=== PATIENT | male | born 1940 | race Caucasian/White ===

== ENCOUNTER 2017-09-08 05:52 | Day surgery (SDC) | payer MEDICARE, OTHER ==
[2017-09-08] MEDS ORDERED: DIPRIVAN 200 MG/20 ML IV ONE (05:53)
[2017-09-08] MEDS ORDERED: Ketamine HCl 50 MG/ML IJ ONE (05:53)
[2017-09-08] MEDS ORDERED: Lactated Ringers 1,000 ML IV SCH (06:00)
[2017-09-08] MEDS ORDERED: Lactated Ringers 1,000 ML IV ONE (07:09)
[2017-09-08 08:56] VITALS: O2SAT 97
[2017-09-08 09:06] VITALS: BP 115/75; PULSE 77
--- NOTE | 2017-09-08 11:51 | OP ---
SURGERY DATE/TIME: 09/08/2017 0726 PREOPERATIVE DIAGNOSIS: Screening exam. POSTOPERATIVE DIAGNOSIS: Moderate sigmoid diverticulosis otherwise normal colon. PROCEDURE: Colonoscopy. SURGEON: Dr. Brownlee. ANESTHESIA: MAC. Medications given by anesthesia department. HISTORY: The patient is a 76 year-old white male patient presenting now for his first colonoscopy. The patient was described the risks of the procedure including the risk of perforation, phlebitis, untoward reaction to medication, bleeding and missed lesions. The patient verbalized his understanding and desired to have the procedure performed. DESCRIPTION OF PROCEDURE: The patient was given the medications by the anesthesia department. He had continuous pulse oximetry, ECG monitoring, intermittent blood pressure monitoring, and tidal CO2 monitoring during the examination. He was placed in the left lateral decubitus position. A digital rectal examination was performed and revealed normal anal sphincter tone and no masses and normal prostate. The flexible Olympus pediatric colonoscope was used to intubate the rectum. A view of the colon was developed sequentially to the cecum. Upon insertion and withdrawal, including a retroflex view in the rectum, there was noted moderate to severe sigmoid diverticulosis otherwise no mucosal lesions were encountered. The scope was removed from the patient who tolerated the procedure well and was sent back to OP recovery in good condition. The prep was noted to be fair.
== END 2017-09-08 09:10 | disposition home or self-care (01) ==
LOC: SDC 05:52
PROVIDERS: ATTEND Family Medicine
PROC: 0DJD8ZZ Inspection of Lower Intestinal Tract, Via Natural or Artificial Opening Endoscopic (ICD-10-PCS; principal; 2017-09-08)
DX: Z12.11 Encounter for screening for malignant neoplasm of colon (principal); E11.9 Type 2 diabetes mellitus without complications; E03.9 Hypothyroidism, unspecified; I25.10 Atherosclerotic heart disease of native coronary artery without angina pectoris; Z95.0 Presence of cardiac pacemaker; K57.30 Diverticulosis of large intestine without perforation or abscess without bleeding
CPT/HCPCS: 82962; G0121; 00740; 99100; J2704

== ENCOUNTER 2017-10-24 17:58 | Observation (INO) | payer MEDICARE, OTHER ==
[2017-10-24] MEDS ORDERED: Zithromax 500 MG/ 250 ML NaCl Premix 500 MG/250 ML IVPB IV STA (18:17)
[2017-10-24] MEDS ORDERED: ROCEPHIN 1 Gm-D5w 50 ml Bag** 1 G/50 ML IVPB IV STA (18:17)
[2017-10-24] MEDS ORDERED: FEVERALL 650 MG PR ONE (18:17)
[2017-10-24] MEDS ORDERED: Zithromax 500 MG/ 250 ML NaCl Premix 500 MG/250 ML IVPB IV ONE (18:23)
[2017-10-24] MEDS ORDERED: Sodium Chloride 0.9% 1000 ML 1,000 ML ONE (18:23)
[2017-10-24] MEDS ORDERED: FEVERALL 650 MG ONE (18:23)
[2017-10-24] MEDS ORDERED: ROCEPHIN 1 Gm-D5w 50 ml Bag** 1 G/50 ML IVPB IV ONE (18:23)
--- NOTE | 2017-10-24 18:25 | ERPHSYRPT ---
- History of Present Illness Time Seen by Provider: 10/24/17 18:07 Source: patient, EMS Patient Subjective Stated Complaint: here for weakness for 2 days . He states he cant get up on knees. he thinks its from hes kness. cough for tow days Triage Nursing Assessment: pt alert, resp easy, has nonproductive cough, right leg and foot with swelling,bruising to right foot, he states he dropped wood on it . Physician History: CC: weakness Hx: 77 y/o patient from home with generalized weakness since yesterday. Some cough. No known fever or chills. Dropped wood on his right foot and has swelling and bruising. Was too weak to stand so came to ER in an EMS unit. He has hx of renal failure not on dialysis. Hx of DM. No V/D. No headache. He has severe myalgias. Dr Torrie Asif Timing/Duration: yesterday Severity: moderate, severe Allergies/Adverse Reactions: glimepiride [From Amaryl] Adverse Reaction (Severe, Verified 10/24/17 18:05) Home Medications: Aspirin 81 gm Chew [Baby Aspirin 81 mg Chew] 81 mg PO DAILY 03/27/14 [ History] Levothyroxine Sodium 50 Mcg [Synthroid 50 Mcg] 25 mcg PO DAILY 03/27/14 [ History] Clopidogrel Bisulfate [Plavix] 75 mg PO 3XW 06/16/14 [History] Donepezil HCl [Aricept] 10 mg PO BID 06/16/14 [History] Tamsulosin HCl 0.4 mg [Flomax 0.4 MG] 0.4 mg PO HS 06/16/14 [History] Alprazolam 1 mg [Xanax 1 mg] 2 mg PO DAILY PRN 10/20/14 [History] Fluoxetine HCl [Prozac] 1 tablet PO DAILY 04/15/15 [History] Hydrocodone Bit/Acetaminophen [Hydrocodon-Acetaminoph 7.5-325] 1 each PO Q4H PRN PRN 04/15/15 [History] Memantine HCl [Namenda] 28 mg PO DAILY 04/15/15 [History] Atorvastatin Calcium 20 mg PO DAILY 08/17/17 [History] Cholecalciferol (Vitamin D3) [Vitamin D] 1,000 unit PO WEEKLY 08/17/17 [ History] Cinacalcet HCl [Sensipar] 30 mg PO DAILY 08/17/17 [History] Ferrous Sulfate [Iron] 325 mg PO DAILY 08/17/17 [History] Gabapentin [Neurontin] 300 mg PO DAILY 08/17/17 [History] Glipizide 7.25 mg PO BID 08/17/17 [History] Metoprolol Succinate 50 mg [Toprol Xl 50 MG] 50 mg PO DAILY 08/17/17 [ History] Omeprazole 40 mg PO DAILY 08/17/17 [History] Ranolazine [Ranexa] 1,000 mg PO DAILY 08/17/17 [History] Sodium Bicarbonate 650 mg PO BID 08/17/17 [History] Vitamin B Complex 1 each PO DAILY 08/17/17 [History] Hx Tetanus, Diphtheria Vaccination/Date Given: Yes (UP TO DATE) Hx Influenza Vaccination/Date Given: Yes Hx Pneumococcal Vaccination/Date Given: Yes Immunizations Up to Date: Yes - Review of Systems Constitutional: Malaise, Weakness, No Fever, No Chills Eyes: No Symptoms Ears, Nose, & Throat: No Symptoms Respiratory: Cough, No Dyspnea Cardiac: No Chest Pain Abdominal/Gastrointestinal: No Abdominal Pain, No Nausea, No Vomiting, No Diarrhea Genitourinary Symptoms: No Dysuria Musculoskeletal: Joint Pain (right foot), No Back Pain Skin: No Rash Neurological: No Focal Weakness, No Headache, No Paralysis, No Parasthesia All Other Systems: Reviewed and Negative - Past Medical History Pertinent Past Medical History: Yes Neurological History: No Pertinent History ENT History: No Pertinent History Cardiac History: High Cholesterol, Hypertension, Myocardial Infarction (DC), Other Respiratory History: Pneumonia Endocrine Medical History: Diabetes Type II, Hypothyroidism Musculoskeletal History: No Pertinent History GI Medical History: Diverticulitis, GERD, Other History: Renal Disease, Other Psycho-Social History: No Pertinent History Male Reproductive Disorders: No Pertinent History Other Medical History: Melanoma Left arm; Stage 4 renal disease - Past Surgical History Past Surgical History: Yes Neuro Surgical History: No Pertinent History Cardiac: Cardiac Catheterization, Cardiac Stent, Pacemaker Respiratory: No Pertinent History Gastrointestinal: No Pertinent History Genitourinary: No Pertinent History Musculoskeletal: Orthopedic Surgery Male Surgical History: No Pertinent History Other Surgical History: rt knee, and revision to rt knee,skin lesions removed lt arm - Social History Smoking Status: Never smoker Exposure to second hand smoke: Yes Drug Use: none Patient Lives Alone: Yes - Nursing Vital Signs Nursing Vital Signs: Initial Vital Signs Temperature 99.6 F 10/24/17 17:59 Pulse Rate 77 10/24/17 17:59 Respiratory Rate 18 10/24/17 17:59 Blood Pressure 137/67 10/24/17 17:59 O2 Sat by Pulse Oximetry 92 L 10/24/17 17:59 Pain Scale Pain Intensity 0 - Physical Exam General Appearance: alert Eye Exam: PERRL/EOMI Ears, Nose, Throat Exam: normal ENT inspection, dry mucous membranes Neck Exam: normal inspection, non-tender, supple, No meningismus Respiratory Exam: crackles/rales (right lung base greater than left) Cardiovascular Exam: regular rate/rhythm Gastrointestinal/Abdomen Exam: soft, No tenderness, No distention, No mass, No guarding Male Genitalia Exam: normal genitalia Back Exam: normal inspection, normal range of motion Extremity Exam: normal range of motion, tenderness (with bruising right foot) Neurologic Exam: alert, oriented x 3, cooperative, communication analyst II-XII nml as tested, sensation nml, No motor deficits Skin Exam: warm, dry, pale, No rash SpO2 Interpretation: hypoxic, O2 applied SpO2: 89 Oxygen Delivery: Room Air - Course Nursing assessment & vital signs reviewed: Yes EKG Interpreted by Me: RATE (75), Sinus Rhythm, LAFB, Right Bundle Branch Block , Non-specific ST Changes - Radiology Exams cxr X-ray Interpretation: Interpreted by me (RUL infiltrate, bibasilar A/I. CM, pacemaker.) Ordered Tests: Active Orders 24 hr Category Date Time Status Herman Bandage Application -[facility] STAT Care 10/24/17 19:41 Active Spar Cap Beveler STAT Care 10/24/17 18:17 Active EKG-ER Only STAT Care 10/24/17 18:08 Active IV Insertion STAT Care 10/24/17 18:07 Active Oxygen-ED Only NASAL CANNULA 2 lpm Care 10/24/17 18:17 Active Pulse Oximetry (ED) STAT Care 10/24/17 18:17 Active Splint STAT Care 10/24/17 19:41 Active CHEST 1 VIEW (PORTABLE) Stat Exams 10/24/17 18:11 Taken FOOT (MINIMUM 3 VIEWS) Stat Exams 10/24/17 19:41 Ordered BLOOD CULTURE Stat Lab 10/24/17 18:51 Received CBC W DIFF Stat Lab 10/24/17 18:40 Completed CMP Stat Lab 10/24/17 18:40 Completed CULTURE,URINE Stat Lab 10/24/17 18:17 Ordered Lactic Acid Stat Lab 10/24/17 18:17 Results Manual Differential NC Stat Lab 10/24/17 18:40 Completed PROTIME WITH INR Stat Lab 10/24/17 18:40 Completed PTT Stat Lab 10/24/17 18:40 Completed TROPONIN Q3H Lab 10/24/17 18:40 Completed TROPONIN Q3H Lab 10/24/17 21:30 Ordered UA Stat Lab 10/24/17 18:17 Ordered VENOUS BLOOD GAS Stat Lab 10/24/17 18:17 Completed Medication Summary Generic Name Dose Route Start Last Admin Trade Name Freq PRN Reason Stop Dose Admin Sodium Chloride 1,000 mls @ 100 mls/hr 10/24/17 18:30 10/24/17 18:30 Sodium Chloride 0.9% 1000 Ml IV 11/23/17 18:29 100 mls/hr .Q10H CYN Administration Oseltamivir Phosphate 75 mg 10/24/17 22:00 Tamiflu 75mg Capsule PO 10/29/17 21:59 BID CYN Discontinued Medications Generic Name Dose Route Start Last Admin Trade Name Freq PRN Reason Stop Dose Admin Acetaminophen 975 mg 10/24/17 18:17 10/24/17 18:30 Feverall 650 Mg IL 10/24/17 18:18 975 mg STAT ONE Administration Acetaminophen Confirm 10/24/17 18:23 Feverall 650 Mg Administered 10/24/17 18:24 Dose 1,300 mg .ROUTE .STK-MED ONE Ceftriaxone Sodium/Dextrose 1 g in 50 mls @ 100 mls/hr 10/24/17 18:17 18:30 Rocephin 1 Gm-D5w 50 Ml Bag IV 10/24/17 18:46 100 mls/hr STAT STA Administration Azithromycin 500 mg in 250 mls @ 250 mls/hr 10/24/17 18:17 10/24/17 18:30 Zithromax 500 Mg/ 250 Ml Nacl Premix IV 10/24/17 19:16 250 mls/hr STAT STA Administration Azithromycin Confirm 10/24/17 18:23 Zithromax 500 Mg/ 250 Ml Nacl Premix Administered 10/24/17 18:24 Dose 500 mg in 250 mls @ ud IV .STK-MED ONE Ceftriaxone Sodium/Dextrose Confirm 10/24/17 18:23 Rocephin 1 Gm-D5w 50 Ml Bag Administered 10/24/17 18:24 Dose 1 g in 50 mls @ ud IV .STK-MED ONE Lab/Rad Data: Laboratory Result Diagrams 10/24/17 18:40 10/24/17 18:40 Laboratory Results 10/24/17 10/24/17 10/24/17 Range/Units 18:40 18:40 18:40 WBC (4.0-10.5) K/mm3 RBC (4.1-5.6) M/mm3 Hgb (12.5-18.0) gm/dl Hct (42-50) % MCV (78-100) fl MCH (26-32) pg MCHC (32-36) g/dl RDW (11.5-14.0) % Plt Count (150-450) K/mm3 MPV (6-9.5) fl Segmented Neutrophils (36.-66.) % Band Neutrophils (0.0-2.0) % Lymphocytes (Manual) (24-44) % Monocytes (Manual) (0.0-12.0) % Differential Comment Platelet Estimate (NORMAL) INR 1.09 (0.8-3.0) APTT 31.3 (24.1-36.1) SECONDS VBG pH (7.32-7.42) VBG pCO2 at Pat Temp (42-55) mm/Hg VBG pO2 at Pat Temp (25-40) mm/Hg VBG HCO3 (22-28) meq/L VBG O2 Sat (Owen) (95-100) VBG Base Excess (-2.0-2.0) VBG Hemoglobin VBG Carboxyhemoglobin (0.0-6.9) % T HGB POC Potassium (3.5-5.1) Sodium 138 (136-145) mEq/L Potassium 4.4 (3.5-5.1) mEq/L Chloride 103 (98-107) mEq/L Carbon Dioxide 27.4 (21-32) mEq/L Anion Gap 11.8 (5-15) MEQ/L BUN 32 H (9-20) mg/dL Creatinine 4.21 H (0.55-1.30) mg/dl Estimated GFR 15 ML/MIN Glucose 138 H (70-110) MG/DL Lactic Acid (0.4-2.0) Calcium 10.4 H (8.5-10.1) mg/dL Total Bilirubin 0.40 (0.2-1.0) mg/dL AST 19 (15-37) U/L ALT 24 (12-78) U/L Alkaline Phosphatase 89 (46-116) U/L Troponin I 0.030 (0.000-0.056) ng/ml Serum Total Protein 6.4 (6.4-8.2) gm/dL Albumin 3.4 (3.4-5.0) g/dL Influenza Type A Ag (NEGATIVE) Influenza Type B Ag (NEGATIVE) RSV (PCR) (Negative) 10/24/17 10/24/17 10/24/17 Range/Units 18:40 18:17 18:17 WBC 6.7 (4.0-10.5) K/mm3 RBC 3.66 L (4.1-5.6) M/mm3 Hgb 12.4 L (12.5-18.0) gm/dl Hct 37.3 L (42-50) % MCV 101.9 H (78-100) fl MCH 33.8 H (26-32) pg MCHC 33.2 (32-36) g/dl RDW 13.0 (11.5-14.0) % Plt Count 129 L (150-450) K/mm3 MPV 9.3 (6-9.5) fl Segmented Neutrophils 89 H (36.-66.) % Band Neutrophils 4 H (0.0-2.0) % Lymphocytes (Manual) 3 L (24-44) % Monocytes (Manual) 4 (0.0-12.0) % Differential Comment NORMAL Platelet Estimate NORMAL (NORMAL) INR (0.8-3.0) APTT (24.1-36.1) SECONDS VBG pH 7.39 (7.32-7.42) VBG pCO2 at Pat Temp 52 (42-55) mm/Hg VBG pO2 at Pat Temp 16 L (25-40) mm/Hg VBG HCO3 31.5 H* (22-28) meq/L VBG O2 Sat (Owen) 48.1 L (95-100) VBG Base Excess 5.2 H (-2.0-2.0) VBG Hemoglobin 13.6 VBG Carboxyhemoglobin 1.7 (0.0-6.9) % T HGB POC Potassium 4.5 (3.5-5.1) Sodium (136-145) mEq/L Potassium (3.5-5.1) mEq/L Chloride (98-107) mEq/L Carbon Dioxide (21-32) mEq/L Anion Gap (5-15) MEQ/L BUN (9-20) mg/dL Creatinine (0.55-1.30) mg/dl Estimated GFR ML/MIN Glucose (70-110) MG/DL Lactic Acid 1.9 (0.4-2.0) Calcium (8.5-10.1) mg/dL Total Bilirubin (0.2-1.0) mg/dL AST (15-37) U/L ALT (12-78) U/L Alkaline Phosphatase (46-116) U/L Troponin I (0.000-0.056) ng/ml Serum Total Protein (6.4-8.2) gm/dL Albumin (3.4-5.0) g/dL Influenza Type A Ag (NEGATIVE) Influenza Type B Ag (NEGATIVE) RSV (PCR) (Negative) 10/24/17 Range/Units 18:15 WBC (4.0-10.5) K/mm3 RBC (4.1-5.6) M/mm3 Hgb (12.5-18.0) gm/dl Hct (42-50) % MCV (78-100) fl MCH (26-32) pg MCHC (32-36) g/dl RDW (11.5-14.0) % Plt Count (150-450) K/mm3 MPV (6-9.5) fl Segmented Neutrophils (36.-66.) % Band Neutrophils (0.0-2.0) % Lymphocytes (Manual) (24-44) % Monocytes (Manual) (0.0-12.0) % Differential Comment Platelet Estimate (NORMAL) INR (0.8-3.0) APTT (24.1-36.1) SECONDS VBG pH (7.32-7.42) VBG pCO2 at Pat Temp (42-55) mm/Hg VBG pO2 at Pat Temp (25-40) mm/Hg VBG HCO3 (22-28) meq/L VBG O2 Sat (Owen) (95-100) VBG Base Excess (-2.0-2.0) VBG Hemoglobin VBG Carboxyhemoglobin (0.0-6.9) % T HGB POC Potassium (3.5-5.1) Sodium (136-145) mEq/L Potassium (3.5-5.1) mEq/L Chloride (98-107) mEq/L Carbon Dioxide (21-32) mEq/L Anion Gap (5-15) MEQ/L BUN (9-20) mg/dL Creatinine (0.55-1.30) mg/dl Estimated GFR ML/MIN Glucose (70-110) MG/DL Lactic Acid (0.4-2.0) Calcium (8.5-10.1) mg/dL Total Bilirubin (0.2-1.0) mg/dL AST (15-37) U/L ALT (12-78) U/L Alkaline Phosphatase (46-116) U/L Troponin I (0.000-0.056) ng/ml Serum Total Protein (6.4-8.2) gm/dL Albumin (3.4-5.0) g/dL Influenza Type A Ag POSITIVE (NEGATIVE) Influenza Type B Ag NEGATIVE (NEGATIVE) RSV (PCR) NEGATIVE (Negative) - Progress Progress Note: 17 19:42 Flu positive. Await foot xray but will splint as fracture possible. Called Dr Brownlee and will place in observation. He advised tamiflu. Daughter at bedside and aware of plan. Discussed with : Torrie Will see patient in: hospital (observation) Counseled pt/family regarding: lab results, diagnosis, need for follow-up, rad results - Departure Time of Disposition: 19:43 Departure Disposition: Observation Clinical Impression: Influenza A, Right foot injury, Pneumonia, Diabetes mellitus, Chronic renal impairment Condition: Fair Critical Care Time: No Referrals: ELADIO BROWNLEE [Primary Care Provider] -
[2017-10-24] MEDS ORDERED: Sodium Chloride 0.9% 1000 ML 1,000 ML IV SCH (18:30)
[2017-10-24 18:55] LABS: Mean Cell Volume 101.9 fl (78-100); Mean Platelet Volume 9.3 fl (6-9.5); Platelet Count 129 K/mm3 (150-450); Red Blood Count 3.66 M/mm3 (4.1-5.6); White Blood Count 6.7 K/mm3 (4.0-10.5)
[2017-10-24 18:57] LABS: Mean Corpuscular Hemoglobin 33.8 pg (26-32)
[2017-10-24 19:15] LABS: INR 1.09 (0.8-3.0); PROTIME 12.1 SECONDS (8.83-12.87)
[2017-10-24 19:17] LABS: PTT 31.3 SECONDS (24.1-36.1)
[2017-10-24 19:24] LABS: ALBUMIN 3.4 g/dL (3.4-5.0); ANION GAP 11.8 MEQ/L (5-15); BILIRUBIN,TOTAL 0.4 mg/dL (0.2-1.0); Carbon Dioxide 27.4 mEq/L (21-32); Potassium 4.4 mEq/L (3.5-5.1); Total Protein 6.4 gm/dL (6.4-8.2)
[2017-10-24 19:33] LABS: BAND 4 % (0.0-2.0); Total Cells Counted 100
[2017-10-24 19:34] LABS: Platelet Estimate NORMAL (NORMAL)
[2017-10-24 19:35] LABS: Lactic Acid 1.9 (0.4-2.0)
[2017-10-24 19:39] LABS: VBG BASE EXCESS 5.2 (-2.0-2.0); VBG CARBOXYHEMOGLOBIN 1.7 % T HGB (0.0-6.9); VBG HCO3- 31.5 meq/L (22-28); VBG HEMOGLOBIN 13.6; VBG O2 SATURATION 48.1 (95-100); VBG POTASSIUM 4.5 (3.5-5.1); VBG pH 7.39 (7.32-7.42)
[2017-10-24] MEDS ORDERED: Tamiflu 75MG Capsule PO SCH (22:00)
[2017-10-24] MEDS ORDERED: PROVENTIL 2.5 MG/3 ML NEB IH PRN (22:04)
[2017-10-24] MEDS ORDERED: NovoLOG Insulin SQ PRN (22:04)
[2017-10-24] MEDS ORDERED: TYLENOL 325 MG PO PRN (22:04)
[2017-10-24] MEDS: Sodium Chloride 0.9% 1000 ML 1,000 ML IV SCH (23:23)
[2017-10-25 01:36] LABS: Bilirubin NEGATIVE (NEGATIVE); Blood 250 Ery/ul (0-5); COMPLETE URINE MICROSCOPIC? YES; Collection Type VOID; Glucose 50 mg/dL (NEGATIVE); Leukocyte Esterase NEGATIVE (NEGATIVE); Mucus MODERATE /HPF (NEGATIVE)
[2017-10-25 01:37] LABS: Bacteria MODERATE /HPF (NEGATIVE); Epithelial Cells MODERATE /HPF (FEW); GRANULAR CASTS 0-2 /LPF (NEGATIVE)
[2017-10-25 05:44] LABS: BASOPHIL % 0.4 % (0.0-0.4); Eosinophil % 0.2 % (0.00-5.0); Granulocytes % 74.2 % (36.0-66.0); Lymphocytes % 11.4 % (24.0-44.0); Mean Corpuscular Hemoglobin 33.6 pg (26-32); Mean Platelet Volume 9.3 fl (6-9.5); Monocytes % 13.8 % (0.0-12.0); Platelet Count 114 K/mm3 (150-450); Red Blood Count 3.42 M/mm3 (4.1-5.6); Red Cell Distribution Width 12.9 % (11.5-14.0); White Blood Count 5.4 K/mm3 (4.0-10.5)
[2017-10-25 06:00] LABS: ANION GAP 10.1 MEQ/L (5-15); Carbon Dioxide 26.9 mEq/L (21-32); Potassium 4.4 mEq/L (3.5-5.1)
--- NOTE | 2017-10-25 09:01 | XRAY ---
Indication: Generalized weakness. Comparison: October 20, 2014. Portable apical lordotic chest remains clear. Heart is not enlarged again with left-sided dual-lead pacemaker. Bony thorax intact again with mild degenerative changes and left axillary vincenzo dissection. Impression: Stable nonacute chest with chronic features.
--- NOTE | 2017-10-25 09:05 | XRAY ---
Indication: Pain, swelling, and bruising following injury. Comparison: None 3 nonweightbearing views of the right foot demonstrates tiny curvilinear calcifications medial to the first MTP either degenerative versus fracture of uncertain chronicity. Elsewhere small heel spurs, extensive vascular calcifications, and medial malleolar heterotopic ossifications either degenerative versus old injury.
[2017-10-25] MEDS: OSELTAMIVIR PHOSPHATE 30 MG CAP PO SCH (09:31)
[2017-10-25] MEDS ORDERED: Zithromax 500 MG/ 250 ML NaCl Premix 500 MG/250 ML IVPB IV SCH (10:00)
[2017-10-25] MEDS ORDERED: ROCEPHIN 1 Gm-D5w 50 ml Bag** 1 G/50 ML IVPB IV SCH (10:00)
[2017-10-25] MEDS ORDERED: NORCO 7.5/325 MG TAB PO PRN (11:47)
[2017-10-25] MEDS ORDERED: Flomax 0.4 MG PO SCH ×2 (12:00→22:00)
[2017-10-25] MEDS ORDERED: XANAX 1 MG PO PRN (12:00)
[2017-10-25] MEDS ORDERED: MEDICATION INTERVENTION MC PRN (12:02)
[2017-10-25] MEDS: Protonix 40MG Tablet PO SCH (12:29)
[2017-10-25] MEDS: Namenda 5 MG PO SCH ×2 (12:29→21:32)
[2017-10-25] MEDS: NEURONTIN 300 MG PO SCH (12:30)
[2017-10-25] MEDS: VITAMIN D PO SCH (12:30)
[2017-10-25] MEDS: Aricept 10 MG PO SCH ×2 (12:30→21:31)
[2017-10-25] MEDS: Prozac 20 MG PO SCH (12:30)
[2017-10-25] MEDS: Ranexa 500 MG PO SCH (12:30)
[2017-10-25] MEDS: FEOSOL 325 MG PO SCH (12:30)
[2017-10-25] MEDS: PLAVIX 75 MG Tablet PO SCH (12:31)
[2017-10-25] MEDS: Toprol Xl 50 MG PO SCH (12:31)
[2017-10-25] MEDS: VITA-BEE WITH C PO SCH (12:52)
[2017-10-25] MEDS: NON-FORMULARY ITEM (Sodium Bicarbonate [Sodium Bicarbonate] 0 MG) PO SCH ×2 (12:52→21:32)
[2017-10-25] MEDS: Sodium Chloride 0.9% 1000 ML 1,000 ML IV SCH ×2 (13:21→15:30)
[2017-10-25] MEDS ORDERED: Glucotrol 5 MG PO SCH (16:30)
[2017-10-25] MEDS ORDERED: ZOCOR 20MG PO SCH (22:00)
[2017-10-25] MEDS ORDERED: NON-FORMULARY ITEM (Memantine Hcl [Namenda] 10 MG) PO SCH (22:00)
[2017-10-25] MEDS ORDERED: Dextrose 5% -0.45 NaCl 1000 ML 1,000 ML IV SCH (23:00)
[2017-10-26 01:04] VITALS: O2SAT 95
[2017-10-26 05:56] LABS: BASOPHIL % 0.2 % (0.0-0.4); Eosinophil % 0.4 % (0.00-5.0); Granulocytes % 70.2 % (36.0-66.0); Lymphocytes % 15.9 % (24.0-44.0); Mean Cell Volume 100.8 fl (78-100); Mean Platelet Volume 9.6 fl (6-9.5); Monocytes % 13.3 % (0.0-12.0); Platelet Count 110 K/mm3 (150-450); Red Blood Count 3.56 M/mm3 (4.1-5.6); Red Cell Distribution Width 12.7 % (11.5-14.0); White Blood Count 5.3 K/mm3 (4.0-10.5)
[2017-10-26 06:29] LABS: ALBUMIN 2.7 g/dL (3.4-5.0); ANION GAP 9.2 MEQ/L (5-15); BILIRUBIN,TOTAL 0.2 mg/dL (0.2-1.0); Potassium 4.1 mEq/L (3.5-5.1); Total Protein 5.5 gm/dL (6.4-8.2)
[2017-10-26 06:37] LABS: Mean Corpuscular Hemoglobin 33.9 pg (26-32)
[2017-10-26 07:52] VITALS: BP 152/72; PULSE 70
[2017-10-26] MEDS: Protonix 40MG Tablet PO SCH (08:14)
[2017-10-26] MEDS: Namenda 5 MG PO SCH (08:14)
[2017-10-26] MEDS: Ranexa 500 MG PO SCH (08:14)
[2017-10-26] MEDS: Toprol Xl 50 MG PO SCH (08:14)
[2017-10-26] MEDS: Aricept 10 MG PO SCH (08:14)
[2017-10-26] MEDS: PLAVIX 75 MG Tablet PO SCH (08:14)
[2017-10-26] MEDS: NEURONTIN 300 MG PO SCH (08:14)
[2017-10-26] MEDS: VITAMIN D PO SCH (08:15)
[2017-10-26] MEDS: FEOSOL 325 MG PO SCH (08:15)
[2017-10-26] MEDS: Prozac 20 MG PO SCH (08:15)
[2017-10-26] MEDS: NON-FORMULARY ITEM (Sodium Bicarbonate [Sodium Bicarbonate] 0 MG) PO SCH (08:15)
[2017-10-26] MEDS: VITA-BEE WITH C PO SCH (08:16)
[2017-10-26] MEDS: OSELTAMIVIR PHOSPHATE 30 MG CAP PO SCH (08:16)
[2017-10-26] MEDS ORDERED: CINACALCET HCL 30 MG PO SCH (10:00)
[2017-10-26] MEDS ORDERED: NON-FORMULARY ITEM (Omeprazole [Omeprazole] 40 MG) PO SCH (10:00)
[2017-10-26] MEDS ORDERED: SYNTHROID 50 MCG PO SCH (10:00)
[2017-10-26] MEDS ORDERED: NON-FORMULARY ITEM (Vitamin B Complex [Vitamin B Complex] 1 EACH) PO SCH (10:00)
[2017-10-26] MEDS ORDERED: ECOTRIN 81 MG PO SCH (10:00)
[2017-10-26] MEDS ORDERED: SYNTHROID 25 MCG PO SCH (10:00)
[2017-10-26] MEDS ORDERED: RANOLAZINE 500 MG PO SCH (10:00)
[2017-10-26] MEDS ORDERED: NON-FORMULARY ITEM (Atorvastatin Calcium [Atorvastatin Calcium] 20 MG) PO SCH (10:00)
[2017-10-26] MEDS ORDERED: BABY ASPIRIN 81 MG CHEW PO SCH (10:00)
--- NOTE | 2017-10-26 11:10 | SSS ---
DISCHARGE DIAGNOSES: 1) INFLUENZA A. 2) RENAL FAILURE. 3) WEAKNESS. 4) DIABETES MELLITUS TYPE 2. 5) CORONARY ARTERY DISEASE. HISTORY OF PRESENT ILLNESS: The patient is a 77 year-old white male patient who has been sick over the past roughly 24 to 48 hours. He had been running a fever, chills and sweats. He reports that his legs would no longer support him and he was getting quite weak. He actually dropped a piece of wood on his foot causing some bruising and swelling. He presented to the emergency room and was subsequently admitted to the hospital for further evaluation and management. PAST MEDICAL HISTORY: Again significant for the renal failure, coronary artery disease, gastroesophageal reflux disease. He also apparently has some mild dementia. HOME MEDICATIONS: Currently are aspirin 81 mg a day, levothyroxine 50 mcg a day, Plavix 75 mg daily, Aricept 10 mg b.i.d., Flomax 0.4 mg at night, Alprazolam 1 mg tablet he takes two tablets PRN. Fluoxetine 20 mg daily, hydrocodone 7.5 mg every four to six hours PRN pain, Namenda 28 mg daily, Atorvastatin 20 mg a day. He takes 1,000 units of vitamin D weekly, Sensipar 30 mg a day, iron 325 mg a day, Neurontin 300 mg a day, Glipizide 7.25 mg b.i.d., metoprolol 50 mg daily, omeprazole 40 mg a day, Ranexa 1,000 mg a day, sodium bicarbonate 650 mg b.i.d. and vitamin B complex vitamins. ALLERGIES: AMARYL. PHYSICAL EXAMINATION: Showed initially temperature 99.6F, pulse 77, respiratory rate 18, blood pressure 137/67. O2 saturation 92% on room air. HEENT: Normocephalic, atraumatic. Pupils equal round reactive to light. Extraocular movements intact. Oropharynx is somewhat dry. NECK: Supple without lymphadenopathy, thyromegaly or JVD. CHEST: Clear to auscultation with good air movement bilaterally. HEART: Regular rate and rhythm without significant murmurs, rubs or gallops. ABDOMEN: Soft, nontender, nondistended without palpable masses. EXTREMITIES: Without clubbing, cyanosis or edema. NEUROLOGIC: The patient appeared to be alert and oriented x3 with no focal deficits. LAB DATA AND TESTS: Revealed some mild elevation of his troponins but not above what was considered to be abnormal for our lab. He had initial sugar 138 nonfasting, BUN 32, creatinine 4.21. Electrolytes were normal. Liver enzymes normal. Venous blood gas 7.39 with pCO2 of 62. Again influenza A was positive. Respiratory syncytial virus and influenza B were negative. His white blood cell count was 6,700 but he did have 4 bands and 89 polys. He had hemoglobin 12.4 and PLT count 129,000. His international normalized ratio was 1.09. Lactic acid 1.9. He had x-rays showing chest stable with nonacute features. Foot x-ray was negative for fracture. HOSPITAL COURSE: The patient was admitted to the medicine [facility] and given IV fluids, began on Tamiflu. He was also empirically began on Rocephin and Zithromax due to the left shift in his white blood cell count with the concern of bacterial infection. The patient did well with the above treatment. By the next morning he was looking really back to his normal state of health. He had PT evaluation which he did ambulate without much difficulty. By 10/26/2017, he was taking a normal breakfast. He was mildly hypoglycemic overnight prompting us to change his IV fluids to D5 half normal saline. He was felt to be ready for discharge home and was anxious to leave the hospital by the morning of 10/26/2017. We discharged him home on Tamiflu 30 mg daily for three days due to the renal adjustment in his dosage and Augmentin 875 mg twice a day for a week in addition to his usual home medications. He will have a follow up appointment in my office in one week. He is to call the hospital if he has any further problems in the interim. The patient is living at home presently by himself but we did speak with the family and they understand the severity of the illness and will be checking on him on a more frequent basis due to his recent illness.
== END 2017-10-26 09:10 | disposition home or self-care (01) ==
LOC: ED 17:58 → MED SURG 21:16
PROVIDERS: ADMIT Family Medicine; ATTEND Family Medicine
DX: J10.1 Influenza due to other identified influenza virus with other respiratory manifestations (principal); N19 Unspecified kidney failure; R53.1 Weakness; E11.9 Type 2 diabetes mellitus without complications; I25.10 Atherosclerotic heart disease of native coronary artery without angina pectoris; K21.9 Gastro-esophageal reflux disease without esophagitis; F03.90 Unspecified dementia, unspecified severity, without behavioral disturbance, psychotic disturbance, mood disturbance, and anxiety; Z79.899 Other long term (current) drug therapy
CPT/HCPCS: 36000; 36415; 71010; 73630; 80048; 80053; 81000; 82805; 82947; 82962; 83605; 84484; 85025; 85610; 85730; 87040; 87086; 87631; 93005; 93041; 94760; 96360; 96361; 96365; 96366; 99285; G0378; J0456; J0696; A9270-GY

== ENCOUNTER 2020-06-23 19:07 | Inpatient (IN) | payer MEDICARE, OTHER ==
[2020-06-23 21:25] LABS: Absolute Neutrophil Ct (ANC) 3.47 (1.4-6.9); BASOPHIL % 0.2 % (0.0-0.4); Basophil (Absolute #) 0.01 (0-0.4); Eosinophil % 0.2 % (0.00-5.0); Eosinophil (Absolute #) 0.01 (0-0.5); Hematocrit 34.1 % (42-50); Hemoglobin 11.3 gm/dl (12.5-18.0); Lymphocyte (Absolute #) 0.69 (1.0-4.6); Mean Cell Volume 98.6 fl (78-100); Mean Corpuscular Hemoglobin 32.7 pg (26-32); Mean Corpuscular Hgb Concent. 33.1 g/dl (32-36); Mean Platelet Volume 9.7 fl (7.5-11.0); Monocyte (Absolute #) 0.43 (0.0-1.3); Monocytes % 9.3 % (0.0-12.0); Neutrophil % 75.3 % (36.0-66.0); Platelet Count 123 K/mm3 (150-450); Red Blood Count 3.46 M/mm3 (4.1-5.6); Red Cell Distribution Width 13.1 % (11.5-14.0); White Blood Count 4.6 K/mm3 (4.0-10.5)
[2020-06-23 21:30] LABS: ALBUMIN 3.9 g/dL (3.5-5.0); ANION GAP 12.3 MEQ/L (5-15); BILIRUBIN,TOTAL 0.5 mg/dL (0.2-1.3); Calcium 9.1 mg/dL (8.4-10.2); Creatinine 1 3.35 mg/dL (0.66-1.25); EST GLOMERULAR FILTRATION RATE 19.1 ML/MIN; Potassium 4.6 mmol/L (3.5-5.1); Total Protein 6.6 g/dL (6.3-8.2)
[2020-06-23 21:53] LABS: Appearance CLEAR (CLEAR); Bilirubin NEGATIVE (NEGATIVE); Blood MODERATE Ery/ul (0-5); Glucose 150 mg/dL (NEGATIVE); Ketones NEGATIVE (NEGATIVE); Leukocyte Esterase NEGATIVE (NEGATIVE); Nitrite NEGATIVE (NEGATIVE); Protein,Urine Dip 100 (Negative); Specific Gravity 1.015 (1.005-1.025); Urobilinogen 2 mg/dL (0-1)
[2020-06-23 22:09] LABS: Group A Strep NOT DETECTED (NEGATIVE)
[2020-06-23 22:14] LABS: INFLUENZA A NEGATIVE (NEGATIVE); INFLUENZA B NEGATIVE (NEGATIVE); RESPIRATORY SYNCTIAL VIRUS NEGATIVE (Negative)
--- NOTE | 2020-06-23 22:44 | ERPHSYRPT ---
- History of Present Illness Time Seen by Provider: 06/23/20 19:35 Source: patient Exam Limitations: no limitations Patient Subjective Stated Complaint: pt states that he woke up yesterday stating "can't breath through my mouth", pt states that he has nasal drainage, pt states that he has wet cough Triage Nursing Assessment: pt came into the er via wheelchair, pt is axo x3, c/o SOB, O2 96 % on room air, clear lung sounds in all lobes, moist cough present, denies pain, nasal drainage, RR 22 and normal depth, hypertensive, denies respiratory hx Physician History: Patient is a 79-year-old male presents to our ED with complaints of shortness of breath. Patient states he awoke yesterday with difficulty breathing through his mouth. Patient admits to feeling congested. Patient has been experiencing nasal drainage as well. He has had a cough which she describes as wet. No associated chest pain. No nausea or vomiting. No diaphoresis. No sick contacts. Symptoms are constant. Symptoms are mild to moderate in intensity. No specific worsening or improving factors. Patient voices no other complaints at this time. Timing/Duration: yesterday Severity: moderate Modifying Factors: Improves With: nothing Associated Symptoms: cough, No nausea, No vomiting, No abdominal pain, No heartburn, No chills, No chest pain, No fever, No headaches, No seizure, No weakness Allergies/Adverse Reactions: No Known Allergies Allergy (Verified 06/23/20 19:25) Home Medications: Aspirin 81 gm Chew [Baby Aspirin 81 mg Chew] 81 mg PO DAILY 03/27/14 [History] Levothyroxine Sodium 50 Mcg [Synthroid 50 Mcg] 25 mcg PO DAILY 03/27/14 [History] Clopidogrel Bisulfate [Plavix] 75 mg PO 3XW 06/16/14 [History] Donepezil HCl [Aricept] 10 mg PO BID 06/16/14 [History] Tamsulosin HCl 0.4 mg [Flomax 0.4 MG] 0.4 mg PO HS 06/16/14 [History] Fluoxetine HCl [Prozac] 40 mg PO DAILY 04/15/15 [History] Memantine HCl [Namenda] 10 mg PO BID 04/15/15 [History] Atorvastatin Calcium 40 mg PO HS 08/17/17 [History] Ferrous Sulfate [Iron] 325 mg PO DAILY 08/17/17 [History] Gabapentin [Neurontin] 300 mg PO HS 08/17/17 [History] Omeprazole 40 mg PO DAILY 08/17/17 [History] Sodium Bicarbonate 650 mg PO HS 08/17/17 [History] Carvedilol 12.5 mg [Coreg 12.5 mg] 12.5 mg PO BID 11/04/19 [History] Evolocumab [Repatha Sureclick] 140 mg SQ UD 11/04/19 [History] Insulin Detemir [Levemir] 50 unit SQ HS 11/04/19 [History] Insulin Detemir [Levemir] 45 unit SQ DAILY 06/23/20 [History] Hx Tetanus, Diphtheria Vaccination/Date Given: No Hx Influenza Vaccination/Date Given: Yes Hx Pneumococcal Vaccination/Date Given: Yes Travel Risk - International Travel Have you traveled outside of the country in past 3 weeks: No (N) If Yes, where;: N - Coronavirus Screening Are you exhibiting any of the following symptoms?: Yes Close contact with a COVID-19 positive Pt in past 14-21 Days: No - Review of Systems Constitutional: No Symptoms, No Fever, No Chills Eyes: No Symptoms Ears, Nose, & Throat: No Symptoms Respiratory: No Symptoms, No Cough, No Dyspnea Cardiac: No Symptoms, No Chest Pain, No Edema, No Syncope Abdominal/Gastrointestinal: No Symptoms, No Abdominal Pain, No Nausea, No Vomiting, No Diarrhea Genitourinary Symptoms: No Symptoms, No Dysuria Musculoskeletal: No Symptoms, No Back Pain, No Neck Pain Skin: No Symptoms, No Rash Neurological: No Symptoms, No Dizziness, No Focal Weakness, No Sensory Changes Psychological: No Symptoms Endocrine: No Symptoms Hematologic/Lymphatic: No Symptoms Immunological/Allergic: No Symptoms All Other Systems: Reviewed and Negative - Past Medical History Pertinent Past Medical History: Yes Neurological History: TIA ENT History: No Pertinent History Cardiac History: Coronary Artery Disease, Myocardial Infarction (RI) Respiratory History: No Pertinent History Endocrine Medical History: Adrenal Insufficiency, Diabetes Type II Musculoskeletal History: Osteoarthritis GI Medical History: Diverticulitis, GERD, Other History: Renal Disease, Other Psycho-Social History: Anxiety, Depression Male Reproductive Disorders: Prostate Problems Other Medical History: Pacemaker, stents - Past Surgical History Past Surgical History: Yes Neuro Surgical History: No Pertinent History Cardiac: Cardiac Catheterization, Cardiac Stent, Pacemaker Respiratory: No Pertinent History Gastrointestinal: No Pertinent History Genitourinary: No Pertinent History Musculoskeletal: Orthopedic Surgery Male Surgical History: No Pertinent History Other Surgical History: rt knee replacement and revision to rt knee, skin lesions removed left arm, parathyroid gland removed - Social History Smoking Status: Never smoker Exposure to second hand smoke: No Drug Use: none Patient Lives Alone: Yes - Nursing Vital Signs Nursing Vital Signs: Initial Vital Signs Temperature 100.7 F 06/23/20 19:25 Pulse Rate 64 06/23/20 19:25 Respiratory Rate 22 06/23/20 19:25 Blood Pressure 166/75 06/23/20 19:25 O2 Sat by Pulse Oximetry 95 06/23/20 19:25 Pain Scale Pain Intensity 0 - Physical Exam General Appearance: no apparent distress, alert Eye Exam: PERRL/EOMI, eyes nml inspection Ears, Nose, Throat Exam: normal ENT inspection, TMs normal, pharynx normal, moist mucous membranes Neck Exam: normal inspection, non-tender, supple, full range of motion Respiratory Exam: normal breath sounds, lungs clear, No respiratory distress Cardiovascular Exam: regular rate/rhythm, normal heart sounds, normal peripheral pulses Gastrointestinal/Abdomen Exam: soft, normal bowel sounds, No tenderness, No mass Back Exam: normal inspection, normal range of motion, No CVA tenderness, No vertebral tenderness Extremity Exam: normal inspection, normal range of motion, pelvis stable Neurologic Exam: alert, oriented x 3, cooperative, normal mood/affect, nml cerebellar function, nml station & gait, sensation nml, No motor deficits Skin Exam: normal color, warm, dry, No rash Lymphatic Exam: No adenopathy SpO2 Interpretation: normal SpO2: 95 O2 Delivery: Room Air - Course Nursing assessment & vital signs reviewed: Yes EKG Interpreted by Me: RATE (65), Left [place] Deviation, prolonged QT interval, Left Bundle Branch Block, Other (atrial paced) - Radiology Exams Chest X-ray Interpretation: Teleradiologist Report (Other limited as it appears patient's hand overlies the left lung base limiting evaluation otherwise the lung olivier appear clear.) Ordered Tests: Active Orders 24 hr Category Date Time Status Hand Rug Cleaner STAT Care 06/23/20 21:17 Active EKG-ER Only STAT Care 06/23/20 21:16 Active IV Insertion STAT Care 06/23/20 21:16 Active Pulse Oximetry (ED) STAT Care 06/23/20 21:16 Active CHEST 1 VIEW (PORTABLE) Stat Exams 06/23/20 21:17 Completed BLOOD CULTURE Stat Lab 06/23/20 21:30 Received CBC W DIFF Stat Lab 06/23/20 21:00 Completed CMP Stat Lab 06/23/20 21:00 Completed CULTURE,URINE Stat Lab 06/23/20 21:46 Received Lactic Acid Stat Lab 06/23/20 22:00 Completed TROPONIN Q3H Lab 06/23/20 21:30 Completed TROPONIN Q3H Lab 06/24/20 00:30 Ordered TROPONIN Q3H Lab 06/24/20 03:30 Ordered TROPONIN Q3H Lab 06/24/20 06:30 Ordered TROPONIN Q3H Lab 06/24/20 09:30 Ordered UA W/RFX UR CULTURE Stat Lab 06/23/20 21:46 Completed Transfer Order Routine Transfer 06/24/20 Ordered Medication Summary Discontinued Medications Generic Name Dose Route Start Last Admin Trade Name Fani PRN Reason Stop Dose Admin Acetaminophen 975 mg 06/24/20 00:22 Tylenol 325 Mg PO 06/24/20 00:23 STAT ONE Acetaminophen Confirm 06/24/20 00:25 Tylenol Extra Strength 500 Mg Administered 06/24/20 00:26 Dose 1,000 mg .ROUTE .ST-MED ONE Lab/Rad Data: Laboratory Result Diagrams 06/23/20 21:00 06/23/20 21:00 Laboratory Results 06/23/20 06/23/20 06/23/20 Range/Units 22:00 21:46 21:45 WBC (4.0-10.5) K/mm3 RBC (4.1-5.6) M/mm3 Hgb (12.5-18.0) gm/dl Hct (42-50) % MCV (78-100) fl MCH (26-32) pg MCHC (32-36) g/dl RDW (11.5-14.0) % Plt Count (150-450) K/mm3 MPV (7.5-11.0) fl Gran % (36.0-66.0) % Eos # (Auto) (0-0.5) Absolute Lymphs (auto) (1.0-4.6) Absolute Monos (auto) (0.0-1.3) Lymphocytes % (24.0-44.0) % Monocytes % (0.0-12.0) % Eosinophils % (0.00-5.0) % Basophils % (0.0-0.4) % Absolute Granulocytes (1.4-6.9) Basophils # (0-0.4) Sodium (137-145) mmol/L Potassium (3.5-5.1) mmol/L Chloride (98-107) mmol/L Carbon Dioxide (22-30) mmol/L Anion Gap (5-15) MEQ/L BUN (9-20) mg/dL Creatinine (0.66-1.25) mg/dL Estimated GFR ML/MIN Glucose (74-106) mg/dL Lactic Acid 1.2 (0.4-2.0) Calcium (8.4-10.2) mg/dL Total Bilirubin (0.2-1.3) mg/dL AST (17-59) U/L ALT (0-50) U/L Alkaline Phosphatase (38-126) U/L Troponin I (0.000-0.034) ng/mL Serum Total Protein (6.3-8.2) g/dL Albumin (3.5-5.0) g/dL Urine Color YELLOW (YELLOW) Urine Appearance CLEAR (CLEAR) Urine pH 6.0 (5-6) Ur Specific [place] 1.015 (1.005-1.025) Urine Protein 100 (Negative) Urine Ketones NEGATIVE (NEGATIVE) Urine Blood MODERATE (0-5) Donn/ul Urine Nitrite NEGATIVE (NEGATIVE) Urine Bilirubin NEGATIVE (NEGATIVE) Urine Urobilinogen 2 (0-1) mg/dL Ur Leukocyte Esterase NEGATIVE (NEGATIVE) Urine WBC (Auto) 3-5 (0-5) /HPF Urine RBC (Auto) 11-15 (0-2) /HPF U Epithel Cells (Auto) NONE (FEW) /HPF Urine Bacteria (Auto) NONE (NEGATIVE) /HPF Urine Culture Reflexed YES (NO) Urine Glucose 150 (NEGATIVE) mg/dL Influenza Type A Ag (NEGATIVE) Influenza Type B Ag (NEGATIVE) RSV (PCR) (Negative) SARS-CoV-2 (PCR) POSITIVE A (NEGATIVE) Group A Strep Antibody (NEGATIVE) 06/23/20 06/23/20 06/23/20 Range/Units 21:39 21:30 21:00 WBC (4.0-10.5) K/mm3 RBC (4.1-5.6) M/mm3 Hgb (12.5-18.0) gm/dl Hct (42-50) % MCV (78-100) fl MCH (26-32) pg MCHC (32-36) g/dl RDW (11.5-14.0) % Plt Count (150-450) K/mm3 MPV (7.5-11.0) fl Gran % (36.0-66.0) % Eos # (Auto) (0-0.5) Absolute Lymphs (auto) (1.0-4.6) Absolute Monos (auto) (0.0-1.3) Lymphocytes % (24.0-44.0) % Monocytes % (0.0-12.0) % Eosinophils % (0.00-5.0) % Basophils % (0.0-0.4) % Absolute Granulocytes (1.4-6.9) Basophils # (0-0.4) Sodium 138 (137-145) mmol/L Potassium 4.6 (3.5-5.1) mmol/L Chloride 105 (98-107) mmol/L Carbon Dioxide 26 (22-30) mmol/L Anion Gap 12.3 (5-15) MEQ/L BUN 40 H (9-20) mg/dL Creatinine 3.35 H (0.66-1.25) mg/dL Estimated GFR 19.1 ML/MIN Glucose 215 H (74-106) mg/dL Lactic Acid (0.4-2.0) Calcium 9.1 (8.4-10.2) mg/dL Total Bilirubin 0.50 (0.2-1.3) mg/dL AST 30 (17-59) U/L ALT 25 (0-50) U/L Alkaline Phosphatase 99 (38-126) U/L Troponin I 0.021 (0.000-0.034) ng/mL Serum Total Protein 6.6 (6.3-8.2) g/dL Albumin 3.9 (3.5-5.0) g/dL Urine Color (YELLOW) Urine Appearance (CLEAR) Urine pH (5-6) Ur Specific [place] (1.005-1.025) Urine Protein (Negative) Urine Ketones (NEGATIVE) Urine Blood (0-5) Donn/ul Urine Nitrite (NEGATIVE) Urine Bilirubin (NEGATIVE) Urine Urobilinogen (0-1) mg/dL Ur Leukocyte Esterase (NEGATIVE) Urine WBC (Auto) (0-5) /HPF Urine RBC (Auto) (0-2) /HPF U Epithel Cells (Auto) (FEW) /HPF Urine Bacteria (Auto) (NEGATIVE) /HPF Urine Culture Reflexed (NO) Urine Glucose (NEGATIVE) mg/dL Influenza Type A Ag NEGATIVE (NEGATIVE) Influenza Type B Ag NEGATIVE (NEGATIVE) RSV (PCR) NEGATIVE (Negative) SARS-CoV-2 (PCR) (NEGATIVE) Group A Strep Antibody NOT DETECTED (NEGATIVE) 06/23/20 Range/Units 21:00 WBC 4.6 (4.0-10.5) K/mm3 RBC 3.46 L (4.1-5.6) M/mm3 Hgb 11.3 L (12.5-18.0) gm/dl Hct 34.1 L (42-50) % MCV 98.6 (78-100) fl MCH 32.7 H (26-32) pg MCHC 33.1 (32-36) g/dl RDW 13.1 (11.5-14.0) % Plt Count 123 L (150-450) K/mm3 MPV 9.7 (7.5-11.0) fl Gran % 75.3 H (36.0-66.0) % Eos # (Auto) 0.01 (0-0.5) Absolute Lymphs (auto) 0.69 L (1.0-4.6) Absolute Monos (auto) 0.43 (0.0-1.3) Lymphocytes % 15.0 L (24.0-44.0) % Monocytes % 9.3 (0.0-12.0) % Eosinophils % 0.2 (0.00-5.0) % Basophils % 0.2 (0.0-0.4) % Absolute Granulocytes 3.47 (1.4-6.9) Basophils # 0.01 (0-0.4) Sodium (137-145) mmol/L Potassium (3.5-5.1) mmol/L Chloride (98-107) mmol/L Carbon Dioxide (22-30) mmol/L Anion Gap (5-15) MEQ/L BUN (9-20) mg/dL Creatinine (0.66-1.25) mg/dL Estimated GFR ML/MIN Glucose (74-106) mg/dL Lactic Acid (0.4-2.0) Calcium (8.4-10.2) mg/dL Total Bilirubin (0.2-1.3) mg/dL AST (17-59) U/L ALT (0-50) U/L Alkaline Phosphatase (38-126) U/L Troponin I (0.000-0.034) ng/mL Serum Total Protein (6.3-8.2) g/dL Albumin (3.5-5.0) g/dL Urine Color (YELLOW) Urine Appearance (CLEAR) Urine pH (5-6) Ur Specific [place] (1.005-1.025) Urine Protein (Negative) Urine Ketones (NEGATIVE) Urine Blood (0-5) Donn/ul Urine Nitrite (NEGATIVE) Urine Bilirubin (NEGATIVE) Urine Urobilinogen (0-1) mg/dL Ur Leukocyte Esterase (NEGATIVE) Urine WBC (Auto) (0-5) /HPF Urine RBC (Auto) (0-2) /HPF U Epithel Cells (Auto) (FEW) /HPF Urine Bacteria (Auto) (NEGATIVE) /HPF Urine Culture Reflexed (NO) Urine Glucose (NEGATIVE) mg/dL Influenza Type A Ag (NEGATIVE) Influenza Type B Ag (NEGATIVE) RSV (PCR) (Negative) SARS-CoV-2 (PCR) (NEGATIVE) Group A Strep Antibody (NEGATIVE) - Progress Progress: improved Progress Note: 06/24/20 00:27 Patient reassessed. Work-up significant for COVID-19 positive. Acute on chronic renal insufficiency proteinuria, microscopic hematuria. Generalized weakness. Case discussed with Dr. Jeff who accepts admission to observation. Plan of care discussed with patient and his daughter was at the bedside. They agree to admission to [facility] for further evaluation and treatment. Counseled pt/family regarding: lab results, diagnosis, rad results - Departure Departure Disposition: In-patient Admission Clinical Impression: Prolonged QT interval, CRI (chronic renal insufficiency), Fever, Hematuria, Proteinuria, Glucosuria, Generalized weakness, COVID-19 Condition: Stable Critical Care Time: No Referrals: WILMAR PONCE MD [Primary Care Provider] -
--- NOTE | 2020-06-23 22:49 | XRAY ---
Exam: AP portable chest film from 06/23/2020. Comparison: AP portable chest film from 10/24/2017. Indication: Shortness of breath, patient would not sit upright. Findings: It appears that a portion of the patient's left hand overlies the left lung base limiting evaluation in this projection. The remainder the lung olivier appears clear. The transverse heart size is normal. Left-sided cardiac pacemaker with bipolar transvenous leads are again seen. No pneumothorax or definite pleural effusion is seen. There appears to be some fine surgical sutures overlying the right lung apex. Surgical clips also overlie the left axilla. Correlate with surgical history. There is superior elevation of each humeral head in the shoulder girdles suggestive of chronic bilateral rotator cuff disease. Impression: 1. The exam is mildly limited, as it appears the patient's hand overlies the left lung base limiting evaluation in this projection. Otherwise, the lung olivier appear clear. 2. No other acute cardiopulmonary disease is seen. 3. Other incidental findings, as discussed above.
[2020-06-24] MEDS ORDERED: TYLENOL 325 MG PO ONE (00:22)
[2020-06-24] MEDS ORDERED: TYLENOL EXTRA STRENGTH 500 MG ONE (00:25)
[2020-06-24] MEDS ORDERED: TYLENOL 325 MG ONE (00:27)
[2020-06-24] MEDS ORDERED: Lactated Ringers 1,000 ML IV SCH (02:30)
[2020-06-24 06:08] LABS: Absolute Neutrophil Ct (ANC) 3.26 (1.4-6.9); BASOPHIL % 0.2 % (0.0-0.4); Basophil (Absolute #) 0.01 (0-0.4); Eosinophil % 0.2 % (0.00-5.0); Eosinophil (Absolute #) 0.01 (0-0.5); Hematocrit 35.3 % (42-50); Hemoglobin 11.5 gm/dl (12.5-18.0); Lymphocytes % 19.9 % (24.0-44.0); Mean Cell Volume 99.2 fl (78-100); Mean Corpuscular Hemoglobin 32.3 pg (26-32); Mean Corpuscular Hgb Concent. 32.6 g/dl (32-36); Mean Platelet Volume 9.4 fl (7.5-11.0); Monocyte (Absolute #) 0.35 (0.0-1.3); Monocytes % 7.7 % (0.0-12.0); Platelet Count 113 K/mm3 (150-450); Red Blood Count 3.56 M/mm3 (4.1-5.6); Red Cell Distribution Width 13.1 % (11.5-14.0); White Blood Count 4.5 K/mm3 (4.0-10.5)
[2020-06-24 06:29] LABS: ALBUMIN 3.9 g/dL (3.5-5.0); ANION GAP 13.2 MEQ/L (5-15); BILIRUBIN,TOTAL 0.5 mg/dL (0.2-1.3); Calcium 9.3 mg/dL (8.4-10.2); Creatinine 1 3.35 mg/dL (0.66-1.25); EST GLOMERULAR FILTRATION RATE 19.1 ML/MIN; Total Protein 6.7 g/dL (6.3-8.2)
[2020-06-24] MEDS ORDERED: EVOLOCUMAB 140 MG SQ SCH (11:30)
[2020-06-24] MEDS ORDERED: MEDICATION INTERVENTION MC SCH (11:45)
[2020-06-24] MEDS: Namenda 5 MG PO SCH ×2 (12:23→21:15)
[2020-06-24] MEDS: ECOTRIN 81 MG PO SCH (12:24)
[2020-06-24] MEDS: FEOSOL 325 MG PO SCH (12:24)
[2020-06-24] MEDS: SYNTHROID 25 MCG PO SCH (12:24)
[2020-06-24] MEDS: Protonix 40MG Tablet PO SCH (12:24)
[2020-06-24] MEDS: PLAVIX 75 MG Tablet PO SCH (12:24)
[2020-06-24] MEDS: Aricept 10 MG PO SCH ×2 (12:24→21:15)
[2020-06-24] MEDS: Prozac 20 MG PO SCH (12:24)
[2020-06-24] MEDS: COREG 12.5 MG PO SCH ×2 (12:26→21:15)
[2020-06-24] MEDS: Lantus Insulin SQ SCH ×2 (12:30→21:16)
[2020-06-24] MEDS: TYLENOL 325 MG PO PRN ×2 (16:03→21:15)
[2020-06-24] MEDS: NEURONTIN 300 MG PO SCH (21:15)
[2020-06-24] MEDS: Flomax 0.4 MG PO SCH (21:15)
[2020-06-24] MEDS: ZOCOR 20MG PO SCH (21:16)
[2020-06-24] MEDS: NON-FORMULARY ITEM PO SCH (21:24)
[2020-06-24] MEDS ORDERED: NON-FORMULARY ITEM (Memantine Hcl [Namenda] 10 MG) PO SCH (22:00)
[2020-06-24] MEDS ORDERED: NON-FORMULARY ITEM (Sodium Bicarbonate 650 MG) PO SCH (22:00)
[2020-06-24] MEDS ORDERED: NON-FORMULARY ITEM (Atorvastatin Calcium [Atorvastatin Calcium] 40 MG) PO SCH (22:00)
[2020-06-24] MEDS ORDERED: INSULIN DETEMIR 50 UNIT SQ SCH (22:00)
[2020-06-25] MEDS: TYLENOL 325 MG PO PRN ×2 (05:34→20:02)
[2020-06-25 05:49] LABS: Hematocrit 34.8 % (42-50); Hemoglobin 11.3 gm/dl (12.5-18.0); Mean Cell Volume 98.6 fl (78-100); Mean Corpuscular Hgb Concent. 32.5 g/dl (32-36); Mean Platelet Volume 9.6 fl (7.5-11.0); Platelet Count 102 K/mm3 (150-450); Red Blood Count 3.53 M/mm3 (4.1-5.6); White Blood Count 4.7 K/mm3 (4.0-10.5)
[2020-06-25 06:00] LABS: ANION GAP 13.8 MEQ/L (5-15); Calcium 9.1 mg/dL (8.4-10.2); Creatinine 1 3.35 mg/dL (0.66-1.25); EST GLOMERULAR FILTRATION RATE 19.1 ML/MIN; Potassium 4.3 mmol/L (3.5-5.1)
[2020-06-25] MEDS: Prozac 20 MG PO SCH (09:33)
[2020-06-25] MEDS: FEOSOL 325 MG PO SCH (09:33)
[2020-06-25] MEDS: Namenda 5 MG PO SCH ×2 (09:33→22:48)
[2020-06-25] MEDS: COREG 12.5 MG PO SCH ×2 (09:33→20:02)
[2020-06-25] MEDS: Protonix 40MG Tablet PO SCH (09:33)
[2020-06-25] MEDS: Aricept 10 MG PO SCH ×2 (09:33→22:48)
[2020-06-25] MEDS: ECOTRIN 81 MG PO SCH (09:33)
[2020-06-25] MEDS: SYNTHROID 25 MCG PO SCH (09:33)
[2020-06-25] MEDS: Lantus Insulin SQ SCH ×2 (09:34→22:49)
[2020-06-25] MEDS ORDERED: NON-FORMULARY ITEM (Omeprazole [Omeprazole] 40 MG) PO SCH (10:00)
[2020-06-25] MEDS ORDERED: INSULIN DETEMIR 45 UNIT SQ SCH (10:00)
[2020-06-25] MEDS: Flomax 0.4 MG PO SCH (22:48)
[2020-06-25] MEDS: ZOCOR 20MG PO SCH (22:48)
[2020-06-25] MEDS: NEURONTIN 300 MG PO SCH (22:48)
[2020-06-25] MEDS: NON-FORMULARY ITEM PO SCH (22:50)
[2020-06-26 05:37] LABS: Hematocrit 33.4 % (42-50); Hemoglobin 10.9 gm/dl (12.5-18.0); Mean Cell Volume 97.7 fl (78-100); Mean Corpuscular Hemoglobin 31.9 pg (26-32); Mean Corpuscular Hgb Concent. 32.6 g/dl (32-36); Mean Platelet Volume 9.7 fl (7.5-11.0); Platelet Count 93 K/mm3 (150-450); Red Blood Count 3.42 M/mm3 (4.1-5.6); Red Cell Distribution Width 12.9 % (11.5-14.0); White Blood Count 4.1 K/mm3 (4.0-10.5)
[2020-06-26 06:06] LABS: ANION GAP 12.8 MEQ/L (5-15); Calcium 8.8 mg/dL (8.4-10.2); Creatinine 1 3.69 mg/dL (0.66-1.25); EST GLOMERULAR FILTRATION RATE 17.1 ML/MIN; Potassium 3.8 mmol/L (3.5-5.1)
[2020-06-26] MEDS: FEOSOL 325 MG PO SCH (09:46)
[2020-06-26] MEDS: ECOTRIN 81 MG PO SCH (09:46)
[2020-06-26] MEDS: PLAVIX 75 MG Tablet PO SCH (09:47)
[2020-06-26] MEDS: Aricept 10 MG PO SCH ×2 (09:47→21:22)
[2020-06-26] MEDS: Protonix 40MG Tablet PO SCH (09:47)
[2020-06-26] MEDS: Prozac 20 MG PO SCH (09:47)
[2020-06-26] MEDS: Lantus Insulin SQ SCH (09:47)
[2020-06-26] MEDS: Namenda 5 MG PO SCH ×2 (09:47→21:23)
[2020-06-26] MEDS: SYNTHROID 25 MCG PO SCH (09:47)
[2020-06-26] MEDS: COREG 12.5 MG PO SCH ×2 (09:47→21:23)
--- NOTE | 2020-06-26 11:13 | XRAY ---
Indication: Covid 19 positive. Comparison: June 23, 2020. Portable chest remains clear. Heart is not enlarged with stable left dual-lead pacemaker. No new/acute findings.
[2020-06-26] MEDS ORDERED: Sodium Chloride 0.9% 10 ML FLUSH Syringe IV PRN (15:35)
[2020-06-26] MEDS: TYLENOL 325 MG PO PRN ×2 (16:06→21:23)
[2020-06-26] MEDS: Flomax 0.4 MG PO SCH (21:22)
[2020-06-26] MEDS: NEURONTIN 300 MG PO SCH (21:23)
[2020-06-26] MEDS: ZOCOR 20MG PO SCH (21:23)
[2020-06-26] MEDS: NON-FORMULARY ITEM PO SCH (21:24)
[2020-06-26] MEDS: Sodium Chloride 0.9% 10 ML FLUSH Syringe IV SCH (21:24)
[2020-06-27] MEDS: TYLENOL 325 MG PO PRN (01:25)
[2020-06-27] MEDS: Sodium Chloride 0.9% 10 ML FLUSH Syringe IV SCH ×3 (04:50→21:50)
[2020-06-27 06:01] LABS: Hematocrit 34.4 % (42-50); Mean Cell Volume 97.5 fl (78-100); Mean Corpuscular Hemoglobin 31.2 pg (26-32); Mean Platelet Volume 10.2 fl (7.5-11.0); Platelet Count 104 K/mm3 (150-450); Red Blood Count 3.53 M/mm3 (4.1-5.6); White Blood Count 4.6 K/mm3 (4.0-10.5)
[2020-06-27 06:16] LABS: Calcium 8.5 mg/dL (8.4-10.2); Creatinine 1 3.79 mg/dL (0.66-1.25); EST GLOMERULAR FILTRATION RATE 16.6 ML/MIN; Potassium 4.2 mmol/L (3.5-5.1)
[2020-06-27] MEDS: Prozac 20 MG PO SCH (10:53)
[2020-06-27] MEDS: COREG 12.5 MG PO SCH ×3 (10:53→23:42)
[2020-06-27] MEDS: Namenda 5 MG PO SCH ×3 (10:53→23:43)
[2020-06-27] MEDS: Aricept 10 MG PO SCH ×3 (10:54→23:41)
[2020-06-27] MEDS: SYNTHROID 25 MCG PO SCH (10:54)
[2020-06-27] MEDS: Protonix 40MG Tablet PO SCH (10:54)
[2020-06-27] MEDS: ECOTRIN 81 MG PO SCH (10:54)
[2020-06-27] MEDS: FEOSOL 325 MG PO SCH (10:54)
[2020-06-27 14:54] LABS: Absolute Neutrophil Ct (ANC) 5.31 (1.4-6.9); BASOPHIL % 0.2 % (0.0-0.4); Basophil (Absolute #) 0.01 (0-0.4); Eosinophil (Absolute #) 0 (0-0.5); Hematocrit 35.7 % (42-50); Hemoglobin 11.8 gm/dl (12.5-18.0); Lymphocyte (Absolute #) 0.63 (1.0-4.6); Mean Cell Volume 97.8 fl (78-100); Mean Corpuscular Hemoglobin 32.3 pg (26-32); Mean Corpuscular Hgb Concent. 33.1 g/dl (32-36); Mean Platelet Volume 10.4 fl (7.5-11.0); Monocyte (Absolute #) 0.32 (0.0-1.3); Monocytes % 5.1 % (0.0-12.0); Neutrophil % 84.7 % (36.0-66.0); Platelet Count 108 K/mm3 (150-450); Red Blood Count 3.65 M/mm3 (4.1-5.6); Red Cell Distribution Width 12.9 % (11.5-14.0); White Blood Count 6.3 K/mm3 (4.0-10.5)
[2020-06-27 15:05] LABS: ALBUMIN 3.7 g/dL (3.5-5.0); ANION GAP 16.3 MEQ/L (5-15); BILIRUBIN,TOTAL 0.7 mg/dL (0.2-1.3); Calcium 8.6 mg/dL (8.4-10.2); Creatinine 1 3.77 mg/dL (0.66-1.25); EST GLOMERULAR FILTRATION RATE 16.7 ML/MIN; Potassium 4.3 mmol/L (3.5-5.1); Total Protein 6.7 g/dL (6.3-8.2)
[2020-06-27] MEDS: NEURONTIN 300 MG PO SCH ×2 (21:48→23:45)
[2020-06-27] MEDS: ZOCOR 20MG PO SCH ×2 (21:48→23:46)
[2020-06-27] MEDS: Flomax 0.4 MG PO SCH ×2 (21:49→23:44)
[2020-06-27] MEDS: NON-FORMULARY ITEM PO SCH ×2 (21:50→23:45)
[2020-06-28] MEDS: TYLENOL 325 MG PO PRN (03:46)
[2020-06-28] MEDS: Sodium Chloride 0.9% 10 ML FLUSH Syringe IV SCH ×3 (06:17→21:56)
[2020-06-28] MEDS: Namenda 5 MG PO SCH ×2 (09:56→21:54)
[2020-06-28] MEDS: FEOSOL 325 MG PO SCH (09:56)
[2020-06-28] MEDS: Prozac 20 MG PO SCH (09:56)
[2020-06-28] MEDS: ECOTRIN 81 MG PO SCH (09:57)
[2020-06-28] MEDS: COREG 12.5 MG PO SCH ×2 (09:57→21:54)
[2020-06-28] MEDS: SYNTHROID 25 MCG PO SCH (09:57)
[2020-06-28] MEDS: Aricept 10 MG PO SCH ×2 (09:57→21:54)
[2020-06-28] MEDS: Protonix 40MG Tablet PO SCH (09:57)
[2020-06-28] MEDS: Flomax 0.4 MG PO SCH (21:54)
[2020-06-28] MEDS: NON-FORMULARY ITEM PO SCH (21:55)
[2020-06-28] MEDS: NEURONTIN 300 MG PO SCH (21:55)
[2020-06-28] MEDS: ZOCOR 20MG PO SCH (21:56)
[2020-06-28] MEDS: HUMALOG SQ PRN (21:57)
[2020-06-29] MEDS: TYLENOL 325 MG PO PRN ×2 (04:44→08:32)
[2020-06-29] MEDS: Sodium Chloride 0.9% 10 ML FLUSH Syringe IV SCH ×2 (04:45→21:29)
[2020-06-29 08:03] LABS: Absolute Neutrophil Ct (ANC) 4.48 (1.4-6.9); BASOPHIL % 0.2 % (0.0-0.4); Basophil (Absolute #) 0.01 (0-0.4); Eosinophil (Absolute #) 0 (0-0.5); Hematocrit 32.2 % (42-50); Hemoglobin 10.8 gm/dl (12.5-18.0); Lymphocyte (Absolute #) 0.78 (1.0-4.6); Lymphocytes % 14.2 % (24.0-44.0); Mean Cell Volume 96.1 fl (78-100); Mean Corpuscular Hemoglobin 32.2 pg (26-32); Mean Corpuscular Hgb Concent. 33.5 g/dl (32-36); Mean Platelet Volume 10.3 fl (7.5-11.0); Monocyte (Absolute #) 0.21 (0.0-1.3); Monocytes % 3.8 % (0.0-12.0); Neutrophil % 81.8 % (36.0-66.0); Platelet Count 111 K/mm3 (150-450); Red Blood Count 3.35 M/mm3 (4.1-5.6); Red Cell Distribution Width 12.8 % (11.5-14.0); White Blood Count 5.5 K/mm3 (4.0-10.5)
[2020-06-29 08:27] LABS: ANION GAP 14.9 MEQ/L (5-15); BILIRUBIN,TOTAL 0.5 mg/dL (0.2-1.3); Calcium 8.5 mg/dL (8.4-10.2); Creatinine 1 4.22 mg/dL (0.66-1.25); EST GLOMERULAR FILTRATION RATE 14.6 ML/MIN; Total Protein 5.8 g/dL (6.3-8.2)
[2020-06-29] MEDS ORDERED: Lactated Ringers 500 ML IV SCH (10:00)
[2020-06-29] MEDS: ECOTRIN 81 MG PO SCH (11:20)
[2020-06-29] MEDS: COREG 12.5 MG PO SCH ×2 (11:20→21:27)
[2020-06-29] MEDS: Prozac 20 MG PO SCH (11:20)
[2020-06-29] MEDS: Namenda 5 MG PO SCH ×2 (11:20→21:27)
[2020-06-29] MEDS: SYNTHROID 25 MCG PO SCH (11:20)
[2020-06-29] MEDS: PLAVIX 75 MG Tablet PO SCH (11:20)
[2020-06-29] MEDS: DELTASONE 20 MG PO SCH (11:20)
[2020-06-29] MEDS: FEOSOL 325 MG PO SCH (11:21)
[2020-06-29] MEDS: Protonix 40MG Tablet PO SCH (11:21)
[2020-06-29] MEDS: Aricept 10 MG PO SCH ×2 (11:21→21:27)
[2020-06-29] MEDS ORDERED: Levaquin 250MG/50ML D5W 250 MG/50 ML BAG IV SCH (12:00)
[2020-06-29] MEDS ORDERED: Lactated Ringers 1,000 ML IV SCH (12:00)
--- NOTE | 2020-06-29 13:59 | HP ---
CHIEF COMPLAINT: Febrile, increased confusion, weakness. HISTORY OF PRESENT ILLNESS: The patient is well-known to me 79 year old white male. He was brought to the emergency room after feeling short of breath, nasal drainage and a wet cough. He actually lives by himself although his daughter lives down the road and probably several other people stop in. I think he is still driving. He has some dementia. He has renal failure, off dialysis. He denies any change in his bowel movements. He has hypothyroidism and diabetes mellitus. History is limited a little bit. He was weak and came in by wheelchair. His O2 saturation was 96% on room air. Exam was fairly normal except for diffuse weakness. MEDICATIONS: ASA 81, Synthroid 50, Plavix 75 three times a week, Aricept 10 b.i.d., Hytrin 0.4 q.d., Prozac 40 q.d., Namenda, Atorvastatin 40 q.d., iron 325 q.d., Neurontin 300 h.s. for neuropathy, Prilosec 40 q.d., sodium bicarb 650 h.s., carvedilol 12.5 b.i.d., Repatha 140 subcu last time 11/04/2019. Levemir 50 h.s. and 45 daily. ALLERGIES: NKDA. SOCIAL HISTORY: He is a for three to four years. Never smoked or used drugs. 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 PHYSICAL EXAMINATION: The patient is alert and knows my name and that he is in the hospital, knows his age. No severe distress on the morning of admission. HEENT: Seems to hear okay. Vision okay. NECK: Supple without adenopathy. CHEST: Clear. CVS: History of having cardiac stent and pacemaker. His heart is actually paced regular. No murmurs. No murmurs or gallops. ABDOMEN: Obese. No tenderness. No organomegaly. MUSCULOSKELETAL: The patient has no edema. He can move his knees. Scar over right knee from replacement. LAB DATA AND TESTS: Chest x-ray essentially normal. Lab work shows his creatinine elevated about 4. White count was low normal. Electrolytes were normal. IMPRESSION: The patient does have COVID by test, does have increase in creatinine, has chronic renal insufficiency. He does have diabetes mellitus on insulin. PLAN: Admission for close follow up, oxygen, treatment of his fever, follow his renal failure, watch for deterioration of his mental status. PROGNOSIS: Fair.
[2020-06-29] MEDS: NEURONTIN 300 MG PO SCH (21:27)
[2020-06-29] MEDS: ZOCOR 20MG PO SCH (21:27)
[2020-06-29] MEDS: Flomax 0.4 MG PO SCH (21:27)
[2020-06-29] MEDS: HUMALOG SQ PRN (21:44)
[2020-06-29] MEDS: NON-FORMULARY ITEM PO SCH (21:58)
[2020-06-30] MEDS: TYLENOL 325 MG PO PRN ×2 (04:29→12:37)
[2020-06-30 05:24] LABS: Hematocrit 31.1 % (42-50); Hemoglobin 10.3 gm/dl (12.5-18.0); Mean Cell Volume 96.3 fl (78-100); Mean Corpuscular Hemoglobin 31.9 pg (26-32); Mean Corpuscular Hgb Concent. 33.1 g/dl (32-36); Mean Platelet Volume 10.3 fl (7.5-11.0); Platelet Count 122 K/mm3 (150-450); Red Blood Count 3.23 M/mm3 (4.1-5.6); White Blood Count 6.2 K/mm3 (4.0-10.5)
[2020-06-30 05:54] LABS: Creatinine 1 4.04 mg/dL (0.66-1.25); EST GLOMERULAR FILTRATION RATE 15.4 ML/MIN
[2020-06-30] MEDS: Protonix 40MG Tablet PO SCH (10:44)
[2020-06-30] MEDS: FEOSOL 325 MG PO SCH (10:44)
[2020-06-30] MEDS: ECOTRIN 81 MG PO SCH (10:44)
[2020-06-30] MEDS: Prozac 20 MG PO SCH (10:45)
[2020-06-30] MEDS: SYNTHROID 25 MCG PO SCH (10:45)
[2020-06-30] MEDS: DELTASONE 20 MG PO SCH (10:45)
[2020-06-30] MEDS: Namenda 5 MG PO SCH (10:45)
[2020-06-30] MEDS: COREG 12.5 MG PO SCH (10:45)
[2020-06-30] MEDS: Aricept 10 MG PO SCH (10:46)
[2020-06-30 11:42] VITALS: BP 116/54; PULSE 71; O2SAT 93
[2020-06-30] MEDS: HUMALOG SQ PRN (12:37)
--- NOTE | 2020-07-10 09:56 | DS ---
DISCHARGE DIAGNOSES: 1) COVID. 2) DEPRESSION. 3) RENAL INSUFFICIENCY. 4) DIABETES MELLITUS, INSULIN DEPENDENT. HISTORY: The patient became more confused, somewhat short of breath, coughing, just not acting right and he was brought in by family. He lives alone. He drives and functions pretty well. He did have depression in the past when his especially. I have known him for 20 years and he did recognize me when I came into the room. He said he just felt bad and was short of breath. His renal insufficiency was stable with creatinine 3.3. He sees a online merchandising manager in [place] every three to six months. He has a daughter who lives across the street. I believe Dr. Ramires is his online merchandising manager. REVIEW OF SYSTEMS: HEENT: Hard of hearing. CHEST: Short of breath on exertion. CVS: No known heart disease. ABDOMEN: No nausea or vomiting. EXTREMITIES: Just real weak, has arthritis of the knees. PULMONARY: The patient has been coughing a tiny bit but not much. ENDOCRINE: He has hypertension, diabetes mellitus, hypothyroidism, mild dementia. MEDICATIONS: The patient takes aspirin 81 mg q.d., atorvastatin 40 q.d., carvedilol 12.5 mg b.i.d., Plavix 75 mg q.d., Aricept 10 mg b.i.d., evolocumab 140 mg q.d., ferrous sulfate 325 mg q.d., Prozac 40 mg q.d., gabapentin 300 mg at bedtime, Levemir insulin 50 at night and 40 in the morning, Synthroid 50 q.d., Namenda 10 mg q.d., Prilosec 40 q.d., sodium bicarb 650 tablet at bedtime, Flomax 0.4. PHYSICAL EXAMINATION: Blood pressure 150/70. CHEST: Few wheezes. CVS: No murmurs or gallops. ABDOMEN: Obese. No masses or organomegaly. EXTREMITIES: Trace edema. Degeneration of the knees. He is having a great deal of trouble getting out of bed and is weak all over. HOSPITAL COURSE: He denies vomiting but is not hungry. He agreed to being sad. On 06/25/2020, his temperature went up to 100.3F and basically he had been afebrile most of the day and his temperature would go up. Several chest x-rays were repeated and did not really show anything. He became hypoglycemic several times and we decreased his Lantus. Because of the chronic temperatures white count went up to 16 and we put him on Levaquin 250 mg q.d. for prostatitis. He was bolused with some Ringer's lactate on 06/29/2020 because I felt he was getting perhaps a little bit dehydrated and he was not drinking well. He was put on some prednisone 20 q.a.m. for his arthritis, weakness, COVID and hope to lift his spirits however he continued to just do poor. He got weaker and would not do anything. He became withdrawn Creatinine went up slowly but continuously. We decided to send him up to online merchandising manager to see if he could come up with another idea. He was discharged on the medication he has been on and to see Dr. Ramires in [place]. PROGNOSIS: Fair.
== END 2020-06-30 14:00 | disposition short-term general hospital (02) | DRG 179 ==
LOC: ED 19:07 → OBSVTOIN 06-24 01:55 → MED SURG 06-24 01:55
PROVIDERS: ADMIT Family Medicine; ATTEND Family Medicine
DX: U07.1 COVID-19 (principal); R41.0 Disorientation, unspecified; R53.1 Weakness; I25.10 Atherosclerotic heart disease of native coronary artery without angina pectoris; I25.2 Old myocardial infarction; N28.9 Disorder of kidney and ureter, unspecified; E11.9 Type 2 diabetes mellitus without complications; F32.9 Major depressive disorder, single episode, unspecified; E03.9 Hypothyroidism, unspecified; F03.90 Unspecified dementia, unspecified severity, without behavioral disturbance, psychotic disturbance, mood disturbance, and anxiety; Z79.01 Long term (current) use of anticoagulants; Z79.899 Other long term (current) drug therapy; Z86.73 Personal history of transient ischemic attack (TIA), and cerebral infarction without residual deficits
CPT/HCPCS: 36000; 36415; 71045; 80048; 80053; 81001; 82565; 82962; 83036; 83605; 84484; 84520; 85025; 85027; 87040; 87077; 87086; 87186; 87631; 87651; 93005; 93041; 94760; 94762; 99285; U0003; J1817; J1956; A9270-GY

== ENCOUNTER 2020-08-14 18:21 | Observation (INO) | payer MEDICARE, OTHER ==
[2020-08-14] MEDS ORDERED: Sodium Chloride 0.9% 1000 ML 1,000 ML IV STA (19:08)
--- NOTE | 2020-08-14 19:08 | ERPHSYRPT ---
- History of Present Illness Time Seen by Provider: 08/14/20 19:00 Source: patient, family (Daughter) Patient Subjective Stated Complaint: Pt had blood work done today and Dr. Ponce' office called and told pt that he had abnormal labs and needed to go to the ER, pt's potassium is 6.4 Triage Nursing Assessment: Pt brought to the ER by his daughter, vitals wnl, denies pain, denies chest pain, right lower leg edema which pt states is normal for him, pulses normal, doesn't appear to be in any distress Physician History: Pt's daughter states pt had labs drawn at [facility] today and was called by Dr. Ponce's office which stated pt needed to go the ER because of abnormal lab result. Pt denies chest pain, shortness of air, fever, nausea, vomiting, d iarrhea. Pt's daughter states pt had COVID 7 weeks ago, was hospitalized at [facility] and was discharged from a 4 week stay at rehab 1 week ago. Pt's daughter states pt had to have 2 negative COVID swabs before he could be released from rehab. Allergies/Adverse Reactions: No Known Allergies Allergy (Verified 08/14/20 18:41) Home Medications: Aspirin 81 gm Chew [Baby Aspirin 81 mg Chew] 81 mg PO DAILY 03/27/14 [History] Levothyroxine Sodium 50 Mcg [Synthroid 50 Mcg] 25 mcg PO DAILY 03/27/14 [History] Clopidogrel Bisulfate [Plavix] 75 mg PO 3XW 06/16/14 [History] Donepezil HCl [Aricept] 10 mg PO BID 06/16/14 [History] Tamsulosin HCl 0.4 mg [Flomax 0.4 MG] 0.4 mg PO HS 06/16/14 [History] Fluoxetine HCl [Prozac] 40 mg PO DAILY 04/15/15 [History] Memantine HCl [Namenda] 10 mg PO BID 04/15/15 [History] Atorvastatin Calcium 40 mg PO HS 08/17/17 [History] Ferrous Sulfate [Iron] 325 mg PO DAILY 08/17/17 [History] Gabapentin [Neurontin] 300 mg PO HS 08/17/17 [History] Omeprazole 40 mg PO DAILY 08/17/17 [History] Sodium Bicarbonate 650 mg PO HS 08/17/17 [History] Carvedilol 12.5 mg [Coreg 12.5 mg] 12.5 mg PO BID 11/04/19 [History] Evolocumab [Repatha Sureclick] 140 mg SQ UD 11/04/19 [History] Insulin Detemir [Levemir] 25 unit SQ BID 06/23/20 [History] Insulin Lispro [Humalog] 6 unit SQ TID PRN 08/14/20 [History] Hx Tetanus, Diphtheria Vaccination/Date Given: No Hx Influenza Vaccination/Date Given: Yes Hx Pneumococcal Vaccination/Date Given: Yes Travel Risk - International Travel Have you traveled outside of the country in past 3 weeks: No - Coronavirus Screening Are you exhibiting any of the following symptoms?: No Close contact with a COVID-19 positive Pt in past 14-21 Days: No - Review of Systems Constitutional: No Fever Respiratory: No Dyspnea Cardiac: No Chest Pain Abdominal/Gastrointestinal: No Nausea, No Vomiting, No Diarrhea All Other Systems: Reviewed and Negative - Past Medical History Pertinent Past Medical History: Yes Neurological History: TIA ENT History: No Pertinent History Cardiac History: Coronary Artery Disease, Myocardial Infarction ([place]) Respiratory History: No Pertinent History Endocrine Medical History: Adrenal Insufficiency, Diabetes Type II Musculoskeletal History: Osteoarthritis GI Medical History: Diverticulitis, GERD, Other History: Renal Disease, Other Psycho-Social History: Anxiety, Depression Male Reproductive Disorders: Prostate Problems Other Medical History: Pacemaker, stents, Covid 19 - Past Surgical History Past Surgical History: Yes Neuro Surgical History: No Pertinent History Cardiac: Cardiac Catheterization, Cardiac Stent, Pacemaker Respiratory: No Pertinent History Gastrointestinal: No Pertinent History Genitourinary: No Pertinent History Musculoskeletal: Orthopedic Surgery Male Surgical History: No Pertinent History Other Surgical History: rt knee replacement and revision to rt knee, skin lesions removed left arm, parathyroid gland removed - Social History Smoking Status: Never smoker Exposure to second hand smoke: No Drug Use: none Patient Lives Alone: Yes - Nursing Vital Signs Nursing Vital Signs: Initial Vital Signs Temperature 97.9 F 08/14/20 18:32 Pulse Rate 87 08/14/20 18:32 Blood Pressure 134/84 08/14/20 18:32 O2 Sat by Pulse Oximetry 96 08/14/20 18:32 Pain Scale Pain Intensity 0 - Physical Exam General Appearance: alert Eye Exam: PERRL/EOMI Ears, Nose, Throat Exam: pharynx normal, other (cerumen occlusion of right ear.) Neck Exam: normal inspection Respiratory Exam: crackles/rales (mild crackles over rightposterior base.) Cardiovascular Exam: normal heart sounds Gastrointestinal/Abdomen Exam: normal bowel sounds Back Exam: normal inspection Extremity Exam: swelling (right leg henderson edema) Neurologic Exam: alert, cooperative, sensation nml, No motor deficits Skin Exam: warm, dry, other (~ 1/2 cm decubitus ulcer on mid lateral aspect of right foot.) SpO2 Interpretation: normal SpO2: 96 O2 Delivery: Room Air - Course Nursing assessment & vital signs reviewed: Yes EKG Interpreted by Me: RATE (65), Sinus Rhythm, Left [place] Deviation, Non- specific ST Changes - Radiology Exams Chest X-ray Interpretation: Discussed w/ radiologist (New diffuse interstitial alveolar opacities right lung greater than left. no consolidation/large effusion. heart is not enlarged with stable left pacemaker.) Ordered Tests: Active Orders 24 hr Category Date Time Status Bedrest ROUTINE Activity 08/14/20 22:01 Active Code Status Order ROUTINE Care 08/14/20 21:58 Active IV Care Q6H Care 08/14/20 21:58 Active IV Insertion STAT Care 08/14/20 19:08 Active POCT Glucose Check ACHS Care 08/14/20 21:[address] in Observation ROUTINE Care 08/14/20 21:58 Active Telemetry q6h Care 08/14/20 21:57 Active Vital Signs Q4H Care 08/14/20 21:57 Active Weight,Daily 0600 Care 08/14/20 21:57 Active Consistent Carbohydrate Diet 1800 Calorie Diet 08/15/20 Breakfast Active CHEST 2 VIEWS (PA AND LAT) Stat Exams 08/14/20 19:20 Completed BLOOD CULTURE Stat Lab 08/14/20 19:10 Received BMP Stat Lab 08/14/20 19:17 Completed BMP Stat Lab 08/14/20 21:02 Completed CBC W DIFF AM.LAB Lab 08/15/20 04:00 Ordered CBC W DIFF Stat Lab 08/14/20 19:17 Completed CMP AM.LAB Lab 08/15/20 04:00 Ordered CULTURE,SPUTUM Stat Lab 08/14/20 20:38 Uncollected MAGNESIUM Stat Lab 08/14/20 19:17 Completed TROPONIN Q3H Lab 08/14/20 19:23 Completed TROPONIN Q3H Lab 08/14/20 21:02 Completed TROPONIN Q3H Lab 08/15/20 01:30 Ordered TROPONIN Q3H Lab 08/15/20 04:30 Ordered TROPONIN Q3H Lab 08/15/20 07:30 Ordered UA W/RFX UR CULTURE Stat Lab 08/14/20 19:09 Uncollected Oxygen Nasal Cannula 2 lpm RT 08/14/20 21:57 Active Pulse Oximetry CONTINUOUS RT 08/14/20 22:01 Active Respiratory MDI STAT RT 08/14/20 20:08 Active Respiratory Therapy Assessment DAILY RT 08/14/20 20:09 Active Respiratory Therapy Consult ROUTINE RT 08/14/20 21:57 Active Medication Summary Generic Name Dose Route Start Last Admin Trade Name Freq PRN Reason Stop Dose Admin Acetaminophen 650 mg 08/14/20 21:57 Tylenol 325 Mg PO 09/13/20 21:56 Q4H PRN PRN PAIN AND/OR FEVER Albuterol Sulfate 1 gm 08/14/20 19:45 08/14/20 19:58 Ventolin Hfa Mdi IH 09/13/20 19:44 16 gm 1XONLY CYN Administration Albuterol Sulfate 2.5 mg 08/14/20 23:00 Proventil 2.5 Mg/3 Ml Neb IH 09/13/20 22:59 Q4HRT CYN Sodium Chloride 1,000 mls @ 100 mls/hr 08/14/20 22:00 Sodium Chloride 0.9% 1000 Ml IV 09/13/20 21:59 .Q10H CYN Azithromycin 500 mg in 250 mls @ 250 mls/hr 08/15/20 10:00 Zithromax 500 Mg/ 250 Ml Nacl Premix IV 09/14/20 09:59 Q24H10 CYN Ceftriaxone Sodium/Dextrose 1 g in 50 mls @ 100 mls/hr 08/15/20 10:00 Rocephin 1 Gm-D5w 50 Ml Bag IV 09/14/20 09:59 Q24H10 CYN Insulin Human Regular 0 unit 08/14/20 21:57 Humulin R SQ 09/13/20 21:56 UD PRN HYPERGLYCEMIA Ondansetron HCl 4 mg 08/14/20 21:57 Zofran 4 Mg/2 Ml Vial IV 09/13/20 21:56 Q6H PRN PRN NAUSEA/VOMITING Sodium Polystyrene Sulfonate 30 g 08/14/20 23:30 Kayexylate 15 Gm/60 Ml PO 08/14/20 23:31 STAT ONE Discontinued Medications Generic Name Dose Route Start Last Admin Trade Name Freq PRN Reason Stop Dose Admin Dextrose 50 ml 08/14/20 19:37 08/14/20 19:57 D50w 50 Ml Abboject IV 08/14/20 19:38 50 ml STAT ONE Administration Dextrose Confirm 08/14/20 19:56 D50w 50 Ml Abboject Administered 08/14/20 19:57 Dose 50 ml IV .STK-MED ONE Sodium Chloride 1,000 mls @ 999 mls/hr 08/14/20 19:08 08/14/20 21:05 Sodium Chloride 0.9% 1000 Ml IV 08/14/20 20:08 Infused .Q1H1M STA Infusion Sodium Chloride Confirm 08/14/20 19:11 Sodium Chloride 0.9% 1000 Ml Administered 08/14/20 19:12 Dose 1,000 mls @ ud .ROUTE .STK-MED ONE Azithromycin 500 mg in 250 mls @ 250 mls/hr 08/14/20 20:38 08/14/20 20:59 Zithromax 500 Mg/ 250 Ml Nacl Premix IV 08/14/20 21:37 250 mls/hr STAT STA 250 mls/hr Administration Ceftriaxone Sodium/Dextrose 1 g in 50 mls @ 100 mls/hr 08/14/20 20:38 08/14/20 21:46 Rocephin 1 Gm-D5w 50 Ml Bag IV 08/14/20 21:07 Infused STAT STA Infusion Ceftriaxone Sodium/Dextrose Confirm 08/14/20 20:43 Rocephin 1 Gm-D5w 50 Ml Bag Administered 08/14/20 20:44 Dose 1 g in 50 mls @ ud IV .STK-MED ONE Azithromycin Confirm 08/14/20 20:58 Zithromax 500 Mg/ 250 Ml Nacl Premix Administered 08/14/20 20:59 Dose 500 mg in 250 mls @ ud IV .STK-MED ONE Insulin Human Regular 10 unit 08/14/20 19:37 08/14/20 19:56 Humulin R IV 08/14/20 19:38 10 unit STAT ONE Administration Insulin Human Regular Confirm 08/14/20 19:56 Humulin R Administered 08/14/20 19:57 Dose 10 unit .ROUTE .[employer] ONE Sodium Polystyrene Sulfonate 30 g 08/14/20 19:39 08/14/20 19:57 Kayexylate 15 Gm/60 Ml PO 08/14/20 19:40 30 g STAT ONE Administration Sodium Polystyrene Sulfonate Confirm 08/14/20 19:56 Kayexylate 15 Gm/60 Ml Administered 08/14/20 19:57 Dose 30 g .[facility]TE [facility] [employer] Lab/Rad Data: Laboratory Result Diagrams 08/14/20 19:17 08/14/20 21:02 Laboratory Results 08/14/20 08/14/20 08/14/20 Range/Units 21:02 21:02 19:23 WBC (4.0-10.5) K/mm3 RBC (4.1-5.6) M/mm3 Hgb (12.5-18.0) gm/dl Hct (42-50) % MCV (78-100) fl MCH (26-32) pg MCHC (32-36) g/dl RDW (11.5-14.0) % Plt Count (150-450) K/mm3 MPV (7.5-11.0) fl Gran % (36.0-66.0) % Eos # (Auto) (0-0.5) Absolute Lymphs (auto) (1.0-4.6) Absolute Monos (auto) (0.0-1.3) Lymphocytes % (24.0-44.0) % Monocytes % (0.0-12.0) % Eosinophils % (0.00-5.0) % Basophils % (0.0-0.4) % Absolute Granulocytes (1.4-6.9) Basophils # (0-0.4) Sodium 139 (137-145) mmol/L Potassium 5.6 H (3.5-5.1) mmol/L Chloride 115 H (98-107) mmol/L Carbon Dioxide 18 L (22-30) mmol/L Anion Gap 10.9 (5-15) MEQ/L BUN 41 H (9-20) mg/dL Creatinine 3.06 H (0.66-1.25) mg/dL Estimated GFR 21.2 ML/MIN Glucose 281 H (74-106) mg/dL Calcium 8.4 (8.4-10.2) mg/dL Magnesium (1.6-2.3) mg/dL Troponin I < 0.012 < 0.012 (0.000-0.034) ng/mL 08/14/20 08/14/20 08/14/20 Range/Units 19:17 19:17 19:17 WBC 6.0 (4.0-10.5) K/mm3 RBC 2.42 L (4.1-5.6) M/mm3 Hgb 8.0 L (12.5-18.0) gm/dl Hct 25.9 L (42-50) % MCV 107.0 H (78-100) fl MCH 33.1 H (26-32) pg MCHC 30.9 L (32-36) g/dl RDW 17.2 H (11.5-14.0) % Plt Count 236 (150-450) K/mm3 MPV 8.5 (7.5-11.0) fl Gran % 60.4 (36.0-66.0) % Eos # (Auto) 0.20 (0-0.5) Absolute Lymphs (auto) 1.66 (1.0-4.6) Absolute Monos (auto) 0.50 (0.0-1.3) Lymphocytes % 27.5 (24.0-44.0) % Monocytes % 8.3 (0.0-12.0) % Eosinophils % 3.3 (0.00-5.0) % Basophils % 0.5 (0.0-0.4) % Absolute Granulocytes 3.65 (1.4-6.9) Basophils # 0.03 (0-0.4) Sodium 139 (137-145) mmol/L Potassium 6.8 H* (3.5-5.1) mmol/L Chloride 114 H (98-107) mmol/L Carbon Dioxide 22 (22-30) mmol/L Anion Gap 10.0 (5-15) MEQ/L BUN 45 H (9-20) mg/dL Creatinine 3.16 H (0.66-1.25) mg/dL Estimated GFR 20.4 ML/MIN Glucose 323 H (74-106) mg/dL Calcium 9.0 (8.4-10.2) mg/dL Magnesium 1.6 (1.6-2.3) mg/dL Troponin I (0.000-0.034) ng/mL - Progress Progress: improved Discussed with : Corbin Will see patient in: hospital (observation) Counseled pt/family regarding: lab results, diagnosis, rad results - Departure Departure Disposition: Observation Clinical Impression: Pneumonia, Hyperkalemia, Chronic renal failure, Coronary artery disease, Diabetes, Arthritis, GERD (gastroesophageal reflux disease) Condition: Stable Critical Care Time: No Referrals: WILMAR PONCE MD [Primary Care Provider] -
[2020-08-14] MEDS ORDERED: Sodium Chloride 0.9% 1000 ML 1,000 ML ONE (19:11)
[2020-08-14 19:20] LABS: Absolute Neutrophil Ct (ANC) 3.65 (1.4-6.9); BASOPHIL % 0.5 % (0.0-0.4); Basophil (Absolute #) 0.03 (0-0.4); Eosinophil % 3.3 % (0.00-5.0); Hematocrit 25.9 % (42-50); Lymphocyte (Absolute #) 1.66 (1.0-4.6); Lymphocytes % 27.5 % (24.0-44.0); Mean Corpuscular Hemoglobin 33.1 pg (26-32); Mean Corpuscular Hgb Concent. 30.9 g/dl (32-36); Mean Platelet Volume 8.5 fl (7.5-11.0); Monocytes % 8.3 % (0.0-12.0); Neutrophil % 60.4 % (36.0-66.0); Platelet Count 236 K/mm3 (150-450); Red Blood Count 2.42 M/mm3 (4.1-5.6); Red Cell Distribution Width 17.2 % (11.5-14.0)
[2020-08-14 19:32] LABS: Creatinine 1 3.16 mg/dL (0.66-1.25); EST GLOMERULAR FILTRATION RATE 20.4 ML/MIN
[2020-08-14 19:36] LABS: Potassium 6.8 mmol/L (3.5-5.1)
[2020-08-14] MEDS ORDERED: HUMULIN R IV ONE (19:37)
[2020-08-14] MEDS ORDERED: D50W 50 ml Abboject IV ONE ×2 (19:37→19:56)
[2020-08-14] MEDS ORDERED: Kayexylate 15 GM/60 ML PO ONE ×2 (19:39→23:30)
[2020-08-14] MEDS ORDERED: Ventolin Hfa MDI IH SCH (19:45)
[2020-08-14] MEDS ORDERED: HUMULIN R ONE (19:56)
[2020-08-14] MEDS ORDERED: Kayexylate 15 GM/60 ML ONE (19:56)
[2020-08-14] MEDS ORDERED: ROCEPHIN 1 Gm-D5w 50 ml Bag** 1 G/50 ML IVPB IV STA (20:38)
[2020-08-14] MEDS ORDERED: Zithromax 500 MG/ 250 ML NaCl Premix 500 MG/250 ML IVPB IV STA (20:38)
[2020-08-14] MEDS ORDERED: ROCEPHIN 1 Gm-D5w 50 ml Bag** 1 G/50 ML IVPB IV ONE (20:43)
--- NOTE | 2020-08-14 20:45 | XRAY ---
Indication: Right lung crackles. Comparison: June 26, 2020. Portable chest demonstrates new diffuse interstitial alveolar opacities right lung greater than left. No consolidation/large effusion. Heart is not enlarged with stable left pacemaker.
[2020-08-14] MEDS ORDERED: Zithromax 500 MG/ 250 ML NaCl Premix 500 MG/250 ML IVPB IV ONE (20:58)
[2020-08-14 21:21] LABS: ANION GAP 10.9 MEQ/L (5-15); Calcium 8.4 mg/dL (8.4-10.2); Creatinine 1 3.06 mg/dL (0.66-1.25); EST GLOMERULAR FILTRATION RATE 21.2 ML/MIN; Potassium 5.6 mmol/L (3.5-5.1)
[2020-08-14] MEDS ORDERED: Zofran 4 MG/2 ML VIAL IV PRN (21:57)
[2020-08-14] MEDS ORDERED: TYLENOL 325 MG PO PRN (21:57)
[2020-08-14] MEDS ORDERED: HUMULIN R SQ PRN (21:57)
[2020-08-14] MEDS: PROVENTIL 2.5 MG/3 ML NEB IH SCH (23:20)
[2020-08-15] MEDS: Sodium Chloride 0.9% 1000 ML 1,000 ML IV SCH ×3 (00:16→18:04)
[2020-08-15] MEDS: PROVENTIL 2.5 MG/3 ML NEB IH SCH ×2 (03:17→22:40)
[2020-08-15 04:52] LABS: Absolute Neutrophil Ct (ANC) 3.32 (1.4-6.9); BASOPHIL % 0.6 % (0.0-0.4); Basophil (Absolute #) 0.03 (0-0.4); Eosinophil % 4.3 % (0.00-5.0); Eosinophil (Absolute #) 0.22 (0-0.5); Hematocrit 23.2 % (42-50); Hemoglobin 7.1 gm/dl (12.5-18.0); Lymphocyte (Absolute #) 1.11 (1.0-4.6); Lymphocytes % 21.5 % (24.0-44.0); Mean Cell Volume 106.9 fl (78-100); Mean Corpuscular Hemoglobin 32.7 pg (26-32); Mean Corpuscular Hgb Concent. 30.6 g/dl (32-36); Mean Platelet Volume 7.8 fl (7.5-11.0); Monocyte (Absolute #) 0.48 (0.0-1.3); Monocytes % 9.3 % (0.0-12.0); Neutrophil % 64.3 % (36.0-66.0); Platelet Count 193 K/mm3 (150-450); Red Blood Count 2.17 M/mm3 (4.1-5.6); Red Cell Distribution Width 17.3 % (11.5-14.0); White Blood Count 5.2 K/mm3 (4.0-10.5)
[2020-08-15 05:15] LABS: ALBUMIN 2.6 g/dL (3.5-5.0); ANION GAP 7.9 MEQ/L (5-15); BILIRUBIN,TOTAL 0.2 mg/dL (0.2-1.3); Calcium 8.4 mg/dL (8.4-10.2); Creatinine 1 2.86 mg/dL (0.66-1.25); EST GLOMERULAR FILTRATION RATE 22.9 ML/MIN; Potassium 5.1 mmol/L (3.5-5.1); Total Protein 5.3 g/dL (6.3-8.2)
[2020-08-15 06:47] LABS: Appearance CLEAR (CLEAR); Bacteria RARE /HPF (NEGATIVE); Bilirubin NEGATIVE (NEGATIVE); Blood SMALL Ery/ul (0-5); Epithelial Cells RARE /HPF (FEW); Glucose NEGATIVE (NEGATIVE); Ketones NEGATIVE (NEGATIVE); Leukocyte Esterase MODERATE (NEGATIVE); Mucus SLIGHT /HPF (NEGATIVE); Nitrite NEGATIVE (NEGATIVE); Protein,Urine Dip 30 (Negative); RBC 0-2 /HPF (0-2); Specific Gravity 1.012 (1.005-1.025); Urobilinogen NEGATIVE mg/dL (0-1)
--- NOTE | 2020-08-15 07:18 | PCM.HP ---
History of Present Illness - Chief Complaint Chief Complaint: c/o cough, abnormal labs History of Present Illness: is a 79 year old male.Pt's daughter states pt had labs drawn at [facility] today and was called by Dr. Paz's office which stated pt needed to go the ER because of abnormal lab result. Pt denies chest pain, shortness of air, fever, nausea, vomiting, diarrhea. Pt's daughter states pt had COVID 7 weeks ago, was hospitalized at [facility] and was discharged from a 4 week stay at rehab 1 week ago. Pt's daughter states pt had to have 2 negative COVID swabs before he could be released from rehab. - Review of Systems Constitutional: No Fever, No Chills Eyes: No Symptoms Ears, Nose, & Throat: No Symptoms Respiratory: Cough, No Short Of Breath Cardiac: No Chest Pain, No Edema, No Syncope Abdominal/Gastrointestinal: No Abdominal Pain, No Nausea, No Vomiting, No Diarrhea Genitourinary Symptoms: No Dysuria Musculoskeletal: No Back Pain, No Neck Pain Skin: No Rash Neurological: No Dizziness, No Focal Weakness, No Sensory Changes Psychological: No Symptoms Endocrine: No Symptoms Hematologic/Lymphatic: No Symptoms Immunological/Allergic: No Symptoms Medications & Allergies Home Medications: Home Medication List Aspirin 81 gm Chew [Baby Aspirin 81 mg Chew] 81 mg PO DAILY 03/27/14 [History Confirmed 08/14/20] Levothyroxine Sodium 50 Mcg [Synthroid 50 Mcg] 25 mcg PO DAILY 03/27/14 [History Confirmed 08/14/20] Clopidogrel Bisulfate [Plavix] 75 mg PO 3XW 06/16/14 [History Confirmed 08/14/20] Donepezil HCl [Aricept] 10 mg PO BID 06/16/14 [History Confirmed 08/14/20] Tamsulosin HCl 0.4 mg [Flomax 0.4 MG] 0.4 mg PO HS 06/16/14 [History Confirmed 08/14/20] Fluoxetine HCl [Prozac] 40 mg PO DAILY 04/15/15 [History Confirmed 08/14/20] Memantine HCl [Namenda] 10 mg PO BID 04/15/15 [History Confirmed 08/14/20] Atorvastatin Calcium 40 mg PO HS 08/17/17 [History Confirmed 08/14/20] Ferrous Sulfate [Iron] 325 mg PO DAILY 08/17/17 [History Confirmed 08/14/20] Gabapentin [Neurontin] 300 mg PO HS 08/17/17 [History Confirmed 08/14/20] Omeprazole 40 mg PO DAILY 08/17/17 [History Confirmed 08/14/20] Sodium Bicarbonate 650 mg PO HS 08/17/17 [History Confirmed 08/14/20] Carvedilol 12.5 mg [Coreg 12.5 mg] 12.5 mg PO BID 11/04/19 [History Conf irmed 08/14/20] Evolocumab [Repatha Sureclick] 140 mg SQ UD 11/04/19 [History Confirmed 08/14/20] Insulin Detemir [Levemir] 25 unit SQ BID 06/23/20 [History Confirmed 08/14/20] Insulin Lispro [Humalog] 6 unit SQ TID PRN 08/14/20 [History Confirmed 08/14/20] Allergies/Adverse Reactions: Allergies Allergy/AdvReac Type Severity Reaction Status Date / Time No Known Allergies Allergy Verified 08/15/20 00:14 - Past Medical History Past Medical History: Yes Neurological History: TIA ENT History: No Pertinent History Cardiac History: Coronary Artery Disease, Myocardial Infarction (MA) Respiratory History: Pneumonia, Other Endocrine Medical History: Diabetes Type II Musculoskelatal History: Osteoarthritis GI Medical History: Diverticulitis, GERD, Other History: Renal Disease, Other Pyscho-Social History: Anxiety, Depression Male Reproductive Disorders: Prostate Problems Comment: Pacemaker, stents, Covid 19 - Past Surgical History Past Surgical History: Yes Neuro Surgical History: No Pertinent History Cardiac History: Cardiac Catheterization, Cardiac Stent, Pacemaker Respiratory Surgery: No Pertinent History GI Surgical History: No Pertinent History Genitourinary Surgical Hx: No Pertinent History Musculskeletal Surgical Hx: Orthopedic Surgery Male Surgical History: No Pertinent History Other Surgical History: rt knee replacement and revision to rt knee, skin lesions removed left arm, partial parathyroid gland removed - Social History Smoking Status: Never smoker Exposure to second hand smoke: No Alcohol: None Drug Use: none - Physical Exam Vital Signs: Vital Signs - 24 hr Temp Pulse Resp BP Pulse Ox 08/15/20 04:00 98.3 F 74 14 132/65 93 L 08/14/20 23:24 97.8 F 66 10 L 150/78 98 08/14/20 23:20 80 16 95 08/14/20 22:07 96 08/14/20 21:00 64 18 140/69 97 08/14/20 20:11 68 143/80 98 08/14/20 20:10 62 18 96 08/14/20 19:34 65 22 133/67 99 08/14/20 18:32 97.9 F 87 134/84 96 General Appearance: no apparent distress, alert Neurologic Exam: alert, oriented x 3, cooperative, normal mood/affect, nml cerebellar function, nml station & gait, sensation nml, No motor deficits Eye Exam: PERRL/EOMI, eyes nml inspection Ears, Nose, Throat Exam: normal ENT inspection, TMs normal, pharynx normal, moist mucous membranes Neck Exam: normal inspection, non-tender, supple, full range of motion Respiratory Exam: diminished breath sounds, wheezing, No respiratory distress Cardiovascular Exam: regular rate/rhythm, normal heart sounds, normal peripheral pulses Gastrointestinal/Abdomen Exam: soft, normal bowel sounds, No tenderness, No mass Back Exam: normal inspection, normal range of motion, No CVA tenderness, No vertebral tenderness Extremity Exam: normal inspection, normal range of motion, pelvis stable Skin Exam: normal color, warm, dry, No rash Lymphatic Exam: No adenopathy Results - Labs Lab/Micro Results: Lab Results-Last 24 Hours 08/14/20 08/14/20 08/14/20 Range/Units 19:17 19:17 19:17 WBC 6.0 (4.0-10.5) K/mm3 RBC 2.42 L (4.1-5.6) M/mm3 Hgb 8.0 L (12.5-18.0) gm/dl Hct 25.9 L (42-50) % MCV 107.0 H (78-100) fl MCH 33.1 H (26-32) pg MCHC 30.9 L (32-36) g/dl RDW 17.2 H (11.5-14.0) % Plt Count 236 (150-450) K/mm3 MPV 8.5 (7.5-11.0) fl Gran % 60.4 (36.0-66.0) % Eos # (Auto) 0.20 (0-0.5) Absolute Lymphs (auto) 1.66 (1.0-4.6) Absolute Monos (auto) 0.50 (0.0-1.3) Lymphocytes % 27.5 (24.0-44.0) % Monocytes % 8.3 (0.0-12.0) % Eosinophils % 3.3 (0.00-5.0) % Basophils % 0.5 (0.0-0.4) % Absolute Granulocytes 3.65 (1.4-6.9) Basophils # 0.03 (0-0.4) Sodium 139 (137-145) mmol/L Potassium 6.8 H* (3.5-5.1) mmol/L Chloride 114 H (98-107) mmol/L Carbon Dioxide 22 (22-30) mmol/L Anion Gap 10.0 (5-15) MEQ/L BUN 45 H (9-20) mg/dL Creatinine 3.16 H (0.66-1.25) mg/dL Estimated GFR 20.4 ML/MIN Glucose 323 H (74-106) mg/dL Calcium 9.0 (8.4-10.2) mg/dL Magnesium 1.6 (1.6-2.3) mg/dL Total Bilirubin (0.2-1.3) mg/dL AST (17-59) U/L ALT (0-50) U/L Alkaline Phosphatase (38-126) U/L Troponin I (0.000-0.034) ng/mL Serum Total Protein (6.3-8.2) g/dL Albumin (3.5-5.0) g/dL Urine Color (YELLOW) Urine Appearance (CLEAR) Urine pH (5-6) Ur Specific Diamond (1.005-1.025) Urine Protein (Negative) Urine Ketones (NEGATIVE) Urine Blood (0-5) Donn/ul Urine Nitrite (NEGATIVE) Urine Bilirubin (NEGATIVE) Urine Urobilinogen (0-1) mg/dL Ur Leukocyte Esterase (NEGATIVE) Urine WBC (Auto) (0-5) /HPF Urine RBC (Auto) (0-2) /HPF U Epithel Cells (Auto) (FEW) /HPF Urine Bacteria (Auto) (NEGATIVE) /HPF Urine Mucus (Auto) (NEGATIVE) /HPF Urine Culture Reflexed (NO) Urine Glucose (NEGATIVE) mg/dL 10/01/0208/14/20 08/14/20 Range/Units 19:23 21:02 21:02 WBC (4.0-10.5) K/mm3 RBC (4.1-5.6) M/mm3 Hgb (12.5-18.0) gm/dl Hct (42-50) % MCV (78-100) fl MCH (26-32) pg MCHC (32-36) g/dl RDW (11.5-14.0) % Plt Count (150-450) K/mm3 MPV (7.5-11.0) fl Gran % (36.0-66.0) % Eos # (Auto) (0-0.5) Absolute Lymphs (auto) (1.0-4.6) Absolute Monos (auto) (0.0-1.3) Lymphocytes % (24.0-44.0) % Monocytes % (0.0-12.0) % Eosinophils % (0.00-5.0) % Basophils % (0.0-0.4) % Absolute Granulocytes (1.4-6.9) Basophils # (0-0.4) Sodium 139 (137-145) mmol/L Potassium 5.6 H (3.5-5.1) mmol/L Chloride 115 H (98-107) mmol/L Carbon Dioxide 18 L (22-30) mmol/L Anion Gap 10.9 (5-15) MEQ/L BUN 41 H (9-20) mg/dL Creatinine 3.06 H (0.66-1.25) mg/dL Estimated GFR 21.2 ML/MIN Glucose 281 H (74-106) mg/dL Calcium 8.4 (8.4-10.2) mg/dL Magnesium (1.6-2.3) mg/dL Total Bilirubin (0.2-1.3) mg/dL AST (17-59) U/L ALT (0-50) U/L Alkaline Phosphatase (38-126) U/L Troponin I < 0.012 < 0.012 (0.000-0.034) ng/mL Serum Total Protein (6.3-8.2) g/dL Albumin (3.5-5.0) g/dL Urine Color (YELLOW) Urine Appearance (CLEAR) Urine pH (5-6) Ur Specific Diamond (1.005-1.025) Urine Protein (Negative) Urine Ketones (NEGATIVE) Urine Blood (0-5) Donn/ul Urine Nitrite (NEGATIVE) Urine Bilirubin (NEGATIVE) Urine Urobilinogen (0-1) mg/dL Ur Leukocyte Esterase (NEGATIVE) Urine WBC (Auto) (0-5) /HPF Urine RBC (Auto) (0-2) /HPF U Epithel Cells (Auto) (FEW) /HPF Urine Bacteria (Auto) (NEGATIVE) /HPF Urine Mucus (Auto) (NEGATIVE) /HPF Urine Culture Reflexed (NO) Urine Glucose (NEGATIVE) mg/dL 08/15/20 08/15/20 08/15/20 Range/Units 01:59 04:49 04:49 WBC 5.2 (4.0-10.5) K/mm3 RBC 2.17 L (4.1-5.6) M/mm3 Hgb 7.1 L (12.5-18.0) gm/dl Hct 23.2 L (42-50) % MCV 106.9 H (78-100) fl MCH 32.7 H (26-32) pg MCHC 30.6 L (32-36) g/dl RDW 17.3 H (11.5-14.0) % Plt Count 193 (150-450) K/mm3 MPV 7.8 (7.5-11.0) fl Gran % 64.3 (36.0-66.0) % Eos # (Auto) 0.22 (0-0.5) Absolute Lymphs (auto) 1.11 (1.0-4.6) Absolute Monos (auto) 0.48 (0.0-1.3) Lymphocytes % 21.5 L (24.0-44.0) % Monocytes % 9.3 (0.0-12.0) % Eosinophils % 4.3 (0.00-5.0) % Basophils % 0.6 (0.0-0.4) % Absolute Granulocytes 3.32 (1.4-6.9) Basophils # 0.03 (0-0.4) Sodium (137-145) mmol/L Potassium (3.5-5.1) mmol/L Chloride (98-107) mmol/L Carbon Dioxide (22-30) mmol/L Anion Gap (5-15) MEQ/L BUN (9-20) mg/dL Creatinine (0.66-1.25) mg/dL Estimated GFR ML/MIN Glucose (74-106) mg/dL Calcium (8.4-10.2) mg/dL Magnesium (1.6-2.3) mg/dL Total Bilirubin (0.2-1.3) mg/dL AST (17-59) U/L ALT (0-50) U/L Alkaline Phosphatase (38-126) U/L Troponin I < 0.012 < 0.012 (0.000-0.034) ng/mL Serum Total Protein (6.3-8.2) g/dL Albumin (3.5-5.0) g/dL Urine Color (YELLOW) Urine Appearance (CLEAR) Urine pH (5-6) Ur Specific Diamond (1.005-1.025) Urine Protein (Negative) Urine Ketones (NEGATIVE) Urine Blood (0-5) Donn/ul Urine Nitrite (NEGATIVE) Urine Bilirubin (NEGATIVE) Urine Urobilinogen (0-1) mg/dL Ur Leukocyte Esterase (NEGATIVE) Urine WBC (Auto) (0-5) /HPF Urine RBC (Auto) (0-2) /HPF U Epithel Cells (Auto) (FEW) /HPF Urine Bacteria (Auto) (NEGATIVE) /HPF Urine Mucus (Auto) (NEGATIVE) /HPF Urine Culture Reflexed (NO) Urine Glucose (NEGATIVE) mg/dL 08/15/20 08/15/20 Range/Units 04:49 06:16 WBC (4.0-10.5) K/mm3 RBC (4.1-5.6) M/mm3 Hgb (12.5-18.0) gm/dl Hct (42-50) % MCV (78-100) fl MCH (26-32) pg MCHC (32-36) g/dl RDW (11.5-14.0) % Plt Count (150-450) K/mm3 MPV (7.5-11.0) fl Gran % (36.0-66.0) % Eos # (Auto) (0-0.5) Absolute Lymphs (auto) (1.0-4.6) Absolute Monos (auto) (0.0-1.3) Lymphocytes % (24.0-44.0) % Monocytes % (0.0-12.0) % Eosinophils % (0.00-5.0) % Basophils % (0.0-0.4) % Absolute Granulocytes (1.4-6.9) Basophils # (0-0.4) Sodium 140 (137-145) mmol/L Potassium 5.1 (3.5-5.1) mmol/L Chloride 117 H (98-107) mmol/L Carbon Dioxide 20 L (22-30) mmol/L Anion Gap 7.9 (5-15) MEQ/L BUN 38 H (9-20) mg/dL Creatinine 2.86 H (0.66-1.25) mg/dL Estimated GFR 22.9 ML/MIN Glucose 108 H (74-106) mg/dL Calcium 8.4 (8.4-10.2) mg/dL Magnesium (1.6-2.3) mg/dL Total Bilirubin 0.20 (0.2-1.3) mg/dL AST 35 (17-59) U/L ALT 39 (0-50) U/L Alkaline Phosphatase 86 (38-126) U/L Troponin I (0.000-0.034) ng/mL Serum Total Protein 5.3 L (6.3-8.2) g/dL Albumin 2.6 L (3.5-5.0) g/dL Urine Color YELLOW (YELLOW) Urine Appearance CLEAR (CLEAR) Urine pH 6.0 (5-6) Ur Specific Diamond 1.012 (1.005-1.025) Urine Protein 30 (Negative) Urine Ketones NEGATIVE (NEGATIVE) Urine Blood SMALL (0-5) Donn/ul Urine Nitrite NEGATIVE (NEGATIVE) Urine Bilirubin NEGATIVE (NEGATIVE) Urine Urobilinogen NEGATIVE (0-1) mg/dL Ur Leukocyte Esterase MODERATE (NEGATIVE) Urine WBC (Auto) 11-15 (0-5) /HPF Urine RBC (Auto) 0-2 (0-2) /HPF U Epithel Cells (Auto) RARE (FEW) /HPF Urine Bacteria (Auto) RARE (NEGATIVE) /HPF Urine Mucus (Auto) SLIGHT (NEGATIVE) /HPF Urine Culture Reflexed YES (NO) Urine Glucose NEGATIVE (NEGATIVE) mg/dL - Radiology Impressions Radiology Exams & Impressions: Radiology Procedures Category Date Time Status CHEST 2 VIEWS (PA AND LAT) Stat Exams 08/14/20 19:20 Completed - Other Procedures and Tests Respiratory Therapy 08/14/20 20:09 Respiratory Therapy Assessment DAILY 08/14/20 23:43 Peak Expiratory Flow Rate ONCE Assessment/Plan (1) Pneumonia Current Visit: Yes Status: Acute Qualifiers: Pneumonia type: due to unspecified organism Laterality: bilateral Lung location: unspecified part of lung Qualified Code(s): J18.9 - Pneumonia, unspecified organism Assessment & Plan: Chief Complaint Diagnosis Pneumonia; Hyperkalemia. Allergies Allergy/AdvReac Type Severity Reaction Status Date / Time No Known Allergies Allergy Verified 08/15/20 00:14 Vital Signs (Last 24 hours) Temp Pulse Resp BP Pulse Ox 08/15/20 04:00 98.3 F 74 14 132/65 93 L 08/14/20 23:24 97.8 F 66 10 L 150/78 98 08/14/20 23:20 80 16 95 08/14/20 22:07 96 08/14/20 21:00 64 18 140/69 97 08/14/20 20:11 68 143/80 98 08/14/20 20:10 62 18 96 08/14/20 19:34 65 22 133/67 99 08/14/20 18:32 97.9 F 87 134/84 96 Home Medications Medication Instructions Recorded Confirmed Last Taken Type Insulin Lispro [Humalog] 6 unit SQ TID PRN 08/14/20 08/14/20 08/14/20 History Current Medications Generic Name Dose Route Start Last Admin Trade Name Freq PRN Reason Stop Dose Admin Acetaminophen 650 mg 08/14/20 21:57 Tylenol 325 Mg PO 09/13/20 21:56 Q4H PRN PRN PAIN AND/OR FEVER Albuterol Sulfate 2.5 mg 08/14/20 23:00 08/15/20 03:17 Proventil 2.5 Mg/3 Ml Neb IH 09/13/20 22:59 Not Given Q4HRT CNY Sodium Chloride 1,000 mls @ 100 mls/hr 08/14/20 22:00 08/15/20 00:16 Sodium Chloride 0.9% 1000 Ml IV 09/13/20 21:59 100 mls/hr .Q10H CYN Administration Azithromycin 500 mg in 250 mls @ 250 mls/hr 08/15/20 22:00 Zithromax 500 Mg/ 250 Ml Nacl Premix IV 09/14/20 21:59 Q24H22 CYN Ceftriaxone Sodium/Dextrose 1 g in 50 mls @ 100 mls/hr 08/15/20 22:00 Rocephin 1 Gm-D5w 50 Ml Bag IV 09/14/20 21:59 Q24H22 CYN Insulin Human Regular 0 unit 08/14/20 21:57 Humulin R SQ 09/13/20 21:56 UD PRN HYPERGLYCEMIA Ondansetron HCl 4 mg 08/14/20 21:57 Zofran 4 Mg/2 Ml Vial IV 09/13/20 21:56 Q6H PRN PRN NAUSEA/VOMITING Discontinued Medications Generic Name Dose Route Start Last Admin Trade Name Freq PRN Reason Stop Dose Admin Albuterol Sulfate 1 gm 08/14/20 19:45 08/14/20 19:58 Ventolin Hfa Mdi IH 09/13/20 19:44 16 gm 1XONLY CYN Administration Dextrose 50 ml 08/14/20 19:37 08/14/20 19:57 D50w 50 Ml Abboject IV 08/14/20 19:38 50 ml STAT ONE Administration Dextrose Confirm 08/14/20 19:56 D50w 50 Ml Abboject Administered 08/14/20 19:57 Dose 50 ml IV .STK-MED ONE Sodium Chloride 1,000 mls @ 999 mls/hr 08/14/20 19:08 08/14/20 21:05 Sodium Chloride 0.9% 1000 Ml IV 08/14/20 20:08 Infused .Q1H1M STA Infusion Sodium Chloride Confirm 08/14/20 19:11 Sodium Chloride 0.9% 1000 Ml Administered 08/14/20 19:12 Dose 1,000 mls @ ud .ROUTE .STK-MED ONE Azithromycin 500 mg in 250 mls @ 250 mls/hr 08/14/20 20:38 08/14/20 20:59 Zithromax 500 Mg/ 250 Ml Nacl Premix IV 08/14/20 21:37 250 mls/hr STAT STA 250 mls/hr Administration Ceftriaxone Sodium/Dextrose 1 g in 50 mls @ 100 mls/hr 08/14/20 20:38 08/14/20 21:46 Rocephin 1 Gm-D5w 50 Ml Bag IV 08/14/20 21:07 Infused STAT STA Infusion Ceftriaxone Sodium/Dextrose Confirm 08/14/20 20:43 Rocephin 1 Gm-D5w 50 Ml Bag Administered 08/14/20 20:44 Dose 1 g in 50 mls @ ud IV .STK-MED ONE Azithromycin Confirm 08/14/20 20:58 Zithromax 500 Mg/ 250 Ml Nacl Premix Administered 08/14/20 20:59 Dose 500 mg in 250 mls @ ud IV .STK-MED ONE Insulin Human Regular 10 unit 08/14/20 19:37 08/14/20 19:56 Humulin R IV 08/14/20 19:38 10 unit STAT ONE Administration Insulin Human Regular Confirm 08/14/20 19:56 Humulin R Administered 08/14/20 19:57 Dose 10 unit .ROUTE .STK-MED ONE Sodium Polystyrene Sulfonate 30 g 08/14/20 19:39 08/14/20 19:57 Kayexylate 15 Gm/60 Ml PO 08/14/20 19:40 30 g STAT ONE Administration Sodium Polystyrene Sulfonate Confirm 08/14/20 19:56 Kayexylate 15 Gm/60 Ml Administered 08/14/20 19:57 Dose 30 g .ROUTE .STK-MED ONE Sodium Polystyrene Sulfonate 30 g 08/14/20 23:30 08/15/20 00:20 Kayexylate 15 Gm/60 Ml PO 08/14/20 23:31 30 g STAT ONE Administration Intake & Output (Last 24 hours) 08/12/20 08/13/20 08/14/20 08/15/20 11:59 11:59 11:59 11:59 Intake Total 951 Output Total 1050 Balance -99 Weight 94.4 kg Microbiology Results (Last 24 hours) 08/15/20 06:16 Clean Catch Midstream Urine Culture - Pending 08/14/20 19:10 Blood Blood Culture Gram Stain - Pending 08/14/20 19:10 Blood Blood Culture - Pending 08/14/20 21:02 Blood Blood Culture Gram Stain - Pending 08/14/20 21:02 Blood Blood Culture - Pending Laboratory Results (Last 24 hours) 08/15/20 08/15/20 08/15/20 06:16 04:49 04:49 WBC 5.2 RBC 2.17 L Hgb 7.1 L Hct 23.2 L MCV 106.9 H MCH 32.7 H MCHC 30.6 L RDW 17.3 H Plt Count 193 MPV 7.8 Gran % 64.3 Eos # (Auto) 0.22 Absolute Lymphs (auto) 1.11 Absolute Monos (auto) 0.48 Lymphocytes % 21.5 L Monocytes % 9.3 Eosinophils % 4.3 Basophils % 0.6 Absolute Granulocytes 3.32 Basophils # 0.03 Sodium 140 Potassium 5.1 Chloride 117 H Carbon Dioxide 20 L Anion Gap 7.9 BUN 38 H Creatinine 2.86 H Estimated GFR 22.9 Glucose 108 H Calcium 8.4 Magnesium Total Bilirubin 0.20 AST 35 ALT 39 Alkaline Phosphatase 86 Troponin I Serum Total Protein 5.3 L Albumin 2.6 L Urine Color YELLOW Urine Appearance CLEAR Urine pH 6.0 Ur Specific Diamond 1.012 Urine Protein 30 Urine Ketones NEGATIVE Urine Blood SMALL Urine Nitrite NEGATIVE Urine Bilirubin NEGATIVE Urine Urobilinogen NEGATIVE Ur Leukocyte Esterase MODERATE Urine WBC (Auto) 11-15 Urine RBC (Auto) 0-2 U Epithel Cells (Auto) RARE Urine Bacteria (Auto) RARE Urine Mucus (Auto) SLIGHT Urine Culture Reflexed YES Urine Glucose NEGATIVE 08/15/20 08/15/20 08/14/20 04:49 01:59 21:02 WBC RBC Hgb Hct MCV MCH MCHC RDW Plt Count MPV Gran % Eos # (Auto) Absolute Lymphs (auto) Absolute Monos (auto) Lymphocytes % Monocytes % Eosinophils % Basophils % Absolute Granulocytes Basophils # Sodium 139 Potassium 5.6 H Chloride 115 H Carbon Dioxide 18 L Anion Gap 10.9 BUN 41 H Creatinine 3.06 H Estimated GFR 21.2 Glucose 281 H Calcium 8.4 Magnesium Total Bilirubin AST ALT Alkaline Phosphatase Troponin I < 0.012 < 0.012 Serum Total Protein Albumin Urine Color Urine Appearance Urine pH Ur Specific Diamond Urine Protein Urine Ketones Urine Blood Urine Nitrite Urine Bilirubin Urine Urobilinogen Ur Leukocyte Esterase Urine WBC (Auto) Urine RBC (Auto) U Epithel Cells (Auto) Urine Bacteria (Auto) Urine Mucus (Auto) Urine Culture Reflexed Urine Glucose 08/14/20 08/14/20 08/14/20 21:02 19:23 19:17 WBC RBC Hgb Hct MCV MCH MCHC RDW Plt Count MPV Gran % Eos # (Auto) Absolute Lymphs (auto) Absolute Monos (auto) Lymphocytes % Monocytes % Eosinophils % Basophils % Absolute Granulocytes Basophils # Sodium Potassium Chloride Carbon Dioxide Anion Gap BUN Creatinine Estimated GFR Glucose Calcium Magnesium 1.6 Total Bilirubin AST ALT Alkaline Phosphatase Troponin I < 0.012 < 0.012 Serum Total Protein Albumin Urine Color Urine Appearance Urine pH Ur Specific Diamond Urine Protein Urine Ketones Urine Blood Urine Nitrite Urine Bilirubin Urine Urobilinogen Ur Leukocyte Esterase Urine WBC (Auto) Urine RBC (Auto) U Epithel Cells (Auto) Urine Bacteria (Auto) Urine Mucus (Auto) Urine Culture Reflexed Urine Glucose 08/14/20 08/14/20 19:17 19:17 WBC 6.0 RBC 2.42 L Hgb 8.0 L Hct 25.9 L MCV 107.0 H MCH 33.1 H MCHC 30.9 L RDW 17.2 H Plt Count 236 MPV 8.5 Gran % 60.4 Eos # (Auto) 0.20 Absolute Lymphs (auto) 1.66 Absolute Monos (auto) 0.50 Lymphocytes % 27.5 Monocytes % 8.3 Eosinophils % 3.3 Basophils % 0.5 Absolute Granulocytes 3.65 Basophils # 0.03 Sodium 139 Potassium 6.8 H* Chloride 114 H Carbon Dioxide 22 Anion Gap 10.0 BUN 45 H Creatinine 3.16 H Estimated GFR 20.4 Glucose 323 H Calcium 9.0 Magnesium Total Bilirubin AST ALT Alkaline Phosphatase Troponin I Serum Total Protein Albumin Urine Color Urine Appearance Urine pH Ur Specific Diamond Urine Protein Urine Ketones Urine Blood Urine Nitrite Urine Bilirubin Urine Urobilinogen Ur Leukocyte Esterase Urine WBC (Auto) Urine RBC (Auto) U Epithel Cells (Auto) Urine Bacteria (Auto) Urine Mucus (Auto) Urine Culture Reflexed Urine Glucose Orders (Last 24 hours) Category Date Time Status Bedrest ROUTINE Activity 08/14/20 22:01 Active Code Status Order ROUTINE Care 08/14/20 21:58 Active IV Insertion STAT Care 08/14/20 19:08 Completed POCT Glucose Check ACHS Care 08/14/20 21:[address] in Observation ROUTINE Care 08/14/20 21:58 Active Telemetry q6h Care 08/14/20 21:57 Active Vital Signs Q4H Care 08/14/20 21:57 Completed Weight,Daily 0600 Care 08/14/20 21:57 Active Pouncer Machine/Discharge Plan ROUTINE Cons 08/15/20 00:12 Active Consistent Carbohydrate Diet 1800 Calorie Diet 08/15/20 Breakfast Active CHEST 2 VIEWS (PA AND LAT) Stat Exams 08/14/20 19:20 Completed BLOOD CULTURE Stat Lab 08/14/20 19:10 Received BMP Stat Lab 08/14/20 19:17 Completed BMP Stat Lab 08/14/20 21:02 Completed CBC W DIFF AM.LAB Lab 08/15/20 04:49 Completed CBC W DIFF Stat Lab 08/14/20 19:17 Completed CMP AM.LAB Lab 08/15/20 04:49 Completed CULTURE,SPUTUM Stat Lab 08/14/20 20:38 Uncollected CULTURE,URINE Stat Lab 08/15/20 06:16 Received MAGNESIUM Stat Lab 08/14/20 19:17 Completed TROPONIN Q3H Lab 08/14/20 19:23 Completed TROPONIN Q3H Lab 08/14/20 21:02 Completed TROPONIN Q3H Lab 08/15/20 01:59 Completed TROPONIN Q3H Lab 08/15/20 04:49 Completed TROPONIN Q3H Lab 08/15/20 07:30 Ordered UA W/RFX UR CULTURE Stat Lab 08/15/20 06:16 Completed Acetaminophen 325 mg [Tylenol 325 mg] Med 08/14/20 21:57 Active 650 mg PO Q4H PRN PRN Albuterol 2.5 mg/3 ml Neb [Proventil 2.5 mg/3 ml Neb Med 08/14/20 23:00 Active ] 2.5 mg IH Q4HRT Albuterol 8 gm Mdi Hfa [Ventolin Hfa MDI] Med 08/14/20 19:45 Discontinued 1 gm IH 1XONLY Azithromycin 500 mg/250 ml [Zithromax 500 MG/ 250 ML Med 08/15/20 22:00 Active NaCl Premix] 500 mg in 250 ml IV Q24H22 Azithromycin 500 mg/250 ml [Zithromax 500 MG/ 250 ML Med 08/14/20 20:38 Discontinued NaCl Premix] 500 mg in 250 ml IV STAT Azithromycin 500 mg/250 ml [Zithromax 500 MG/ 250 ML Med 08/14/20 20:58 Discontinued NaCl Premix] 500 mg in 250 ml IV UD Ceftriaxone 1 GM/50 ML PREMIX* [ROCEPHIN 1 Gm-D5w 50 ml Med 08/15/20 22:00 Active Bag] 1 g in 50 ml IV Q24H22 Ceftriaxone 1 GM/50 ML PREMIX* [ROCEPHIN 1 Gm-D5w 50 ml Med 08/14/20 20:38 Discontinued Bag] 1 g in 50 ml IV STAT Ceftriaxone 1 GM/50 ML PREMIX* [ROCEPHIN 1 Gm-D5w 50 ml Med 08/14/20 20:43 Discontinued Bag] 1 g in 50 ml IV UD Dextrose 50%-Water Syringe [D50W 50 ml Abboject] Med 08/14/20 19:56 Discontinued 50 ml IV .STK-MED ONE Dextrose 50%-Water Syringe [D50W 50 ml Abboject] Med 08/14/20 19:37 Discontinued 50 ml IV STAT ONE Insulin Regular, Human [Humulin R] Med 08/14/20 19:56 Discontinued 10 unit .ROUTE .STK-MED ONE Insulin Regular, Human [Humulin R] Med 08/14/20 19:37 Discontinued 10 unit IV STAT ONE Insulin Regular, Human [Humulin R] Med 08/14/20 21:57 Active See Dose Instructions SQ UD PRN NaCl 0.9% 1000 ml [Sodium Chloride 0.9% 1000 ML] 1,000 Med 08/14/20 19:11 Discontinued ml .ROUTE UD NaCl 0.9% 1000 ml [Sodium Chloride 0.9% 1000 ML] 1,000 Med 08/14/20 22:00 Active ml IV 100 mls/hr NaCl 0.9% 1000 ml [Sodium Chloride 0.9% 1000 ML] 1,000 Med 08/14/20 19:08 Discontinued ml IV 999 mls/hr Ondansetron HCl 4 mg/2 ml [Zofran 4 MG/2 ML VIAL] Med 08/14/20 21:57 Active 4 mg IV Q6H PRN PRN Sodium Polystyrene 15Gm/60 ml* [Kayexylate 15 GM/60 ML* Med 08/14/20 19:56 Discontinued ] 30 g .ROUTE .STK-MED ONE Sodium Polystyrene 15Gm/60 ml* [Kayexylate 15 GM/60 ML* Med 08/14/20 19:39 Discontinued ] 30 g PO STAT ONE Sodium Polystyrene 15Gm/60 ml* [Kayexylate 15 GM/60 ML* Med 08/14/20 23:30 Discontinued ] 30 g PO STAT ONE OT Screen per Nursing Assess ONCE OT 08/15/20 00:12 Active PT Screen per Nursing Assess ONCE PT 08/15/20 00:12 Active Peak Expiratory Flow Rate ONCE RT 08/14/20 23:43 Active Pulse Oximetry CONTINUOUS RT 08/14/20 22:01 Active Respiratory MDI STAT RT 08/14/20 20:08 Completed Respiratory Therapy Assessment DAILY RT 08/14/20 20:09 Active Respiratory Therapy Consult ROUTINE RT 08/14/20 21:57 Completed Code(s): J18.9 - PNEUMONIA, UNSPECIFIED ORGANISM (2) Chronic renal failure Current Visit: Yes Status: Acute (3) Coronary artery disease Current Visit: Yes Status: Acute Code(s): I25.10 - ATHSCL HEART DISEASE OF [place] CORONARY ARTERY W/O ANG PCTRS (4) Diabetes Current Visit: Yes Status: Acute Qualifiers: Diabetes mellitus type: type 2 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
[2020-08-15] MEDS ORDERED: PROVENTIL 2.5 MG/3 ML NEB IH PRN (07:33)
[2020-08-15] MEDS ORDERED: INSULIN LISPRO 6 UNIT SQ PRN (07:54)
[2020-08-15] MEDS ORDERED: HUMALOG SQ PRN (08:04)
[2020-08-15] MEDS: Lantus Insulin SQ SCH ×2 (08:11→21:07)
[2020-08-15] MEDS: Aricept 10 MG PO SCH ×2 (09:19→21:08)
[2020-08-15] MEDS: Namenda 5 MG PO SCH ×2 (09:19→21:08)
[2020-08-15] MEDS: COREG 12.5 MG PO SCH ×2 (09:19→21:07)
[2020-08-15] MEDS ORDERED: Prozac 20 MG PO SCH (10:00)
[2020-08-15] MEDS ORDERED: NON-FORMULARY ITEM (Memantine Hcl [Namenda] 10 MG) PO SCH (10:00)
[2020-08-15] MEDS ORDERED: Protonix 40MG Tablet PO SCH (10:00)
[2020-08-15] MEDS ORDERED: INSULIN DETEMIR 25 UNIT SQ SCH (10:00)
[2020-08-15] MEDS ORDERED: NON-FORMULARY ITEM (Omeprazole [Omeprazole] 40 MG) PO SCH (10:00)
[2020-08-15] MEDS ORDERED: FEOSOL 325 MG PO SCH (10:00)
[2020-08-15] MEDS ORDERED: ECOTRIN 81 MG PO SCH (10:00)
[2020-08-15] MEDS ORDERED: SYNTHROID 50 MCG PO SCH (10:00)
[2020-08-15] MEDS ORDERED: SYNTHROID 25 MCG PO SCH (10:00)
[2020-08-15] MEDS ORDERED: BABY ASPIRIN 81 MG CHEW PO SCH (10:00)
[2020-08-15] MEDS ORDERED: ZOCOR 20MG PO SCH (22:00)
[2020-08-15] MEDS ORDERED: Flomax 0.4 MG PO SCH (22:00)
[2020-08-15] MEDS ORDERED: NON-FORMULARY ITEM (Sodium Bicarbonate 650 MG) PO SCH (22:00)
[2020-08-15] MEDS ORDERED: NEURONTIN 300 MG PO SCH (22:00)
[2020-08-15] MEDS ORDERED: ROCEPHIN 1 Gm-D5w 50 ml Bag** 1 G/50 ML IVPB IV SCH (22:00)
[2020-08-15] MEDS ORDERED: Zithromax 500 MG/ 250 ML NaCl Premix 500 MG/250 ML IVPB IV SCH (22:00)
[2020-08-15] MEDS ORDERED: NON-FORMULARY ITEM (Atorvastatin Calcium [Atorvastatin Calcium] 40 MG) PO SCH (22:00)
[2020-08-16] MEDS: Sodium Chloride 0.9% 1000 ML 1,000 ML IV SCH (06:01)
[2020-08-16 07:25] VITALS: BP 142/60; PULSE 67; O2SAT 93
[2020-08-16] MEDS: Lantus Insulin SQ SCH (07:26)
[2020-08-16 07:33] LABS: Absolute Neutrophil Ct (ANC) 2.86 (1.4-6.9); Basophil (Absolute #) 0.05 (0-0.4); Eosinophil % 4.8 % (0.00-5.0); Eosinophil (Absolute #) 0.24 (0-0.5); Hematocrit 25.8 % (42-50); Hemoglobin 7.8 gm/dl (12.5-18.0); Lymphocyte (Absolute #) 1.37 (1.0-4.6); Lymphocytes % 27.1 % (24.0-44.0); Mean Cell Volume 107.5 fl (78-100); Mean Corpuscular Hemoglobin 32.5 pg (26-32); Mean Corpuscular Hgb Concent. 30.2 g/dl (32-36); Monocyte (Absolute #) 0.53 (0.0-1.3); Monocytes % 10.5 % (0.0-12.0); Neutrophil % 56.6 % (36.0-66.0); Platelet Count 199 K/mm3 (150-450); Red Cell Distribution Width 17.3 % (11.5-14.0); White Blood Count 5.1 K/mm3 (4.0-10.5)
[2020-08-16 07:47] LABS: ALBUMIN 2.9 g/dL (3.5-5.0); ANION GAP 7.9 MEQ/L (5-15); BILIRUBIN,TOTAL 0.3 mg/dL (0.2-1.3); Calcium 8.7 mg/dL (8.4-10.2); EST GLOMERULAR FILTRATION RATE 21.7 ML/MIN; Potassium 4.9 mmol/L (3.5-5.1)
--- NOTE | 2020-08-16 08:03 | XRAY ---
Indication: Pneumonia. Comparison: August 14, 2020. Portable chest again demonstrates diffuse bilateral interstitial alveolar opacities minimally worsened left upper lobe again without consolidation/large effusion. Heart is not enlarged. Stable right hemidiaphragm elevation, left axillary vincenzo dissection, and left pacemaker.
--- NOTE | 2020-08-16 08:54 | PCM.DS ---
Discharge Summary Date of Admission: 08/14/20 22:22 Admitting Physician: WILMAR PAZ Primary Care Provider: WILMAR PAZ Allergies Allergies No Known Allergies Allergy (Verified 08/15/20 00:14) Hospital Summary - Hospital Course Hospital Course: Chief Complaint Diagnosis c/o cough, abnormal labs Allergies Allergy/AdvReac Type Severity Reaction Status Date / Time No Known Allergies Allergy Verified 08/15/20 00:14 Vital Signs (Last 24 hours) Temp Pulse Resp BP Pulse Ox 08/16/20 07:24 98.4 F 67 18 142/60 93 L 08/16/20 07:20 66 16 94 L 08/16/20 04:00 98.3 F 76 20 163/70 94 L 08/16/20 00:00 67 08/15/20 20:05 69 18 93 L 08/15/20 20:00 97.9 F 72 16 127/58 95 08/15/20 15:51 98.1 F 75 16 134/61 97 08/15/20 11:40 98.2 F 76 16 96 Home Medications Medication Instructions Recorded Confirmed Last Taken Type Insulin Lispro [Humalog] 6 unit SQ TID PRN 08/14/20 08/14/20 08/14/20 History Azithromycin 250 mg PO DAILY #6 tablet 08/16/20 Unknown Rx Current Medications Generic Name Dose Route Start Last Admin Trade Name Freq PRN Reason Stop Dose Admin Acetaminophen 650 mg 08/14/20 21:57 08/15/20 21:08 Tylenol 325 Mg PO 09/13/20 21:56 650 mg Q4H PRN PRN Administration PAIN AND/OR FEVER Albuterol Sulfate 2.5 mg 08/15/20 07:33 Proventil 2.5 Mg/3 Ml Neb IH 09/14/20 07:32 Q4H PRN PRN SHORTNESS OF BREATH/WHEEZING Aspirin 81 mg 08/15/20 10:00 08/15/20 09:19 Ecotrin 81 Mg PO 09/14/20 09:59 81 mg DAILY CYN Administration Carvedilol 12.5 mg 08/15/20 10:00 08/15/20 21:07 Coreg 12.5 Mg PO 09/14/20 09:59 12.5 mg BID CYN Administration Clopidogrel Bisulfate 75 mg 08/17/20 10:00 Plavix 75 Mg Tablet PO 09/16/20 09:59 MoWeFr@1000 CYN Donepezil HCl 10 mg 08/15/20 10:00 08/15/20 21:08 Aricept 10 Mg PO 09/14/20 09:59 10 mg BID CYN Administration Ferrous Sulfate 325 mg 08/15/20 10:00 08/15/20 09:19 Feosol 325 Mg PO 09/14/20 09:59 325 mg DAILY CYN Administration Fluoxetine HCl 40 mg 08/15/20 10:00 08/15/20 09:19 Prozac 20 Mg PO 09/14/20 09:59 40 mg DAILY CYN Administration Gabapentin 300 mg 08/15/20 22:00 08/15/20 21:08 Neurontin 300 Mg PO 09/14/20 21:59 300 mg HS CYN Administration Sodium Chloride 1,000 mls @ 100 mls/hr 08/14/20 22:00 08/16/20 06:01 Sodium Chloride 0.9% 1000 Ml IV 09/13/20 21:59 Not Given .Q10H CYN Azithromycin 500 mg in 250 mls @ 250 mls/hr 08/15/20 22:00 08/15/20 21:07 Zithromax 500 Mg/ 250 Ml Nacl Premix IV 09/14/20 21:59 250 mls/hr Q24H22 CYN Administration Ceftriaxone Sodium/Dextrose 1 g in 50 mls @ 100 mls/hr 08/15/20 22:00 08/15/20 22:34 Rocephin 1 Gm-D5w 50 Ml Bag IV 09/14/20 21:59 Not Given Q24H22 CYN Insulin Glargine 25 unit 08/15/20 08:00 08/16/20 07:26 Lantus Insulin SQ 09/14/20 07:59 Not Given BID@0800,2100 CYN Insulin Human Lispro 6 unit 08/15/20 08:04 Humalog SQ 09/14/20 08:03 TID PRN PRN BLOOD SUGAR Insulin Human Regular 0 unit 08/14/20 21:57 08/15/20 11:39 Humulin R SQ 09/13/20 21:56 5 unit UD PRN Administration HYPERGLYCEMIA Levothyroxine Sodium 25 mcg 08/15/20 10:00 08/15/20 09:19 Synthroid 25 Mcg PO 09/14/20 09:59 25 mcg DAILY CYN Administration Memantine 10 mg 08/15/20 10:00 08/15/20 21:08 Namenda 5 Mg PO 09/14/20 09:59 10 mg BID CYN Administration Non-Formulary Medication 140 mg 08/28/20 08:00 Evolocumab [Repatha Sureclick] SQ 09/27/20 07:59 Q14D CYN Non-Formulary Drug : 650 mg 08/15/20 22:00 08/15/20 21:08 (Sodium Bicarbonate PO 09/14/20 21:59 650 mg 650 Mg) HS CYN Administration Ondansetron HCl 4 mg 08/14/20 21:57 Zofran 4 Mg/2 Ml Vial IV 09/13/20 21:56 Q6H PRN PRN NAUSEA/VOMITING Pantoprazole Sodium 40 mg 08/15/20 10:00 08/15/20 09:19 Protonix 40mg Tablet PO 09/14/20 09:59 40 mg DAILY CYN Administration Simvastatin 40 mg 08/15/20 22:00 08/15/20 21:08 Zocor 20mg PO 09/14/20 21:59 40 mg HS CYN Administration Tamsulosin HCl 0.4 mg 08/15/20 22:00 08/15/20 21:08 Flomax 0.4 Mg PO 09/14/20 21:59 0.4 mg HS CYN Administration Discontinued Medications Generic Name Dose Route Start Last Admin Trade Name Freq PRN Reason Stop Dose Admin Albuterol Sulfate 1 gm 08/14/20 19:45 08/14/20 19:58 Ventolin Hfa Mdi IH 09/13/20 19:44 16 gm 1XONLY CYN Administration Albuterol Sulfate 2.5 mg 08/14/20 23:00 08/15/20 22:40 Proventil 2.5 Mg/3 Ml Neb IH 09/13/20 22:59 Not Given Q4HRT CYN Dextrose 50 ml 08/14/20 19:37 08/14/20 19:57 D50w 50 Ml Abboject IV 08/14/20 19:38 50 ml STAT ONE Administration Dextrose Confirm 08/14/20 19:56 D50w 50 Ml Abboject Administered 08/14/20 19:57 Dose 50 ml IV .STK-MED ONE Sodium Chloride 1,000 mls @ 999 mls/hr 08/14/20 19:08 08/14/20 21:05 Sodium Chloride 0.9% 1000 Ml IV 08/14/20 20:08 Infused .Q1H1M STA Infusion Sodium Chloride Confirm 08/14/20 19:11 Sodium Chloride 0.9% 1000 Ml Administered 08/14/20 19:12 Dose 1,000 mls @ ud .ROUTE .STK-MED ONE Azithromycin 500 mg in 250 mls @ 250 mls/hr 08/14/20 20:38 08/14/20 20:59 Zithromax 500 Mg/ 250 Ml Nacl Premix IV 08/14/20 21:37 250 mls/hr STAT STA 250 mls/hr Administration Ceftriaxone Sodium/Dextrose 1 g in 50 mls @ 100 mls/hr 08/14/20 20:38 08/14/20 21:46 Rocephin 1 Gm-D5w 50 Ml Bag IV 08/14/20 21:07 Infused STAT STA Infusion Ceftriaxone Sodium/Dextrose Confirm 08/14/20 20:43 Rocephin 1 Gm-D5w 50 Ml Bag Administered 08/14/20 20:44 Dose 1 g in 50 mls @ ud IV .STK-MED ONE Azithromycin Confirm 08/14/20 20:58 Zithromax 500 Mg/ 250 Ml Nacl Premix Administered 08/14/20 20:59 Dose 500 mg in 250 mls @ ud IV .STK-MED ONE Insulin Human Regular 10 unit 08/14/20 19:37 08/14/20 19:56 Humulin R IV 08/14/20 19:38 10 unit STAT ONE Administration Insulin Human Regular Confirm 08/14/20 19:56 Humulin R Administered 08/14/20 19:57 Dose 10 unit .ROUTE .STK-MED ONE Sodium Polystyrene Sulfonate 30 g 08/14/20 19:39 08/14/20 19:57 Kayexylate 15 Gm/60 Ml PO 08/14/20 19:40 30 g STAT ONE Administration Sodium Polystyrene Sulfonate Confirm 08/14/20 19:56 Kayexylate 15 Gm/60 Ml Administered 10/02/20 19:57 Dose 30 g .ROUTE .STK-MED ONE Sodium Polystyrene Sulfonate 30 g 08/14/20 23:30 08/15/20 00:20 Kayexylate 15 Gm/60 Ml PO 08/14/20 23:31 30 g STAT ONE Administration Intake & Output (Last 24 hours) 08/13/20 08/14/20 08/15/20 08/16/20 11:59 11:59 11:59 11:59 Intake Total 951 1490 Output Total 1050 600 Balance -99 890 Weight 94.4 kg 96 kg Microbiology Results (Last 24 hours) 08/15/20 06:16 Clean Catch Midstream Urine Culture - Pending Laboratory Results (Last 24 hours) 08/16/20 08/16/20 08/16/20 07:30 07:30 07:22 WBC 5.1 RBC 2.40 L Hgb 7.8 L Hct 25.8 L MCV 107.5 H MCH 32.5 H MCHC 30.2 L RDW 17.3 H Plt Count 199 MPV 8.0 Gran % 56.6 Eos # (Auto) 0.24 Absolute Lymphs (auto) 1.37 Absolute Monos (auto) 0.53 Lymphocytes % 27.1 Monocytes % 10.5 Eosinophils % 4.8 Basophils % 1.0 Absolute Granulocytes 2.86 Basophils # 0.05 Sodium 142 Potassium 4.9 Chloride 118 H Carbon Dioxide 22 Anion Gap 7.9 BUN 32 H Creatinine 3.00 H Estimated GFR 21.7 Glucose 110 H POC Glucometer 92 Calcium 8.7 Total Bilirubin 0.30 AST 27 ALT 38 Alkaline Phosphatase 85 Serum Total Protein 6.0 L Albumin 2.9 L 08/15/20 08/15/20 08/15/20 20:29 16:03 11:31 WBC RBC Hgb Hct MCV MCH MCHC RDW Plt Count MPV Gran % Eos # (Auto) Absolute Lymphs (auto) Absolute Monos (auto) Lymphocytes % Monocytes % Eosinophils % Basophils % Absolute Granulocytes Basophils # Sodium Potassium Chloride Carbon Dioxide Anion Gap BUN Creatinine Estimated GFR Glucose POC Glucometer 170 H 136 H 219 H Calcium Total Bilirubin AST ALT Alkaline Phosphatase Serum Total Protein Albumin 08/15/20 11:25 WBC RBC Hgb Hct MCV MCH MCHC RDW Plt Count MPV Gran % Eos # (Auto) Absolute Lymphs (auto) Absolute Monos (auto) Lymphocytes % Monocytes % Eosinophils % Basophils % Absolute Granulocytes Basophils # Sodium Potassium Chloride Carbon Dioxide Anion Gap BUN Creatinine Estimated GFR Glucose POC Glucometer 214 H Calcium Total Bilirubin AST ALT Alkaline Phosphatase Serum Total Protein Albumin Orders (Last 24 hours) Category Date Time Status Discharge Routine Discharge 08/16/20 Ordered CHEST 1 VIEW (PORTABLE) Routine Exams 08/16/20 05:30 Completed CBC W DIFF AM.LAB Lab 08/16/20 07:30 Completed CMP AM.LAB Lab 08/16/20 07:30 Completed POCT GLUCOSE Stat Lab 08/15/20 11:25 Completed POCT GLUCOSE Stat Lab 08/15/20 11:31 Completed POCT GLUCOSE Stat Lab 08/15/20 16:03 Completed POCT GLUCOSE Stat Lab 08/15/20 20:29 Completed POCT GLUCOSE Stat Lab 08/16/20 07:22 Completed Aspirin EC 81 mg [Ecotrin 81 mg] Med 08/15/20 10:00 Active 81 mg PO DAILY Azithromycin 500 mg/250 ml [Zithromax 500 MG/ 250 ML Med 08/15/20 22:00 Active NaCl Premix] 500 mg in 250 ml IV Q24H22 Carvedilol 12.5 mg [Coreg 12.5 mg] Med 08/15/20 10:00 Active 12.5 mg PO BID Ceftriaxone 1 GM/50 ML PREMIX* [ROCEPHIN 1 Gm-D5w 50 ml Med 08/15/20 22:00 Active Bag] 1 g in 50 ml IV Q24H22 Clopidogrel Bisulfate 75 mg [PLAVIX 75 MG Tablet] Med 08/17/20 10:00 Active 75 mg PO MoWeFr@1000 Donepezil HCl 10 mg [Aricept 10 MG] Med 08/15/20 10:00 Active 10 mg PO BID Evolocumab [Repatha Sureclick] Med 08/28/20 08:00 Active 140 mg SQ Q14D Ferrous Sulfate 325 mg [Feosol 325 mg] Med 08/15/20 10:00 Active 325 mg PO DAILY Fluoxetine HCl 20 mg [Prozac 20 MG] Med 08/15/20 10:00 Active 40 mg PO DAILY Gabapentin 300 mg [Neurontin 300 mg] Med 08/15/20 22:00 Active 300 mg PO HS Insulin Glargine [Lantus Insulin] Med 08/15/20 08:00 Active 25 unit SQ BID@0800,2100 Insulin Lispro [Humalog] Med 08/15/20 08:04 Active 6 unit SQ TID PRN PRN Levothyroxine Sodium 25 Mcg [Synthroid 25 Mcg] Med 08/15/20 10:00 Active 25 mcg PO DAILY Memantine HCl 5 mg [Namenda 5 MG] Med 08/15/20 10:00 Active 10 mg PO BID PANTOPRAZOLE 40 mg Tablet [Protonix 40MG Tablet] Med 08/15/20 10:00 Active 40 mg PO DAILY Simvastatin 20Mg [Zocor 20Mg] Med 08/15/20 22:00 Active 40 mg PO HS Sodium Bicarbonate Med 08/15/20 22:00 Active 650 mg PO HS Tamsulosin HCl 0.4 mg [Flomax 0.4 MG] Med 08/15/20 22:00 Active 0.4 mg PO HS Pulse Oximetry .spot check RT 08/15/20 20:04 Active Patient Care Notes (Last 24 hours) 08/16/20 07:02 Nursing Note by Tina Lino pt refusing new IV Initialized on 08/16/20 07:02 - END OF NOTE 08/16/20 05:59 Nursing Note by April Sanchez Patient refused morning lab work. Initialized on 08/16/20 05:59 - END OF NOTE 08/15/20 22:30 Nursing Note by April Sanchez This nurse called Dr. Candelario and reported that patient's IV infiltrated in his left antecubital with zithromax infusing. He received about half of his zithormax infusion and none of his rocephin IV that was scheduled for 2200. Patient refusing any more "sticks." He refuses IV and IM injections. Dr. Candelario requested this nurse reinforce education regarding importance that patient receive antibiotics for his pneumonia. Explained importance of IV antibiotics to patient, including risk of not taking them/allowing this nurse to start another IV to include but not limited to worsening symptoms and . Patient verbalized understanding of risks and continues to refuse new IV or IM anti biotic injection. Dr. Candelario notified of patient refusal. Initialized on 08/15/20 22:30 - END OF NOTE 08/15/20 09:59 Case Management Note by Moriah Sánchez S/W DAUGHTER AND LAYCAREGIVER PENNY SHE STATES THAT HER FATHER HAS HOME HEALTH SOLUTIONS OUT OF [facility], AND HIS HOME HEALTH NURSE IS TINA GA. SHE SAID THEY WERE VERY HAPPY WITH THEM. THE PT HAS ALREADY BEEN ARRANGED THROUGH [facility] AND THE THERAPIST HAS COME TO ONE VISIT SO FAR, HE HAS ONLY BEEN OUT OF REHAB FOR 1 WEEK. HE HAS NO OTHER NEEDS AT HOME. ALL QUESTIONS WERE ANSWERED AND SHE WILL BE IN THIS AFTERNOON TO VISIT WITH HER FATHER AND TALK TO THE PRIMARY NURSE THAT ROUNDED WITH THE MD BURIAL AGENT. Initialized on 08/15/20 09:59 - END OF NOTE 08/15/20 09:41 Case Management Note by Moriah Sánchez DISCHAGE PLAN REVIEWED PER CHART. LAY CAREGIVER IS Roverto LAM [phone]. PT NORMALLY LIVES AT HOME WITH SEVERAL OTHERS. HE HAS A HOME HEALTH NURSE, A DIABETIC TESTING DEVICE, AND A WALKER. PLAN TO RETURN HOME WITH FAMILY IN PRE EPISODIC CONDITION. WILL CONTINUE TO MONITOR FOR ALL D/C NEEDS. Initialized on 08/15/20 09:41 - END OF NOTE doing much better, Hgb is 7.8. eating well. K is 4.6. will d/c home. continue Zpak, continue all home meds. Follow up with Dr Paz - Vitals & Intake/Output Vital Signs: Vital Signs Temperature 98.4 F 08/16/20 07:24 Pulse Rate 67 08/16/20 07:24 Respiratory Rate 18 08/16/20 07:24 Blood Pressure 142/60 08/16/20 07:24 O2 Sat by Pulse Oximetry 93 L 08/16/20 07:24 Intake & Output: Intake & Output 08/13/20 08/14/20 08/15/20 08/16/20 11:59 11:59 11:59 11:59 Intake Total 951 1490 Output Total 1050 600 Balance -99 890 Weight 94.4 kg 96 kg - Lab Result Diagrams: 08/16/20 07:30 08/16/20 07:30 Lab Results-Last 24 Hrs: Lab Results-Last 24 Hours 08/15/20 08/15/20 08/15/20 Range/Units 11:25 11:31 16:03 WBC (4.0-10.5) K/mm3 RBC (4.1-5.6) M/mm3 Hgb (12.5-18.0) gm/dl Hct (42-50) % MCV (78-100) fl MCH (26-32) pg MCHC (32-36) g/dl RDW (11.5-14.0) % Plt Count (150-450) K/mm3 MPV (7.5-11.0) fl Gran % (36.0-66.0) % Eos # (Auto) (0-0.5) Absolute Lymphs (auto) (1.0-4.6) Absolute Monos (auto) (0.0-1.3) Lymphocytes % (24.0-44.0) % Monocytes % (0.0-12.0) % Eosinophils % (0.00-5.0) % Basophils % (0.0-0.4) % Absolute Granulocytes (1.4-6.9) Basophils # (0-0.4) Sodium (137-145) mmol/L Potassium (3.5-5.1) mmol/L Chloride (98-107) mmol/L Carbon Dioxide (22-30) mmol/L Anion Gap (5-15) MEQ/L BUN (9-20) mg/dL Creatinine (0.66-1.25) mg/dL Estimated GFR ML/MIN Glucose (74-106) mg/dL POC Glucometer 214 H 219 H 136 H (74 to 106) mg/dL Calcium (8.4-10.2) mg/dL Total Bilirubin (0.2-1.3) mg/dL AST (17-59) U/L ALT (0-50) U/L Alkaline Phosphatase (38-126) U/L Serum Total Protein (6.3-8.2) g/dL Albumin (3.5-5.0) g/dL 08/15/20 08/16/20 08/16/20 Range/Units 20:29 07:22 07:30 WBC 5.1 (4.0-10.5) K/mm3 RBC 2.40 L (4.1-5.6) M/mm3 Hgb 7.8 L (12.5-18.0) gm/dl Hct 25.8 L (42-50) % MCV 107.5 H (78-100) fl MCH 32.5 H (26-32) pg MCHC 30.2 L (32-36) g/dl RDW 17.3 H (11.5-14.0) % Plt Count 199 (150-450) K/mm3 MPV 8.0 (7.5-11.0) fl Gran % 56.6 (36.0-66.0) % Eos # (Auto) 0.24 (0-0.5) Absolute Lymphs (auto) 1.37 (1.0-4.6) Absolute Monos (auto) 0.53 (0.0-1.3) Lymphocytes % 27.1 (24.0-44.0) % Monocytes % 10.5 (0.0-12.0) % Eosinophils % 4.8 (0.00-5.0) % Basophils % 1.0 (0.0-0.4) % Absolute Granulocytes 2.86 (1.4-6.9) Basophils # 0.05 (0-0.4) Sodium (137-145) mmol/L Potassium (3.5-5.1) mmol/L Chloride (98-107) mmol/L Carbon Dioxide (22-30) mmol/L Anion Gap (5-15) MEQ/L BUN (9-20) mg/dL Creatinine (0.66-1.25) mg/dL Estimated GFR ML/MIN Glucose (74-106) mg/dL POC Glucometer 170 H 92 (74 to 106) mg/dL Calcium (8.4-10.2) mg/dL Total Bilirubin (0.2-1.3) mg/dL AST (17-59) U/L ALT (0-50) U/L Alkaline Phosphatase (38-126) U/L Serum Total Protein (6.3-8.2) g/dL Albumin (3.5-5.0) g/dL 08/16/20 Range/Units 07:30 WBC (4.0-10.5) K/mm3 RBC (4.1-5.6) M/mm3 Hgb (12.5-18.0) gm/dl Hct (42-50) % MCV (78-100) fl MCH (26-32) pg MCHC (32-36) g/dl RDW (11.5-14.0) % Plt Count (150-450) K/mm3 MPV (7.5-11.0) fl Gran % (36.0-66.0) % Eos # (Auto) (0-0.5) Absolute Lymphs (auto) (1.0-4.6) Absolute Monos (auto) (0.0-1.3) Lymphocytes % (24.0-44.0) % Monocytes % (0.0-12.0) % Eosinophils % (0.00-5.0) % Basophils % (0.0-0.4) % Absolute Granulocytes (1.4-6.9) Basophils # (0-0.4) Sodium 142 (137-145) mmol/L Potassium 4.9 (3.5-5.1) mmol/L Chloride 118 H (98-107) mmol/L Carbon Dioxide 22 (22-30) mmol/L Anion Gap 7.9 (5-15) MEQ/L BUN 32 H (9-20) mg/dL Creatinine 3.00 H (0.66-1.25) mg/dL Estimated GFR 21.7 ML/MIN Glucose 110 H (74-106) mg/dL POC Glucometer (74 to 106) mg/dL Calcium 8.7 (8.4-10.2) mg/dL Total Bilirubin 0.30 (0.2-1.3) mg/dL AST 27 (17-59) U/L ALT 38 (0-50) U/L Alkaline Phosphatase 85 (38-126) U/L Serum Total Protein 6.0 L (6.3-8.2) g/dL Albumin 2.9 L (3.5-5.0) g/dL Micro Results-Entire Visit: Accuchecks Date 08/15/20 Date 08/15/20 Date 08/15/20 Time 16:14 Time 16:14 Time 11:41 - Radiology Exams Ordered Rad Exams-Entire Visit: Radiology Procedures Category Date Time Status CHEST 1 VIEW (PORTABLE) Routine Exams 08/16/20 05:30 Completed CHEST 2 VIEWS (PA AND LAT) Stat Exams 08/14/20 19:20 Completed - Procedures and Test Procedures and Tests throughout Hospitalization: Therapy Orders & Screens 08/14/20 20:08 Respiratory MDI STAT Comment: 08/14/20 20:09 Respiratory Therapy Assessment DAILY Comment: 08/14/20 21:57 Oxygen Nasal Cannula 2 lpm Comment: Respiratory Therapy Consult ROUTINE Comment: Reason For Exam: 08/14/20 23:43 Peak Expiratory Flow Rate ONCE Comment: Reason For Exam: Diagnosis: Pneumonia; Hyperkalemia. 08/15/20 00:12 OT Screen per Nursing Assess ONCE Comment: Protocol Order Physician Instructions: Greater than 3 points order OT Admission Screening Reason For Exam: Triggered on Admission Diagnosis: Pneumonia; Hyperkalemia. Open Wound/Cellutlitis/Pressure Ulcers: No Acute Fx/ORIF/Change in wt bearing status: No Severe MUSCULOSKELETAL pain: No ADL Dysfunction: Yes Acute CVA w/Hemiparesis/Hemiplegia: No Decreased Functional Mobility/Strength: Yes Sprain/Strain: No Acute Post-op Mobility Dysfunction: No Total Points: 4 PT Screen per Nursing Assess ONCE Comment: Protocol Order Physician Instructions: Greater than 3 points order PT Admission Screenin Reason For Exam: Triggered on Admission Diagnosis: Pneumonia; Hyperkalemia. Open Wound/Cellutlitis/Pressure Ulcers: No Acute Fx/ORIF/Change in wt bearing status: No Severe MUSCULOSKELETAL pain: No ADL Dysfunction: Yes Acute CVA w/Hemiparesis/Hemiplegia: No Decreased Functional Mobility/Strength: Yes Sprain/Strain: No Acute Post-op Mobility Dysfunction: No Total Points: 4 Discharge Exam General Appearance: no apparent distress, alert Neurologic Exam: alert, oriented x 3, cooperative, normal mood/affect, nml cerebellar function, sensation nml, No motor deficits Eye Exam: PERRL, EOMI, eyes nml inspection Ears, Nose, Throat Exam: normal ENT inspection, pharynx normal, moist mucous membranes Neck Exam: normal inspection, non-tender, supple, full range of motion Respiratory Exam: normal breath sounds, lungs clear, No respiratory distress Cardiovascular Exam: regular rate/rhythm, normal heart sounds Gastrointestinal/Abdomen Exam: soft, No tenderness, No mass Male Genitalia Exam: deferred Rectal Exam: deferred Back Exam: normal inspection, normal range of motion, No CVA tenderness, No vertebral tenderness Extremity Exam: normal inspection, normal range of motion Skin Exam: normal color, warm, dry Final Diagnosis/Problem List - Final Discharge Diagnosis/Problem (1) Hyperkalemia, diminished renal excretion Current Visit: Yes Status: Resolved Code(s): E87.5 - HYPERKALEMIA (2) Pneumonia Current Visit: Yes Status: Resolved Assessment & Plan: Finish Zpak Code(s): J18.9 - PNEUMONIA, UNSPECIFIED ORGANISM (3) Chronic renal failure Current Visit: Yes Status: Chronic (4) Coronary artery disease Current Visit: Yes Status: Chronic Code(s): I25.10 - ATHSCL HEART DISEASE OF [place] CORONARY ARTERY W/O ANG PCTRS (5) Diabetes Current Visit: Yes Status: Chronic Code(s): E11.9 - TYPE 2 DIABETES MELLITUS WITHOUT COMPLICATIONS (6) GERD (gastroesophageal reflux disease) Current Visit: Yes Status: Chronic Code(s): K21.9 - GASTRO-ESOPHAGEAL REFLUX DISEASE WITHOUT ESOPHAGITIS (7) COVID-19 Current Visit: Yes Status: Resolved Code(s): U07.1 - COVID-19 - Discharge Discharge Date: 08/16/20 Disposition: HOME HEALTH SERVICE Condition: Stable Prescriptions: New Azithromycin 250 mg PO DAILY #6 tablet Continue Levothyroxine Sodium 50 Mcg [Synthroid 50 Mcg] 25 mcg PO DAILY Aspirin 81 gm Chew [Baby Aspirin 81 mg Chew] 81 mg PO DAILY Tamsulosin HCl 0.4 mg [Flomax 0.4 MG] 0.4 mg PO HS Clopidogrel Bisulfate [Plavix] 75 mg PO 3XW Donepezil HCl [Aricept] 10 mg PO BID Memantine HCl [Namenda] 10 mg PO BID Fluoxetine HCl [Prozac] 40 mg PO DAILY Gabapentin [Neurontin] 300 mg PO HS Ferrous Sulfate [Iron] 325 mg PO DAILY Atorvastatin Calcium 40 mg PO HS Sodium Bicarbonate 650 mg PO HS Omeprazole 40 mg PO DAILY Carvedilol 12.5 mg [Coreg 12.5 mg] 12.5 mg PO BID Evolocumab [Repatha Sureclick] 140 mg SQ UD Insulin Detemir [Levemir] 25 unit SQ BID Insulin Lispro [Humalog] 6 unit SQ TID PRN PRN Reason: elevated blood sugar Instructions: Pneumonia, Adult (DC) Additional Instructions: INFORM HOME HEALTH SOLUTION OF PT DISCHARGE AT [phone] Follow up with: WILMAR PAZ MD [Primary Care Provider] - Call for Appointment
[2020-08-17] MEDS ORDERED: PLAVIX 75 MG Tablet PO SCH (10:00)
[2020-08-28] MEDS ORDERED: EVOLOCUMAB 140 MG SQ SCH (08:00)
== END 2020-08-16 09:45 | disposition home health service (06) ==
LOC: ED 18:21 → MED SURG 22:22
PROVIDERS: ADMIT Family Medicine; ATTEND Family Medicine
DX: E87.5 Hyperkalemia (principal); J18.9 Pneumonia, unspecified organism; E11.22 Type 2 diabetes mellitus with diabetic chronic kidney disease; N18.9 Chronic kidney disease, unspecified; K21.9 Gastro-esophageal reflux disease without esophagitis; U07.1 COVID-19; I25.10 Atherosclerotic heart disease of native coronary artery without angina pectoris; Z79.01 Long term (current) use of anticoagulants; Z79.899 Other long term (current) drug therapy; Z86.73 Personal history of transient ischemic attack (TIA), and cerebral infarction without residual deficits
CPT/HCPCS: 36000; 36415; 71045; 71046; 80048; 80053; 81001; 82962; 83036; 83735; 84484; 85025; 85027; 87040; 87086; 93268; 94640; 94760; 94762; 96360; 96365; 96368; 96374; 99213; 99285; G0008; G0378; 90471; 90662; J0456; J0696; J1815; J7609; A9270-GY

== ENCOUNTER 2020-09-03 19:44 | Observation (INO) | payer MEDICARE, OTHER ==
[2020-09-03 21:16] LABS: Absolute Neutrophil Ct (ANC) 4.04 (1.4-6.9); BASOPHIL % 0.7 % (0.0-0.4); Basophil (Absolute #) 0.05 (0-0.4); Eosinophil % 3.6 % (0.00-5.0); Eosinophil (Absolute #) 0.25 (0-0.5); Hematocrit 27.8 % (42-50); Hemoglobin 8.8 gm/dl (12.5-18.0); Lymphocyte (Absolute #) 1.98 (1.0-4.6); Lymphocytes % 28.3 % (24.0-44.0); Mean Cell Volume 106.5 fl (78-100); Mean Corpuscular Hemoglobin 33.7 pg (26-32); Mean Corpuscular Hgb Concent. 31.7 g/dl (32-36); Mean Platelet Volume 8.3 fl (7.5-11.0); Monocyte (Absolute #) 0.68 (0.0-1.3); Monocytes % 9.7 % (0.0-12.0); Neutrophil % 57.7 % (36.0-66.0); Platelet Count 180 K/mm3 (150-450); Red Blood Count 2.61 M/mm3 (4.1-5.6); Red Cell Distribution Width 16.9 % (11.5-14.0)
[2020-09-03 21:36] LABS: ALBUMIN 3.8 g/dL (3.5-5.0); ANION GAP 13.1 MEQ/L (5-15); BILIRUBIN,TOTAL 0.3 mg/dL (0.2-1.3); Calcium 9.7 mg/dL (8.4-10.2); Creatinine 1 3.58 mg/dL (0.66-1.25); EST GLOMERULAR FILTRATION RATE 17.7 ML/MIN; Total Protein 7.2 g/dL (6.3-8.2)
[2020-09-03 21:41] LABS: Potassium 6.4 mmol/L (3.5-5.1)
[2020-09-03] MEDS ORDERED: SODIUM BICARBONATE 50 MEQ/50 ML ABBOJECT IV ONE ×3 (21:51→22:05)
[2020-09-03] MEDS ORDERED: HUMULIN R IV ONE (21:52)
[2020-09-03] MEDS ORDERED: D50W 50 ml Abboject IV ONE ×2 (21:53→22:05)
[2020-09-03] MEDS ORDERED: Calcium Gluconate 10% 1000 MG IV ONE ×2 (21:56→22:03)
[2020-09-03] MEDS ORDERED: HUMULIN R ONE (22:05)
--- NOTE | 2020-09-03 22:57 | ERPHSYRPT ---
- History of Present Illness Source: patient Exam Limitations: physical impairment Patient Subjective Stated Complaint: pt states that dr umana's ofc called him and told him to come to the er d/t abnormal labs Triage Nursing Assessment: pt alert and oriented, answers questions approp. pt ambulatory with walker. respirations nonlabored with lungs cta. skin warm and dry. no c/o pain. Physician History: 79yo wm w CRF presents w asymptomatic hyperkalemia per consumer affairs director. Pt denies CP/dyspnea/palpatations/fever/N/V/D. Timing/Duration: today Severity: moderate Associated Symptoms: denies symptoms Allergies/Adverse Reactions: No Known Allergies Allergy (Verified 09/03/20 20:47) Home Medications: Aspirin 81 gm Chew [Baby Aspirin 81 mg Chew] 81 mg PO DAILY 03/27/14 [History] Levothyroxine Sodium 50 Mcg [Synthroid 50 Mcg] 25 mcg PO DAILY 03/27/14 [History] Clopidogrel Bisulfate [Plavix] 75 mg PO 3XW 06/16/14 [History] Donepezil HCl [Aricept] 10 mg PO BID 06/16/14 [History] Tamsulosin HCl 0.4 mg [Flomax 0.4 MG] 0.4 mg PO HS 06/16/14 [History] Fluoxetine HCl [Prozac] 40 mg PO DAILY 04/15/15 [History] Memantine HCl [Namenda] 10 mg PO BID 04/15/15 [History] Atorvastatin Calcium 20 mg PO HS 08/17/17 [History] Ferrous Sulfate [Iron] 325 mg PO DAILY 08/17/17 [History] Gabapentin [Neurontin] 300 mg PO HS 08/17/17 [History] Omeprazole 40 mg PO DAILY 08/17/17 [History] Sodium Bicarbonate 650 mg PO HS 08/17/17 [History] Carvedilol 12.5 mg [Coreg 12.5 mg] 12.5 mg PO BID 11/04/19 [History] Evolocumab [Repatha Sureclick] 140 mg SQ UD 11/04/19 [History] Insulin Detemir [Levemir] 25 unit SQ BID 06/23/20 [History] Insulin Lispro [Humalog] 0 unit SQ TID PRN 08/14/20 [History] Hx Tetanus, Diphtheria Vaccination/Date Given: Yes Hx Influenza Vaccination/Date Given: Yes Hx Pneumococcal Vaccination/Date Given: Yes Immunizations Up to Date: Yes Travel Risk - International Travel Have you traveled outside of the country in past 3 weeks: No - Coronavirus Screening Are you exhibiting any of the following symptoms?: No Close contact with a COVID-19 positive Pt in past 14-21 Days: No - Review of Systems Constitutional: No Symptoms Eyes: No Symptoms Ears, Nose, & Throat: No Symptoms Respiratory: No Symptoms Cardiac: No Symptoms Abdominal/Gastrointestinal: No Symptoms Genitourinary Symptoms: No Symptoms Musculoskeletal: No Symptoms Skin: No Symptoms Neurological: No Symptoms Psychological: No Symptoms Endocrine: No Symptoms Hematologic/Lymphatic: No Symptoms Immunological/Allergic: No Symptoms - Past Medical History Pertinent Past Medical History: Yes Neurological History: TIA ENT History: No Pertinent History Cardiac History: Coronary Artery Disease, Myocardial Infarction ([place]) Respiratory History: Pneumonia, Other Endocrine Medical History: Diabetes Type II Musculoskeletal History: Osteoarthritis GI Medical History: Diverticulitis, GERD, Other History: Renal Disease, Other Psycho-Social History: Anxiety, Depression Male Reproductive Disorders: Prostate Problems Other Medical History: Pacemaker, stents, Covid 19 - Past Surgical History Past Surgical History: Yes Neuro Surgical History: No Pertinent History Cardiac: Cardiac Catheterization, Cardiac Stent, Pacemaker Respiratory: No Pertinent History Gastrointestinal: No Pertinent History Genitourinary: No Pertinent History Musculoskeletal: Orthopedic Surgery Male Surgical History: No Pertinent History Other Surgical History: rt knee replacement and revision to rt knee, skin lesions removed left arm, partial parathyroid gland removed - Social History Smoking Status: Never smoker Exposure to second hand smoke: No Drug Use: none Patient Lives Alone: Yes Significant Family History: no pertinent family hx - Nursing Vital Signs Nursing Vital Signs: Initial Vital Signs Temperature 97.6 F 09/03/20 20:35 Pulse Rate 66 09/03/20 20:35 Respiratory Rate 16 09/03/20 20:35 Blood Pressure 178/81 09/03/20 20:35 O2 Sat by Pulse Oximetry 99 09/03/20 20:35 Pain Scale Pain Intensity 0 - Physical Exam General Appearance: no apparent distress Eye Exam: PERRL/EOMI, eyes nml inspection Ears, Nose, Throat Exam: normal ENT inspection, TMs normal, pharynx normal, moist mucous membranes Neck Exam: normal inspection, non-tender, full range of motion, No meningismus, No mass Respiratory Exam: crackles/rales (Rales bases B), No respiratory distress Cardiovascular Exam: regular rate/rhythm, normal heart sounds, No murmur Gastrointestinal/Abdomen Exam: soft, normal bowel sounds, No tenderness Back Exam: normal inspection, normal range of motion Extremity Exam: normal inspection, normal range of motion Neurologic Exam: alert, oriented x 3, cooperative, 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, normal mood/affect, sensation nml Skin Exam: normal color, warm, dry Lymphatic Exam: No adenopathy SpO2 Interpretation: normal SpO2: 100 O2 Delivery: Room Air - Course EKG Interpreted by Me: RATE ([id number]/IVCD/Peaked T waves) Ordered Tests: Active Orders 24 hr Category Date Time Status Heart-Healthy Diet Diet 09/04/20 Breakfast Active BMP AM.LAB Lab 09/04/20 04:00 Ordered CBC W DIFF Stat Lab 09/03/20 21:13 Completed CMP Stat Lab 09/03/20 21:13 Completed EKG STAT RT 09/03/20 20:54 Completed Transfer Order Routine Transfer 09/03/20 Completed Medication Summary Generic Name Dose Route Start Last Admin Trade Name Freq PRN Reason Stop Dose Admin Sodium Chloride 1,000 mls @ 50 mls/hr 09/03/20 23:15 09/03/20 23:46 Sodium Chloride 0.9% 1000 Ml IV 10/03/20 23:14 50 mls/hr .Q20H CYN Administration Discontinued Medications Generic Name Dose Route Start Last Admin Trade Name Freq PRN Reason Stop Dose Admin Calcium Gluconate 1,000 mg 09/03/20 21:56 09/03/20 22:06 Calcium Gluconate 10% 1000 Mg IV 09/03/20 21:57 1,000 mg STAT ONE Administration Calcium Gluconate Confirm 09/03/20 22:03 Calcium Gluconate 10% 1000 Mg Administered 09/03/20 22:04 Dose 1,000 mg IV .STK-MED ONE Dextrose 50 ml 09/03/20 21:53 09/03/20 22:07 D50w 50 Ml Abboject IV 09/03/20 21:54 50 ml STAT ONE Administration Dextrose Confirm 09/03/20 22:05 D50w 50 Ml Abboject Administered 09/03/20 22:06 Dose 50 ml IV .STK-MED ONE Insulin Human Regular 10 unit 09/03/20 21:52 09/03/20 22:08 Humulin R IV 09/03/20 21:53 10 unit STAT ONE Administration Insulin Human Regular Confirm 09/03/20 22:05 Humulin R Administered 09/03/20 22:06 Dose 1 unit .ROUTE .STK-MED ONE Sodium Bicarbonate 50 meq 09/03/20 21:51 09/03/20 22:08 Sodium Bicarbonate 50 Meq/50 Ml Abboject IV 09/03/20 21:52 50 meq STAT ONE Administration Sodium Bicarbonate 50 meq 09/03/20 21:52 09/03/20 22:08 Sodium Bicarbonate 50 Meq/50 Ml Abboject IV 09/03/20 21:53 50 meq STAT ONE Administration Sodium Bicarbonate Confirm 09/03/20 22:05 Sodium Bicarbonate 50 Meq/50 Ml Abboject Administered 09/03/20 22:06 Dose 100 meq IV .STK-MED ONE Sodium Polystyrene Sulfonate 30 g 09/03/20 23:04 09/03/20 23:44 Kayexylate 15 Gm/60 Ml PO 09/03/20 23:05 30 g STAT ONE Administration Sodium Polystyrene Sulfonate Confirm 09/03/20 23:43 Kayexylate 15 Gm/60 Ml Administered 09/03/20 23:44 Dose 30 g .ROUTE .STK-MED ONE Lab/Rad Data: Laboratory Result Diagrams 09/03/20 21:13 09/03/20 21:13 Laboratory Results 09/03/20 09/03/20 Range/Units 21:13 21:13 WBC 7.0 (4.0-10.5) K/mm3 RBC 2.61 L (4.1-5.6) M/mm3 Hgb 8.8 L (12.5-18.0) gm/dl Hct 27.8 L (42-50) % MCV 106.5 H (78-100) fl MCH 33.7 H (26-32) pg MCHC 31.7 L (32-36) g/dl RDW 16.9 H (11.5-14.0) % Plt Count 180 (150-450) K/mm3 MPV 8.3 (7.5-11.0) fl Gran % 57.7 (36.0-66.0) % Eos # (Auto) 0.25 (0-0.5) Absolute Lymphs (auto) 1.98 (1.0-4.6) Absolute Monos (auto) 0.68 (0.0-1.3) Lymphocytes % 28.3 (24.0-44.0) % Monocytes % 9.7 (0.0-12.0) % Eosinophils % 3.6 (0.00-5.0) % Basophils % 0.7 (0.0-0.4) % Absolute Granulocytes 4.04 (1.4-6.9) Basophils # 0.05 (0-0.4) Sodium 138 (137-145) mmol/L Potassium 6.4 H* (3.5-5.1) mmol/L Chloride 113 H (98-107) mmol/L Carbon Dioxide 18 L (22-30) mmol/L Anion Gap 13.1 (5-15) MEQ/L BUN 50 H (9-20) mg/dL Creatinine 3.58 H (0.66-1.25) mg/dL Estimated GFR 17.7 ML/MIN Glucose 314 H (74-106) mg/dL Calcium 9.7 (8.4-10.2) mg/dL Total Bilirubin 0.30 (0.2-1.3) mg/dL AST 17 (17-59) U/L ALT 16 (0-50) U/L Alkaline Phosphatase 93 (38-126) U/L Serum Total Protein 7.2 (6.3-8.2) g/dL Albumin 3.8 (3.5-5.0) g/dL - Progress Progress: unchanged Progress Note: 09/03/20 22:58 Pt given 2 amps NaHCO3/10units IV Regular insulin/1 amp D50/1gm CaGluconate Ok to admit per Dr. Paz if OK w consumer affairs director. OK to admit at [place] per Dr. Olguin. Wants Kayexalate given and BMP in AM. 09/04/20 00:30 Kayexalate given in ER. Glucose 125 on Accucheck before admit. Floor advised to feed pt and monitor glucose. Discussed with Dr.: Sahil, Other Will see patient in: hospital (observation) Counseled pt/family regarding: lab results, diagnosis - Departure Departure Disposition: Observation Clinical Impression: Hyperkalemia Condition: Stable Critical Care Time: No
[2020-09-03] MEDS ORDERED: Kayexylate 15 GM/60 ML PO ONE (23:04)
[2020-09-03] MEDS ORDERED: Kayexylate 15 GM/60 ML ONE (23:43)
[2020-09-03] MEDS: Sodium Chloride 0.9% 1000 ML 1,000 ML IV SCH (23:46)
[2020-09-04 06:22] LABS: ANION GAP 11.1 MEQ/L (5-15); Calcium 9.3 mg/dL (8.4-10.2); Creatinine 1 3.25 mg/dL (0.66-1.25); EST GLOMERULAR FILTRATION RATE 19.8 ML/MIN; Potassium 5.5 mmol/L (3.5-5.1)
[2020-09-04] MEDS ORDERED: Kayexylate 15 GM/60 ML PO ONE (08:15)
--- NOTE | 2020-09-04 08:18 | PCM.HP ---
History of Present Illness - Chief Complaint Chief Complaint: hyperkalemia History of Present Illness: is a 79 year old male who was brought to the ER after he was called by Dr Ramires with elevated potassium level last night, he denies any chest pain, no palpitations, states he feels lik ehis usual self and has no symptoms. Medications & Allergies Home Medications: Home Medication List Aspirin 81 gm Chew [Baby Aspirin 81 mg Chew] 81 mg PO DAILY 03/27/14 [History Confirmed 09/03/20] Levothyroxine Sodium 50 Mcg [Synthroid 50 Mcg] 25 mcg PO DAILY 03/27/14 [History Confirmed 09/03/20] Clopidogrel Bisulfate [Plavix] 75 mg PO 3XW 06/16/14 [History Confirmed 09/03/20] Donepezil HCl [Aricept] 10 mg PO BID 06/16/14 [History Confirmed 09/03/20] Tamsulosin HCl 0.4 mg [Flomax 0.4 MG] 0.4 mg PO HS 06/16/14 [History Confirmed 09/03/20] Fluoxetine HCl [Prozac] 40 mg PO DAILY 04/15/15 [History Confirmed 09/03/20] Memantine HCl [Namenda] 10 mg PO BID 04/15/15 [History Confirmed 09/03/20] Atorvastatin Calcium 20 mg PO HS 08/17/17 [History Confirmed 09/03/20] Ferrous Sulfate [Iron] 325 mg PO DAILY 08/17/17 [History Confirmed 09/03/20] Gabapentin [Neurontin] 300 mg PO HS 08/17/17 [History Confirmed 09/03/20] Omeprazole 40 mg PO DAILY 08/17/17 [History Confirmed 09/03/20] Sodium Bicarbonate 650 mg PO HS 08/17/17 [History Confirmed 09/03/20] Carvedilol 12.5 mg [Coreg 12.5 mg] 12.5 mg PO BID 11/04/19 [History Confirmed 09/03/20] Evolocumab [Repatha Sureclick] 140 mg SQ UD 11/04/19 [History Confirmed 09/03/20] Insulin Detemir [Levemir] 25 unit SQ BID 06/23/20 [History Confirmed 09/03/20] Insulin Lispro [Humalog] 0 unit SQ TID PRN 08/14/20 [History Confirmed 09/03/20] Allergies/Adverse Reactions: Allergies Allergy/AdvReac Type Severity Reaction Status Date / Time No Known Allergies Allergy Verified 09/03/20 20:47 - Past Medical History Past Medical History: Yes Neurological History: TIA ENT History: No Pertinent History Cardiac History: Coronary Artery Disease, Myocardial Infarction ([place]) Respiratory History: Pneumonia, Other Endocrine Medical History: Diabetes Type II Musculoskelatal History: Osteoarthritis GI Medical History: Diverticulitis, GERD, Other History: Renal Disease, Other Pyscho-Social History: Anxiety, Depression Male Reproductive Disorders: Prostate Problems Comment: Pacemaker, stents, Covid 19 - Past Surgical History Past Surgical History: Yes Neuro Surgical History: No Pertinent History Cardiac History: Cardiac Catheterization, Cardiac Stent, Pacemaker Respiratory Surgery: No Pertinent History GI Surgical History: No Pertinent History Genitourinary Surgical Hx: No Pertinent History Musculskeletal Surgical Hx: Orthopedic Surgery Male Surgical History: No Pertinent History Other Surgical History: rt knee replacement and revision to rt knee, skin lesions removed left arm, partial parathyroid gland removed - Social History Smoking Status: Never smoker Exposure to second hand smoke: No Alcohol: None Drug Use: none Significant Family History: no pertinent family hx - Physical Exam Vital Signs: Vital Signs - 24 hr Temp Pulse Resp BP Pulse Ox 09/04/20 07:53 23 09/04/20 07:50 97.7 F 61 23 175/74 97 09/04/20 04:00 18 09/04/20 03:44 97.6 F 68 18 154/67 98 09/04/20 01:16 97.6 F 66 18 164/78 100 09/04/20 00:32 100 09/04/20 00:02 66 16 164/78 98 09/03/20 23:03 61 16 160/69 98 09/03/20 22:06 61 146/71 100 09/03/20 21:05 61 18 161/79 98 09/03/20 20:35 97.6 F 66 16 178/81 99 General Appearance: no apparent distress, alert Respiratory Exam: crackles/rales, No respiratory distress, No accessory muscle use, No prolonged expirations Cardiovascular Exam: regular rate/rhythm, normal heart sounds, normal peripheral pulses Gastrointestinal/Abdomen Exam: soft, normal bowel sounds, No tenderness, No mass Extremity Exam: normal inspection, normal range of motion, pelvis stable Skin Exam: normal color, warm, dry, No rash Results - Labs Lab/Micro Results: Lab Results-Last 24 Hours 09/03/20 09/03/20 09/03/20 Range/Units 21:13 21:13 23:54 WBC 7.0 (4.0-10.5) K/mm3 RBC 2.61 L (4.1-5.6) M/mm3 Hgb 8.8 L (12.5-18.0) gm/dl Hct 27.8 L (42-50) % MCV 106.5 H (78-100) fl MCH 33.7 H (26-32) pg MCHC 31.7 L (32-36) g/dl RDW 16.9 H (11.5-14.0) % Plt Count 180 (150-450) K/mm3 MPV 8.3 (7.5-11.0) fl Gran % 57.7 (36.0-66.0) % Eos # (Auto) 0.25 (0-0.5) Absolute Lymphs (auto) 1.98 (1.0-4.6) Absolute Monos (auto) 0.68 (0.0-1.3) Lymphocytes % 28.3 (24.0-44.0) % Monocytes % 9.7 (0.0-12.0) % Eosinophils % 3.6 (0.00-5.0) % Basophils % 0.7 (0.0-0.4) % Absolute Granulocytes 4.04 (1.4-6.9) Basophils # 0.05 (0-0.4) Sodium 138 (137-145) mmol/L Potassium 6.4 H* (3.5-5.1) mmol/L Chloride 113 H (98-107) mmol/L Carbon Dioxide 18 L (22-30) mmol/L Anion Gap 13.1 (5-15) MEQ/L BUN 50 H (9-20) mg/dL Creatinine 3.58 H (0.66-1.25) mg/dL Estimated GFR 17.7 ML/MIN Glucose 314 H (74-106) mg/dL POC Glucometer 125 H (74 to 106) mg/dL Calcium 9.7 (8.4-10.2) mg/dL Total Bilirubin 0.30 (0.2-1.3) mg/dL AST 17 (17-59) U/L ALT 16 (0-50) U/L Alkaline Phosphatase 93 (38-126) U/L Serum Total Protein 7.2 (6.3-8.2) g/dL Albumin 3.8 (3.5-5.0) g/dL 09/04/20 09/04/20 Range/Units 04:39 07:24 WBC (4.0-10.5) K/mm3 RBC (4.1-5.6) M/mm3 Hgb (12.5-18.0) gm/dl Hct (42-50) % MCV (78-100) fl MCH (26-32) pg MCHC (32-36) g/dl RDW (11.5-14.0) % Plt Count (150-450) K/mm3 MPV (7.5-11.0) fl Gran % (36.0-66.0) % Eos # (Auto) (0-0.5) Absolute Lymphs (auto) (1.0-4.6) Absolute Monos (auto) (0.0-1.3) Lymphocytes % (24.0-44.0) % Monocytes % (0.0-12.0) % Eosinophils % (0.00-5.0) % Basophils % (0.0-0.4) % Absolute Granulocytes (1.4-6.9) Basophils # (0-0.4) Sodium 139 (137-145) mmol/L Potassium 5.5 H (3.5-5.1) mmol/L Chloride 112 H (98-107) mmol/L Carbon Dioxide 21 L (22-30) mmol/L Anion Gap 11.1 (5-15) MEQ/L BUN 49 H (9-20) mg/dL Creatinine 3.25 H (0.66-1.25) mg/dL Estimated GFR 19.8 ML/MIN Glucose 251 H (74-106) mg/dL POC Glucometer 175 H (74 to 106) mg/dL Calcium 9.3 (8.4-10.2) mg/dL Total Bilirubin (0.2-1.3) mg/dL AST (17-59) U/L ALT (0-50) U/L Alkaline Phosphatase (38-126) U/L Serum Total Protein (6.3-8.2) g/dL Albumin (3.5-5.0) g/dL Accuchecks Date 09/04/20 Time 07:24 Assessment/Plan (1) Hyperkalemia Current Visit: Yes Status: Acute Assessment & Plan: K still elevated, improved with kayexalate in ER. will repeat another dose this am and repeat bmp. bun/cr appear to be at baseline on review of previous labs. Code(s): E87.5 - HYPERKALEMIA (2) Chronic renal failure Current Visit: No Status: Chronic (3) Diabetes mellitus Current Visit: No Status: Chronic Code(s): E11.9 - TYPE 2 DIABETES MELLITUS WITHOUT COMPLICATIONS
--- NOTE | 2020-09-04 09:04 | XRAY ---
Indication: Short of breath. Hyperkalemia. Comparison: August 16, 2020. Portable chest again demonstrates diffuse bilateral interstitial alveolar opacities, mildly improved in left upper lung and grossly unchanged in the right lung. Heart is not enlarged with stable left pacemaker and stable right hemidiaphragm elevation. No new cardiopulmonary abnormalities.
[2020-09-04] MEDS ORDERED: NON-FORMULARY ITEM (Omeprazole [Omeprazole] 40 MG) PO SCH (10:00)
[2020-09-04] MEDS ORDERED: INSULIN DETEMIR 25 UNIT SQ SCH (10:00)
[2020-09-04] MEDS ORDERED: PLAVIX 75 MG Tablet PO SCH (10:00)
[2020-09-04] MEDS ORDERED: NON-FORMULARY ITEM (Memantine Hcl [Namenda] 10 MG) PO SCH (10:00)
[2020-09-04] MEDS: Protonix 40MG Tablet PO SCH (11:08)
[2020-09-04] MEDS: FEOSOL 325 MG PO SCH (11:08)
[2020-09-04] MEDS: Namenda 5 MG PO SCH ×2 (11:08→22:43)
[2020-09-04] MEDS: Prozac 20 MG PO SCH (11:08)
[2020-09-04] MEDS: SYNTHROID 25 MCG PO SCH (11:08)
[2020-09-04] MEDS: COREG 12.5 MG PO SCH ×2 (11:08→22:43)
[2020-09-04] MEDS: ECOTRIN 81 MG PO SCH (11:09)
[2020-09-04] MEDS: Lantus Insulin SQ SCH ×2 (11:09→22:44)
[2020-09-04] MEDS: Aricept 10 MG PO SCH ×2 (11:09→22:43)
[2020-09-04 13:02] LABS: ANION GAP 11.4 MEQ/L (5-15); Calcium 9.1 mg/dL (8.4-10.2); Creatinine 1 2.98 mg/dL (0.66-1.25); EST GLOMERULAR FILTRATION RATE 21.8 ML/MIN; Potassium 5.3 mmol/L (3.5-5.1)
[2020-09-04] MEDS ORDERED: HUMALOG SQ PRN (15:32)
[2020-09-04] MEDS: Sodium Chloride 0.9% 1000 ML 1,000 ML IV SCH (19:45)
[2020-09-04] MEDS ORDERED: NON-FORMULARY ITEM PO SCH (22:00)
[2020-09-04] MEDS ORDERED: ZOCOR 20MG PO SCH (22:00)
[2020-09-04] MEDS ORDERED: Flomax 0.4 MG PO SCH (22:00)
[2020-09-04] MEDS ORDERED: NON-FORMULARY ITEM (Atorvastatin Calcium [Atorvastatin Calcium] 20 MG) PO SCH (22:00)
[2020-09-04] MEDS ORDERED: NEURONTIN 300 MG PO SCH (22:00)
[2020-09-04] MEDS ORDERED: NON-FORMULARY ITEM (Sodium Bicarbonate 650 MG) PO SCH (22:00)
[2020-09-04] MEDS ORDERED: TYLENOL 325 MG PO PRN (22:47)
[2020-09-05 06:17] LABS: Absolute Neutrophil Ct (ANC) 3.34 (1.4-6.9); BASOPHIL % 0.5 % (0.0-0.4); Basophil (Absolute #) 0.03 (0-0.4); Eosinophil % 4.4 % (0.00-5.0); Eosinophil (Absolute #) 0.26 (0-0.5); Hematocrit 25.5 % (42-50); Hemoglobin 8.2 gm/dl (12.5-18.0); Lymphocyte (Absolute #) 1.72 (1.0-4.6); Lymphocytes % 29.2 % (24.0-44.0); Mean Cell Volume 104.9 fl (78-100); Mean Corpuscular Hemoglobin 33.7 pg (26-32); Mean Corpuscular Hgb Concent. 32.2 g/dl (32-36); Mean Platelet Volume 9.1 fl (7.5-11.0); Monocyte (Absolute #) 0.55 (0.0-1.3); Monocytes % 9.3 % (0.0-12.0); Neutrophil % 56.6 % (36.0-66.0); Platelet Count 174 K/mm3 (150-450); Red Blood Count 2.43 M/mm3 (4.1-5.6); Red Cell Distribution Width 16.2 % (11.5-14.0); White Blood Count 5.9 K/mm3 (4.0-10.5)
[2020-09-05 06:35] LABS: ANION GAP 8.7 MEQ/L (5-15); Creatinine 1 3.17 mg/dL (0.66-1.25); EST GLOMERULAR FILTRATION RATE 20.3 ML/MIN; Potassium 4.6 mmol/L (3.5-5.1)
[2020-09-05] MEDS: COREG 12.5 MG PO SCH (10:45)
[2020-09-05] MEDS: Protonix 40MG Tablet PO SCH (10:46)
[2020-09-05] MEDS: ECOTRIN 81 MG PO SCH (10:46)
[2020-09-05] MEDS: SYNTHROID 25 MCG PO SCH (10:46)
[2020-09-05] MEDS: FEOSOL 325 MG PO SCH (10:46)
[2020-09-05] MEDS: Namenda 5 MG PO SCH (10:46)
[2020-09-05] MEDS: Prozac 20 MG PO SCH (10:46)
[2020-09-05] MEDS: Lantus Insulin SQ SCH (10:46)
[2020-09-05] MEDS: Aricept 10 MG PO SCH (10:46)
[2020-09-05 11:58] VITALS: BP 169/65; PULSE 72; O2SAT 98
--- NOTE | 2020-09-05 15:07 | PCM.DS ---
Discharge Summary Date of Admission: 09/03/20 23:24 Admitting Physician: WILMAR PONCE Consults: Consults on Case 09/04/20 08:18 Consult Nephrology ROUTINE Primary Care Provider: WILMAR PONCE Allergies Allergies No Known Allergies Allergy (Verified 09/03/20 20:47) Hospital Summary - Hospital Course Hospital Course: Patient was admitted for treatment of hyperkalemia due to CRF . He is followed by Dr Ramires Rehab Department Manager and PCP Sr Ponce.After Tx with Kaxolate his potassium has come down to 4.6 from 6.4. He has not had any palpitations or chest pain or cough, no GI symptoms,no edema. He is anxious to go home. - Vitals & Intake/Output Vital Signs: Vital Signs Temperature 97.9 F 09/05/20 11:57 Pulse Rate 72 09/05/20 11:57 Respiratory Rate 18 09/05/20 11:57 Blood Pressure 169/65 09/05/20 11:57 O2 Sat by Pulse Oximetry 98 09/05/20 11:57 Intake & Output: Intake & Output 09/03/20 09/04/20 09/05/20 09/06/20 11:59 11:59 11:59 11:59 Intake Total 1020 2787 240 Output Total 525 Balance 1020 2262 240 Weight 93.2 kg - Lab Result Diagrams: 09/05/20 05:25 09/05/20 05:25 Lab Results-Last 24 Hrs: Lab Results-Last 24 Hours 09/04/20 09/04/20 09/05/20 Range/Units 16:06 21:14 05:25 WBC 5.9 (4.0-10.5) K/mm3 RBC 2.43 L (4.1-5.6) M/mm3 Hgb 8.2 L (12.5-18.0) gm/dl Hct 25.5 L (42-50) % MCV 104.9 H (78-100) fl MCH 33.7 H (26-32) pg MCHC 32.2 (32-36) g/dl RDW 16.2 H (11.5-14.0) % Plt Count 174 (150-450) K/mm3 MPV 9.1 (7.5-11.0) fl Gran % 56.6 (36.0-66.0) % Eos # (Auto) 0.26 (0-0.5) Absolute Lymphs (auto) 1.72 (1.0-4.6) Absolute Monos (auto) 0.55 (0.0-1.3) Lymphocytes % 29.2 (24.0-44.0) % Monocytes % 9.3 (0.0-12.0) % Eosinophils % 4.4 (0.00-5.0) % Basophils % 0.5 (0.0-0.4) % Absolute Granulocytes 3.34 (1.4-6.9) Basophils # 0.03 (0-0.4) Sodium (137-145) mmol/L Potassium (3.5-5.1) mmol/L Chloride (98-107) mmol/L Carbon Dioxide (22-30) mmol/L Anion Gap (5-15) MEQ/L BUN (9-20) mg/dL Creatinine (0.66-1.25) mg/dL Estimated GFR ML/MIN Glucose (74-106) mg/dL POC Glucometer 160 H 171 H (74 to 106) mg/dL Calcium (8.4-10.2) mg/dL NT-Pro-B Natriuret Pep (0-1800) pg/mL 09/05/20 09/05/20 09/05/20 Range/Units 05:25 07:07 11:33 WBC (4.0-10.5) K/mm3 RBC (4.1-5.6) M/mm3 Hgb (12.5-18.0) gm/dl Hct (42-50) % MCV (78-100) fl MCH (26-32) pg MCHC (32-36) g/dl RDW (11.5-14.0) % Plt Count (150-450) K/mm3 MPV (7.5-11.0) fl Gran % (36.0-66.0) % Eos # (Auto) (0-0.5) Absolute Lymphs (auto) (1.0-4.6) Absolute Monos (auto) (0.0-1.3) Lymphocytes % (24.0-44.0) % Monocytes % (0.0-12.0) % Eosinophils % (0.00-5.0) % Basophils % (0.0-0.4) % Absolute Granulocytes (1.4-6.9) Basophils # (0-0.4) Sodium 137 (137-145) mmol/L Potassium 4.6 (3.5-5.1) mmol/L Chloride 112 H (98-107) mmol/L Carbon Dioxide 22 (22-30) mmol/L Anion Gap 8.7 (5-15) MEQ/L BUN 50 H (9-20) mg/dL Creatinine 3.17 H (0.66-1.25) mg/dL Estimated GFR 20.3 ML/MIN Glucose 152 H (74-106) mg/dL POC Glucometer 149 H 247 H (74 to 106) mg/dL Calcium 9.0 (8.4-10.2) mg/dL NT-Pro-B Natriuret Pep 1510 (0-1800) pg/mL Micro Results-Entire Visit: Accuchecks Date 09/05/20 Date 09/04/20 Time 07:30 Time 16:06 - Radiology Exams Ordered Rad Exams-Entire Visit: Radiology Procedures Category Date Time Status CHEST 1 VIEW (PORTABLE) Routine Exams 09/04/20 08:15 Completed - Procedures and Test Procedures and Tests throughout Hospitalization: Therapy Orders & Screens 09/03/20 20:54 EKG STAT Comment: Discharge Exam General Appearance: no apparent distress Neurologic Exam: alert, oriented x 3, cooperative Eye Exam: eyes nml inspection Ears, Nose, Throat Exam: moist mucous membranes Neck Exam: normal inspection Respiratory Exam: normal breath sounds Cardiovascular Exam: regular rate/rhythm Gastrointestinal/Abdomen Exam: soft (nontender) Extremity Exam: normal inspection (no edema) Final Diagnosis/Problem List - Final Discharge Diagnosis/Problem (1) Hyperkalemia Current Visit: Yes Status: Acute Assessment & Plan: resolved,discussed avoiding foods high in potassium Code(s): E87.5 - HYPERKALEMIA (2) CRI (chronic renal insufficiency) Current Visit: No Status: Chronic Assessment & Plan: has a follow up appt with Dr Ramires this week. Code(s): N18.9 - CHRONIC KIDNEY DISEASE, UNSPECIFIED (3) DM2 (diabetes mellitus, type 2) Current Visit: Yes Status: Chronic Assessment & Plan: continue present care and follow up with PCP (4) HTN (hypertension) Current Visit: Yes Status: Chronic Assessment & Plan: continue present meds Code(s): I10 - ESSENTIAL (PRIMARY) HYPERTENSION - Discharge Disposition: Home, Self-Care Condition: Stable Prescriptions: No Action Levothyroxine Sodium 50 Mcg [Synthroid 50 Mcg] 25 mcg PO DAILY Aspirin 81 gm Chew [Baby Aspirin 81 mg Chew] 81 mg PO DAILY Tamsulosin HCl 0.4 mg [Flomax 0.4 MG] 0.4 mg PO HS Clopidogrel Bisulfate [Plavix] 75 mg PO 3XW Donepezil HCl [Aricept] 10 mg PO BID Memantine HCl [Namenda] 10 mg PO BID Fluoxetine HCl [Prozac] 40 mg PO DAILY Gabapentin [Neurontin] 300 mg PO HS Ferrous Sulfate [Iron] 325 mg PO DAILY Atorvastatin Calcium 20 mg PO HS Sodium Bicarbonate 650 mg PO HS Omeprazole 40 mg PO DAILY Carvedilol 12.5 mg [Coreg 12.5 mg] 12.5 mg PO BID Evolocumab [Repatha Sureclick] 140 mg SQ UD Insulin Detemir [Levemir] 25 unit SQ BID Insulin Lispro [Humalog] 0 unit SQ TID PRN PRN Reason: elevated blood sugar Follow up with: WILMAR PONCE MD [Primary Care Provider] - 1 Week JUAN RAMIRES [CONSULTING PHYSICIAN] - 1 Week
--- NOTE | 2020-09-05 15:18 | PCM.DCORD ---
- Discharge Disposition: Home, Self-Care Condition: Stable Prescriptions: Continue Levothyroxine Sodium 50 Mcg [Synthroid 50 Mcg] 25 mcg PO DAILY Aspirin 81 gm Chew [Baby Aspirin 81 mg Chew] 81 mg PO DAILY Tamsulosin HCl 0.4 mg [Flomax 0.4 MG] 0.4 mg PO HS Clopidogrel Bisulfate [Plavix] 75 mg PO 3XW Donepezil HCl [Aricept] 10 mg PO BID Memantine HCl [Namenda] 10 mg PO BID Fluoxetine HCl [Prozac] 40 mg PO DAILY Gabapentin [Neurontin] 300 mg PO HS Ferrous Sulfate [Iron] 325 mg PO DAILY Atorvastatin Calcium 20 mg PO HS Sodium Bicarbonate 650 mg PO HS Omeprazole 40 mg PO DAILY Carvedilol 12.5 mg [Coreg 12.5 mg] 12.5 mg PO BID Evolocumab [Repatha Sureclick] 140 mg SQ UD Insulin Detemir [Levemir] 25 unit SQ BID Insulin Lispro [Humalog] 0 unit SQ TID PRN PRN Reason: elevated blood sugar Follow up with: WILMAR PONEC MD [Primary Care Provider] - 1 Week JUAN MENSAH [CONSULTING PHYSICIAN] - 1 Week
== END 2020-09-05 15:58 | disposition home or self-care (01) ==
LOC: ED 19:44 → ICU 23:24
PROVIDERS: ADMIT Family Medicine; ATTEND Family Medicine
DX: E87.5 Hyperkalemia (principal); E11.22 Type 2 diabetes mellitus with diabetic chronic kidney disease; I12.9 Hypertensive chronic kidney disease with stage 1 through stage 4 chronic kidney disease, or unspecified chronic kidney disease; N18.9 Chronic kidney disease, unspecified; Z79.01 Long term (current) use of anticoagulants; Z79.899 Other long term (current) drug therapy; I21.9 Acute myocardial infarction, unspecified; E11.9 Type 2 diabetes mellitus without complications
CPT/HCPCS: 36415; 71045; 80048; 80053; 82962; 83880; 85025; 93268; 96374; 96375; 99285; G0378; J0610; J1815; J1817; A9270-GY

== ENCOUNTER 2020-11-06 18:37 | Inpatient (IN) | payer MEDICARE, OTHER ==
[2020-11-06] MEDS ORDERED: Sodium Chloride 0.9% 1000 ML 1,000 ML IV STA ×2 (19:09→20:53)
[2020-11-06] MEDS ORDERED: Zofran 4 MG/2 ML VIAL IV ONE (19:09)
--- NOTE | 2020-11-06 19:09 | ERPHSYRPT ---
- History of Present Illness Time Seen by Provider: 11/06/20 19:09 Source: patient Exam Limitations: clinical condition Patient Subjective Stated Complaint: pt here for increase weakness, high blood sugar today, pt was at home with home health care nurse. Triage Nursing Assessment: pt alert, but poor historian, resp easy, skin hot/dry/pink,.abd soft, he states he hurts all over Physician History: This is a 80-year-old diabetic white male patient of Dr. Ponce who presents with fever and weakness today as well as blood sugar reading of "high" on his glucometer at home today. Patient tested positive for the Covid 19 virus in June 2020. Patient has a history of chronic renal failure, hypertension, coronary artery disease, hypothyroidism and congestive heart failure. Patient states that he also aches all over. Patient does take Plavix. Patient denies shortness of breath and he denies chest pain. He has no nausea vomiting or diarrhea symptoms. Timing/Duration: today Severity: moderate Associated Symptoms: fever, weakness, No nausea, No vomiting, No abdominal pain Allergies/Adverse Reactions: No Known Allergies Allergy (Verified 11/06/20 18:50) Home Medications: Aspirin 81 gm Chew [Baby Aspirin 81 mg Chew] 81 mg PO DAILY 03/27/14 [History] Levothyroxine Sodium 50 Mcg [Synthroid 50 Mcg] 25 mcg PO DAILY 03/27/14 [History] Clopidogrel Bisulfate [Plavix] 75 mg PO 3XW 06/16/14 [History] Donepezil HCl [Aricept] 10 mg PO BID 06/16/14 [History] Tamsulosin HCl 0.4 mg [Flomax 0.4 MG] 0.4 mg PO HS 06/16/14 [History] Fluoxetine HCl [Prozac] 40 mg PO DAILY 04/15/15 [History] Memantine HCl [Namenda] 10 mg PO BID 04/15/15 [History] Atorvastatin Calcium 20 mg PO HS 08/17/17 [History] Ferrous Sulfate [Iron] 325 mg PO DAILY 08/17/17 [History] Gabapentin [Neurontin] 300 mg PO HS 08/17/17 [History] Omeprazole 40 mg PO DAILY 08/17/17 [History] Sodium Bicarbonate 650 mg PO HS 08/17/17 [History] Carvedilol 12.5 mg [Coreg 12.5 mg] 12.5 mg PO BID 11/04/19 [History] Evolocumab [Repatha Sureclick] 140 mg SQ UD 11/04/19 [History] Insulin Detemir [Levemir] 25 unit SQ BID 06/23/20 [History] Insulin Lispro [Humalog] 0 unit SQ TID PRN 08/14/20 [History] Patiromer Calcium Sorbitex [Veltassa] 8.4 gm PO UD 09/24/20 [History] Vitamin B Complex 1 each PO DAILY 09/24/20 [History] Hx Tetanus, Diphtheria Vaccination/Date Given: Yes Hx Influenza Vaccination/Date Given: Yes Hx Pneumococcal Vaccination/Date Given: Yes Immunizations Up to Date: Yes Travel Risk - International Travel Have you traveled outside of the country in past 3 weeks: No - Coronavirus Screening Are you exhibiting any of the following symptoms?: No Symptoms: Fever Close contact with a COVID-19 positive Pt in past 14-21 Days: No - Review of Systems Constitutional: Fever, Weakness Eyes: No Symptoms Ears, Nose, & Throat: No Symptoms Respiratory: No Symptoms Cardiac: No Symptoms Abdominal/Gastrointestinal: No Symptoms Genitourinary Symptoms: No Symptoms Musculoskeletal: No Symptoms Skin: No Symptoms Neurological: No Symptoms Psychological: No Symptoms Endocrine: No Symptoms Hematologic/Lymphatic: No Symptoms Immunological/Allergic: No Symptoms All Other Systems: Reviewed and Negative - Past Medical History Pertinent Past Medical History: Yes Neurological History: TIA ENT History: No Pertinent History Cardiac History: Coronary Artery Disease, Myocardial Infarction ([place]) Respiratory History: Pneumonia, Other Endocrine Medical History: Diabetes Type II Musculoskeletal History: Osteoarthritis GI Medical History: Diverticulitis, GERD, Other History: Renal Disease, Other Psycho-Social History: Anxiety, Depression Male Reproductive Disorders: Prostate Problems Other Medical History: Pacemaker, stents, Covid 19 - Past Surgical History Past Surgical History: Yes Neuro Surgical History: No Pertinent History Cardiac: Cardiac Catheterization, Cardiac Stent, Pacemaker Respiratory: No Pertinent History Gastrointestinal: No Pertinent History Genitourinary: No Pertinent History Musculoskeletal: Orthopedic Surgery Male Surgical History: No Pertinent History Other Surgical History: rt knee replacement and revision to rt knee, skin lesions removed left arm, partial parathyroid gland removed - Social History Smoking Status: Never smoker Exposure to second hand smoke: No Drug Use: none Patient Lives Alone: Yes Significant Family History: no pertinent family hx - Nursing Vital Signs Nursing Vital Signs: Initial Vital Signs Temperature 100.2 F 11/06/20 18:44 Pulse Rate 82 11/06/20 18:44 Respiratory Rate 18 11/06/20 18:44 Blood Pressure 155/77 11/06/20 18:44 O2 Sat by Pulse Oximetry 98 11/06/20 18:44 Pain Scale Pain Intensity 3 - Physical Exam General Appearance: mild distress, alert Eye Exam: PERRL/EOMI, eyes nml inspection Ears, Nose, Throat Exam: normal ENT inspection, pharynx normal, dry mucous membranes Neck Exam: normal inspection, non-tender, supple, full range of motion Respiratory Exam: normal breath sounds, lungs clear, airway intact, No chest tenderness, No respiratory distress Cardiovascular Exam: regular rate/rhythm, normal heart sounds, normal peripheral pulses Gastrointestinal/Abdomen Exam: soft, normal bowel sounds, No tenderness Rectal Exam: not done Back Exam: normal inspection, normal range of motion, No CVA tenderness, No vertebral tenderness Extremity Exam: normal inspection, normal range of motion, pelvis stable Neurologic Exam: alert, oriented x 3, cooperative, buildings and grounds director II-XII nml as tested, normal mood/affect, nml cerebellar function, nml station & gait, sensation nml Skin Exam: normal color, warm, dry Lymphatic Exam: No adenopathy SpO2 Interpretation: normal SpO2: 98 O2 Delivery: Room Air - Course Nursing assessment & vital signs reviewed: Yes Ordered Tests: Active Orders 24 hr Category Date Time Status Snow Groomer STAT Care 11/06/20 19:09 Active Snow Groomer STAT Care 11/06/20 19:11 Active EKG-ER Only STAT Care 11/06/20 19:10 Active IV Insertion STAT Care 11/06/20 19:09 Active CHEST 1 VIEW (PORTABLE) Stat Exams 11/06/20 19:10 Completed BLOOD CULTURE Stat Lab 11/06/20 19:13 Received CBC W DIFF Stat Lab 11/06/20 19:13 Completed CMP Stat Lab 11/06/20 19:13 Completed CULTURE,URINE Stat Lab 11/06/20 19:23 Received INFLUENZA A+B MALIHA Stat Lab 11/06/20 19:25 Completed Lactic Acid Stat Lab 11/06/20 21:42 Received Lactic Acid Urgent Lab 11/06/20 19:40 Completed MAGNESIUM Stat Lab 11/06/20 19:13 Completed Keith Screen Stat Lab 11/06/20 19:13 Completed POCT GLUCOSE Stat Lab 11/06/20 18:53 Received POCT GLUCOSE Stat Lab 11/06/20 19:01 Received POCT GLUCOSE Stat Lab 11/06/20 19:02 Received T4 (Thyroxine) Stat Lab 11/06/20 19:27 Completed TSH [TSH, 3RD Generation] Stat Lab 11/06/20 19:27 Completed UA W/RFX UR CULTURE Stat Lab 11/06/20 19:23 Completed Transfer Order Routine Transfer 11/06/20 Ordered Medication Summary Generic Name Dose Route Start Last Admin Trade Name Freq PRN Reason Stop Dose Admin Sodium Chloride 1,000 mls @ 999 mls/hr 11/06/20 20:53 11/06/20 21:10 Sodium Chloride 0.9% 1000 Ml IV 11/06/20 21:53 999 mls/hr .Q1H1M STA Administration Discontinued Medications Generic Name Dose Route Start Last Admin Trade Name Freq PRN Reason Stop Dose Admin Acetaminophen 650 mg 11/06/20 19:10 11/06/20 19:39 Tylenol 325 Mg PO 11/06/20 19:11 650 mg STAT STA Administration Acetaminophen Confirm 11/06/20 19:26 Tylenol 325 Mg Administered 11/06/20 19:27 Dose 650 mg .ROUTE .STK-MED ONE Sodium Chloride 1,000 mls @ 999 mls/hr 11/06/20 19:09 11/06/20 21:10 Sodium Chloride 0.9% 1000 Ml IV 11/06/20 20:09 Infused .Q1H1M STA Infusion Sodium Chloride Confirm 11/06/20 19:26 Sodium Chloride 0.9% 1000 Ml Administered 11/06/20 19:27 Dose 1,000 mls @ ud .ROUTE .STK-MED ONE Ceftriaxone Sodium/Dextrose 1 g in 50 mls @ 100 mls/hr 11/06/20 20:32 11/06/20 21:23 Rocephin 1 Gm-D5w 50 Ml Bag IV 11/06/20 21:01 Infused STAT STA Infusion Ceftriaxone Sodium/Dextrose Confirm 11/06/20 20:45 Rocephin 1 Gm-D5w 50 Ml Bag Administered 11/06/20 20:46 Dose 1 g in 50 mls @ ud IV .STK-MED ONE Magnesium Sulfate/Dextrose 100 mls @ 200 mls/hr 11/06/20 21:08 11/06/20 21:09 Magnesium 1 Gm / 100 Ml D5w IV 11/06/20 21:37 200 mls/hr STAT ONE Administration Magnesium Sulfate/Dextrose Confirm 11/06/20 21:09 Magnesium 1 Gm / 100 Ml D5w Administered 11/06/20 21:10 Dose 100 mls @ ud IV .STK-MED ONE Sodium Chloride Confirm 11/06/20 21:09 Sodium Chloride 0.9% 1000 Ml Administered 11/06/20 21:10 Dose 1,000 mls @ ud .ROUTE .STK-MED ONE Insulin Human Regular 18 unit 11/06/20 19:45 11/06/20 20:03 Humulin R IV 11/06/20 19:46 18 unit STAT ONE Administration Insulin Human Regular Confirm 11/06/20 20:02 Humulin R Administered 11/06/20 20:03 Dose 18 unit .ROUTE .STK-MED ONE Magnesium Sulfate 1 gm 11/06/20 20:52 11/06/20 21:10 Magnesium Sulfate 1 Gm/2 Ml Vial IV 11/06/20 20:53 Not Given ONCE ONE Ondansetron HCl 4 mg 11/06/20 19:09 11/06/20 19:39 Zofran 4 Mg/2 Ml Vial IV 11/06/20 19:10 4 mg STAT ONE Administration Ondansetron HCl Confirm 11/06/20 19:26 Zofran 4 Mg/2 Ml Vial Administered 11/06/20 19:27 Dose 4 mg .ROUTE .STK-MED ONE Lab/Rad Data: Laboratory Result Diagrams 11/06/20 19:13 11/06/20 19:13 Laboratory Results 11/06/20 11/06/20 11/06/20 Range/Units 20:37 19:40 19:27 WBC (4.0-10.5) K/mm3 RBC (4.1-5.6) M/mm3 Hgb (12.5-18.0) gm/dl Hct (42-50) % MCV (78-100) fl MCH (26-32) pg MCHC (32-36) g/dl RDW (11.5-14.0) % Plt Count (150-450) K/mm3 MPV (7.5-11.0) fl Gran % (36.0-66.0) % Eos # (Auto) (0-0.5) Absolute Lymphs (auto) (1.0-4.6) Absolute Monos (auto) (0.0-1.3) Lymphocytes % (24.0-44.0) % Monocytes % (0.0-12.0) % Eosinophils % (0.00-5.0) % Basophils % (0.0-0.4) % Absolute Granulocytes (1.4-6.9) Basophils # (0-0.4) Sodium (137-145) mmol/L Potassium (3.5-5.1) mmol/L Chloride (98-107) mmol/L Carbon Dioxide (22-30) mmol/L Anion Gap (5-15) MEQ/L BUN (9-20) mg/dL Creatinine (0.66-1.25) mg/dL Estimated GFR ML/MIN Glucose (74-106) mg/dL Lactic Acid 3.6 H (0.4-2.0) Calcium (8.4-10.2) mg/dL Magnesium (1.6-2.3) mg/dL Total Bilirubin (0.2-1.3) mg/dL AST (17-59) U/L ALT (0-50) U/L Alkaline Phosphatase (38-126) U/L Serum Total Protein (6.3-8.2) g/dL Albumin (3.5-5.0) g/dL Thyroxine (T4) 5.49 L (5.53-10.96) ug/dL TSH 3rd Generation (0.47-4.68) mIU/L Urine Color (YELLOW) Urine Appearance (CLEAR) Urine pH (5-6) Ur Specific [place] (1.005-1.025) Urine Protein (Negative) Urine Ketones (NEGATIVE) Urine Blood (0-5) Donn/ul Urine Nitrite (NEGATIVE) Urine Bilirubin (NEGATIVE) Urine Urobilinogen (0-1) mg/dL Ur Leukocyte Esterase (NEGATIVE) Urine WBC (Auto) (0-5) /HPF Urine RBC (Auto) (0-2) /HPF U Epithel Cells (Auto) (FEW) /HPF Urine Bacteria (Auto) (NEGATIVE) /HPF Urine Culture Reflexed (NO) Urine Glucose (NEGATIVE) mg/dL Monoscreen (Negative) Influenza Type A Ag (NEGATIVE) Influenza Type B Ag (NEGATIVE) SARS-CoV-2 (PCR) NEGATIVE (NEGATIVE) Group A Strep Antibody (NEGATIVE) 11/06/20 11/06/20 11/06/20 Range/Units 19:27 19:25 19:25 WBC (4.0-10.5) K/mm3 RBC (4.1-5.6) M/mm3 Hgb (12.5-18.0) gm/dl Hct (42-50) % MCV (78-100) fl MCH (26-32) pg MCHC (32-36) g/dl RDW (11.5-14.0) % Plt Count (150-450) K/mm3 MPV (7.5-11.0) fl Gran % (36.0-66.0) % Eos # (Auto) (0-0.5) Absolute Lymphs (auto) (1.0-4.6) Absolute Monos (auto) (0.0-1.3) Lymphocytes % (24.0-44.0) % Monocytes % (0.0-12.0) % Eosinophils % (0.00-5.0) % Basophils % (0.0-0.4) % Absolute Granulocytes (1.4-6.9) Basophils # (0-0.4) Sodium (137-145) mmol/L Potassium (3.5-5.1) mmol/L Chloride (98-107) mmol/L Carbon Dioxide (22-30) mmol/L Anion Gap (5-15) MEQ/L BUN (9-20) mg/dL Creatinine (0.66-1.25) mg/dL Estimated GFR ML/MIN Glucose (74-106) mg/dL Lactic Acid (0.4-2.0) Calcium (8.4-10.2) mg/dL Magnesium (1.6-2.3) mg/dL Total Bilirubin (0.2-1.3) mg/dL AST (17-59) U/L ALT (0-50) U/L Alkaline Phosphatase (38-126) U/L Serum Total Protein (6.3-8.2) g/dL Albumin (3.5-5.0) g/dL Thyroxine (T4) (5.53-10.96) ug/dL TSH 3rd Generation 0.544 (0.47-4.68) mIU/L Urine Color (YELLOW) Urine Appearance (CLEAR) Urine pH (5-6) Ur Specific [place] (1.005-1.025) Urine Protein (Negative) Urine Ketones (NEGATIVE) Urine Blood (0-5) Donn/ul Urine Nitrite (NEGATIVE) Urine Bilirubin (NEGATIVE) Urine Urobilinogen (0-1) mg/dL Ur Leukocyte Esterase (NEGATIVE) Urine WBC (Auto) (0-5) /HPF Urine RBC (Auto) (0-2) /HPF U Epithel Cells (Auto) (FEW) /HPF Urine Bacteria (Auto) (NEGATIVE) /HPF Urine Culture Reflexed (NO) Urine Glucose (NEGATIVE) mg/dL Monoscreen (Negative) Influenza Type A Ag NEGATIVE (NEGATIVE) Influenza Type B Ag NEGATIVE (NEGATIVE) SARS-CoV-2 (PCR) (NEGATIVE) Group A Strep Antibody NOT DETECTED (NEGATIVE) 11/06/20 11/06/20 11/06/20 Range/Units 19:23 19:13 19:13 WBC (4.0-10.5) K/mm3 RBC (4.1-5.6) M/mm3 Hgb (12.5-18.0) gm/dl Hct (42-50) % MCV (78-100) fl MCH (26-32) pg MCHC (32-36) g/dl RDW (11.5-14.0) % Plt Count (150-450) K/mm3 MPV (7.5-11.0) fl Gran % (36.0-66.0) % Eos # (Auto) (0-0.5) Absolute Lymphs (auto) (1.0-4.6) Absolute Monos (auto) (0.0-1.3) Lymphocytes % (24.0-44.0) % Monocytes % (0.0-12.0) % Eosinophils % (0.00-5.0) % Basophils % (0.0-0.4) % Absolute Granulocytes (1.4-6.9) Basophils # (0-0.4) Sodium 127 L (137-145) mmol/L Potassium 5.1 (3.5-5.1) mmol/L Chloride 100 (98-107) mmol/L Carbon Dioxide 17 L (22-30) mmol/L Anion Gap 14.9 (5-15) MEQ/L BUN 78 H (9-20) mg/dL Creatinine 4.26 H (0.66-1.25) mg/dL Estimated GFR 14.4 ML/MIN Glucose 781 H* (74-106) mg/dL Lactic Acid (0.4-2.0) Calcium 9.0 (8.4-10.2) mg/dL Magnesium 1.5 L (1.6-2.3) mg/dL Total Bilirubin 0.40 (0.2-1.3) mg/dL AST 37 (17-59) U/L ALT 69 H (0-50) U/L Alkaline Phosphatase 130 H (38-126) U/L Serum Total Protein 6.3 (6.3-8.2) g/dL Albumin 3.6 (3.5-5.0) g/dL Thyroxine (T4) (5.53-10.96) ug/dL TSH 3rd Generation (0.47-4.68) mIU/L Urine Color STRAW (YELLOW) Urine Appearance CLEAR (CLEAR) Urine pH 5.0 (5-6) Ur Specific [place] 1.015 (1.005-1.025) Urine Protein 30 (Negative) Urine Ketones NEGATIVE (NEGATIVE) Urine Blood MODERATE (0-5) Donn/ul Urine Nitrite NEGATIVE (NEGATIVE) Urine Bilirubin NEGATIVE (NEGATIVE) Urine Urobilinogen NEGATIVE (0-1) mg/dL Ur Leukocyte Esterase NEGATIVE (NEGATIVE) Urine WBC (Auto) 3-5 (0-5) /HPF Urine RBC (Auto) 6-10 (0-2) /HPF U Epithel Cells (Auto) NONE (FEW) /HPF Urine Bacteria (Auto) NONE SEEN (NEGATIVE) /HPF Urine Culture Reflexed YES (NO) Urine Glucose >=500 (NEGATIVE) mg/dL Monoscreen NEGATIVE (Negative) Influenza Type A Ag (NEGATIVE) Influenza Type B Ag (NEGATIVE) SARS-CoV-2 (PCR) (NEGATIVE) Group A Strep Antibody (NEGATIVE) 11/06/20 Range/Units 19:13 WBC 6.4 (4.0-10.5) K/mm3 RBC 3.33 L (4.1-5.6) M/mm3 Hgb 11.1 L (12.5-18.0) gm/dl Hct 33.6 L (42-50) % MCV 100.9 H (78-100) fl MCH 33.3 H (26-32) pg MCHC 33.0 (32-36) g/dl RDW 12.9 (11.5-14.0) % Plt Count 107 L (150-450) K/mm3 MPV 9.7 (7.5-11.0) fl Gran % 87.4 H (36.0-66.0) % Eos # (Auto) 0.01 (0-0.5) Absolute Lymphs (auto) 0.35 L (1.0-4.6) Absolute Monos (auto) 0.44 (0.0-1.3) Lymphocytes % 5.4 L (24.0-44.0) % Monocytes % 6.8 (0.0-12.0) % Eosinophils % 0.2 (0.00-5.0) % Basophils % 0.2 (0.0-0.4) % Absolute Granulocytes 5.63 (1.4-6.9) Basophils # 0.01 (0-0.4) Sodium (137-145) mmol/L Potassium (3.5-5.1) mmol/L Chloride (98-107) mmol/L Carbon Dioxide (22-30) mmol/L Anion Gap (5-15) MEQ/L BUN (9-20) mg/dL Creatinine (0.66-1.25) mg/dL Estimated GFR ML/MIN Glucose (74-106) mg/dL Lactic Acid (0.4-2.0) Calcium (8.4-10.2) mg/dL Magnesium (1.6-2.3) mg/dL Total Bilirubin (0.2-1.3) mg/dL AST (17-59) U/L ALT (0-50) U/L Alkaline Phosphatase (38-126) U/L Serum Total Protein (6.3-8.2) g/dL Albumin (3.5-5.0) g/dL Thyroxine (T4) (5.53-10.96) ug/dL TSH 3rd Generation (0.47-4.68) mIU/L Urine Color (YELLOW) Urine Appearance (CLEAR) Urine pH (5-6) Ur Specific [place] (1.005-1.025) Urine Protein (Negative) Urine Ketones (NEGATIVE) Urine Blood (0-5) Donn/ul Urine Nitrite (NEGATIVE) Urine Bilirubin (NEGATIVE) Urine Urobilinogen (0-1) mg/dL Ur Leukocyte Esterase (NEGATIVE) Urine WBC (Auto) (0-5) /HPF Urine RBC (Auto) (0-2) /HPF U Epithel Cells (Auto) (FEW) /HPF Urine Bacteria (Auto) (NEGATIVE) /HPF Urine Culture Reflexed (NO) Urine Glucose (NEGATIVE) mg/dL Monoscreen (Negative) Influenza Type A Ag (NEGATIVE) Influenza Type B Ag (NEGATIVE) SARS-CoV-2 (PCR) (NEGATIVE) Group A Strep Antibody (NEGATIVE) - Progress Progress Note: 11/06/20 20:50 Chest x-ray shows? Right basilar opacities 11/06/20 20:50 I did speak with Dr. Ponce, the patient's primary care physician. I reviewed the patient history, conditions, work-up results with him. Patient is greater than 90 days out from his COVID-19 positive diagnosis. The patient's fever may be secondary to the right basilar opacities/possible infiltrate. However we will repeat a rapid COVID-19 test to determine which floor the patient is admitted to. The patient will be admitted to the hospital pending the COVID-[address] him on Rocephin and Zithromax intravenous antibiotics as well as provide the patient with IV hydration. 11/06/20 21:39 The patient COVID-19 test result is negative. Patient will be admitted to Dr. Ponce. Discussed with : Sahil Counseled pt/family regarding: lab results, diagnosis, rad results - Departure Departure Disposition: In-patient Admission Clinical Impression: Hyperglycemia, Hypomagnesemia, Weakness, Hyponatremia, Fever Condition: Fair Critical Care Time: Yes Critical Care Time(excluding separately billable procedures): Critical 30-74 mins Referrals: WILMAR PONCE MD [Primary Care Provider] -
[2020-11-06] MEDS ORDERED: TYLENOL 325 MG PO STA (19:10)
[2020-11-06 19:18] LABS: Absolute Neutrophil Ct (ANC) 5.63 (1.4-6.9); BASOPHIL % 0.2 % (0.0-0.4); Basophil (Absolute #) 0.01 (0-0.4); Eosinophil % 0.2 % (0.00-5.0); Eosinophil (Absolute #) 0.01 (0-0.5); Hematocrit 33.6 % (42-50); Hemoglobin 11.1 gm/dl (12.5-18.0); Lymphocyte (Absolute #) 0.35 (1.0-4.6); Lymphocytes % 5.4 % (24.0-44.0); Mean Cell Volume 100.9 fl (78-100); Mean Corpuscular Hemoglobin 33.3 pg (26-32); Mean Platelet Volume 9.7 fl (7.5-11.0); Monocyte (Absolute #) 0.44 (0.0-1.3); Monocytes % 6.8 % (0.0-12.0); Neutrophil % 87.4 % (36.0-66.0); Platelet Count 107 K/mm3 (150-450); Red Blood Count 3.33 M/mm3 (4.1-5.6); Red Cell Distribution Width 12.9 % (11.5-14.0); White Blood Count 6.4 K/mm3 (4.0-10.5)
[2020-11-06 19:23] LABS: ALBUMIN 3.6 g/dL (3.5-5.0); ANION GAP 14.9 MEQ/L (5-15); BILIRUBIN,TOTAL 0.4 mg/dL (0.2-1.3); Creatinine 1 4.26 mg/dL (0.66-1.25); EST GLOMERULAR FILTRATION RATE 14.4 ML/MIN; MAGNESIUM 1.5 mg/dL (1.6-2.3); Potassium 5.1 mmol/L (3.5-5.1); Total Protein 6.3 g/dL (6.3-8.2)
[2020-11-06] MEDS ORDERED: Zofran 4 MG/2 ML VIAL ONE (19:26)
[2020-11-06] MEDS ORDERED: Sodium Chloride 0.9% 1000 ML 1,000 ML ONE ×2 (19:26→21:09)
[2020-11-06] MEDS ORDERED: TYLENOL 325 MG ONE (19:26)
[2020-11-06] MEDS ORDERED: HUMULIN R IV ONE (19:45)
[2020-11-06 19:54] LABS: Appearance CLEAR (CLEAR); Bilirubin NEGATIVE (NEGATIVE); Blood MODERATE Ery/ul (0-5); Glucose >=500 mg/dL (NEGATIVE); Ketones NEGATIVE (NEGATIVE); Leukocyte Esterase NEGATIVE (NEGATIVE); Nitrite NEGATIVE (NEGATIVE); Protein,Urine Dip 30 (Negative); Specific Gravity 1.015 (1.005-1.025); Urobilinogen NEGATIVE mg/dL (0-1)
[2020-11-06 19:55] LABS: Bacteria NONE SEEN /HPF (NEGATIVE)
[2020-11-06 20:02] LABS: INFLUENZA A NEGATIVE (NEGATIVE); INFLUENZA B NEGATIVE (NEGATIVE)
[2020-11-06] MEDS ORDERED: HUMULIN R ONE ×2 (20:02→23:08)
[2020-11-06] MEDS ORDERED: ROCEPHIN 1 Gm-D5w 50 ml Bag** 1 G/50 ML IVPB IV STA (20:32)
[2020-11-06] MEDS ORDERED: ROCEPHIN 1 Gm-D5w 50 ml Bag** 1 G/50 ML IVPB IV ONE (20:45)
[2020-11-06] MEDS ORDERED: Magnesium Sulfate 1 GM/2 ML VIAL IV ONE (20:52)
--- NOTE | 2020-11-06 20:54 | XRAY ---
Indication: Fever. Comparison: September 04, 2020. Portable chest demonstrates clearing of previous bilateral hazy interstitial alveolar opacities with minimal residual versus recurrent in the right lung. Heart is not enlarged with stable left pacemaker. No new cardiopulmonary abnormalities.
[2020-11-06] MEDS ORDERED: Magnesium 1 Gm / 100 Ml D5W*** 100 ML IV ONE ×2 (21:08→21:09)
[2020-11-06] MEDS ORDERED: Zofran 4 MG/2 ML VIAL IV PRN (22:00)
[2020-11-06] MEDS ORDERED: HUMULIN R 100 UNIT in Sodium Chloride 0.9% 100 ML IVPB 100 ML IV PRN (22:47)
[2020-11-06] MEDS ORDERED: Sodium Chloride 0.9% 100 ML IVPB 100 ML IV ONE (23:08)
[2020-11-06] MEDS: Sodium Chloride 0.9% 1000 ML 1,000 ML IV SCH (23:20)
[2020-11-07 03:26] LABS: Absolute Neutrophil Ct (ANC) 5.08 (1.4-6.9); BASOPHIL % 0.3 % (0.0-0.4); Basophil (Absolute #) 0.02 (0-0.4); Eosinophil % 0.4 % (0.00-5.0); Eosinophil (Absolute #) 0.03 (0-0.5); Hematocrit 30.2 % (42-50); Lymphocytes % 13.5 % (24.0-44.0); Mean Cell Volume 99.7 fl (78-100); Mean Corpuscular Hgb Concent. 33.1 g/dl (32-36); Mean Platelet Volume 9.7 fl (7.5-11.0); Monocyte (Absolute #) 0.64 (0.0-1.3); Monocytes % 9.6 % (0.0-12.0); Neutrophil % 76.2 % (36.0-66.0); Platelet Count 114 K/mm3 (150-450); Red Blood Count 3.03 M/mm3 (4.1-5.6); Red Cell Distribution Width 12.7 % (11.5-14.0); White Blood Count 6.7 K/mm3 (4.0-10.5)
[2020-11-07 03:43] LABS: ALBUMIN 3.2 g/dL (3.5-5.0); ANION GAP 11.2 MEQ/L (5-15); BILIRUBIN,TOTAL 0.4 mg/dL (0.2-1.3); Calcium 8.9 mg/dL (8.4-10.2); Creatinine 1 3.85 mg/dL (0.66-1.25); EST GLOMERULAR FILTRATION RATE 16.2 ML/MIN; Potassium 4.1 mmol/L (3.5-5.1); Total Protein 6.1 g/dL (6.3-8.2)
[2020-11-07] MEDS: Zithromax 500 MG/ 250 ML NaCl Premix 500 MG/250 ML IVPB IV SCH (09:20)
[2020-11-07] MEDS: Sodium Chloride 0.9% 1000 ML 1,000 ML IV SCH ×2 (09:20→18:52)
[2020-11-07] MEDS: TYLENOL 325 MG PO PRN (09:20)
[2020-11-07] MEDS ORDERED: INSULIN DETEMIR 25 UNIT SQ SCH (10:00)
[2020-11-07] MEDS ORDERED: NON-FORMULARY ITEM (Omeprazole [Omeprazole] 40 MG) PO SCH (10:00)
[2020-11-07] MEDS ORDERED: NON-FORMULARY ITEM (Memantine Hcl [Namenda] 10 MG) PO SCH (10:00)
[2020-11-07] MEDS ORDERED: NON-FORMULARY ITEM (Vitamin B Complex [Vitamin B Complex] 1 EACH) PO SCH (10:00)
--- NOTE | 2020-11-07 10:07 | PCM.HP ---
History of Present Illness - Chief Complaint Chief Complaint: Hyperglycemia History of Present Illness: is a 80 year old male with IDDM2,CRF,HTN,CHF,CAD,hypothyroid,S/P Covid JUN 2020. He presented to ER after a fall at home where Home health found him on the floor .Patient states he was walking to get his walker when he fell. He states he has been really enjoying fruit punch lately not thinking about the sugar in it. He lives alone with daughter close by. - Review of Systems Constitutional: Weakness Eyes: No Symptoms Ears, Nose, & Throat: No Symptoms Respiratory: No Symptoms Cardiac: No Symptoms Abdominal/Gastrointestinal: No Symptoms Genitourinary Symptoms: Frequency Musculoskeletal: Fall, Other (neuropathy leg pains) Skin: No Symptoms Neurological: No Symptoms, Other (is onmeds for dementia) Psychological: No Symptoms Endocrine: Polyuria, Polydipsia Hematologic/Lymphatic: No Symptoms Immunological/Allergic: No Symptoms Medications & Allergies Home Medications: Home Medication List Aspirin 81 gm Chew [Baby Aspirin 81 mg Chew] 81 mg PO DAILY 03/27/14 [H istory Confirmed 11/06/20] Levothyroxine Sodium 50 Mcg [Synthroid 50 Mcg] 25 mcg PO DAILY 03/27/14 [History Confirmed 11/06/20] Clopidogrel Bisulfate [Plavix] 75 mg PO 3XW 06/16/14 [History Confirmed 11/06/20] Donepezil HCl [Aricept] 10 mg PO BID 06/16/14 [History Confirmed 11/06/20] Tamsulosin HCl 0.4 mg [Flomax 0.4 MG] 0.4 mg PO HS 06/16/14 [History Confirmed 11/06/20] Fluoxetine HCl [Prozac] 40 mg PO DAILY 04/15/15 [History Confirmed 11/06/20] Memantine HCl [Namenda] 10 mg PO BID 04/15/15 [History Confirmed 11/06/20] Atorvastatin Calcium 20 mg PO HS 08/17/17 [History Confirmed 11/06/20] Ferrous Sulfate [Iron] 325 mg PO DAILY 08/17/17 [History Confirmed 11/06/20] Gabapentin [Neurontin] 300 mg PO BID 08/17/17 [History Confirmed 11/07/20] Omeprazole 40 mg PO DAILY 08/17/17 [History Confirmed 11/06/20] Sodium Bicarbonate 650 mg PO HS 08/17/17 [History Confirmed 11/06/20] Carvedilol 12.5 mg [Coreg 12.5 mg] 12.5 mg PO BID 11/04/19 [History Confirmed 11/06/20] Evolocumab [Repatha Sureclick] 140 mg SQ UD 11/04/19 [History Confirmed 11/06/20] Insulin Detemir [Levemir] 25 unit SQ BID 06/23/20 [History Confirmed 11/06/20] Insulin Lispro [Humalog] 0 unit SQ TID PRN 08/14/20 [History Confirmed 11/06/20] Vitamin B Complex 1 each PO DAILY 09/24/20 [History Confirmed 11/06/20] Furosemide 40 mg [Lasix 40 MG] 40 mg PO DAILY 11/07/20 [History Confirmed 11/07/20] Patiromer Calcium Sorbitex [Veltassa] 8.46 mg PO DAILY 11/07/20 [History Confirmed 11/07/20] Allergies/Adverse Reactions: Allergies Allergy/AdvReac Type Severity Reaction Status Date / Time No Known Allergies Allergy Verified 11/06/20 22:58 - Past Medical History Past Medical History: Yes Neurological History: TIA ENT History: No Pertinent History Cardiac History: Coronary Artery Disease, Myocardial Infarction (MA) Respiratory History: Pneumonia, Other Endocrine Medical History: Diabetes Type II Musculoskelatal History: Osteoarthritis GI Medical History: Diverticulitis, GERD, Other History: Renal Disease, Other Pyscho-Social History: Anxiety, Depression Male Reproductive Disorders: Prostate Problems Comment: Pacemaker, stents, Covid 19 - Past Surgical History Past Surgical History: Yes Neuro Surgical History: No Pertinent History Cardiac History: Cardiac Catheterization, Cardiac Stent, Pacemaker Respiratory Surgery: No Pertinent History GI Surgical History: No Pertinent History Genitourinary Surgical Hx: No Pertinent History Musculskeletal Surgical Hx: Orthopedic Surgery Male Surgical History: No Pertinent History Other Surgical History: rt knee replacement and revision to rt knee, skin lesion s removed left arm, partial parathyroid gland removed - Social History Smoking Status: Never smoker Exposure to second hand smoke: No Alcohol: None Drug Use: none Significant Family History: no pertinent family hx - Physical Exam Vital Signs: Vital Signs - 24 hr Temp Pulse Resp BP Pulse Ox 11/07/20 08:02 97 11/07/20 08:00 66 16 11/07/20 07:10 99 F 60 16 134/64 97 11/07/20 03:35 61 21 99 11/07/20 00:01 60 11/07/20 00:00 60 18 106/53 96 11/06/20 23:33 97 11/06/20 22:59 97.4 F 67 16 108/53 94 L 11/06/20 22:10 98.2 F 76 17 111/59 97 11/06/20 21:45 98 11/06/20 21:14 86 126/59 97 11/06/20 20:06 86 22 144/69 96 11/06/20 19:57 85 158/81 97 11/06/20 18:44 100.2 F 82 18 155/77 98 General Appearance: mild distress (is uncomfortable in the gerichair and asking for help to go back to bed.) Neurologic Exam: alert, oriented x 3, cooperative, normal mood/affect Eye Exam: eyes nml inspection Ears, Nose, Throat Exam: normal ENT inspection Neck Exam: normal inspection Respiratory Exam: normal breath sounds Cardiovascular Exam: regular rate/rhythm Gastrointestinal/Abdomen Exam: soft, hernia (nontender) Rectal Exam: not done Back Exam: normal inspection Extremity Exam: normal inspection Wound Assessment: Skin/Wound Assessment Wound/Incision Assessment Start: 11/07/20 00:33 Text: Status: Active Freq: Q6H Protocol: Document 11/07/20 08:00 MW (Rec: 11/07/20 09:10 MW [id number]) Wound/Incision Assessment Lateral Right Foot Wound Assessment Shift Assessment Wound Type ulcer Wound Stage Non Pressure Wound Drainage Amount None General Appearance Well Approximated,Open to air Wound Bed Greatest Portion Yellow (Slough) Wound Bed Lesser Portion Red (Granulation) Surrounding Tissue Ronceverte Comment 1cm x 1.5cm Distal Left Upper Arm Wound Assessment Shift Assessment Wound Type Skin Tear Wound Stage Non Pressure Wound Dressing Status Changed Drainage Amount Moderate Drainage Description Serosanguineous Drainage Odor None/Absent Wound Bed Greatest Portion Dusky Red Wound Bed Lesser Portion Red (Granulation) Surrounding Tissue Ronceverte Topical Solution/Irrigant Saline Irrigant Primary Dressing xeroform, telfa, tegaderm Comment Dressing CDI Left Proximal Upper Arm Wound Assessment Shift Assessment Wound Type Skin Tear Wound Stage Non Pressure Wound Dressing Status Changed Drainage Amount Minimal Drainage Description Serosanguineous Drainage Odor None/Absent General Appearance Asymptomatic Wound Bed Greatest Portion Dusky Red Wound Bed Lesser Portion Red (Granulation) Surrounding Tissue Ronceverte Topical Solution/Irrigant Saline Irrigant Primary Dressing xeroform, telfa, tegaderm Comment Dressing CDI. 2cm x 6cm Wound Photo Photo Taken Yes Results - Labs Lab/Micro Results: Lab Results-Last 24 Hours 11/06/20 11/06/20 11/06/20 Range/Units 19:13 19:13 19:13 WBC 6.4 (4.0-10.5) K/mm3 RBC 3.33 L (4.1-5.6) M/mm3 Hgb 11.1 L (12.5-18.0) gm/dl Hct 33.6 L (42-50) % MCV 100.9 H (78-100) fl MCH 33.3 H (26-32) pg MCHC 33.0 (32-36) g/dl RDW 12.9 (11.5-14.0) % Plt Count 107 L (150-450) K/mm3 MPV 9.7 (7.5-11.0) fl Gran % 87.4 H (36.0-66.0) % Eos # (Auto) 0.01 (0-0.5) Absolute Lymphs (auto) 0.35 L (1.0-4.6) Absolute Monos (auto) 0.44 (0.0-1.3) Lymphocytes % 5.4 L (24.0-44.0) % Monocytes % 6.8 (0.0-12.0) % Eosinophils % 0.2 (0.00-5.0) % Basophils % 0.2 (0.0-0.4) % Absolute Granulocytes 5.63 (1.4-6.9) Basophils # 0.01 (0-0.4) Sodium 127 L (137-145) mmol/L Potassium 5.1 (3.5-5.1) mmol/L Chloride 100 (98-107) mmol/L Carbon Dioxide 17 L (22-30) mmol/L Anion Gap 14.9 (5-15) MEQ/L BUN 78 H (9-20) mg/dL Creatinine 4.26 H (0.66-1.25) mg/dL Estimated GFR 14.4 ML/MIN Glucose 781 H* (74-106) mg/dL POC Glucometer (74 to 106) mg/dL Lactic Acid (0.4-2.0) Calcium 9.0 (8.4-10.2) mg/dL Magnesium 1.5 L (1.6-2.3) mg/dL Total Bilirubin 0.40 (0.2-1.3) mg/dL AST 37 (17-59) U/L ALT 69 H (0-50) U/L Alkaline Phosphatase 130 H (38-126) U/L Serum Total Protein 6.3 (6.3-8.2) g/dL Albumin 3.6 (3.5-5.0) g/dL Prealbumin (17.6-36.0) mg/dL Thyroxine (T4) (5.53-10.96) ug/dL TSH 3rd Generation (0.47-4.68) mIU/L Urine Color (YELLOW) Urine Appearance (CLEAR) Urine pH (5-6) Ur Specific Axson (1.005-1.025) Urine Protein (Negative) Urine Ketones (NEGATIVE) Urine Blood (0-5) Donn/ul Urine Nitrite (NEGATIVE) Urine Bilirubin (NEGATIVE) Urine Urobilinogen (0-1) mg/dL Ur Leukocyte Esterase (NEGATIVE) Urine WBC (Auto) (0-5) /HPF Urine RBC (Auto) (0-2) /HPF U Epithel Cells (Auto) (FEW) /HPF Urine Bacteria (Auto) (NEGATIVE) /HPF Urine Culture Reflexed (NO) Urine Glucose (NEGATIVE) mg/dL Monoscreen NEGATIVE (Negative) Influenza Type A Ag (NEGATIVE) Influenza Type B Ag (NEGATIVE) SARS-CoV-2 (PCR) (NEGATIVE) Group A Strep Antibody (NEGATIVE) 11/06/20 11/06/20 11/06/20 Range/Units 19:23 19:25 19:25 WBC (4.0-10.5) K/mm3 RBC (4.1-5.6) M/mm3 Hgb (12.5-18.0) gm/dl Hct (42-50) % MCV (78-100) fl MCH (26-32) pg MCHC (32-36) g/dl RDW (11.5-14.0) % Plt Count (150-450) K/mm3 MPV (7.5-11.0) fl Gran % (36.0-66.0) % Eos # (Auto) (0-0.5) Absolute Lymphs (auto) (1.0-4.6) Absolute Monos (auto) (0.0-1.3) Lymphocytes % (24.0-44.0) % Monocytes % (0.0-12.0) % Eosinophils % (0.00-5.0) % Basophils % (0.0-0.4) % Absolute Granulocytes (1.4-6.9) Basophils # (0-0.4) Sodium (137-145) mmol/L Potassium (3.5-5.1) mmol/L Chloride (98-107) mmol/L Carbon Dioxide (22-30) mmol/L Anion Gap (5-15) MEQ/L BUN (9-20) mg/dL Creatinine (0.66-1.25) mg/dL Estimated GFR ML/MIN Glucose (74-106) mg/dL POC Glucometer (74 to 106) mg/dL Lactic Acid (0.4-2.0) Calcium (8.4-10.2) mg/dL Magnesium (1.6-2.3) mg/dL Total Bilirubin (0.2-1.3) mg/dL AST (17-59) U/L ALT (0-50) U/L Alkaline Phosphatase (38-126) U/L Serum Total Protein (6.3-8.2) g/dL Albumin (3.5-5.0) g/dL Prealbumin (17.6-36.0) mg/dL Thyroxine (T4) (5.53-10.96) ug/dL TSH 3rd Generation (0.47-4.68) mIU/L Urine Color STRAW (YELLOW) Urine Appearance CLEAR (CLEAR) Urine pH 5.0 (5-6) Ur Specific Axson 1.015 (1.005-1.025) Urine Protein 30 (Negative) Urine Ketones NEGATIVE (NEGATIVE) Urine Blood MODERATE (0-5) Donn/ul Urine Nitrite NEGATIVE (NEGATIVE) Urine Bilirubin NEGATIVE (NEGATIVE) Urine Urobilinogen NEGATIVE (0-1) mg/dL Ur Leukocyte Esterase NEGATIVE (NEGATIVE) Urine WBC (Auto) 3-5 (0-5) /HPF Urine RBC (Auto) 6-10 (0-2) /HPF U Epithel Cells (Auto) NONE (FEW) /HPF Urine Bacteria (Auto) NONE SEEN (NEGATIVE) /HPF Urine Culture Reflexed YES (NO) Urine Glucose >=500 (NEGATIVE) mg/dL Monoscreen (Negative) Influenza Type A Ag NEGATIVE (NEGATIVE) Influenza Type B Ag NEGATIVE (NEGATIVE) SARS-CoV-2 (PCR) (NEGATIVE) Group A Strep Antibody NOT DETECTED (NEGATIVE) 11/06/20 11/06/20 11/06/20 Range/Units 19:27 19:27 19:40 WBC (4.0-10.5) K/mm3 RBC (4.1-5.6) M/mm3 Hgb (12.5-18.0) gm/dl Hct (42-50) % MCV (78-100) fl MCH (26-32) pg MCHC (32-36) g/dl RDW (11.5-14.0) % Plt Count (150-450) K/mm3 MPV (7.5-11.0) fl Gran % (36.0-66.0) % Eos # (Auto) (0-0.5) Absolute Lymphs (auto) (1.0-4.6) Absolute Monos (auto) (0.0-1.3) Lymphocytes % (24.0-44.0) % Monocytes % (0.0-12.0) % Eosinophils % (0.00-5.0) % Basophils % (0.0-0.4) % Absolute Granulocytes (1.4-6.9) Basophils # (0-0.4) Sodium (137-145) mmol/L Potassium (3.5-5.1) mmol/L Chloride (98-107) mmol/L Carbon Dioxide (22-30) mmol/L Anion Gap (5-15) MEQ/L BUN (9-20) mg/dL Creatinine (0.66-1.25) mg/dL Estimated GFR ML/MIN Glucose (74-106) mg/dL POC Glucometer (74 to 106) mg/dL Lactic Acid 3.6 H (0.4-2.0) Calcium (8.4-10.2) mg/dL Magnesium (1.6-2.3) mg/dL Total Bilirubin (0.2-1.3) mg/dL AST (17-59) U/L ALT (0-50) U/L Alkaline Phosphatase (38-126) U/L Serum Total Protein (6.3-8.2) g/dL Albumin (3.5-5.0) g/dL Prealbumin (17.6-36.0) mg/dL Thyroxine (T4) 5.49 L (5.53-10.96) ug/dL TSH 3rd Generation 0.544 (0.47-4.68) mIU/L Urine Color (YELLOW) Urine Appearance (CLEAR) Urine pH (5-6) Ur Specific Axson (1.005-1.025) Urine Protein (Negative) Urine Ketones (NEGATIVE) Urine Blood (0-5) Donn/ul Urine Nitrite (NEGATIVE) Urine Bilirubin (NEGATIVE) Urine Urobilinogen (0-1) mg/dL Ur Leukocyte Esterase (NEGATIVE) Urine WBC (Auto) (0-5) /HPF Urine RBC (Auto) (0-2) /HPF U Epithel Cells (Auto) (FEW) /HPF Urine Bacteria (Auto) (NEGATIVE) /HPF Urine Culture Reflexed (NO) Urine Glucose (NEGATIVE) mg/dL Monoscreen (Negative) Influenza Type A Ag (NEGATIVE) Influenza Type B Ag (NEGATIVE) SARS-CoV-2 (PCR) (NEGATIVE) Group A Strep Antibody (NEGATIVE) 11/06/20 11/06/20 11/06/20 Range/Units 20:37 21:42 21:52 WBC (4.0-10.5) K/mm3 RBC (4.1-5.6) M/mm3 Hgb (12.5-18.0) gm/dl Hct (42-50) % MCV (78-100) fl MCH (26-32) pg MCHC (32-36) g/dl RDW (11.5-14.0) % Plt Count (150-450) K/mm3 MPV (7.5-11.0) fl Gran % (36.0-66.0) % Eos # (Auto) (0-0.5) Absolute Lymphs (auto) (1.0-4.6) Absolute Monos (auto) (0.0-1.3) Lymphocytes % (24.0-44.0) % Monocytes % (0.0-12.0) % Eosinophils % (0.00-5.0) % Basophils % (0.0-0.4) % Absolute Granulocytes (1.4-6.9) Basophils # (0-0.4) Sodium (137-145) mmol/L Potassium (3.5-5.1) mmol/L Chloride (98-107) mmol/L Carbon Dioxide (22-30) mmol/L Anion Gap (5-15) MEQ/L BUN (9-20) mg/dL Creatinine (0.66-1.25) mg/dL Estimated GFR ML/MIN Glucose (74-106) mg/dL POC Glucometer 485 H (74 to 106) mg/dL Lactic Acid 1.8 (0.4-2.0) Calcium (8.4-10.2) mg/dL Magnesium (1.6-2.3) mg/dL Total Bilirubin (0.2-1.3) mg/dL AST (17-59) U/L ALT (0-50) U/L Alkaline Phosphatase (38-126) U/L Serum Total Protein (6.3-8.2) g/dL Albumin (3.5-5.0) g/dL Prealbumin (17.6-36.0) mg/dL Thyroxine (T4) (5.53-10.96) ug/dL TSH 3rd Generation (0.47-4.68) mIU/L Urine Color (YELLOW) Urine Appearance (CLEAR) Urine pH (5-6) Ur Specific Axson (1.005-1.025) Urine Protein (Negative) Urine Ketones (NEGATIVE) Urine Blood (0-5) Donn/ul Urine Nitrite (NEGATIVE) Urine Bilirubin (NEGATIVE) Urine Urobilinogen (0-1) mg/dL Ur Leukocyte Esterase (NEGATIVE) Urine WBC (Auto) (0-5) /HPF Urine RBC (Auto) (0-2) /HPF U Epithel Cells (Auto) (FEW) /HPF Urine Bacteria (Auto) (NEGATIVE) /HPF Urine Culture Reflexed (NO) Urine Glucose (NEGATIVE) mg/dL Monoscreen (Negative) Influenza Type A Ag (NEGATIVE) Influenza Type B Ag (NEGATIVE) SARS-CoV-2 (PCR) NEGATIVE (NEGATIVE) Group A Strep Antibody (NEGATIVE) 11/06/20 11/07/20 11/07/20 Range/Units 22:50 00:12 01:07 WBC (4.0-10.5) K/mm3 RBC (4.1-5.6) M/mm3 Hgb (12.5-18.0) gm/dl Hct (42-50) % MCV (78-100) fl MCH (26-32) pg MCHC (32-36) g/dl RDW (11.5-14.0) % Plt Count (150-450) K/mm3 MPV (7.5-11.0) fl Gran % (36.0-66.0) % Eos # (Auto) (0-0.5) Absolute Lymphs (auto) (1.0-4.6) Absolute Monos (auto) (0.0-1.3) Lymphocytes % (24.0-44.0) % Monocytes % (0.0-12.0) % Eosinophils % (0.00-5.0) % Basophils % (0.0-0.4) % Absolute Granulocytes (1.4-6.9) Basophils # (0-0.4) Sodium (137-145) mmol/L Potassium (3.5-5.1) mmol/L Chloride (98-107) mmol/L Carbon Dioxide (22-30) mmol/L Anion Gap (5-15) MEQ/L BUN (9-20) mg/dL Creatinine (0.66-1.25) mg/dL Estimated GFR ML/MIN Glucose (74-106) mg/dL POC Glucometer 404 H 387 H 321 H (74 to 106) mg/dL Lactic Acid (0.4-2.0) Calcium (8.4-10.2) mg/dL Magnesium (1.6-2.3) mg/dL Total Bilirubin (0.2-1.3) mg/dL AST (17-59) U/L ALT (0-50) U/L Alkaline Phosphatase (38-126) U/L Serum Total Protein (6.3-8.2) g/dL Albumin (3.5-5.0) g/dL Prealbumin (17.6-36.0) mg/dL Thyroxine (T4) (5.53-10.96) ug/dL TSH 3rd Generation (0.47-4.68) mIU/L Urine Color (YELLOW) Urine Appearance (CLEAR) Urine pH (5-6) Ur Specific Axson (1.005-1.025) Urine Protein (Negative) Urine Ketones (NEGATIVE) Urine Blood (0-5) Donn/ul Urine Nitrite (NEGATIVE) Urine Bilirubin (NEGATIVE) Urine Urobilinogen (0-1) mg/dL Ur Leukocyte Esterase (NEGATIVE) Urine WBC (Auto) (0-5) /HPF Urine RBC (Auto) (0-2) /HPF U Epithel Cells (Auto) (FEW) /HPF Urine Bacteria (Auto) (NEGATIVE) /HPF Urine Culture Reflexed (NO) Urine Glucose (NEGATIVE) mg/dL Monoscreen (Negative) Influenza Type A Ag (NEGATIVE) Influenza Type B Ag (NEGATIVE) SARS-CoV-2 (PCR) (NEGATIVE) Group A Strep Antibody (NEGATIVE) 11/07/20 11/07/20 11/07/20 Range/Units 02:03 03:06 03:23 WBC 6.7 (4.0-10.5) K/mm3 RBC 3.03 L (4.1-5.6) M/mm3 Hgb 10.0 L (12.5-18.0) gm/dl Hct 30.2 L (42-50) % MCV 99.7 (78-100) fl MCH 33.0 H (26-32) pg MCHC 33.1 (32-36) g/dl RDW 12.7 (11.5-14.0) % Plt Count 114 L (150-450) K/mm3 MPV 9.7 (7.5-11.0) fl Gran % 76.2 H (36.0-66.0) % Eos # (Auto) 0.03 (0-0.5) Absolute Lymphs (auto) 0.90 L (1.0-4.6) Absolute Monos (auto) 0.64 (0.0-1.3) Lymphocytes % 13.5 L (24.0-44.0) % Monocytes % 9.6 (0.0-12.0) % Eosinophils % 0.4 (0.00-5.0) % Basophils % 0.3 (0.0-0.4) % Absolute Granulocytes 5.08 (1.4-6.9) Basophils # 0.02 (0-0.4) Sodium (137-145) mmol/L Potassium (3.5-5.1) mmol/L Chloride (98-107) mmol/L Carbon Dioxide (22-30) mmol/L Anion Gap (5-15) MEQ/L BUN (9-20) mg/dL Creatinine (0.66-1.25) mg/dL Estimated GFR ML/MIN Glucose (74-106) mg/dL POC Glucometer 226 H 181 H (74 to 106) mg/dL Lactic Acid (0.4-2.0) Calcium (8.4-10.2) mg/dL Magnesium (1.6-2.3) mg/dL Total Bilirubin (0.2-1.3) mg/dL AST (17-59) U/L ALT (0-50) U/L Alkaline Phosphatase (38-126) U/L Serum Total Protein (6.3-8.2) g/dL Albumin (3.5-5.0) g/dL Prealbumin (17.6-36.0) mg/dL Thyroxine (T4) (5.53-10.96) ug/dL TSH 3rd Generation (0.47-4.68) mIU/L Urine Color (YELLOW) Urine Appearance (CLEAR) Urine pH (5-6) Ur Specific Axson (1.005-1.025) Urine Protein (Negative) Urine Ketones (NEGATIVE) Urine Blood (0-5) Donn/ul Urine Nitrite (NEGATIVE) Urine Bilirubin (NEGATIVE) Urine Urobilinogen (0-1) mg/dL Ur Leukocyte Esterase (NEGATIVE) Urine WBC (Auto) (0-5) /HPF Urine RBC (Auto) (0-2) /HPF U Epithel Cells (Auto) (FEW) /HPF Urine Bacteria (Auto) (NEGATIVE) /HPF Urine Culture Reflexed (NO) Urine Glucose (NEGATIVE) mg/dL Monoscreen (Negative) Influenza Type A Ag (NEGATIVE) Influenza Type B Ag (NEGATIVE) SARS-CoV-2 (PCR) (NEGATIVE) Group A Strep Antibody (NEGATIVE) 11/07/20 11/07/20 11/07/20 Range/Units 03:23 03:30 07:40 WBC (4.0-10.5) K/mm3 RBC (4.1-5.6) M/mm3 Hgb (12.5-18.0) gm/dl Hct (42-50) % MCV (78-100) fl MCH (26-32) pg MCHC (32-36) g/dl RDW (11.5-14.0) % Plt Count (150-450) K/mm3 MPV (7.5-11.0) fl Gran % (36.0-66.0) % Eos # (Auto) (0-0.5) Absolute Lymphs (auto) (1.0-4.6) Absolute Monos (auto) (0.0-1.3) Lymphocytes % (24.0-44.0) % Monocytes % (0.0-12.0) % Eosinophils % (0.00-5.0) % Basophils % (0.0-0.4) % Absolute Granulocytes (1.4-6.9) Basophils # (0-0.4) Sodium 135 L D (137-145) mmol/L Potassium 4.1 (3.5-5.1) mmol/L Chloride 108 H (98-107) mmol/L Carbon Dioxide 19 L (22-30) mmol/L Anion Gap 11.2 (5-15) MEQ/L BUN 75 H (9-20) mg/dL Creatinine 3.85 H (0.66-1.25) mg/dL Estimated GFR 16.2 ML/MIN Glucose 160 H (74-106) mg/dL POC Glucometer 100 (74 to 106) mg/dL Lactic Acid (0.4-2.0) Calcium 8.9 (8.4-10.2) mg/dL Magnesium (1.6-2.3) mg/dL Total Bilirubin 0.40 (0.2-1.3) mg/dL AST 39 (17-59) U/L ALT 67 H (0-50) U/L Alkaline Phosphatase 101 (38-126) U/L Serum Total Protein 6.1 L (6.3-8.2) g/dL Albumin 3.2 L (3.5-5.0) g/dL Prealbumin 18.00 (17.6-36.0) mg/dL Thyroxine (T4) (5.53-10.96) ug/dL TSH 3rd Generation (0.47-4.68) mIU/L Urine Color (YELLOW) Urine Appearance (CLEAR) Urine pH (5-6) Ur Specific Axson (1.005-1.025) Urine Protein (Negative) Urine Ketones (NEGATIVE) Urine Blood (0-5) Donn/ul Urine Nitrite (NEGATIVE) Urine Bilirubin (NEGATIVE) Urine Urobilinogen (0-1) mg/dL Ur Leukocyte Esterase (NEGATIVE) Urine WBC (Auto) (0-5) /HPF Urine RBC (Auto) (0-2) /HPF U Epithel Cells (Auto) (FEW) /HPF Urine Bacteria (Auto) (NEGATIVE) /HPF Urine Culture Reflexed (NO) Urine Glucose (NEGATIVE) mg/dL Monoscreen (Negative) Influenza Type A Ag (NEGATIVE) Influenza Type B Ag (NEGATIVE) SARS-CoV-2 (PCR) (NEGATIVE) Group A Strep Antibody (NEGATIVE) Accuchecks Date 11/07/20 Date 11/07/20 Time 07:40 Time 07:40 - Radiology Impressions Radiology Exams & Impressions: Radiology Procedures Category Date Time Status CHEST 1 VIEW (PORTABLE) Stat Exams 11/06/20 19:10 Completed Assessment/Plan (1) Hyperglycemia Current Visit: Yes Status: Acute Assessment & Plan: sugars 781 on admission improved on Insulin Drip and hydration-will stop insulin drip and ptn can admit to Med Surg from ICU bed. Code(s): R73.9 - HYPERGLYCEMIA, UNSPECIFIED (2) Fever Current Visit: Yes Status: Acute Assessment & Plan: fever -resolved,blood and urine cultures negative. Code(s): R50.9 - FEVER, UNSPECIFIED (3) Generalized weakness Current Visit: Yes Status: Acute Assessment & Plan: improving Code(s): R53.1 - WEAKNESS (4) Hyponatremia Current Visit: Yes Status: Acute Assessment & Plan: improved Code(s): E87.1 - HYPO-OSMOLALITY AND HYPONATREMIA (5) Chronic renal failure Current Visit: No Status: Chronic Assessment & Plan: gfr worse with volume depletion -follow
[2020-11-07] MEDS: Protonix 40MG Tablet PO SCH (10:13)
[2020-11-07] MEDS: ECOTRIN 81 MG PO SCH (10:13)
[2020-11-07] MEDS: Prozac 20 MG PO SCH (10:13)
[2020-11-07] MEDS: Lasix 40 MG PO SCH (10:13)
[2020-11-07] MEDS: NEURONTIN 300 MG PO SCH ×2 (10:13→22:58)
[2020-11-07] MEDS: SYNTHROID 25 MCG PO SCH (10:13)
[2020-11-07] MEDS: Namenda 5 MG PO SCH ×2 (10:13→22:58)
[2020-11-07] MEDS: FEOSOL 325 MG PO SCH (10:13)
[2020-11-07] MEDS: COREG 12.5 MG PO SCH ×2 (10:13→22:57)
[2020-11-07] MEDS: Aricept 10 MG PO SCH ×2 (10:13→22:57)
[2020-11-07] MEDS: Lantus Insulin SQ SCH ×2 (10:14→22:58)
[2020-11-07] MEDS: VITA-BEE WITH C PO SCH ×2 (10:15→10:16)
[2020-11-07] MEDS: HUMALOG SQ PRN ×2 (11:36→22:59)
[2020-11-07] MEDS: PATIENT OWN MEDICATION PO SCH (15:15)
[2020-11-07] MEDS ORDERED: NON-FORMULARY ITEM (Atorvastatin Calcium [Atorvastatin Calcium] 20 MG) PO SCH (22:00)
[2020-11-07] MEDS ORDERED: NON-FORMULARY ITEM (Sodium Bicarbonate 650 MG) PO SCH (22:00)
[2020-11-07] MEDS: ROCEPHIN 1 Gm-D5w 50 ml Bag** 1 G/50 ML IVPB IV SCH (22:57)
[2020-11-07] MEDS: NON-FORMULARY ITEM PO SCH (22:58)
[2020-11-07] MEDS: ZOCOR 20MG PO SCH (22:58)
[2020-11-07] MEDS: Flomax 0.4 MG PO SCH (22:58)
[2020-11-08] MEDS: Sodium Chloride 0.9% 1000 ML 1,000 ML IV SCH ×2 (06:45→16:51)
[2020-11-08] MEDS: Aricept 10 MG PO SCH ×2 (09:34→21:21)
[2020-11-08] MEDS: FEOSOL 325 MG PO SCH (09:34)
[2020-11-08] MEDS: VITA-BEE WITH C PO SCH (09:34)
[2020-11-08] MEDS: NEURONTIN 300 MG PO SCH ×2 (09:34→21:22)
[2020-11-08] MEDS: Protonix 40MG Tablet PO SCH (09:34)
[2020-11-08] MEDS: Prozac 20 MG PO SCH (09:34)
[2020-11-08] MEDS: Lasix 40 MG PO SCH (09:34)
[2020-11-08] MEDS: SYNTHROID 25 MCG PO SCH (09:34)
[2020-11-08] MEDS: COREG 12.5 MG PO SCH ×2 (09:34→21:28)
[2020-11-08] MEDS: Namenda 5 MG PO SCH ×2 (09:34→21:22)
[2020-11-08] MEDS: ECOTRIN 81 MG PO SCH (09:34)
[2020-11-08] MEDS: Lantus Insulin SQ SCH ×2 (09:35→21:40)
[2020-11-08] MEDS: Zithromax 500 MG/ 250 ML NaCl Premix 500 MG/250 ML IVPB IV SCH (09:35)
[2020-11-08] MEDS: TYLENOL 325 MG PO PRN ×2 (11:12→21:22)
[2020-11-08] MEDS: HUMALOG SQ PRN ×3 (11:31→21:40)
[2020-11-08] MEDS: PATIENT OWN MEDICATION PO SCH (14:53)
--- NOTE | 2020-11-08 17:21 | PCM.NOTE ---
Date and Time: 11/08/20 1720 Subjective Assessment: Patient is teary eyed talking about going back to [place] for rehab. He asked that I speak to his daughter Yandy and he called he on his cell for me to talk to her. Objective Exam General Appearance: mild distress (sad about needing rehab and possible move to Assisted Living.) Neurologic Exam: alert, oriented x 3 Wound Assessment: Skin/Wound Assessment Wound/Incision Assessment Start: 11/07/20 00:33 Text: Status: Active Freq: Q6H Protocol: Document 11/08/20 12:00 RN (Rec: 11/08/20 12:27 RN [id number]) Wound/Incision Assessment Lateral Right Foot Wound Assessment Shift Assessment Wound Type ulcer Wound Stage Non Pressure Wound General Appearance Open to air Wound Bed Greatest Portion Red (Granulation) Wound Bed Lesser Portion Yellow ([place]) Surrounding Tissue Gravette Comment 1cm x 1.5cm Distal Left Upper Arm Wound Assessment Shift Assessment Wound Type Skin Tear Wound Stage Non Pressure Wound Dressing Status Changed Drainage Amount Large Drainage Description Serosanguineous Drainage Odor None/Absent Wound Bed Greatest Portion Pale Gravette Wound Bed Lesser Portion Dusky Red Surrounding Tissue Gravette Primary Dressing xeroform, telfa, tegaderm Comment . Left Proximal Upper Arm Wound Assessment Shift Assessment Wound Type Skin Tear Wound Stage Non Pressure Wound Dressing Status Changed Drainage Amount Minimal Drainage Description Serosanguineous Drainage Odor None/Absent General Appearance Asymptomatic Wound Bed Greatest Portion Dusky Red Wound Bed Lesser Portion Red (Granulation) Surrounding Tissue Gravette Topical Solution/Irrigant Saline Irrigant Primary Dressing xeroform, telfa, tegaderm Comment Dressing CDI. 2cm x 6cm Wound Photo Photo Taken No Comment: photos on chart Respiratory Exam: normal breath sounds Cardiovascular Exam: regular rate/rhythm Gastrointestinal/Abdomen Exam: soft (nontender) Extremity Exam: normal inspection OBJECTIVE DATA Vital Signs: Vital Signs - 24 hr Temp Pulse Resp BP Pulse Ox 11/08/20 16:00 97.9 F 61 20 138/53 97 11/08/20 12:00 98.5 F 72 19 152/66 96 11/08/20 08:00 98.6 F 65 17 143/43 96 11/08/20 04:11 98.4 F 63 17 131/38 96 11/07/20 23:45 100 F 66 10 L 123/86 92 L 11/07/20 19:49 98.8 F 87 16 143/62 95 Pain Assessment - Last Documented Pain Intensity 0 Pain Scale Used 0-10 Pain Scale Intake and Output: Intake & Output 11/06/20 11/07/20 11/08/20 11/09/20 11:59 11:59 11:59 11:59 Intake Total 842 3111 240 Output Total 807 534 3228 Balance 362 2141 -1760 Weight 92.2 kg Lab Results: Lab Results-Last 24 Hours 11/07/20 11/07/20 11/08/20 Range/Units 20:01 23:38 03:30 POC Glucometer 218 H 249 H TNP (74 to 106) mg/dL 11/08/20 11/08/20 11/08/20 Range/Units 08:38 11:08 16:21 POC Glucometer 147 H 229 H 271 H (74 to 106) mg/dL Radiology Exams: Radiology Procedures Category Date Time Status CHEST 1 VIEW (PORTABLE) Stat Exams 11/06/20 19:10 Completed Assessment/Plan (1) Hyperglycemia Current Visit: Yes Status: Acute Assessment & Plan: improving/stable Code(s): R73.9 - HYPERGLYCEMIA, UNSPECIFIED (2) Generalized weakness Current Visit: Yes Status: Acute Assessment & Plan: improving was 2 person assist now standby assist Code(s): R53.1 - WEAKNESS (3) Anemia Current Visit: Yes Status: Acute Assessment & Plan: PCP to follow Code(s): D64.9 - ANEMIA, UNSPECIFIED (4) Hyponatremia Current Visit: Yes Status: Acute Assessment & Plan: improved Code(s): E87.1 - HYPO-OSMOLALITY AND HYPONATREMIA
[2020-11-08] MEDS: Flomax 0.4 MG PO SCH (21:21)
[2020-11-08] MEDS: ZOCOR 20MG PO SCH (21:22)
[2020-11-08] MEDS: NON-FORMULARY ITEM PO SCH (21:23)
[2020-11-08] MEDS: ROCEPHIN 1 Gm-D5w 50 ml Bag** 1 G/50 ML IVPB IV SCH (21:23)
--- NOTE | 2020-11-09 08:22 | PCM.NOTE ---
Date and Time: 11/09/20817 Subjective Assessment: patient reports he is weak and requires assistance to get to restroom, no other complaints. he is anticipating discussing rehab stay today, not sure where he wants to go Objective Exam General Appearance: no apparent distress Neurologic Exam: alert, cooperative Skin Exam: normal color, warm, dry Wound Assessment: Skin/Wound Assessment Wound/Incision Assessment Start: 11/07/20 00:33 Text: Status: Active Freq: Q6H Protocol: Document 11/09/20 06:00 MS (Rec: 11/09/20 06:46 MS [id number]) Wound/Incision Assessment Lateral Right Foot Wound Assessment Shift Assessment Wound Type ulcer Wound Stage Non Pressure Wound General Appearance Open to air Wound Bed Greatest Portion Red (Granulation) Wound Bed Lesser Portion Yellow (Slough) Surrounding Tissue [place] Comment 1cm x 1.5cm Distal Left Upper Arm Wound Assessment Shift Assessment Wound Type Skin Tear Wound Stage Non Pressure Wound Dressing Status Dry & Intact,Changed Drainage Amount Minimal Drainage Description Serosanguineous Drainage Odor None/Absent Wound Bed Greatest Portion Pale [place] Wound Bed Lesser Portion Dusky Red Surrounding Tissue [place] Primary Dressing xeroform, telfa, tegaderm Comment . Left Proximal Upper Arm Wound Assessment Shift Assessment Wound Type Skin Tear Wound Stage Non Pressure Wound Dressing Status Changed Drainage Amount Minimal Drainage Description Serosanguineous Drainage Odor None/Absent General Appearance Asymptomatic Wound Bed Greatest Portion Dusky Red Wound Bed Lesser Portion Red (Granulation) Surrounding Tissue [place] Topical Solution/Irrigant Saline Irrigant Primary Dressing xeroform, telfa, tegaderm Comment Dressing CDI. 2cm x 6cm Wound Photo Photo Taken No Comment: photos on chart Respiratory Exam: normal breath sounds, lungs clear, No respiratory distress Cardiovascular Exam: regular rate/rhythm, normal heart sounds Gastrointestinal/Abdomen Exam: soft, No tenderness, No mass OBJECTIVE DATA Vital Signs: Vital Signs - 24 hr Temp Pulse Resp BP Pulse Ox 11/09/20 04:00 98.1 F 68 17 138/53 97 11/09/20 00:00 97.4 F 66 17 155/75 95 11/08/20 20:00 97.6 F 61 18 166/79 94 L 11/08/20 16:00 97.9 F 61 20 138/53 97 11/08/20 12:00 98.5 F 72 19 152/66 96 Pain Assessment - Last Documented Pain Intensity 0 Pain Scale Used 0-10 Pain Scale Intake and Output: Intake & Output 11/06/20 11/07/20 11/08/20 11/09/20 11:59 11:59 11:59 11:59 Intake Total 842 3111 1040 Output Total 922 850 2223 Balance 362 2140 -2054 Weight 92.2 kg 92.2 kg Lab Results: Lab Results-Last 24 Hours 11/08/20 11/08/20 11/08/20 Range/Units 08:38 11:08 16:21 POC Glucometer 147 H 229 H 271 H (74 to 106) mg/dL 11/08/20 11/09/20 11/09/20 Range/Units 21:16 01:19 05:15 POC Glucometer 258 H 191 H 137 H (74 to 106) mg/dL 11/09/20 Range/Units 07:50 POC Glucometer 150 H (74 to 106) mg/dL Assessment/Plan (1) Pneumonia Current Visit: Yes Status: Acute Assessment & Plan: previously had covid, recovered and swabbed negative this admission. xray findings might be residual from covid but presented with fever. will continue rocephin and zithromax at this time, when discharged will likely cover with cefdinir Code(s): J18.9 - PNEUMONIA, UNSPECIFIED ORGANISM (2) Type 2 diabetes mellitus with hyperosmolar hyperglycemic state (HHS) Current Visit: Yes Status: Acute Assessment & Plan: dramatically better controlled at this time compared to admission, patient has history of noncompliance documented with prior home health services etc. would benefit from rehab stay Code(s): E11.00 - TYPE 2 DIAB W HYPROSM W/O NONKET HYPRGLY-HYPROS COMA ([facility]); E11.65 - TYPE 2 DIABETES MELLITUS WITH HYPERGLYCEMIA (3) Generalized weakness Current Visit: Yes Status: Acute Code(s): R53.1 - WEAKNESS
[2020-11-09] MEDS: Lantus Insulin SQ SCH ×2 (09:21→22:47)
[2020-11-09] MEDS: Zithromax 500 MG/ 250 ML NaCl Premix 500 MG/250 ML IVPB IV SCH (09:21)
[2020-11-09] MEDS: Namenda 5 MG PO SCH ×2 (09:21→22:45)
[2020-11-09] MEDS: NEURONTIN 300 MG PO SCH ×3 (09:24→22:44)
[2020-11-09] MEDS: ECOTRIN 81 MG PO SCH (09:25)
[2020-11-09] MEDS: SYNTHROID 25 MCG PO SCH (09:25)
[2020-11-09] MEDS: Lasix 40 MG PO SCH (09:25)
[2020-11-09] MEDS: Aricept 10 MG PO SCH ×2 (09:25→22:44)
[2020-11-09] MEDS: FEOSOL 325 MG PO SCH (09:25)
[2020-11-09] MEDS: Protonix 40MG Tablet PO SCH (09:25)
[2020-11-09] MEDS: Prozac 20 MG PO SCH (09:25)
[2020-11-09] MEDS: COREG 12.5 MG PO SCH ×2 (09:25→22:44)
[2020-11-09] MEDS: VITA-BEE WITH C PO SCH (09:25)
[2020-11-09] MEDS: PLAVIX 75 MG Tablet PO SCH (09:27)
[2020-11-09] MEDS: HUMALOG SQ PRN ×3 (12:22→22:47)
[2020-11-09] MEDS: PATIENT OWN MEDICATION PO SCH (12:22)
[2020-11-09] MEDS ORDERED: ROCEPHIN 1 Gm-D5w 50 ml Bag** 1 G/50 ML IVPB IV SCH (22:00)
[2020-11-09] MEDS: Flomax 0.4 MG PO SCH (22:44)
[2020-11-09] MEDS: ZOCOR 20MG PO SCH (22:44)
[2020-11-09] MEDS: NON-FORMULARY ITEM PO SCH (22:46)
[2020-11-10] MEDS: HUMALOG SQ PRN ×4 (00:55→22:13)
[2020-11-10 05:38] LABS: Absolute Neutrophil Ct (ANC) 3.66 (1.4-6.9); BASOPHIL % 0.2 % (0.0-0.4); Basophil (Absolute #) 0.01 (0-0.4); Eosinophil % 3.3 % (0.00-5.0); Eosinophil (Absolute #) 0.21 (0-0.5); Hematocrit 31.3 % (42-50); Hemoglobin 10.3 gm/dl (12.5-18.0); Lymphocyte (Absolute #) 1.95 (1.0-4.6); Lymphocytes % 30.7 % (24.0-44.0); Mean Cell Volume 98.7 fl (78-100); Mean Corpuscular Hemoglobin 32.5 pg (26-32); Mean Corpuscular Hgb Concent. 32.9 g/dl (32-36); Mean Platelet Volume 9.4 fl (7.5-11.0); Monocyte (Absolute #) 0.53 (0.0-1.3); Monocytes % 8.3 % (0.0-12.0); Neutrophil % 57.5 % (36.0-66.0); Platelet Count 136 K/mm3 (150-450); Red Blood Count 3.17 M/mm3 (4.1-5.6); Red Cell Distribution Width 12.7 % (11.5-14.0); White Blood Count 6.4 K/mm3 (4.0-10.5)
[2020-11-10 05:56] LABS: ANION GAP 9.7 MEQ/L (5-15); Calcium 9.4 mg/dL (8.4-10.2); Creatinine 1 3.41 mg/dL (0.66-1.25); EST GLOMERULAR FILTRATION RATE 18.6 ML/MIN; Potassium 3.7 mmol/L (3.5-5.1)
[2020-11-10] MEDS: NEURONTIN 300 MG PO SCH ×3 (09:47→22:12)
[2020-11-10] MEDS: SYNTHROID 25 MCG PO SCH (09:47)
[2020-11-10] MEDS: Prozac 20 MG PO SCH (09:47)
[2020-11-10] MEDS: Namenda 5 MG PO SCH ×2 (09:47→22:12)
[2020-11-10] MEDS: COREG 12.5 MG PO SCH ×2 (09:47→22:12)
[2020-11-10] MEDS: ECOTRIN 81 MG PO SCH (09:47)
[2020-11-10] MEDS: FEOSOL 325 MG PO SCH (09:48)
[2020-11-10] MEDS: Aricept 10 MG PO SCH ×2 (09:48→22:12)
[2020-11-10] MEDS: Protonix 40MG Tablet PO SCH (09:48)
[2020-11-10] MEDS: Lasix 40 MG PO SCH (09:48)
[2020-11-10] MEDS: Lantus Insulin SQ SCH ×2 (09:48→22:12)
[2020-11-10] MEDS: Zithromax 500 MG/ 250 ML NaCl Premix 500 MG/250 ML IVPB IV SCH (09:48)
[2020-11-10] MEDS: VITA-BEE WITH C PO SCH (09:55)
--- NOTE | 2020-11-10 11:07 | PCM.NOTE ---
Date and Time: 11/10/20 1105 Subjective Assessment: patient has no new complaints, does have some bleeding from great toe. has had trouble for the last 3-4 days. sore and painful Objective Exam General Appearance: no apparent distress Skin Exam: normal color, warm, dry Wound Assessment: Skin/Wound Assessment Wound/Incision Assessment Start: 11/07/20 00:33 Text: Status: Active Freq: Q6H Protocol: Document 11/10/20 06:00 SG (Rec: 11/10/20 06:56 SG [id number]) Wound/Incision Assessment Distal Left Upper Arm Wound Assessment Shift Assessment Wound Type Skin Tear Wound Stage Non Pressure Wound Dressing Status Changed Drainage Amount Minimal Drainage Description Serosanguineous Drainage Odor None/Absent Wound Bed Greatest Portion Pale [place] Wound Bed Lesser Portion Dusky Red Surrounding Tissue [place] Primary Dressing xeroform, telfa, tegaderm Comment . Left Proximal Upper Arm Wound Assessment Shift Assessment Wound Type Skin Tear Wound Stage Non Pressure Wound Dressing Status Changed Drainage Amount Minimal Drainage Description Serosanguineous Drainage Odor None/Absent General Appearance Asymptomatic Wound Bed Greatest Portion Dusky Red Wound Bed Lesser Portion Red (Granulation) Surrounding Tissue [place] Topical Solution/Irrigant Saline Irrigant Primary Dressing xeroform, telfa, tegaderm Comment Dressing CDI. 2cm x 6cm Respiratory Exam: normal breath sounds, lungs clear, rhonchi, No respiratory distress Cardiovascular Exam: regular rate/rhythm, normal heart sounds Extremity Exam: other (left great toe erythema, bleeding around nail and nail appears loose) OBJECTIVE DATA Vital Signs: Vital Signs - 24 hr Temp Pulse Resp BP Pulse Ox 11/10/20 07:30 97.7 F 70 16 143/69 93 L 11/10/20 04:00 98.1 F 66 20 112/50 96 11/10/20 00:00 98.4 F 63 18 168/74 98 11/09/20 20:00 97.6 F 68 24 152/67 95 11/09/20 16:00 97.8 F 64 14 119/44 97 11/09/20 12:00 97.0 F 67 16 119/78 99 Pain Assessment - Last Documented Pain Intensity 0 Pain Scale Used 0-10 Pain Scale Intake and Output: Intake & Output 11/07/20 11/08/20 11/09/20 11/10/20 11:59 11:59 11:59 11:59 Intake Total 842 3111 1280 480 Output Total 692 147 2255 Balance 362 4491 -6261 480 Weight 92.2 kg 92.2 kg 93.4 kg Lab Results: Lab Results-Last 24 Hours 11/09/20 11/09/20 11/09/20 Range/Units 11:43 16:10 22:33 WBC (4.0-10.5) K/mm3 RBC (4.1-5.6) M/mm3 Hgb (12.5-18.0) gm/dl Hct (42-50) % MCV (78-100) fl MCH (26-32) pg MCHC (32-36) g/dl RDW (11.5-14.0) % Plt Count (150-450) K/mm3 MPV (7.5-11.0) fl Gran % (36.0-66.0) % Eos # (Auto) (0-0.5) Absolute Lymphs (auto) (1.0-4.6) Absolute Monos (auto) (0.0-1.3) Lymphocytes % (24.0-44.0) % Monocytes % (0.0-12.0) % Eosinophils % (0.00-5.0) % Basophils % (0.0-0.4) % Absolute Granulocytes (1.4-6.9) Basophils # (0-0.4) Sodium (137-145) mmol/L Potassium (3.5-5.1) mmol/L Chloride (98-107) mmol/L Carbon Dioxide (22-30) mmol/L Anion Gap (5-15) MEQ/L BUN (9-20) mg/dL Creatinine (0.66-1.25) mg/dL Estimated GFR ML/MIN Glucose (74-106) mg/dL POC Glucometer 233 H 362 H 308 H (74 to 106) mg/dL Calcium (8.4-10.2) mg/dL 11/10/20 11/10/20 11/10/20 Range/Units 04:19 04:19 04:35 WBC 6.4 (4.0-10.5) K/mm3 RBC 3.17 L (4.1-5.6) M/mm3 Hgb 10.3 L (12.5-18.0) gm/dl Hct 31.3 L (42-50) % MCV 98.7 (78-100) fl MCH 32.5 H (26-32) pg MCHC 32.9 (32-36) g/dl RDW 12.7 (11.5-14.0) % Plt Count 136 L (150-450) K/mm3 MPV 9.4 (7.5-11.0) fl Gran % 57.5 (36.0-66.0) % Eos # (Auto) 0.21 (0-0.5) Absolute Lymphs (auto) 1.95 (1.0-4.6) Absolute Monos (auto) 0.53 (0.0-1.3) Lymphocytes % 30.7 (24.0-44.0) % Monocytes % 8.3 (0.0-12.0) % Eosinophils % 3.3 (0.00-5.0) % Basophils % 0.2 (0.0-0.4) % Absolute Granulocytes 3.66 (1.4-6.9) Basophils # 0.01 (0-0.4) Sodium 138 (137-145) mmol/L Potassium 3.7 (3.5-5.1) mmol/L Chloride 110 H (98-107) mmol/L Carbon Dioxide 22 (22-30) mmol/L Anion Gap 9.7 (5-15) MEQ/L BUN 43 H (9-20) mg/dL Creatinine 3.41 H (0.66-1.25) mg/dL Estimated GFR 18.6 ML/MIN Glucose 93 (74-106) mg/dL POC Glucometer 80 (74 to 106) mg/dL Calcium 9.4 (8.4-10.2) mg/dL Multi-Disciplinary Progress Notes: Multi-Disciplinary Progress Notes 11/09/20 14:38 Case Management Note by Norma Walton S/W PATIENT AND FAMILY- THEY WERE EDUCATED ABOUT OUR SWINGBED PROGRAM HERE. THEY WOULD LIKE TO TRY TO THAT PRIOR TO GOING TO ACUTE REHAB AT [place]. DAUGHTER REPORTS SHE WOULD LIKE TO TRY TO GET PATIENT INTO ASSISTED LIVING FOR TIME OF ND. S/W DR. PONCE - HE IS AGREEABLE TO PLAN FOR SWINGBED WHEN MEDICALLY READY. POSSIBLY TOMORROW Initialized on 11/09/20 14:38 - END OF NOTE 11/09/20 14:11 Case Management Note by Norma Walton Frilp NOTIFIED PATIENT IS HERE INPT, THEY WILL NEED NOTIFIED AT TIME OF DC AT [phone]. THEY WILL NEED FAXED THE DC INSTRUCTIO NS, DC MED LIST AND DC SUMMARY IF AVAILABLE TO [phone] Initialized on 11/09/20 14:11 - END OF NOTE Assessment/Plan (1) Cellulitis, toe Current Visit: Yes Status: Acute Assessment & Plan: change abx to IV clindamycin, podiatry to consult. can change to po clindamycin when released to [facility] Code(s): L03.039 - CELLULITIS OF UNSPECIFIED TOE (2) Pneumonia Current Visit: Yes Status: Acute Assessment & Plan: on rocephin and zithromax, plan to change to clindamycin due to toe infection Code(s): J18.9 - PNEUMONIA, UNSPECIFIED ORGANISM (3) Type 2 diabetes mellitus with hyperosmolar hyperglycemic state (HHS) Current Visit: Yes Status: Acute Code(s): E11.00 - TYPE 2 DIAB W HYPROSM W/O NONKET HYPRGLY-HYPROS COMA ([facility]); E11.65 - TYPE 2 DIABETES MELLITUS WITH HYPERGLYCEMIA (4) Generalized weakness Current Visit: Yes Status: Acute Code(s): R53.1 - WEAKNESS
[2020-11-10] MEDS: CLINDAMYCIN-D5W 600 MG/50 ML*** 600 MG/50 ML BAG IV SCH ×2 (11:51→22:12)
--- NOTE | 2020-11-10 12:39 | PCM.CONS ---
Podiatry HPI - Consult Date of Consultation Date: 11/10/20 Reason for Consult: Great toe bleeding/Ulceration Consulting Provider: SAMANTHA VARGHESE DPM - [facility] History of Present Illness: is a 80 year old male Well-known to my service who was consulted for a wound to the right great toe. Patient was recently seen in my office on October 29 for an ulceration to the outside of the right foot at the level of the styloid process of the fifth metatarsal. At this time that wound has healed with no subsequent issues. He presents today with a new issue to the right hallux toenail. Patient claims that that the wound was not present on his admission however patient did not suffer any traumatic injuries on presentation or in his time in hospital. He states that there is no significant pain however he did not notice any drainage malodor or increased redness to this area. He does indicate that he is a diabetic his last hemoglobin A1c was measured to be 8.7 on 10/28/2020. He currently denies any constitutional symptoms of infection. He denies any other pedal complaints at this time. Medications & Allergies Home Medications: Home Medication List Aspirin 81 gm Chew [Baby Aspirin 81 mg Chew] 81 mg PO DAILY 03/27/14 [History Confirmed 11/06/20] Levothyroxine Sodium 50 Mcg [Synthroid 50 Mcg] 25 mcg PO DAILY 03/27/14 [History Confirmed 11/06/20] Clopidogrel Bisulfate [Plavix] 75 mg PO 3XW 06/16/14 [History Confirmed 11/06/20] Donepezil HCl [Aricept] 10 mg PO BID 06/16/14 [History Confirmed 11/06/20] Tamsulosin HCl 0.4 mg [Flomax 0.4 MG] 0.4 mg PO HS 06/16/14 [History Confirmed 11/06/20] Fluoxetine HCl [Prozac] 40 mg PO DAILY 04/15/15 [History Confirmed 11/06/20] Memantine HCl [Namenda] 10 mg PO BID 04/15/15 [History Confirmed 11/06/20] Atorvastatin Calcium 20 mg PO HS 08/17/17 [History Confirmed 11/06/20] Ferrous Sulfate [Iron] 325 mg PO DAILY 08/17/17 [History Confirmed 11/06/20] Gabapentin [Neurontin] 300 mg PO BID 08/17/17 [History Confirmed 11/07/20] Omeprazole 40 mg PO DAILY 08/17/17 [History Confirmed 11/06/20] Sodium Bicarbonate 650 mg PO HS 08/17/17 [History Confirmed 11/06/20] Carvedilol 12.5 mg [Coreg 12.5 mg] 12.5 mg PO BID 11/04/19 [History Confirmed 11/06/20] Evolocumab [Repatha Sureclick] 140 mg SQ UD 11/04/19 [History Confirmed 11/06/20] Insulin Detemir [Levemir] 25 unit SQ BID 06/23/20 [History Confirmed 11/06/20] Insulin Lispro [Humalog] 0 unit SQ TID PRN 08/14/20 [History Confirmed 11/06/20] Vitamin B Complex 1 each PO DAILY 09/24/20 [History Confirmed 11/06/20] Furosemide 40 mg [Lasix 40 MG] 40 mg PO DAILY 11/07/20 [History Confirmed 11/07/20] Patiromer Calcium Sorbitex [Veltassa] 8.46 mg PO DAILY 11/07/20 [History Confirmed 11/07/20] Allergies/Adverse Reactions: Allergies Allergy/AdvReac Type Severity Reaction Status Date / Time No Known Allergies Allergy Verified 11/06/20 22:58 - Past Medical History Past Medical History: Yes Neurological History: TIA ENT History: No Pertinent History Cardiac History: Coronary Artery Disease, Myocardial Infarction ([place]) Respiratory History: Pneumonia, Other Endocrine Medical History: Diabetes Type II Musculoskelatal History: Osteoarthritis GI Medical History: Diverticulitis, GERD, Other History: Renal Disease, Other Pyscho-Social History: Anxiety, Depression Male Reproductive Disorders: Prostate Problems Comment: Pacemaker, stents, Covid 19 - Past Surgical History Past Surgical History: Yes Neuro Surgical History: No Pertinent History Cardiac History: Cardiac Catheterization, Cardiac Stent, Pacemaker Respiratory Surgery: No Pertinent History GI Surgical History: No Pertinent History Genitourinary Surgical Hx: No Pertinent History Musculskeletal Surgical Hx: Orthopedic Surgery Male Surgical History: No Pertinent History Other Surgical History: rt knee replacement and revision to rt knee, skin lesions removed left arm, partial parathyroid gland removed - Social History Smoking Status: Never smoker Exposure to second hand smoke: No Alcohol: None Drug Use: none Significant Family History: no pertinent family hx Physical Exam - Narrative Narrative Physical Exam: Podiatry Physical Exam Patient is a 80-year-old male. Vascular: DP and PT pulses non-palpable b/l. CFT <5 seconds b/l. Skin temperature warm to cool from the proximal tibial tuberosity to distal toes b/l. Absent pedal hair growth b/l. Varicosities noted to lower legs b/l. No cellulitis, proximal streaking or lymphangitis noted. No lymphadenopathy on palpation of the popliteal or inguinal lymph nodes b/l Neurological: Protective sensation diminished 6/10 on the right and For/10 on the left as indicated with Shalimar-Maisha 5.07 monofilament b/l. Lower extremity temperature sensation diminished b/l. Evidence of intrinsic muscle atrophy Dermatological: Trophic changes to the skin. Skin is xerotic and scaly in nature. Turgor is rigid. No cicatrix noted. Wound as described belowToenails 1 through 5 are within normal limits for length however thickness is abnormal and they are discolored yellow. Nails are dystrophic crumbling and incurvated particularly to the medial borders of the hallux of the right and left.. Pain on compression. Webspaces are clean dry and intact. Wound subright hallux medial border toenail description below Musculoskeletal: Strength intact for all muscle groups b/l. Rectus / Pes cavus / Pes planus foot architecture noted. Normal ROM noted to all pedal joints b/l. Pain on palpation of the periwound area. No weightbearing exam was performed Wound Care / Suspicious Lesions: Wound #1 Locationright hallux medial border toenail Size 0.3 x 0.2 x 0.5 Appearance necrotic tissue distal tip medial border of hallux toenail. Undermining into medial border of toenail approximately 2 mm nail is lifted off of the base of the ulceration to the proximal nail matrix. Significant malodor present. Positive probe to bone at distal phalanx. Additional Location Lateral aspect of the right foot at styloid process fifth metatarsal Size - Healed Appearance - 100% epithelialized skin S/S of infection - Additional - Results - Labs Lab/Micro Results: Lab Results-Last 24 Hours 11/09/20 11/09/20 11/10/20 Range/Units 16:10 22:33 04:19 WBC 6.4 (4.0-10.5) K/mm3 RBC 3.17 L (4.1-5.6) M/mm3 Hgb 10.3 L (12.5-18.0) gm/dl Hct 31.3 L (42-50) % MCV 98.7 (78-100) fl MCH 32.5 H (26-32) pg MCHC 32.9 (32-36) g/dl RDW 12.7 (11.5-14.0) % Plt Count 136 L (150-450) K/mm3 MPV 9.4 (7.5-11.0) fl Gran % 57.5 (36.0-66.0) % Eos # (Auto) 0.21 (0-0.5) Absolute Lymphs (auto) 1.95 (1.0-4.6) Absolute Monos (auto) 0.53 (0.0-1.3) Lymphocytes % 30.7 (24.0-44.0) % Monocytes % 8.3 (0.0-12.0) % Eosinophils % 3.3 (0.00-5.0) % Basophils % 0.2 (0.0-0.4) % Absolute Granulocytes 3.66 (1.4-6.9) Basophils # 0.01 (0-0.4) Sodium (137-145) mmol/L Potassium (3.5-5.1) mmol/L Chloride (98-107) mmol/L Carbon Dioxide (22-30) mmol/L Anion Gap (5-15) MEQ/L BUN (9-20) mg/dL Creatinine (0.66-1.25) mg/dL Estimated GFR ML/MIN Glucose (74-106) mg/dL POC Glucometer 362 H 308 H (74 to 106) mg/dL Calcium (8.4-10.2) mg/dL 11/10/20 11/10/20 11/10/20 Range/Units 04:19 04:35 11:42 WBC (4.0-10.5) K/mm3 RBC (4.1-5.6) M/mm3 Hgb (12.5-18.0) gm/dl Hct (42-50) % MCV (78-100) fl MCH (26-32) pg MCHC (32-36) g/dl RDW (11.5-14.0) % Plt Count (150-450) K/mm3 MPV (7.5-11.0) fl Gran % (36.0-66.0) % Eos # (Auto) (0-0.5) Absolute Lymphs (auto) (1.0-4.6) Absolute Monos (auto) (0.0-1.3) Lymphocytes % (24.0-44.0) % Monocytes % (0.0-12.0) % Eosinophils % (0.00-5.0) % Basophils % (0.0-0.4) % Absolute Granulocytes (1.4-6.9) Basophils # (0-0.4) Sodium 138 (137-145) mmol/L Potassium 3.7 (3.5-5.1) mmol/L Chloride 110 H (98-107) mmol/L Carbon Dioxide 22 (22-30) mmol/L Anion Gap 9.7 (5-15) MEQ/L BUN 43 H (9-20) mg/dL Creatinine 3.41 H (0.66-1.25) mg/dL Estimated GFR 18.6 ML/MIN Glucose 93 (74-106) mg/dL POC Glucometer 80 281 H (74 to 106) mg/dL Calcium 9.4 (8.4-10.2) mg/dL Microbiology 11/06/20 19:13 Blood Culture - Preliminary Blood NO GROWTH TO DATE 11/06/20 19:13 Blood Culture - Preliminary Blood NO GROWTH TO DATE 11/06/20 19:23 Urine Culture - Final Urine, Catheterized NO GROWTH Accuchecks Date 11/10/20 Date 11/10/20 Date 11/10/20 Date 11/10/20 Date 11/09/20 Date 11/09/20 Time 11:47 Time 07:36 Time 00:30 Time 17:10 Assessment/Plan (1) Diabetes mellitus with peripheral autonomic neuropathy Current Visit: Yes Status: Acute Code(s): E11.43 - TYPE 2 DIABETES W DIABETIC AUTONOMIC (POLY)NEUROPATHY (2) 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 Presentation of ulceration beneath the right hallux toenail medial border with no injury and confusing subjective presentation makes likelihood of traumatic injury low. Patient likely did not sustain this injury in the fall and this issue is subacute. Due to cellulitis of toe of the right foot as well as positive probe to bone I have a high clinical suspicion for osteomyelitis of the distal phalanx of the right foot Patient has been made aware of potential complications that could arise secondary to the diabetic foot ulcer and understands that amputation is a potential outcome. He has voiced his understanding however would like to try to proceed with limb salvage at this time. I agree with this course. X-ray obtained of the right foot demonstrating:Pending Arterial vascular studies of the bilateral lower extremity ordered: Pending With the patient's verbal and written consent a one-to-one mixture of 0 0.5% Marcaine plain and 1% lidocaine plain for a total of 10 cc was injected into the right hallux and a hallux block type fashion. Following this, toenail #1 on the right side was removed with aseptic technique at bedside in order to expose the ulceration in total the measurements are documented in the physical exam section of this note. There is a positive probe to bone with some significant malodor and some purulent drainage which was cultured. This was cleansed with hydrogen peroxide and cleansed with sterile saline and triple antibiotic and a sterile dressing consisting of 2 x 2's and 1 inch Coban. At this time discussion with nursing staff regarding discharge status. Patient is to be discharged to [place] either tomorrow or the day after. A PICC line will be placed and patient will begin an IV antibiotic regimen at this time we will follow the cultures in order to identify culture and sensitivity. Code(s): L03.031 - CELLULITIS OF RIGHT TOE
--- NOTE | 2020-11-10 14:20 | XRAY ---
Indication: Big toe pain. Comparison: October 24, 2017. 3 portable nonweightbearing views right foot unchanged again demonstrating mild osteopenia, medial 1st MTP/medial malleolus heterotopic ossifications, small heel spurs, and extensive vascular calcifications. No new/acute findings.
--- NOTE | 2020-11-10 16:31 | XRAY ---
Indication: Claudication. Bilateral ankle brachial index exam performed. Right arm brachial pressure is 144. Right ankle pressure is 174. TROY is 1.2, normal. Left arm brachial pressure is 145. Left ankle pressure is 114. TROY is 0.83, mild ischemic disease. Impression: 1. Left TROY 0.83 favors mild ischemic disease. 2. Right TROY 1.2 is normal.
--- NOTE | 2020-11-10 16:35 | XRAY ---
Indication: Claudication. Peripheral vascular disease. Two-dimensional sonogram and color Doppler imaging of the major arteries of the left and right leg was performed. Comparison: Right leg arterial sonogram August 26, 2020. Examination of the right leg again demonstrates mild/moderate scattered arteriosclerotic disease in the common femoral, deep femoral, superficial femoral, popliteal, posterior tibial, and dorsal pedal arteries without focal stenosis/obstruction. Arterial waveforms remain multiphasic throughout the right leg. Posterior tibial and dorsal pedal artery waveforms remain attenuated. Examination of the left leg also demonstrates mild/moderate scattered arteriosclerotic disease in the common femoral, deep femoral, superficial femoral, popliteal, posterior tibial, and dorsal pedal arteries without focal stenosis/obstruction. Posterior tibial artery waveform is monophasic and attenuated. Remaining left leg arterial waveforms are multiphasic. Impression: Bilateral scattered arteriosclerotic disease without focal stenosis/obstruction. CTA abdominal aorta with bilateral runoff may yield further information.
[2020-11-10] MEDS: PATIENT OWN MEDICATION PO SCH (16:40)
[2020-11-10] MEDS: Flomax 0.4 MG PO SCH (22:12)
[2020-11-10] MEDS: NON-FORMULARY ITEM PO SCH (22:12)
[2020-11-10] MEDS: ZOCOR 20MG PO SCH (22:12)
[2020-11-11] MEDS ORDERED: Glutose 15 GM ORAL GEL PO ONE ×2 (03:52→04:40)
[2020-11-11] MEDS ORDERED: D50W 50 ml Abboject IV ONE (04:56)
[2020-11-11 05:58] LABS: Absolute Neutrophil Ct (ANC) 3.65 (1.4-6.9); BASOPHIL % 0.2 % (0.0-0.4); Basophil (Absolute #) 0.01 (0-0.4); Eosinophil % 3.9 % (0.00-5.0); Eosinophil (Absolute #) 0.26 (0-0.5); Hematocrit 30.9 % (42-50); Hemoglobin 10.3 gm/dl (12.5-18.0); Lymphocyte (Absolute #) 2.17 (1.0-4.6); Lymphocytes % 32.9 % (24.0-44.0); Mean Cell Volume 98.1 fl (78-100); Mean Corpuscular Hemoglobin 32.7 pg (26-32); Mean Corpuscular Hgb Concent. 33.3 g/dl (32-36); Mean Platelet Volume 9.2 fl (7.5-11.0); Monocyte (Absolute #) 0.51 (0.0-1.3); Monocytes % 7.7 % (0.0-12.0); Neutrophil % 55.3 % (36.0-66.0); Platelet Count 153 K/mm3 (150-450); Red Blood Count 3.15 M/mm3 (4.1-5.6); Red Cell Distribution Width 12.5 % (11.5-14.0); White Blood Count 6.6 K/mm3 (4.0-10.5)
[2020-11-11 06:24] LABS: ANION GAP 10.7 MEQ/L (5-15); Calcium 9.1 mg/dL (8.4-10.2); Creatinine 1 3.27 mg/dL (0.66-1.25); EST GLOMERULAR FILTRATION RATE 19.6 ML/MIN; Potassium 3.6 mmol/L (3.5-5.1)
[2020-11-11] MEDS: CLINDAMYCIN-D5W 600 MG/50 ML*** 600 MG/50 ML BAG IV SCH ×3 (06:39→21:21)
--- NOTE | 2020-11-11 08:57 | PCM.NOTE ---
Date and Time: 11/11/20 08 Subjective Assessment: patient seen by podiatry, probe to bone in the right great toe. getting PICC line today Objective Exam General Appearance: no apparent distress, alert Wound Assessment: Skin/Wound Assessment Wound/Incision Assessment Start: 11/07/20 00:33 Text: Status: Active Freq: Q6H Protocol: Document 11/11/20 06:00 MS (Rec: 11/11/20 06:43 MS [id number]) Wound/Incision Assessment Distal Left Upper Arm Wound Assessment Shift Assessment Wound Type Skin Tear Wound Stage Non Pressure Wound Dressing Status Changed Drainage Amount Minimal Drainage Description Serosanguineous Drainage Odor None/Absent Wound Bed Greatest Portion Pale Hatch Wound Bed Lesser Portion Dusky Red Surrounding Tissue Hatch Primary Dressing xeroform, telfa, tegaderm Comment . Left Proximal Upper Arm Wound Assessment Shift Assessment Wound Type Skin Tear Wound Stage Non Pressure Wound Dressing Status Changed Drainage Amount Minimal Drainage Description Serosanguineous Drainage Odor None/Absent General Appearance Asymptomatic Wound Bed Greatest Portion Dusky Red Wound Bed Lesser Portion Red (Granulation) Surrounding Tissue Hatch Topical Solution/Irrigant Saline Irrigant Primary Dressing xeroform, telfa, tegaderm Comment Dressing CDI. 2cm x 6cm Wound Photo Photo Taken No Comment: photos on chart Respiratory Exam: normal breath sounds, lungs clear, No respiratory distress Cardiovascular Exam: regular rate/rhythm, normal heart sounds Gastrointestinal/Abdomen Exam: soft, No tenderness, No mass Extremity Exam: other (dressing intact to right great toe) OBJECTIVE DATA Vital Signs: Vital Signs - 24 hr Temp Pulse Resp BP Pulse Ox 11/11/20 08:00 97.9 F 65 16 121/69 97 11/11/20 04:00 97.9 F 63 19 137/70 97 11/10/20 23:57 99.1 F 63 18 136/66 97 11/10/20 19:54 98.2 F 68 18 169/82 96 11/10/20 16:00 98.1 F 62 16 168/68 98 11/10/20 11:46 97.4 F 68 16 137/43 97 Pain Assessment - Last Documented Pain Intensity 0 Pain Scale Used 0-10 Pain Scale Intake and Output: Intake & Output 11/08/20 11/09/20 11/10/20 11/11/20 11:59 11:59 11:59 11:59 Intake Total 3111 2377 463 7387 Output Total 071 3855 1999 Balance 2141 -1815 480 -210 Weight 92.2 kg 93.4 kg Lab Results: Lab Results-Last 24 Hours 11/10/20 11/10/20 11/10/20 Range/Units 11:42 16:30 20:14 WBC (4.0-10.5) K/mm3 RBC (4.1-5.6) M/mm3 Hgb (12.5-18.0) gm/dl Hct (42-50) % MCV (78-100) fl MCH (26-32) pg MCHC (32-36) g/dl RDW (11.5-14.0) % Plt Count (150-450) K/mm3 MPV (7.5-11.0) fl Gran % (36.0-66.0) % Eos # (Auto) (0-0.5) Absolute Lymphs (auto) (1.0-4.6) Absolute Monos (auto) (0.0-1.3) Lymphocytes % (24.0-44.0) % Monocytes % (0.0-12.0) % Eosinophils % (0.00-5.0) % Basophils % (0.0-0.4) % Absolute Granulocytes (1.4-6.9) Basophils # (0-0.4) Sodium (137-145) mmol/L Potassium (3.5-5.1) mmol/L Chloride (98-107) mmol/L Carbon Dioxide (22-30) mmol/L Anion Gap (5-15) MEQ/L BUN (9-20) mg/dL Creatinine (0.66-1.25) mg/dL Estimated GFR ML/MIN Glucose (74-106) mg/dL POC Glucometer 281 H 343 H 298 H (74 to 106) mg/dL Calcium (8.4-10.2) mg/dL 11/10/20 11/11/20 11/11/20 Range/Units 23:35 03:49 04:33 WBC (4.0-10.5) K/mm3 RBC (4.1-5.6) M/mm3 Hgb (12.5-18.0) gm/dl Hct (42-50) % MCV (78-100) fl MCH (26-32) pg MCHC (32-36) g/dl RDW (11.5-14.0) % Plt Count (150-450) K/mm3 MPV (7.5-11.0) fl Gran % (36.0-66.0) % Eos # (Auto) (0-0.5) Absolute Lymphs (auto) (1.0-4.6) Absolute Monos (auto) (0.0-1.3) Lymphocytes % (24.0-44.0) % Monocytes % (0.0-12.0) % Eosinophils % (0.00-5.0) % Basophils % (0.0-0.4) % Absolute Granulocytes (1.4-6.9) Basophils # (0-0.4) Sodium (137-145) mmol/L Potassium (3.5-5.1) mmol/L Chloride (98-107) mmol/L Carbon Dioxide (22-30) mmol/L Anion Gap (5-15) MEQ/L BUN (9-20) mg/dL Creatinine (0.66-1.25) mg/dL Estimated GFR ML/MIN Glucose (74-106) mg/dL POC Glucometer 205 H 50 L 73 L (74 to 106) mg/dL Calcium (8.4-10.2) mg/dL 11/11/20 11/11/20 11/11/20 Range/Units 04:35 04:35 05:37 WBC 6.6 (4.0-10.5) K/mm3 RBC 3.15 L (4.1-5.6) M/mm3 Hgb 10.3 L (12.5-18.0) gm/dl Hct 30.9 L (42-50) % MCV 98.1 (78-100) fl MCH 32.7 H (26-32) pg MCHC 33.3 (32-36) g/dl RDW 12.5 (11.5-14.0) % Plt Count 153 (150-450) K/mm3 MPV 9.2 (7.5-11.0) fl Gran % 55.3 (36.0-66.0) % Eos # (Auto) 0.26 (0-0.5) Absolute Lymphs (auto) 2.17 (1.0-4.6) Absolute Monos (auto) 0.51 (0.0-1.3) Lymphocytes % 32.9 (24.0-44.0) % Monocytes % 7.7 (0.0-12.0) % Eosinophils % 3.9 (0.00-5.0) % Basophils % 0.2 (0.0-0.4) % Absolute Granulocytes 3.65 (1.4-6.9) Basophils # 0.01 (0-0.4) Sodium 138 (137-145) mmol/L Potassium 3.6 (3.5-5.1) mmol/L Chloride 108 H (98-107) mmol/L Carbon Dioxide 24 (22-30) mmol/L Anion Gap 10.7 (5-15) MEQ/L BUN 46 H (9-20) mg/dL Creatinine 3.27 H (0.66-1.25) mg/dL Estimated GFR 19.6 ML/MIN Glucose 72 L (74-106) mg/dL POC Glucometer 129 H (74 to 106) mg/dL Calcium 9.1 (8.4-10.2) mg/dL 11/11/ Range/Units 07:24 WBC (4.0-10.5) K/mm3 RBC (4.1-5.6) M/mm3 Hgb (12.5-18.0) gm/dl Hct (42-50) % MCV (78-100) fl MCH (26-32) pg MCHC (32-36) g/dl RDW (11.5-14.0) % Plt Count (150-450) K/mm3 MPV (7.5-11.0) fl Gran % (36.0-66.0) % Eos # (Auto) (0-0.5) Absolute Lymphs (auto) (1.0-4.6) Absolute Monos (auto) (0.0-1.3) Lymphocytes % (24.0-44.0) % Monocytes % (0.0-12.0) % Eosinophils % (0.00-5.0) % Basophils % (0.0-0.4) % Absolute Granulocytes (1.4-6.9) Basophils # (0-0.4) Sodium (137-145) mmol/L Potassium (3.5-5.1) mmol/L Chloride (98-107) mmol/L Carbon Dioxide (22-30) mmol/L Anion Gap (5-15) MEQ/L BUN (9-20) mg/dL Creatinine (0.66-1.25) mg/dL Estimated GFR ML/MIN Glucose (74-106) mg/dL POC Glucometer 91 (74 to 106) mg/dL Calcium (8.4-10.2) mg/dL Radiology Exams: Radiology Procedures Category Date Time Status TROY/LIMB PRESSURES BILATERAL [US] Routine Exams 11/10/20 13:30 Completed ARTERIAL BILAT LOWER EXTREMITY [US] Routine Exams 11/10/20 13:30 Completed FOOT (MINIMUM 3 VIEWS) Routine Exams 11/10/20 13:30 Completed PICC LINE PLACEMENT Routine Exams 11/11/20 Ordered Multi-Disciplinary Progress Notes: Multi-Disciplinary Progress Notes 11/10/20 15:42 Physical Therapy Note by Bia Whitney 11/10/20: PT SEEN THIS AFTERNOON FOR ADL RX. PT NEEDED SL ASSIST X 1 TO TRANSFER FROM SITTING IN BEDSIDE CHAIR TO STANDING AT WALKER. PT AMBULATED ~ 80' WITH ROLLING WALKER AND CCG X 1. PT NEEDS VERBAL CUES/REMINDERS TO CORRECT SHUFFLE TYPE GAIT AT TIMES, LINDSAY WITH CHANGE OF DIRECTION. PT TOLERATED AMBULATION FAIR, HE REPORTED SOME INCREASE IN FATIGUE, NO C/O PAIN. Initialized on 11/10/20 15:42 - END OF NOTE 11/10/20 15:30 (created 11/10/20 18:30) Case Management Note by Norma Walton S/W AALIYAH AT [facility]. THEY ARE WAITING TO HEAR ABOUT ABOUT COST OF SOME OF PATIENT'S MEDS BEFORE THEY ARE ABLE TO ACCEPT PATIENT. THEY ALSO REQUESTED A SECOND RAPID COVID TEST PRIOR TO ARRIVAL- THEY WERE INFORMED WE ARE UNABLE TO DO THAT BECAUSE OUR SUPPLY IS LIMITED. SHE VERIFIED UNDERSTANDING Initialized on 11/10/20 18:30 - END OF NOTE 11/10/20 12:16 Case Management Note by Norma Walton D/T CURRENT HOSPITAL CENSUS PATIENT OW UNABLE TO SWING. I S/W PATIENT AND DAUGHTER- THEY VERIFIED UNDERSTANDING. WOULD LIKE A REFERRAL SENT TO [facility]. THEY ARE AWARE THEIR FACILITY HAS HAD COVID. REFERRAL PACKET WITH POST ACUTE CARE FORM FAXED AT THIS TIME [facility] ALSO COMPLETE- NO LEVEL II REQUIRED. COPIES FAXED TO [facility] AND PLACED IN CHART Initialized on 11/10/20 12:16 - END OF NOTE Assessment/Plan (1) Osteomyelitis of great toe of right foot Current Visit: Yes Status: Acute Assessment & Plan: culture pending, currently on clindamycin. will continue with PICC placement today until culture returns. will likely need 6 weeks of IV antibiotics Code(s): M86.9 - OSTEOMYELITIS, UNSPECIFIED (2) Type 2 diabetes mellitus with hyperosmolar hyperglycemic state (HHS) Current Visit: Yes Status: Acute Code(s): E11.00 - TYPE 2 DIAB W HYPROSM W/O NONKET HYPRGLY-HYPROS COMA ([facility]); E11.65 - TYPE 2 DIABETES MELLITUS WITH HYPERGLYCEMIA (3) Generalized weakness Current Visit: Yes Status: Acute Code(s): R53.1 - WEAKNESS
[2020-11-11 09:05] LABS: INR 1.04 (0.8-3.0); PROTIME 11.7 SECONDS (8.83-12.87)
[2020-11-11 09:07] LABS: PTT 27.7 SECONDS (24.1-36.1)
[2020-11-11] MEDS: Zithromax 500 MG/ 250 ML NaCl Premix 500 MG/250 ML IVPB IV SCH (09:22)
[2020-11-11] MEDS ORDERED: Glutose 15 GM ORAL GEL PO PRN (10:15)
[2020-11-11] MEDS ORDERED: D50W 50 ml Abboject IV PRN (10:15)
[2020-11-11] MEDS ORDERED: GlucaGen 1 MG IM PRN (10:15)
[2020-11-11] MEDS ORDERED: Heparin 1000 units/ml (10 Ml vial) 1,000 U in Sodium Chloride 0.9% 500 ML 500 ML IV ONE (11:00)
[2020-11-11] MEDS: VITA-BEE WITH C PO SCH (12:47)
[2020-11-11] MEDS: COREG 12.5 MG PO SCH ×2 (12:47→21:20)
[2020-11-11] MEDS: FEOSOL 325 MG PO SCH (12:48)
[2020-11-11] MEDS: Prozac 20 MG PO SCH (12:48)
[2020-11-11] MEDS: PLAVIX 75 MG Tablet PO SCH (12:48)
[2020-11-11] MEDS: SYNTHROID 25 MCG PO SCH (12:48)
[2020-11-11] MEDS: ECOTRIN 81 MG PO SCH (12:48)
[2020-11-11] MEDS: Protonix 40MG Tablet PO SCH (12:48)
[2020-11-11] MEDS: Aricept 10 MG PO SCH ×2 (12:48→21:20)
[2020-11-11] MEDS: NEURONTIN 300 MG PO SCH ×3 (12:49→21:21)
[2020-11-11] MEDS: Lantus Insulin SQ SCH ×2 (12:49→21:21)
[2020-11-11] MEDS: Namenda 5 MG PO SCH ×2 (12:49→21:21)
[2020-11-11] MEDS: Bactroban OINTMENT TP SCH (12:49)
[2020-11-11] MEDS: Lasix 40 MG PO SCH (12:49)
--- NOTE | 2020-11-11 13:11 | XRAY ---
Indication: Ultrasound guidance for PICC line placement. Initial sonographic imaging of the right upper extremity was performed for localization of patent veins. A patent basilic vein identified above the elbow. Ultrasound guidance was then used for PICC line insertion. Full PICC line insertion is reported separately.
--- NOTE | 2020-11-11 13:12 | XRAY ---
Indication: Long-term IV access and therapy for right foot infection. Informed consent obtained. Patient was placed on the fluoroscopic table in a supine position. Initial sonographic imaging of the right upper extremity was performed for localization of patent veins. The right upper extremity was then prepped and draped in sterile fashion. Tourniquet applied. 1% lidocaine plain used for local anesthesia. Using ultrasound guidance and a micropuncture needle, a basilic vein above the elbow was successfully percutaneously cannulized. A floppy tip 0.018 guidewire inserted. Tourniquet released. Needle was exchanged for a 5 [place] dilator peel-away sheath catheter. Ultimately a 5 [place] double-lumen PICC line was inserted over a longer 0.018 guidewire with the tip positioned in the distal SVC using fluoroscopic guidance. Guidewire removed. Both ports flushed with heparinized saline. Catheter was secured. Postoperative instructions and orders given. Patient discharged in good condition. Impression: Technically successful right upper extremity PICC line placement using ultrasound and fluoroscopic guidance. No immediate complications. Approximately 2 cc blood loss. Approximately 0.4 minute of fluoroscopy used. Catheter length is 37 cm.
[2020-11-11] MEDS: TYLENOL 325 MG PO PRN (13:24)
[2020-11-11] MEDS: PATIENT OWN MEDICATION PO SCH (13:25)
--- NOTE | 2020-11-11 16:16 | PCM.NOTE ---
Podiatry Narrative Note Podiatry Narrative Note: Subjective: Patient seen at chair side today this afternoon. He admits to no constitutional symptoms. He denies any other pedal complaints at this time Vascular: DP and PT pulses non-palpable b/l. CFT <5 seconds b/l. Skin temperature warm to cool from the proximal tibial tuberosity to distal toes b/l. Absent pedal hair growth b/l. Varicosities noted to lower legs b/l. No residual cellulitis to the right great toe., proximal streaking or lymphangitis noted. No lymphadenopathy on palpation of the popliteal or inguinal lymph nodes b/l Neurological: Protective sensation diminished 6/10 on the right and 4/10 on the left as indicated with [place]-Maisha 5.07 monofilament b/l. Lower extremity temperature sensation diminished b/l. Evidence of intrinsic muscle atrophy Dermatological: Trophic changes to the skin. Skin is xerotic and scaly in nature. Turgor is rigid. No cicatrix noted. Wound as described belowToenails 1 through 5 are within normal limits for length however thickness is abnormal and they are discolored yellow. Nails are dystrophic crumbling and incurvated particularly to the medial borders of the hallux of the right and left.. Pain on compression. Webspaces are clean dry and intact. Wound subright hallux medial border toenail description below Musculoskeletal: Strength intact for all muscle groups b/l. Rectus / Pes cavus / Pes planus foot architecture noted. Normal ROM noted to all pedal joints b/l. Pain on palpation of the periwound area. No weightbearing exam was performed Wound Care / Suspicious Lesions: Wound #1 Locationright hallux medial border toenail Size 0.3 x 0.2 x 0.5 Appearance necrotic tissue distal tip medial border of hallux . Dusky discoloration to the surrounding ulcer site however capillary refill time is brisk to this toe. No remaining signs of infection at this time. Probe to bone remains positive. No malodor Additional Location Lateral aspect of the right foot at styloid process fifth metatarsal Size - Healed Appearance - 100% epithelialized skin S/S of infection - Additional - Assessment: Diabetes with peripheral neuropathy Uncontrolled diabetes mellitus type 2- Diabetic foot wound right foot Osteomyelitis right great toe-positive probe to bone Peripheral vascular disease Plan: Patient examination and evaluation Patient is progressing well status post great toenail avulsion. Dressings were removed today and wound was assessed there is a darkening appearance of some of the tissue at the medial border of the nail groove with some exposed bone at this time he will likely need a repeat wound care in order to salvage this toe and tight regulation of his glucose in order to prevent additional infection and delayed wound healing. PICC line placed and awaiting culture and sensitivity for culture taken yesterday. Patient is currently on clindamycin at this time. Dr. Paz will be managing antibiotics on discharge. Vascular studies demonstrating TROY of 0.83 to the left favoring mild ischemic disease however the right is demonstrating an TROY of 1.2 which is normal and is encouraging for some wound healing however his x-rays are demonstrating significant vascular calcifications which may demonstrate false elevations of these numbers and for this I recommend a vascular consultation with Dr. Dunn in order to see if any vascular intervention is warranted. Another encouraging factor is that there are only mild to moderate scattered arteriosclerotic diseases to the posterior tibial and dorsalis pedis arteries without any obstruction and the waveforms remain multiphasic throughout the right leg. This is encouraging however due to his uncontrolled diabetes as stated before this may be falsely elevated. Dressing changes to consist of Betadine 4 x 4 and Covan to the right great toe daily. Patient is okay for discharge from my standpoint if okay with other services. He is to follow-up next week for assessment and repeat debridement if necessary.
[2020-11-11] MEDS: HUMALOG SQ PRN ×2 (17:46→19:49)
[2020-11-11] MEDS: ZOCOR 20MG PO SCH (21:20)
[2020-11-11] MEDS: Flomax 0.4 MG PO SCH (21:20)
[2020-11-11] MEDS: NON-FORMULARY ITEM PO SCH (21:22)
[2020-11-12] MEDS: CLINDAMYCIN-D5W 600 MG/50 ML*** 600 MG/50 ML BAG IV SCH ×3 (05:02→22:01)
[2020-11-12 05:45] LABS: Absolute Neutrophil Ct (ANC) 4.07 (1.4-6.9); BASOPHIL % 0.3 % (0.0-0.4); Basophil (Absolute #) 0.02 (0-0.4); Eosinophil % 3.4 % (0.00-5.0); Eosinophil (Absolute #) 0.23 (0-0.5); Hematocrit 30.1 % (42-50); Hemoglobin 9.8 gm/dl (12.5-18.0); Lymphocyte (Absolute #) 2.02 (1.0-4.6); Lymphocytes % 29.5 % (24.0-44.0); Mean Cell Volume 99.7 fl (78-100); Mean Corpuscular Hemoglobin 32.5 pg (26-32); Mean Corpuscular Hgb Concent. 32.6 g/dl (32-36); Mean Platelet Volume 9.1 fl (7.5-11.0); Monocytes % 7.3 % (0.0-12.0); Neutrophil % 59.5 % (36.0-66.0); Platelet Count 172 K/mm3 (150-450); Red Blood Count 3.02 M/mm3 (4.1-5.6); Red Cell Distribution Width 12.6 % (11.5-14.0); White Blood Count 6.8 K/mm3 (4.0-10.5)
[2020-11-12 06:13] LABS: ALBUMIN 3.1 g/dL (3.5-5.0); ANION GAP 8.3 MEQ/L (5-15); BILIRUBIN,TOTAL 0.2 mg/dL (0.2-1.3); Calcium 9.1 mg/dL (8.4-10.2); Creatinine 1 3.38 mg/dL (0.66-1.25); EST GLOMERULAR FILTRATION RATE 18.8 ML/MIN; Potassium 3.8 mmol/L (3.5-5.1)
--- NOTE | 2020-11-12 08:38 | PCM.NOTE ---
Date and Time: 11/12/20 0834 Subjective Assessment: patient denies significant pain or problems or concerns currently Objective Exam General Appearance: no apparent distress, alert Wound Assessment: Skin/Wound Assessment Wound/Incision Assessment Start: 11/07/20 00:33 Text: Status: Active Freq: Q6H Protocol: Document 11/12/20 05:36 EG (Rec: 11/12/20 05:36 EG [id number]) Wound/Incision Assessment Left Toe Wound Assessment Shift Assessment Wound Type WOUND Wound Stage Non Pressure Wound Dressing Status Dry & Intact Drainage Amount None Drainage Odor None/Absent Comment DRESSING CLEAN DRY AND INTACT Distal Left Upper Arm Wound Assessment Shift Assessment Wound Type Skin Tear Wound Stage Non Pressure Wound Dressing Status Dry & Intact Drainage Amount Minimal Drainage Description Serosanguineous Drainage Odor None/Absent Wound Bed Greatest Portion Pale Crystal Wound Bed Lesser Portion Dusky Red Surrounding Tissue Crystal Primary Dressing xeroform, telfa, tegaderm Comment dressing reinforced Left Proximal Upper Arm Wound Assessment Shift Assessment Wound Type Skin Tear Wound Stage Non Pressure Wound Dressing Status Changed Drainage Amount Minimal Drainage Description Serosanguineous Drainage Odor None/Absent General Appearance Asymptomatic Wound Bed Greatest Portion Dusky Red Wound Bed Lesser Portion Red (Granulation) Surrounding Tissue Crystal Topical Solution/Irrigant Saline Irrigant Primary Dressing xeroform, telfa, tegaderm Wound Photo Photo Taken No Respiratory Exam: normal breath sounds, lungs clear, No respiratory distress Cardiovascular Exam: regular rate/rhythm, normal heart sounds Extremity Exam: other (right great toe dressing intact, mild erythema improving to toe) OBJECTIVE DATA Vital Signs: Vital Signs - 24 hr Temp Pulse Resp BP Pulse Ox 11/12/20 07:43 98.2 F 67 18 108/57 98 11/12/20 04:00 97.8 F 66 10 L 118/79 97 11/12/20 00:00 97.6 F 73 11 L 146/74 97 11/11/20 23:00 64 11/11/20 19:39 97.8 F 70 15 125/66 97 11/11/20 16:00 97.6 F 72 18 135/68 97 11/11/20 11:43 97.9 F 65 14 110/68 98 Pain Assessment - Last Documented Pain Intensity 0 Pain Scale Used 0-10 Pain Scale Intake and Output: Intake & Output 11/09/20 11/10/20 11/11/20 11/12/20 11:59 11:59 11:59 11:59 Intake Total 4541 307 4995 1132 Output Total 3090 3779 850 Balance -1814 480 -210 282 Weight 92.2 kg 93.4 kg Lab Results: Lab Results-Last 24 Hours 11/11/20 11/11/20 11/11/20 Range/Units 04:40 11:21 16:23 WBC (4.0-10.5) K/mm3 RBC (4.1-5.6) M/mm3 Hgb (12.5-18.0) gm/dl Hct (42-50) % MCV (78-100) fl MCH (26-32) pg MCHC (32-36) g/dl RDW (11.5-14.0) % Plt Count (150-450) K/mm3 MPV (7.5-11.0) fl Gran % (36.0-66.0) % Eos # (Auto) (0-0.5) Absolute Lymphs (auto) (1.0-4.6) Absolute Monos (auto) (0.0-1.3) Lymphocytes % (24.0-44.0) % Monocytes % (0.0-12.0) % Eosinophils % (0.00-5.0) % Basophils % (0.0-0.4) % Absolute Granulocytes (1.4-6.9) Basophils # (0-0.4) PT 11.7 (8.83-12.87) SECONDS INR 1.04 (0.8-3.0) APTT 27.7 (24.1-36.1) SECONDS Sodium (137-145) mmol/L Potassium (3.5-5.1) mmol/L Chloride (98-107) mmol/L Carbon Dioxide (22-30) mmol/L Anion Gap (5-15) MEQ/L BUN (9-20) mg/dL Creatinine (0.66-1.25) mg/dL Estimated GFR ML/MIN Glucose (74-106) mg/dL POC Glucometer 99 307 H (74 to 106) mg/dL Calcium (8.4-10.2) mg/dL Total Bilirubin (0.2-1.3) mg/dL AST (17-59) U/L ALT (0-50) U/L Alkaline Phosphatase (38-126) U/L Serum Total Protein (6.3-8.2) g/dL Albumin (3.5-5.0) g/dL 11/11/20 11/12/20 11/12/20 Range/Units 19:40 00:06 04:30 WBC 6.8 (4.0-10.5) K/mm3 RBC 3.02 L (4.1-5.6) M/mm3 Hgb 9.8 L (12.5-18.0) gm/dl Hct 30.1 L (42-50) % MCV 99.7 (78-100) fl MCH 32.5 H (26-32) pg MCHC 32.6 (32-36) g/dl RDW 12.6 (11.5-14.0) % Plt Count 172 (150-450) K/mm3 MPV 9.1 (7.5-11.0) fl Gran % 59.5 (36.0-66.0) % Eos # (Auto) 0.23 (0-0.5) Absolute Lymphs (auto) 2.02 (1.0-4.6) Absolute Monos (auto) 0.50 (0.0-1.3) Lymphocytes % 29.5 (24.0-44.0) % Monocytes % 7.3 (0.0-12.0) % Eosinophils % 3.4 (0.00-5.0) % Basophils % 0.3 (0.0-0.4) % Absolute Granulocytes 4.07 (1.4-6.9) Basophils # 0.02 (0-0.4) PT (8.83-12.87) SECONDS INR (0.8-3.0) APTT (24.1-36.1) SECONDS Sodium (137-145) mmol/L Potassium (3.5-5.1) mmol/L Chloride (98-107) mmol/L Carbon Dioxide (22-30) mmol/L Anion Gap (5-15) MEQ/L BUN (9-20) mg/dL Creatinine (0.66-1.25) mg/dL Estimated GFR ML/MIN Glucose (74-106) mg/dL POC Glucometer 376 H 275 H (74 to 106) mg/dL Calcium (8.4-10.2) mg/dL Total Bilirubin (0.2-1.3) mg/dL AST (17-59) U/L ALT (0-50) U/L Alkaline Phosphatase (38-126) U/L Serum Total Protein (6.3-8.2) g/dL Albumin (3.5-5.0) g/dL 11/12/20 11/12/20 11/12/20 Range/Units 04:30 04:37 07:14 WBC (4.0-10.5) K/mm3 RBC (4.1-5.6) M/mm3 Hgb (12.5-18.0) gm/dl Hct (42-50) % MCV (78-100) fl MCH (26-32) pg MCHC (32-36) g/dl RDW (11.5-14.0) % Plt Count (150-450) K/mm3 MPV (7.5-11.0) fl Gran % (36.0-66.0) % Eos # (Auto) (0-0.5) Absolute Lymphs (auto) (1.0-4.6) Absolute Monos (auto) (0.0-1.3) Lymphocytes % (24.0-44.0) % Monocytes % (0.0-12.0) % Eosinophils % (0.00-5.0) % Basophils % (0.0-0.4) % Absolute Granulocytes (1.4-6.9) Basophils # (0-0.4) PT (8.83-12.87) SECONDS INR (0.8-3.0) APTT (24.1-36.1) SECONDS Sodium 137 (137-145) mmol/L Potassium 3.8 (3.5-5.1) mmol/L Chloride 108 H (98-107) mmol/L Carbon Dioxide 25 (22-30) mmol/L Anion Gap 8.3 (5-15) MEQ/L BUN 47 H (9-20) mg/dL Creatinine 3.38 H (0.66-1.25) mg/dL Estimated GFR 18.8 ML/MIN Glucose 160 H (74-106) mg/dL POC Glucometer 154 H 120 H (74 to 106) mg/dL Calcium 9.1 (8.4-10.2) mg/dL Total Bilirubin 0.20 (0.2-1.3) mg/dL AST 30 (17-59) U/L ALT 59 H (0-50) U/L Alkaline Phosphatase 92 (38-126) U/L Serum Total Protein 6.0 L (6.3-8.2) g/dL Albumin 3.1 L (3.5-5.0) g/dL Radiology Exams: Radiology Procedures Category Date Time Status TROY/LIMB PRESSURES BILATERAL [US] Routine Exams 11/10/20 13:30 Completed ARTERIAL BILAT LOWER EXTREMITY [US] Routine Exams 11/10/20 13:30 Completed FOOT (MINIMUM 3 VIEWS) Routine Exams 11/10/20 13:30 Completed GUIDE FOR VASCULAR ACCESS [US] Routine Exams 11/11/20 11:14 Completed PICC LINE PLACEMENT Routine Exams 11/11/20 12:46 Completed Multi-Disciplinary Progress Notes: Multi-Disciplinary Progress Notes 11/11/20 15:13 Physical Therapy Note by Alissa Rudd PT. SEEN P.M. THIS DATE. WAS FATIGUED AND NOT FEELING WELL THIS AM D/T HY POGLYCEMIA OVER NIGHT. PT. C/O "STINGING" IN R GREAT TOE W/ WB. UP IN CHAIR IN P.M. HAD PICC LINE PLACED TODAY FOR IV ATB TO ADDRESS OM IN R TOE. PT. AGREEABLE TO P.T. PERFORMED SEATED LE EX'S W/ 1# WEIGHT X 10 REPS: LAQS, MARCHES, HEEL SLIDES, SUPINE HIP ABD, ANKLE PUMPS, SLRS. SIT TO STAND - SBA. PT. THEN AMBULATED ~ 200' W/ ROLLER WALKER AND CGA-SBA. PT. STILL PRESENTS W/ SOME FESTINATION AND "FREEZING" W/ GAIT PATTERN ESPECIALLY WHEN TURNING TO CHANGE DIRECTION, BUT WAS MUCH BETTER TODAY AND HE WAS STEADIER OVERALL. PT. DID REQUEST TYLENOL AFTER WALKING D/T TOE DISCOMFORT. PT. DOES TEND TO BE IMPULSIVE W/ MOVEMENT AND DOES NOT ALWAYS BACK UP FAR ENOUGH TO CHAIR BEFORE SITTING WHICH COULD PUT HIM AT RISK TO FALL. WILL CONT. PT 5X/WK UNTIL D/C. ALISSA RUDD PT Initialized on 11/11/20 15:13 - END OF NOTE 11/11/20 11:54 Case Management Note by Norma Walton D/T PATIENT NOW GETTING PICC LINE PLACED TODAY AND WILL NEED ANTIBIOTICS FOR 6 WEEKS DEPENDING ON WHAT HIS WOUND CULTURE GROWS. AFTER S/W DR. PONCE- PATIENT WILL REMAIN INPT LONG MEDICALLY NECESSARY. HE IS OKAY WITH SWINGING PATIENT IF WE NEED TO UNTIL WE CAN GET [facility] PLACEMENT AT [facility]. S/W PATIENT AND FAMILY- THEY WERE UPDATED AND VERIFIED UNDERSTANDING OF PLAN OF CARE Initialized on 11/11/20 11:54 - END OF NOTE Assessment/Plan (1) Osteomyelitis of great toe of right foot Current Visit: Yes Status: Acute Assessment & Plan: currently on clindamycin, awaiting wound culture for final recommendation for IV antibiotics upon release to [facility]. podiatry wound care notes reviewed Code(s): M86.9 - OSTEOMYELITIS, UNSPECIFIED (2) Type 2 diabetes mellitus with hyperosmolar hyperglycemic state (HHS) Current Visit: Yes Status: Acute Assessment & Plan: blood sugar control had been improved, had an episode of hypoglycemia yesterday morning although he was NPO for line placement, he was given juice by nursing staff then sugars were over 300 but hadn't received his routine coverage etc. will monitor, fasting sugar this am much better at 120 Code(s): E11.00 - TYPE 2 DIAB W HYPROSM W/O NONKET HYPRGLY-HYPROS COMA ([facility]); E11.65 - TYPE 2 DIABETES MELLITUS WITH HYPERGLYCEMIA (3) Generalized weakness Current Visit: Yes Status: Acute Code(s): R53.1 - WEAKNESS
[2020-11-12] MEDS ORDERED: BUPIVACAINE 0.5% VIAL IJ ONE (08:53)
[2020-11-12] MEDS ORDERED: XYLOCAINE 1% HCL 20 ML MDV IJ ONE (08:53)
[2020-11-12] MEDS: Namenda 5 MG PO SCH ×2 (09:34→22:10)
[2020-11-12] MEDS: ECOTRIN 81 MG PO SCH (09:34)
[2020-11-12] MEDS: NEURONTIN 300 MG PO SCH ×3 (09:34→22:11)
[2020-11-12] MEDS: COREG 12.5 MG PO SCH ×2 (09:34→22:12)
[2020-11-12] MEDS: SYNTHROID 25 MCG PO SCH (09:34)
[2020-11-12] MEDS: Protonix 40MG Tablet PO SCH (09:34)
[2020-11-12] MEDS: Lasix 40 MG PO SCH (09:34)
[2020-11-12] MEDS: Prozac 20 MG PO SCH (09:34)
[2020-11-12] MEDS: FEOSOL 325 MG PO SCH (09:34)
[2020-11-12] MEDS: Lantus Insulin SQ SCH ×2 (09:35→22:07)
[2020-11-12] MEDS: Aricept 10 MG PO SCH ×2 (09:35→22:12)
[2020-11-12] MEDS: Zithromax 500 MG/ 250 ML NaCl Premix 500 MG/250 ML IVPB IV SCH (09:36)
[2020-11-12] MEDS: VITA-BEE WITH C PO SCH (09:36)
[2020-11-12] MEDS: Bactroban OINTMENT TP SCH (09:36)
[2020-11-12] MEDS: HUMALOG SQ PRN ×3 (12:21→22:06)
[2020-11-12] MEDS: PATIENT OWN MEDICATION PO SCH (14:54)
--- NOTE | 2020-11-12 15:47 | PCM.NOTE ---
Podiatry Narrative Note Podiatry Narrative Note: Subjective: Patient seen at chair side today this afternoon. No new complaints at this time. He admits to no constitutional symptoms. Vascular: DP and PT pulses non-palpable b/l. CFT <5 seconds b/l. Skin temperature warm to cool from the proximal tibial tuberosity to distal toes b/l. Absent pedal hair growth b/l. Varicosities noted to lower legs b/l. Some residual cellulitis to the right great toeAt this time.Negative forproximal streaking or lymphangitis noted. No lymphadenopathy on palpation of the popliteal or inguinal lymph nodes b/l Neurological: Protective sensation diminished 6/10 on the right and 4/10 on the left as indicated with [place] 5.07 monofilament b/l. Lower extremity temperature sensation diminished b/l. Evidence of intrinsic muscle atrophy Dermatological: Trophic changes to the skin. Skin is xerotic and scaly in nature. Turgor is rigid. No cicatrix noted. Wound as described belowToenails 1 through 5 are within normal limits for length however thickness is abnormal and they are discolored yellow. Nails are dystrophic crumbling and incurvated part icularly to the medial borders of the hallux of the right and left.. Pain on compression. Webspaces are clean dry and intact. Wound subright hallux medial border toenail description below Musculoskeletal: Strength intact for all muscle groups b/l. Rectus / Pes cavus / Pes planus foot architecture noted. Normal ROM noted to all pedal joints b/l. Pain on palpation of the periwound area. No weightbearing exam was performed Wound Care / Suspicious Lesions: Wound #1 Locationright hallux medial border toenail Size 0.3 x 0.2 x 0.5 Appearance necrotic tissue distal tip medial border of hallux . Dusky discoloration to the surrounding ulcer site however capillary refill time is brisk to this toe. No remaining signs of infection at this time. Probe to bone remains positive. No malodor Additional Location Lateral aspect of the right foot at styloid process fifth metatarsal Size - Healed Appearance - 100% epithelialized skin S/S of infection - Additional - Assessment: Diabetes with peripheral neuropathy Uncontrolled diabetes mellitus type 2- Diabetic foot wound right foot Osteomyelitis right great toe-positive probe to bone Peripheral vascular disease Plan: Patient examination and evaluation Patient is progressing well status post great toenail avulsion. Dressings were removed today and wound was assessed there is a darkening appearance of some of the tissue at the medial border of the nail groove with some exposed bone at this time he will likely need a repeat wound care in order to salvage this toe and tight regulation of his glucose in order to prevent additional infection and delayed wound healing. PICC line placed and awaiting culture and sensitivity for culture taken yesterday. Patient is currently on clindamycin at this time. Dr. Paz will be managing antibiotics on discharge. Vascular studies demonstrating TROY of 0.83 to the left favoring mild ischemic disease however the right is demonstrating an TROY of 1.2 which is normal and is encouraging for some wound healing however his x-rays are demonstrating significant vascular calcifications which may demonstrate false elevations of these numbers and for this I recommend a vascular consultation with Dr. Dunn in order to see if any vascular intervention is warranted. Another encouraging factor is that there are only mild to moderate scattered arteriosclerotic diseases to the posterior tibial and dorsalis pedis arteries without any obstruction and the waveforms remain multiphasic throughout the right leg. This is encouraging however due to his uncontrolled diabetes as stated before this ma y be falsely elevated. Dressing changes to consist of Betadine 4 x 4 and Covan to the right great toe daily. Patient is okay for discharge from my standpoint if okay with other services. He is to follow-up next week for assessment and repeat debridement if necessary.
[2020-11-12] MEDS: Flomax 0.4 MG PO SCH (22:11)
[2020-11-12] MEDS: ZOCOR 20MG PO SCH (22:11)
[2020-11-12] MEDS: NON-FORMULARY ITEM PO SCH (22:12)
[2020-11-13] MEDS: TYLENOL 325 MG PO PRN ×2 (00:27→18:16)
[2020-11-13] MEDS: CLINDAMYCIN-D5W 600 MG/50 ML*** 600 MG/50 ML BAG IV SCH ×3 (05:19→22:04)
[2020-11-13 07:16] LABS: Absolute Neutrophil Ct (ANC) 3.59 (1.4-6.9); BASOPHIL % 0.3 % (0.0-0.4); Basophil (Absolute #) 0.02 (0-0.4); Eosinophil % 4.2 % (0.00-5.0); Eosinophil (Absolute #) 0.28 (0-0.5); Hemoglobin 9.6 gm/dl (12.5-18.0); Lymphocyte (Absolute #) 2.21 (1.0-4.6); Lymphocytes % 33.4 % (24.0-44.0); Mean Cell Volume 99.3 fl (78-100); Mean Corpuscular Hemoglobin 32.9 pg (26-32); Mean Corpuscular Hgb Concent. 33.1 g/dl (32-36); Monocyte (Absolute #) 0.51 (0.0-1.3); Monocytes % 7.7 % (0.0-12.0); Neutrophil % 54.4 % (36.0-66.0); Platelet Count 184 K/mm3 (150-450); Red Blood Count 2.92 M/mm3 (4.1-5.6); Red Cell Distribution Width 12.7 % (11.5-14.0); White Blood Count 6.6 K/mm3 (4.0-10.5)
[2020-11-13 07:46] LABS: ANION GAP 11.5 MEQ/L (5-15); Calcium 8.9 mg/dL (8.4-10.2); Creatinine 1 3.55 mg/dL (0.66-1.25); EST GLOMERULAR FILTRATION RATE 17.8 ML/MIN; Potassium 3.8 mmol/L (3.5-5.1)
--- NOTE | 2020-11-13 08:18 | PCM.NOTE ---
Date and Time: 11/13/20816 Subjective Assessment: doing ok - Review of Systems Constitutional: No Fever, No Chills Eyes: No Symptoms Ears, Nose, & Throat: No Symptoms Respiratory: No Cough, No Short Of Breath Cardiac: No Chest Pain, No Edema, No Syncope Abdominal/Gastrointestinal: No Abdominal Pain, No Nausea, No Vomiting, No Diarrhea Genitourinary Symptoms: No Dysuria Musculoskeletal: No Back Pain, No Neck Pain Skin: No Rash Neurological: No Dizziness, No Focal Weakness, No Sensory Changes Psychological: No Symptoms Endocrine: No Symptoms Hematologic/Lymphatic: No Symptoms Immunological/Allergic: No Symptoms Objective Exam General Appearance: no apparent distress, alert Neurologic Exam: alert, oriented x 3, cooperative, normal mood/affect, nml cerebellar function, sensation nml, No motor deficits Skin Exam: normal color, warm, dry Wound Assessment: Skin/Wound Assessment Wound/Incision Assessment Start: 11/07/20 00:33 Text: Status: Active Freq: Q6H Protocol: Document 11/13/20 06:00 (Rec: 11/13/20 06:03 [id number]) Wound/Incision Assessment Left Toe Wound Assessment Shift Assessment Wound Type WOUND Wound Stage Non Pressure Wound Dressing Status Dry & Intact Drainage Amount None Drainage Odor None/Absent Comment DRESSING CLEAN DRY AND INTACT Distal Left Upper Arm Wound Assessment Shift Assessment Wound Type Skin Tear Wound Stage Non Pressure Wound Dressing Status Dry & Intact Drainage Amount None Drainage Odor None/Absent Wound Bed Greatest Portion Pale [place] Wound Bed Lesser Portion Dusky Red Surrounding Tissue [place] Primary Dressing TEGADERM Left Proximal Upper Arm Wound Assessment Shift Assessment Wound Type Skin Tear Wound Stage Non Pressure Wound Dressing Status Changed Drainage Amount Minimal Drainage Description Serosanguineous Drainage Odor None/Absent General Appearance Asymptomatic Wound Bed Greatest Portion Dusky Red Wound Bed Lesser Portion Red (Granulation) Surrounding Tissue [place] Topical Solution/Irrigant Saline Irrigant Primary Dressing TEGADERM Eye Exam: PERRL, EOMI, eyes nml inspection Ears, Nose, Throat Exam: normal ENT inspection, pharynx normal, moist mucous membranes Neck Exam: normal inspection, non-tender, supple, full range of motion Respiratory Exam: normal breath sounds, lungs clear, No respiratory distress Cardiovascular Exam: regular rate/rhythm, normal heart sounds Gastrointestinal/Abdomen Exam: soft, No tenderness, No mass Extremity Exam: normal inspection, normal range of motion Back Exam: normal inspection, normal range of motion, No CVA tenderness, No vertebral tenderness Male Genitalia Exam: deferred Rectal Exam: deferred OBJECTIVE DATA Vital Signs: Vital Signs - 24 hr Temp Pulse Resp BP Pulse Ox 11/13/20 07:41 98.0 F 61 16 136/79 96 11/13/20 04:00 98.5 F 68 18 139/67 95 11/12/20 23:48 98.6 F 67 18 122/56 97 11/12/20 19:25 98.3 F 63 22 137/64 96 11/12/20 15:36 98.1 F 70 24 136/79 98 11/12/20 12:00 98.0 F 68 19 136/64 97 Pain Assessment - Last Documented Pain Intensity 7 Pain Scale Used 0-10 Pain Scale Intake and Output: Intake & Output 11/10/20 11/11/20 11/12/20 11/13/20 11:59 11:59 11:59 11:59 Intake Total 480 1790 1132 1080 Output Total 2000 850 300 Balance 480 -210 282 780 Weight 93.4 kg Lab Results: Lab Results-Last 24 Hours 11/12/20 11/12/20 11/12/20 Range/Units 11:16 15:48 21:11 WBC (4.0-10.5) K/mm3 RBC (4.1-5.6) M/mm3 Hgb (12.5-18.0) gm/dl Hct (42-50) % MCV (78-100) fl MCH (26-32) pg MCHC (32-36) g/dl RDW (11.5-14.0) % Plt Count (150-450) K/mm3 MPV (7.5-11.0) fl Gran % (36.0-66.0) % Eos # (Auto) (0-0.5) Absolute Lymphs (auto) (1.0-4.6) Absolute Monos (auto) (0.0-1.3) Lymphocytes % (24.0-44.0) % Monocytes % (0.0-12.0) % Eosinophils % (0.00-5.0) % Basophils % (0.0-0.4) % Absolute Granulocytes (1.4-6.9) Basophils # (0-0.4) Sodium (137-145) mmol/L Potassium (3.5-5.1) mmol/L Chloride (98-107) mmol/L Carbon Dioxide (22-30) mmol/L Anion Gap (5-15) MEQ/L BUN (9-20) mg/dL Creatinine (0.66-1.25) mg/dL Estimated GFR ML/MIN Glucose (74-106) mg/dL POC Glucometer 175 H 271 H 205 H (74 to 106) mg/dL Calcium (8.4-10.2) mg/dL 11/13/20 11/13/20 11/13/20 Range/Units 06:00 06:00 07:21 WBC 6.6 (4.0-10.5) K/mm3 RBC 2.92 L (4.1-5.6) M/mm3 Hgb 9.6 L (12.5-18.0) gm/dl Hct 29.0 L (42-50) % MCV 99.3 (78-100) fl MCH 32.9 H (26-32) pg MCHC 33.1 (32-36) g/dl RDW 12.7 (11.5-14.0) % Plt Count 184 (150-450) K/mm3 MPV 9.0 (7.5-11.0) fl Gran % 54.4 (36.0-66.0) % Eos # (Auto) 0.28 (0-0.5) Absolute Lymphs (auto) 2.21 (1.0-4.6) Absolute Monos (auto) 0.51 (0.0-1.3) Lymphocytes % 33.4 (24.0-44.0) % Monocytes % 7.7 (0.0-12.0) % Eosinophils % 4.2 (0.00-5.0) % Basophils % 0.3 (0.0-0.4) % Absolute Granulocytes 3.59 (1.4-6.9) Basophils # 0.02 (0-0.4) Sodium 138 (137-145) mmol/L Potassium 3.8 (3.5-5.1) mmol/L Chloride 107 (98-107) mmol/L Carbon Dioxide 24 (22-30) mmol/L Anion Gap 11.5 (5-15) MEQ/L BUN 52 H (9-20) mg/dL Creatinine 3.55 H (0.66-1.25) mg/dL Estimated GFR 17.8 ML/MIN Glucose 207 H (74-106) mg/dL POC Glucometer 150 H (74 to 106) mg/dL Calcium 8.9 (8.4-10.2) mg/dL Radiology Exams: Radiology Procedures Category Date Time Status GUIDE FOR VASCULAR ACCESS [US] Routine Exams 11/11/20 11:14 Completed PICC LINE PLACEMENT Routine Exams 11/11/20 12:46 Completed Multi-Disciplinary Progress Notes: Multi-Disciplinary Progress Notes 11/12/20 15:31 Nutrition Note by Yi Marie F/u Note: House regular diet con't with 100% po intake. adm weight 92.2kg; current weight 93.4kg. Labs 11/12= BUN 47, Cr 3.38, glu 160, alb 3.1, hgb 9.8, hct 30.1. goal of glu to decrease met and ongoing; goal of po intake >=75% met and ongoing. Will con't to monitor and f/u prn. T.MARY Marie Initialized on 11/12/20 15:31 - END OF NOTE 11/12/20 14:31 Physical Therapy Note by Heather Rudd PT. REPORTS HE IS FEELING BETTER. STATES R GREAT TOE STILL "STINGS" W/ WB. WORE HIS SHOES FOR AMBULATION TODAY AND NOTED THAT PT. GAIT WAS IMPROVED. SIT TO STAND SBA. PT. DEOS TEND TO BE IMPULSIVE TIMES ESPECIALLY W/ STAND TO SIT AND TENDS TO "PLOP" IN CHAIR. ASSISTED PT. TO BATHROOM HE HAD LOOSE STOOLS ON GOWN LIKELY D/T ANTIBIOTIC. PT. PERFORMED COMMODE TRANSFERS W/ SBA BUT AGAIN DOESN'T HAVE GOOD ECCENTRIC CONTROL W/ SITTING DOWN FROM STANDING. PT. AMBULATED ~ 350' W/ ROLLER WALKER AND SHOES AND SBA. REQUIRED OCCASIONAL V.C. TO TAKE LARGER STEPS AND INCREASE STEP HEIGHT, BUT OVERALL PATTERN AND STABILITY IMPROVED SINCE SOC AND W/ GOOD SHOES. PT. ABLE TO PERFORM LE EX'S W/ 1# CUFF WEIGHT X 10 REPS. WITHOUT DIFFICULTY. WILL CONT. PT 5X/WK UNTIL D/C. NSG TO AMBULATE W/ PT. OVER THE WEEKEND. HEATHER RUDD PT Initialized on 11/12/20 14:31 - END OF NOTE 11/12/20 11:38 Case Management Note by Moriah Sánchez DISCHARGE PLAN REVIEWED. ANTICIPATED PLAN TO [facility], BUT PATIENT HAS MANAGED [facility] AND WILL NOT BE ABLE TO CALL AGAIN UNTIL 11/16/20. PT WILL REMAIN HERE UNDER MEDICAL MANAGEMENT UNTIL THEN. Initialized on 11/12/20 11:38 - END OF NOTE Assessment/Plan (1) Cellulitis of toe of right foot Current Visit: Yes Status: Acute Assessment & Plan: Chief Complaint Diagnosis Hyperglycemia Allergies Allergy/AdvReac Type Severity Reaction Status Date / Time No Known Allergies Allergy Verified 11/06/20 22:58 Vital Signs (Last 24 hours) Temp Pulse Resp BP Pulse Ox 11/13/20 07:41 98.0 F 61 16 136/79 96 11/13/20 04:00 98.5 F 68 18 139/67 95 11/12/20 23:48 98.6 F 67 18 122/56 97 11/12/20 19:25 98.3 F 63 22 137/64 96 11/12/20 15:36 98.1 F 70 24 136/79 98 11/12/20 12:00 98.0 F 68 19 136/64 97 Home Medications Medication Instructions Recorded Confirmed Last Taken Type Furosemide 40 mg [Lasix 40 40 mg PO DAILY 11/07/20 11/07/20 Unknown History MG] Patiromer Calcium Sorbitex 8.46 mg PO DAILY 11/07/20 11/07/20 11/06/20 14:00 History [Veltassa] Current Medications Generic Name Dose Route Start Last Admin Trade Name Freq PRN Reason Stop Dose Admin Acetaminophen 650 mg 11/06/20 22:00 11/13/20 00:27 Tylenol 325 Mg PO 12/06/20 21:59 650 mg Q4H PRN PRN Administration PAIN, FEVER, HEADACHE Aspirin 81 mg 11/07/20 10:00 11/12/20 09:34 Ecotrin 81 Mg PO 12/07/20 09:59 81 mg DAILY CYN Administration Carvedilol 12.5 mg 11/07/20 10:00 11/12/20 22:12 Coreg 12.5 Mg PO 12/07/20 09:59 12.5 mg BID CYN Administration Clopidogrel Bisulfate 75 mg 11/09/20 10:00 11/11/20 12:48 Plavix 75 Mg Tablet PO 12/09/20 09:59 75 mg MoWeFr CYN Administration Dextrose 25 ml 11/11/20 10:15 D50w 50 Ml Abboject IV 12/11/20 10:14 UD PRN Donepezil HCl 10 mg 11/07/20 10:00 11/12/20 22:12 Aricept 10 Mg PO 12/07/20 09:59 10 mg BID CYN Administration Ferrous Sulfate 325 mg 11/07/20 10:00 11/12/20 09:34 Feosol 325 Mg PO 12/07/20 09:59 325 mg DAILY CYN Administration Fluoxetine HCl 40 mg 11/07/20 10:00 11/12/20 09:34 Prozac 20 Mg PO 12/07/20 09:59 40 mg DAILY CYN Administration Furosemide 40 mg 11/07/20 10:00 11/12/20 09:34 Lasix 40 Mg PO 12/07/20 09:59 40 mg DAILY CYN Administration Gabapentin 300 mg 11/08/20 22:00 11/12/20 22:11 Neurontin 300 Mg PO 12/08/20 21:59 300 mg TID CYN Administration Glucagon 1 mg 11/11/20 10:15 Glucagen 1 Mg IM 12/11/20 10:14 UD PRN Glucose 15 gm 11/11/20 10:15 Glutose 15 Gm Oral Gel PO 12/11/20 10:14 UD PRN Heparin Sodium (Beef Lung) 500 units 11/11/20 12:55 11/13/20 05:40 Heparin Lock Flush 100 Units/Ml 5ml Syringe PICC 12/11/20 12:54 500 units PRN PRN Administration IV PORT FLUSH Azithromycin 500 mg in 250 mls @ 250 mls/hr 11/09/20 10:00 11/12/20 09:36 Zithromax 500 Mg/ 250 Ml Nacl Premix IV 12/09/20 09:59 250 mls/hr Q24H10 CYN Administration Clindamycin HCl/Dextrose 600 mg in 50 mls @ 100 mls/hr 11/10/20 12:00 11/13/20 05:19 Clindamycin-D5w 600 Mg/50 Ml IV 12/10/20 11:59 100 mls/hr Q8HT CYN Administration Insulin Glargine 25 unit 11/07/20 10:00 11/12/20 22:07 Lantus Insulin SQ 12/07/20 09:59 25 unit BID CYN Administration Insulin Human Lispro 0 unit 11/06/20 22:54 11/12/20 22:06 Humalog SQ 12/06/20 22:53 5 unit UD PRN Administration HYPERGLYCEMIA Levothyroxine Sodium 25 mcg 11/07/20 10:00 11/12/20 09:34 Synthroid 25 Mcg PO 12/07/20 09:59 25 mcg DAILY CYN Administration Memantine 10 mg 11/07/20 10:00 11/12/20 22:10 Namenda 5 Mg PO 12/07/20 09:59 10 mg BID CYN Administration Multivitamins 1 tab 11/07/20 10:00 11/12/20 09:36 Maria Isabel-Bee With C PO 12/07/20 09:59 1 tab DAILY CYN Administration Mupirocin 1 gm 11/11/20 10:00 11/12/20 09:36 Bactroban Ointment TP 12/11/20 09:59 Not Given DAILY CYN Sod. Bicarb 650mg 1 each 11/07/20 22:00 11/12/20 22:12 Tablet PO 12/07/20 21:59 1 each HS CYN Administration Ondansetron HCl 4 mg 11/06/20 22:00 Zofran 4 Mg/2 Ml Vial IV 12/06/20 21:59 Q6H PRN PRN NAUSEA/VOMITING Pantoprazole Sodium 40 mg 11/07/20 10:00 11/12/20 09:34 Protonix 40mg Tablet PO 12/07/20 09:59 40 mg DAILY CYN Administration Veltassa 8.4gm 1 each 11/07/20 14:00 11/12/20 14:54 PO 12/07/20 13:59 1 each 1400 CYN Administration Simvastatin 20 mg 11/07/20 22:00 11/12/20 22:11 Zocor 20mg PO 12/07/20 21:59 20 mg HS CYN Administration Tamsulosin HCl 0.4 mg 11/07/20 22:00 12/31/20 22:11 Flomax 0.4 Mg PO 12/07/20 21:59 0.4 mg HS CYN Administration Discontinued Medications Generic Name Dose Route Start Last Admin Trade Name Fani PRN Reason Stop Dose Admin Acetaminophen 650 mg 11/06/20 19:10 11/06/20 19:39 Tylenol 325 Mg PO 11/06/20 19:11 650 mg STAT STA Administration Acetaminophen Confirm 11/06/20 19:26 Tylenol 325 Mg Administered 11/06/20 19:27 Dose 650 mg .ROUTE .STK-MED ONE Bupivacaine HCl 25 mg 11/12/20 08:53 Bupivacaine 0.5% Vial IJ 11/12/20 08:54 .STK-MED ONE Dextrose 25 ml 11/11/20 04:56 11/11/20 04:59 D50w 50 Ml Abboject IV 11/11/20 04:57 25 ml STAT ONE Administration Gabapentin 300 mg 11/07/20 10:00 11/08/20 09:34 Neurontin 300 Mg PO 12/07/20 09:59 300 mg BID CYN Administration Glucose 15 gm 11/11/20 03:52 11/11/20 03:58 Glutose 15 Gm Oral Gel PO 11/11/20 03:53 15 gm STAT ONE Administration Glucose 15 gm 11/11/20 04:40 11/11/20 06:40 Glutose 15 Gm Oral Gel PO 11/11/20 04:41 Not Given STAT ONE Heparin Sodium (Beef Lung) 500 units 11/11/20 11:00 Heparin Lock Flush 100 Units/Ml 5ml Syringe IV 11/11/20 11:01 .STK-MED ONE Sodium Chloride 1,000 mls @ 999 mls/hr 11/06/20 19:09 11/06/20 21:10 Sodium Chloride 0.9% 1000 Ml IV 11/06/20 20:09 Infused .Q1H1M STA Infusion Sodium Chloride Confirm 11/06/20 19:26 Sodium Chloride 0.9% 1000 Ml Administered 11/06/20 19:27 Dose 1,000 mls @ ud .ROUTE .STK-MED ONE Ceftriaxone Sodium/Dextrose 1 g in 50 mls @ 100 mls/hr 11/06/20 20:32 11/06/20 21:23 Rocephin 1 Gm-D5w 50 Ml Bag IV 11/06/20 21:01 Infused STAT STA Infusion Ceftriaxone Sodium/Dextrose Confirm 11/06/20 20:45 Rocephin 1 Gm-D5w 50 Ml Bag Administered 11/06/20 20:46 Dose 1 g in 50 mls @ ud IV .STK-MED ONE Sodium Chloride 1,000 mls @ 999 mls/hr 11/06/20 20:53 11/06/20 22:11 Sodium Chloride 0.9% 1000 Ml IV 11/06/20 21:53 Infused .Q1H1M STA Infusion Magnesium Sulfate/Dextrose 100 mls @ 200 mls/hr 11/06/20 21:08 11/06/20 21:09 Magnesium 1 Gm / 100 Ml D5w IV 11/06/20 21:37 200 mls/hr STAT ONE Administration Magnesium Sulfate/Dextrose Confirm 11/06/20 21:09 Magnesium 1 Gm / 100 Ml D5w Administered 11/06/20 21:10 Dose 100 mls @ ud IV .STK-MED ONE Sodium Chloride Confirm 11/06/20 21:09 Sodium Chloride 0.9% 1000 Ml Administered 11/06/20 21:10 Dose 1,000 mls @ ud .ROUTE .STK-MED ONE Sodium Chloride 1,000 mls @ 100 mls/hr 11/06/20 22:00 11/08/20 16:51 Sodium Chloride 0.9% 1000 Ml IV 12/06/20 21:59 Not Given .Q10H CYN Ceftriaxone Sodium/Dextrose 1 g in 50 mls @ 100 mls/hr 11/07/20 22:00 11/08/20 21:23 Rocephin 1 Gm-D5w 50 Ml Bag IV 12/07/20 21:59 100 mls/hr QPM CYN Administration Azithromycin 500 mg in 250 mls @ 250 mls/hr 11/07/20 10:00 11/08/20 09:35 Zithromax 500 Mg/ 250 Ml Nacl Premix IV 12/07/20 09:59 250 mls/hr DAILY CYN Administration Insulin Human Regular 100 unit 100 mls @ 20 mls/hr 11/06/20 22:47 11/07/20 00:36 / Sodium Chloride IV 12/06/20 22:46 0.03 unit/kg/hr .Q5H PRN 6 mls/hr DKA/HYPERGLYCEMIA Titration Protocol 0.1 UNIT/KG/HR Sodium Chloride Confirm 11/06/20 23:08 Sodium Chloride 0.9% 100 Ml Ivpb Administered 11/06/20 23:09 Dose 100 mls @ ud IV .STK-MED ONE Ceftriaxone Sodium/Dextrose 1 g in 50 mls @ 100 mls/hr 11/09/20 22:00 11/09/20 22:45 Rocephin 1 Gm-D5w 50 Ml Bag IV 12/09/20 21:59 100 mls/hr Q24H22 CYN Administration Heparin Sodium (Porcine) 1,000 501 mls @ ud 11/11/20 11:00 u/ Sodium Chloride IV 11/11/20 11:01 .STK-MED ONE Insulin Human Regular 18 unit 11/06/20 19:45 11/06/20 20:03 Humulin R IV 11/06/20 19:46 18 unit STAT ONE Administration Insulin Human Regular Confirm 11/06/20 20:02 Humulin R Administered 11/06/20 20:03 Dose 18 unit .ROUTE .STK-MED ONE Insulin Human Regular Confirm 11/06/20 23:08 Humulin R Administered 11/06/20 23:09 Dose 100 unit .ROUTE .STK-MED ONE Lidocaine HCl 5 ml 11/12/20 08:53 Xylocaine 1% Hcl 20 Ml Mdv IJ 11/12/20 08:54 .STK-MED ONE Magnesium Sulfate 1 gm 11/06/20 20:52 11/06/20 21:10 Magnesium Sulfate 1 Gm/2 Ml Vial IV 11/06/20 20:53 Not Given ONCE ONE Non-Formulary Medication 650 mg 11/07/20 22:00 Sodium Bicarbonate PO 12/07/20 21:59 HS CYN Ondansetron HCl 4 mg 11/06/20 19:09 11/06/20 19:39 Zofran 4 Mg/2 Ml Vial IV 11/06/20 19:10 4 mg STAT ONE Administration Ondansetron HCl Confirm 11/06/20 19:26 Zofran 4 Mg/2 Ml Vial Administered 11/06/20 19:27 Dose 4 mg .ROUTE .STK-MED ONE Intake & Output (Last 24 hours) 12/29/11/11/20 11/12/20 11/13/20 11:59 11:59 11:59 11:59 Intake Total 480 1790 1132 1080 Output Total 2000 850 300 Balance 480 -210 282 780 Weight 93.4 kg Laboratory Results (Last 24 hours) 11/13/20 11/13/20 11/13/20 07:21 06:00 06:00 WBC 6.6 RBC 2.92 L Hgb 9.6 L Hct 29.0 L MCV 99.3 MCH 32.9 H MCHC 33.1 RDW 12.7 Plt Count 184 MPV 9.0 Gran % 54.4 Eos # (Auto) 0.28 Absolute Lymphs (auto) 2.21 Absolute Monos (auto) 0.51 Lymphocytes % 33.4 Monocytes % 7.7 Eosinophils % 4.2 Basophils % 0.3 Absolute Granulocytes 3.59 Basophils # 0.02 Sodium 138 Potassium 3.8 Chloride 107 Carbon Dioxide 24 Anion Gap 11.5 BUN 52 H Creatinine 3.55 H Estimated GFR 17.8 Glucose 207 H POC Glucometer 150 H Calcium 8.9 11/12/20 11/12/20 11/12/20 21:11 15:48 11:16 WBC RBC Hgb Hct MCV MCH MCHC RDW Plt Count MPV Gran % Eos # (Auto) Absolute Lymphs (auto) Absolute Monos (auto) Lymphocytes % Monocytes % Eosinophils % Basophils % Absolute Granulocytes Basophils # Sodium Potassium Chloride Carbon Dioxide Anion Gap BUN Creatinine Estimated GFR Glucose POC Glucometer 205 H 271 H 175 H Calcium Orders (Last 24 hours) Category Date Time Status POCT Glucose Check ACHS Care 11/12/20 11:30 Active BMP AM.LAB Lab 11/13/20 06:00 Completed CBC W DIFF AM.LAB Lab 11/13/20 06:00 Completed POCT GLUCOSE Stat Lab 11/13/20 07:21 Completed POCT GLUCOSE Stat Lab 11/12/20 11:16 Completed POCT GLUCOSE Stat Lab 11/12/20 15:48 Completed POCT GLUCOSE Stat Lab 11/12/20 21:11 Completed Bupivacaine HCl/Pf [Bupivacaine 0.5% Vial] Med 11/12/20 08:53 Discontinued 25 mg IJ .STK-MED ONE Lidocaine HCl 1% 20 ml Mdv [Xylocaine 1% HCl 20 ml Med 11/12/20 08:53 Discontinued Mdv] 5 ml IJ .STK-MED ONE Patient Care Notes (Last 24 hours) 11/12/20 15:31 Nutrition Note by Yi Marie F/u Note: House regular diet con't with 100% po intake. adm weight 92.2kg; current weight 93.4kg. Labs 11/12= BUN 47, Cr 3.38, glu 160, alb 3.1, hgb 9.8, hct 30.1. goal of glu to decrease met and ongoing; goal of po intake >=75% met and ongoing. Will con't to monitor and f/u prn. T.MARY Marie Initialized on 11/12/20 15:31 - END OF NOTE 11/12/20 14:31 Physical Therapy Note by Heather Rudd PT. REPORTS HE IS FEELING BETTER. STATES R GREAT TOE STILL "STINGS" W/ WB. WORE HIS SHOES FOR AMBULATION TODAY AND NOTED THAT PT. GAIT WAS IMPROVED. SIT TO STAND SBA. PT. DEOS TEND TO BE IMPULSIVE TIMES ESPECIALLY W/ STAND TO SIT AND TENDS TO "PLOP" IN CHAIR. ASSISTED PT. TO BATHROOM HE HAD LOOSE STOOLS ON GOWN LIKELY D/T ANTIBIOTIC. PT. PERFORMED COMMODE TRANSFERS W/ SBA BUT AGAIN DOESN'T HAVE GOOD ECCENTRIC CONTROL W/ SITTING DOWN FROM STANDING. PT. AMBULATED ~ 350' W/ ROLLER WALKER AND SHOES AND SBA. REQUIRED OCCASIONAL V.C. TO TAKE LARGER STEPS AND INCREASE STEP HEIGHT, BUT OVERALL PATTERN AND STABILITY IMPROVED SINCE SOC AND W/ GOOD SHOES. PT. ABLE TO PERFORM LE EX'S W/ 1# CUFF WEIGHT X 10 REPS. WITHOUT DIFFICULTY. WILL CONT. PT 5X/WK UNTIL D/C. NSG TO AMBULATE W/ PT. OVER THE WEEKEND. HEATHER RUDD, PT Initialized on 11/12/20 14:31 - END OF NOTE 11/12/20 11:38 Case Management Note by Moriah Sánchez DISCHARGE PLAN REVIEWED. ANTICIPATED PLAN TO [facility], BUT PATIENT HAS MANAGED MEDICARE AND WILL NOT BE ABLE TO CALL AGAIN UNTIL 11/16/20. PT WILL REMAIN HERE UNDER MEDICAL MANAGEMENT UNTIL THEN. Initialized on 11/12/20 11:38 - END OF NOTE Code(s): L03.031 - CELLULITIS OF RIGHT TOE (2) Cellulitis, toe Current Visit: Yes Status: Acute Code(s): L03.039 - CELLULITIS OF UNSPECIFIED TOE (3) Diabetes mellitus with peripheral autonomic neuropathy Current Visit: Yes Status: Acute Code(s): E11.43 - TYPE 2 DIABETES W DIABETIC AUTONOMIC (POLY)NEUROPATHY
[2020-11-13] MEDS: Lantus Insulin SQ SCH ×2 (09:01→22:05)
[2020-11-13] MEDS: Zithromax 500 MG/ 250 ML NaCl Premix 500 MG/250 ML IVPB IV SCH (09:01)
[2020-11-13] MEDS: Namenda 5 MG PO SCH ×2 (09:02→22:04)
[2020-11-13] MEDS: ECOTRIN 81 MG PO SCH (09:02)
[2020-11-13] MEDS: Prozac 20 MG PO SCH (09:02)
[2020-11-13] MEDS: COREG 12.5 MG PO SCH ×2 (09:03→22:04)
[2020-11-13] MEDS: Lasix 40 MG PO SCH (09:03)
[2020-11-13] MEDS: Bactroban OINTMENT TP SCH (09:03)
[2020-11-13] MEDS: Protonix 40MG Tablet PO SCH (09:03)
[2020-11-13] MEDS: NEURONTIN 300 MG PO SCH ×3 (09:03→22:04)
[2020-11-13] MEDS: FEOSOL 325 MG PO SCH (09:03)
[2020-11-13] MEDS: SYNTHROID 25 MCG PO SCH (09:03)
[2020-11-13] MEDS: Aricept 10 MG PO SCH ×2 (09:03→22:04)
[2020-11-13] MEDS: VITA-BEE WITH C PO SCH (09:04)
[2020-11-13] MEDS: PLAVIX 75 MG Tablet PO SCH (09:12)
[2020-11-13] MEDS: HUMALOG SQ PRN ×2 (12:02→16:57)
[2020-11-13] MEDS: PATIENT OWN MEDICATION PO SCH (14:04)
[2020-11-13] MEDS: ZOCOR 20MG PO SCH (22:03)
[2020-11-13] MEDS: Flomax 0.4 MG PO SCH (22:04)
[2020-11-13] MEDS: NON-FORMULARY ITEM PO SCH (22:06)
[2020-11-14] MEDS: CLINDAMYCIN-D5W 600 MG/50 ML*** 600 MG/50 ML BAG IV SCH ×3 (05:51→22:04)
--- NOTE | 2020-11-14 07:37 | PCM.NOTE ---
Date and Time: 11/14/20 0736 Subjective Assessment: doing ok - Review of Systems Constitutional: No Fever, No Chills Eyes: No Symptoms Ears, Nose, & Throat: No Symptoms Respiratory: No Cough, No Short Of Breath Cardiac: No Chest Pain, No Edema, No Syncope Abdominal/Gastrointestinal: No Abdominal Pain, No Nausea, No Vomiting, No Diarrhea Genitourinary Symptoms: No Dysuria Musculoskeletal: No Back Pain, No Neck Pain Skin: No Rash Neurological: No Dizziness, No Focal Weakness, No Sensory Changes Psychological: No Symptoms Endocrine: No Symptoms Hematologic/Lymphatic: No Symptoms Immunological/Allergic: No Symptoms Objective Exam General Appearance: no apparent distress, alert Neurologic Exam: alert, oriented x 3, cooperative, normal mood/affect, nml cerebellar function, sensation nml, No motor deficits Skin Exam: normal color, warm, dry Wound Assessment: Skin/Wound Assessment Wound/Incision Assessment Start: 11/07/20 00:33 Text: Status: Active Freq: Q6H Protocol: Document 11/14/20 06:00 EG (Rec: 11/14/20 06:17 EG [id number]) Wound/Incision Assessment Left Toe Wound Assessment Shift Assessment Wound Type WOUND Wound Stage Non Pressure Wound Dressing Status Dry & Intact Drainage Amount None Drainage Odor None/Absent Distal Left Upper Arm Wound Assessment Shift Assessment Wound Type Skin Tear Wound Stage Non Pressure Wound Dressing Status Dry & Intact Drainage Amount None Drainage Odor None/Absent Wound Bed Greatest Portion Pale [place] Wound Bed Lesser Portion [place] Red Surrounding Tissue [place] Primary Dressing TEGADERM Left Proximal Upper Arm Wound Assessment Shift Assessment Wound Type Skin Tear Wound Stage Non Pressure Wound Dressing Status Changed Drainage Amount Minimal Drainage Description Serosanguineous Drainage Odor None/Absent General Appearance Asymptomatic Wound Bed Greatest Portion [place] Red Wound Bed Lesser Portion Red (Granulation) Surrounding Tissue [place] Topical Solution/Irrigant Saline Irrigant Primary Dressing TEGADERM Wound Photo Photo Taken No Eye Exam: PERRL, EOMI, eyes nml inspection Ears, Nose, Throat Exam: normal ENT inspection, pharynx normal, moist mucous membranes Neck Exam: normal inspection, non-tender, supple, full range of motion Respiratory Exam: normal breath sounds, lungs clear, No respiratory distress Cardiovascular Exam: regular rate/rhythm, normal heart sounds Gastrointestinal/Abdomen Exam: soft, No tenderness, No mass Extremity Exam: normal inspection, normal range of motion Back Exam: normal inspection, normal range of motion, No CVA tenderness, No vertebral tenderness Male Genitalia Exam: deferred Rectal Exam: deferred OBJECTIVE DATA Vital Signs: Vital Signs - 24 hr Temp Pulse Resp BP Pulse Ox 11/14/20 07:19 97.7 F 62 18 99/52 98 11/14/20 04:00 97.5 F 62 16 133/65 95 11/14/20 00:00 97.5 F 62 12 139/63 95 11/13/20 20:00 98.2 F 62 18 146/70 96 11/13/20 16:00 97.1 F 59 L 18 150/74 97 11/13/20 12:00 60 18 132/85 93 L 11/13/20 07:41 98.0 F 61 16 136/79 96 Pain Assessment - Last Documented Pain Intensity 0 Pain Scale Used 0-10 Pain Scale Intake and Output: Intake & Output 11/11/20 11/12/20 11/13/20 11/14/20 11:59 11:59 11:59 11:59 Intake Total 1790 1132 1080 2432 Output Total 2000 850 300 200 Balance -210 868 [id number] Lab Results: Lab Results-Last 24 Hours 11/13/20 11/13/20 11/13/20 Range/Units 06:00 11:40 16:07 Sodium 138 (137-145) mmol/L Potassium 3.8 (3.5-5.1) mmol/L Chloride 107 (98-107) mmol/L Carbon Dioxide 24 (22-30) mmol/L Anion Gap 11.5 (5-15) MEQ/L BUN 52 H (9-20) mg/dL Creatinine 3.55 H (0.66-1.25) mg/dL Estimated GFR 17.8 ML/MIN Glucose 207 H (74-106) mg/dL POC Glucometer 210 H 284 H (74 to 106) mg/dL Calcium 8.9 (8.4-10.2) mg/dL 11/13/20 11/14/20 Range/Units 21:15 06:43 Sodium (137-145) mmol/L Potassium (3.5-5.1) mmol/L Chloride (98-107) mmol/L Carbon Dioxide (22-30) mmol/L Anion Gap (5-15) MEQ/L BUN (9-20) mg/dL Creatinine (0.66-1.25) mg/dL Estimated GFR ML/MIN Glucose (74-106) mg/dL POC Glucometer 164 H 95 (74 to 106) mg/dL Calcium (8.4-10.2) mg/dL Assessment/Plan (1) Cellulitis of toe of right foot Current Visit: Yes Status: Acute Assessment & Plan: Chief Complaint Diagnosis Hyperglycemia Allergies Allergy/AdvReac Type Severity Reaction Status Date / Time No Known Allergies Allergy Verified 11/06/20 22:58 Vital Signs (Last 24 hours) Temp Pulse Resp BP Pulse Ox 11/14/20 07:19 97.7 F 62 18 99/52 98 11/14/20 04:00 97.5 F 62 16 133/65 95 11/14/20 00:00 97.5 F 62 12 139/63 95 11/13/20 20:00 98.2 F 62 18 146/70 96 11/13/20 16:00 97.1 F 59 L 18 150/74 97 11/13/20 12:00 60 18 132/85 93 L 11/13/20 07:41 98.0 F 61 16 136/79 96 Home Medications Medication Instructions Recorded Confirmed Last Taken Type Furosemide 40 mg [Lasix 40 40 mg PO DAILY 11/07/20 11/07/20 Unknown History MG] Patiromer Calcium Sorbitex 8.46 mg PO DAILY 11/07/20 11/07/20 11/06/20 14:00 History [Veltassa] Current Medications Generic Name Dose Route Start Last Admin Trade Name Freq PRN Reason Stop Dose Admin Acetaminophen 650 mg 11/06/20 22:00 11/13/20 18:16 Tylenol 325 Mg PO 12/06/20 21:59 650 mg Q4H PRN PRN Administration PAIN, FEVER, HEADACHE Aspirin 81 mg 11/07/20 10:00 11/13/20 09:02 Ecotrin 81 Mg PO 12/07/20 09:59 81 mg DAILY CYN Administration Carvedilol 12.5 mg 11/07/20 10:00 11/13/20 22:04 Coreg 12.5 Mg PO 12/07/20 09:59 12.5 mg BID CYN Administration Clopidogrel Bisulfate 75 mg 11/09/20 10:00 11/13/20 09:12 Plavix 75 Mg Tablet PO 12/09/20 09:59 75 mg MoWeFr CYN Administration Dextrose 25 ml 11/11/20 10:15 D50w 50 Ml Abboject IV 12/11/20 10:14 UD PRN Donepezil HCl 10 mg 11/07/20 10:00 11/13/20 22:04 Aricept 10 Mg PO 12/07/20 09:59 10 mg BID CYN Administration Ferrous Sulfate 325 mg 11/07/20 10:00 11/13/20 09:03 Feosol 325 Mg PO 12/07/20 09:59 325 mg DAILY CYN Administration Fluoxetine HCl 40 mg 11/07/20 10:00 11/13/20 09:02 Prozac 20 Mg PO 12/07/20 09:59 40 mg DAILY CYN Administration Furosemide 40 mg 11/07/20 10:00 11/13/20 09:03 Lasix 40 Mg PO 12/07/20 09:59 40 mg DAILY CYN Administration Gabapentin 300 mg 11/08/20 22:00 11/13/20 22:04 Neurontin 300 Mg PO 12/08/20 21:59 300 mg TID CYN Administration Glucagon 1 mg 11/11/20 10:15 Glucagen 1 Mg IM 12/11/20 10:14 UD PRN Glucose 15 gm 11/11/20 10:15 Glutose 15 Gm Oral Gel PO 12/11/20 10:14 UD PRN Heparin Sodium (Beef Lung) 500 units 11/11/20 12:55 11/14/20 05:53 Heparin Lock Flush 100 Units/Ml 5ml Syringe PICC 12/11/20 12:54 500 units PRN PRN Administration IV PORT FLUSH Azithromycin 500 mg in 250 mls @ 250 mls/hr 11/09/20 10:00 11/13/20 09:01 Zithromax 500 Mg/ 250 Ml Nacl Premix IV 12/09/20 09:59 250 mls/hr Q24H10 CYN Administration Clindamycin HCl/Dextrose 600 mg in 50 mls @ 100 mls/hr 11/10/20 12:00 11/14/20 05:51 Clindamycin-D5w 600 Mg/50 Ml IV 12/10/20 11:59 100 mls/hr Q8HT CYN Administration Insulin Glargine 25 unit 11/07/20 10:00 11/13/20 22:05 Lantus Insulin SQ 12/07/20 09:59 25 unit BID CYN Administration Insulin Human Lispro 0 unit 11/06/20 22:54 11/13/20 16:57 Humalog SQ 12/06/20 22:53 7 unit UD PRN Administration HYPERGLYCEMIA Levothyroxine Sodium 25 mcg 11/07/20 10:00 11/13/20 09:03 Synthroid 25 Mcg PO 12/07/20 09:59 25 mcg DAILY CYN Administration Memantine 10 mg 11/07/20 10:00 11/13/20 22:04 Namenda 5 Mg PO 12/07/20 09:59 10 mg BID CYN Administration Multivitamins 1 tab 11/07/20 10:00 11/13/20 09:04 Maria Isabel-Bee With C PO 12/07/20 09:59 1 tab DAILY CYN Administration Mupirocin 1 gm 11/11/20 10:00 11/13/20 09:03 Bactroban Ointment TP 12/11/20 09:59 1 gm DAILY CYN Administration Sod. Bicarb 650mg 1 each 11/07/20 22:00 11/13/20 22:06 Tablet PO 12/07/20 21:59 1 each HS CYN Administration Ondansetron HCl 4 mg 11/06/20 22:00 Zofran 4 Mg/2 Ml Vial IV 12/06/20 21:59 Q6H PRN PRN NAUSEA/VOMITING Pantoprazole Sodium 40 mg 11/07/20 10:00 11/13/20 09:03 Protonix 40mg Tablet PO 12/07/20 09:59 40 mg DAILY CYN Administration Veltassa 8.4gm 1 each 11/07/20 14:00 11/13/20 14:04 PO 12/07/20 13:59 1 each 1400 CYN Administration Simvastatin 20 mg 11/07/20 22:00 11/13/20 22:03 Zocor 20mg PO 12/07/20 21:59 20 mg HS CYN Administration Tamsulosin HCl 0.4 mg 11/07/20 22:00 11/13/20 22:04 Flomax 0.4 Mg PO 12/07/20 21:59 0.4 mg HS CYN Administration Discontinued Medications Generic Name Dose Route Start Last Admin Trade Name Brianq PRN Reason Stop Dose Admin Acetaminophen 650 mg 11/06/20 19:10 11/06/20 19:39 Tylenol 325 Mg PO 11/06/20 19:11 650 mg STAT STA Administration Acetaminophen Confirm 11/06/20 19:26 Tylenol 325 Mg Administered 11/06/20 19:27 Dose 650 mg .ROUTE .STK-MED ONE Bupivacaine HCl 25 mg 11/12/20 08:53 Bupivacaine 0.5% Vial IJ 11/12/20 08:54 .STK-MED ONE Dextrose 25 ml 11/11/20 04:56 11/11/20 04:59 D50w 50 Ml Abboject IV 11/11/20 04:57 25 ml STAT ONE Administration Gabapentin 300 mg 11/07/20 10:00 11/08/20 09:34 Neurontin 300 Mg PO 12/07/20 09:59 300 mg BID CYN Administration Glucose 15 gm 11/11/20 03:52 11/11/20 03:58 Glutose 15 Gm Oral Gel PO 11/11/20 03:53 15 gm STAT ONE Administration Glucose 15 gm 11/11/20 04:40 11/11/20 06:40 Glutose 15 Gm Oral Gel PO 11/11/20 04:41 Not Given STAT ONE Heparin Sodium (Beef Lung) 500 units 11/11/20 11:00 Heparin Lock Flush 100 Units/Ml 5ml Syringe IV 11/11/20 11:01 .STK-MED ONE Sodium Chloride 1,000 mls @ 999 mls/hr 11/06/20 19:09 11/06/20 21:10 Sodium Chloride 0.9% 1000 Ml IV 11/06/20 20:09 Infused .Q1H1M STA Infusion Sodium Chloride Confirm 11/06/20 19:26 Sodium Chloride 0.9% 1000 Ml Administered 11/06/20 19:27 Dose 1,000 mls @ ud .ROUTE .STK-MED ONE Ceftriaxone Sodium/Dextrose 1 g in 50 mls @ 100 mls/hr 11/06/20 20:32 11/06/20 21:23 Rocephin 1 Gm-D5w 50 Ml Bag IV 11/06/20 21:01 Infused STAT STA Infusion Ceftriaxone Sodium/Dextrose Confirm 11/06/20 20:45 Rocephin 1 Gm-D5w 50 Ml Bag Administered 11/06/20 20:46 Dose 1 g in 50 mls @ ud IV .STK-MED ONE Sodium Chloride 1,000 mls @ 999 mls/hr 11/06/20 20:53 11/06/20 22:11 Sodium Chloride 0.9% 1000 Ml IV 11/06/20 21:53 Infused .Q1H1M STA Infusion Magnesium Sulfate/Dextrose 100 mls @ 200 mls/hr 11/06/20 21:08 11/06/20 21:09 Magnesium 1 Gm / 100 Ml D5w IV 11/06/20 21:37 200 mls/hr STAT ONE Administration Magnesium Sulfate/Dextrose Confirm 11/06/20 21:09 Magnesium 1 Gm / 100 Ml D5w Administered 11/06/20 21:10 Dose 100 mls @ ud IV .STK-MED ONE Sodium Chloride Confirm 11/06/20 21:09 Sodium Chloride 0.9% 1000 Ml Administered 11/06/20 21:10 Dose 1,000 mls @ ud .ROUTE .STK-MED ONE Sodium Chloride 1,000 mls @ 100 mls/hr 11/06/20 22:00 11/08/20 16:51 Sodium Chloride 0.9% 1000 Ml IV 12/06/20 21:59 Not Given .Q10H CYN Ceftriaxone Sodium/Dextrose 1 g in 50 mls @ 100 mls/hr 11/07/20 22:00 11/08/20 21:23 Rocephin 1 Gm-D5w 50 Ml Bag IV 12/07/20 21:59 100 mls/hr QPM CYN Administration Azithromycin 500 mg in 250 mls @ 250 mls/hr 11/07/20 10:00 11/08/20 09:35 Zithromax 500 Mg/ 250 Ml Nacl Premix IV 12/07/20 09:59 250 mls/hr DAILY CYN Administration Insulin Human Regular 100 unit 100 mls @ 20 mls/hr 11/06/20 22:47 11/07/20 00:36 / Sodium Chloride IV 12/06/20 22:46 0.03 unit/kg/hr .Q5H PRN 6 mls/hr DKA/HYPERGLYCEMIA Titration Protocol 0.1 UNIT/KG/HR Sodium Chloride Confirm 11/06/20 23:08 Sodium Chloride 0.9% 100 Ml Ivpb Administered 11/06/20 23:09 Dose 100 mls @ ud IV .STK-MED ONE Ceftriaxone Sodium/Dextrose 1 g in 50 mls @ 100 mls/hr 11/09/20 22:00 11/09/20 22:45 Rocephin 1 Gm-D5w 50 Ml Bag IV 12/09/20 21:59 100 mls/hr Q24H22 CYN Administration Heparin Sodium (Porcine) 1,000 501 mls @ ud 11/11/20 11:00 u/ Sodium Chloride IV 11/11/20 11:01 .STK-MED ONE Insulin Human Regular 18 unit 11/06/20 19:45 11/06/20 20:03 Humulin R IV 11/06/20 19:46 18 unit STAT ONE Administration Insulin Human Regular Confirm 11/06/20 20:02 Humulin R Administered 11/06/20 20:03 Dose 18 unit .ROUTE .STK-MED ONE Insulin Human Regular Confirm 11/06/20 23:08 Humulin R Administered 11/06/20 23:09 Dose 100 unit .ROUTE .STK-MED ONE Lidocaine HCl 5 ml 11/12/20 08:53 Xylocaine 1% Hcl 20 Ml Mdv IJ 11/12/20 08:54 .STK-MED ONE Magnesium Sulfate 1 gm 11/06/20 20:52 11/06/20 21:10 Magnesium Sulfate 1 Gm/2 Ml Vial IV 11/06/20 20:53 Not Given ONCE ONE Non-Formulary Medication 650 mg 11/07/20 22:00 Sodium Bicarbonate PO 12/07/20 21:59 HS CYN Ondansetron HCl 4 mg 11/06/20 19:09 11/06/20 19:39 Zofran 4 Mg/2 Ml Vial IV 11/06/20 19:10 4 mg STAT ONE Administration Ondansetron HCl Confirm 11/06/20 19:26 Zofran 4 Mg/2 Ml Vial Administered 11/06/20 19:27 Dose 4 mg .ROUTE .STK-MED ONE Intake & Output (Last 24 hours) 11/11/20 11/12/20 11/13/20 11/14/20 11:59 11:59 11:59 11:59 Intake Total 1790 1132 1080 2432 Output Total 1999 850 300 200 Balance -210 673 627 [id number] Microbiology Results (Last 24 hours) 11/10/20 14:00 Toe - R Big (Greater) Wound Culture - Final ORGANISMS ISOLATED ARE CONSISTENT WITH NORMAL SKIN TAVO MODERATE GROWTH, NO PREDOMINANT ORGANISM Laboratory Results (Last 24 hours) 11/14/20 11/13/20 11/13/20 06:43 21:15 16:07 Sodium Potassium Chloride Carbon Dioxide Anion Gap BUN Creatinine Estimated GFR Glucose POC Glucometer 95 164 H 284 H Calcium 11/13/20 11/13/20 11:40 06:00 Sodium 138 Potassium 3.8 Chloride 107 Carbon Dioxide 24 Anion Gap 11.5 BUN 52 H Creatinine 3.55 H Estimated GFR 17.8 Glucose 207 H POC Glucometer 210 H Calcium 8.9 Orders (Last 24 hours) Category Date Time Status Miscellaneous Nursing Order ROUTINE Care 11/13/20 10:41 Active POCT GLUCOSE Stat Lab 11/13/20 07:21 Completed POCT GLUCOSE Stat Lab 11/13/20 11:40 Completed POCT GLUCOSE Stat Lab 11/13/20 16:07 Completed POCT GLUCOSE Stat Lab 11/13/20 21:15 Completed POCT GLUCOSE Stat Lab 11/14/20 06:43 Completed Patient Care Notes (Last 24 hours) 11/13/20 22:45 (created 11/13/20 23:01) Nursing Note by Leigh Colón Pt moved from ICU bed 29 to Rm 102 to free up an extra ICU bed. This pt is now in swingbed. All pt's belongings were collected and moved with him. Initialized on 11/13/20 23:01 - END OF NOTE 11/13/20 17:57 MEDICAL AFFAIRS MANAGER Note by Mouna Swann pt ambulated twice in hallway using rolling walker with stand by assist. pt tolerated very well/ pt sat up in bedside chair all day. Initialized on 11/13/20 17:57 - END OF NOTE Code(s): L03.031 - CELLULITIS OF RIGHT TOE (2) Cellulitis, toe Current Visit: Yes Status: Acute Code(s): L03.039 - CELLULITIS OF UNSPECIFIED TOE (3) Diabetes mellitus with peripheral autonomic neuropathy Current Visit: Yes Status: Acute Code(s): E11.43 - TYPE 2 DIABETES W DIABETIC AUTONOMIC (POLY)NEUROPATHY
[2020-11-14] MEDS: Lasix 40 MG PO SCH (09:21)
[2020-11-14] MEDS: ECOTRIN 81 MG PO SCH (09:21)
[2020-11-14] MEDS: Zithromax 500 MG/ 250 ML NaCl Premix 500 MG/250 ML IVPB IV SCH (09:21)
[2020-11-14] MEDS: FEOSOL 325 MG PO SCH (09:21)
[2020-11-14] MEDS: COREG 12.5 MG PO SCH ×2 (09:22→22:07)
[2020-11-14] MEDS: Namenda 5 MG PO SCH ×2 (09:22→22:08)
[2020-11-14] MEDS: SYNTHROID 25 MCG PO SCH (09:22)
[2020-11-14] MEDS: Prozac 20 MG PO SCH (09:22)
[2020-11-14] MEDS: Protonix 40MG Tablet PO SCH (09:22)
[2020-11-14] MEDS: NEURONTIN 300 MG PO SCH ×3 (09:22→22:08)
[2020-11-14] MEDS: Aricept 10 MG PO SCH ×2 (09:41→22:08)
[2020-11-14] MEDS: Bactroban OINTMENT TP SCH (09:41)
[2020-11-14] MEDS: VITA-BEE WITH C PO SCH (09:42)
[2020-11-14] MEDS: Lantus Insulin SQ SCH ×2 (09:42→22:09)
[2020-11-14] MEDS: HUMALOG SQ PRN ×3 (12:08→22:11)
[2020-11-14] MEDS: PATIENT OWN MEDICATION PO SCH (12:20)
[2020-11-14] MEDS: ZOCOR 20MG PO SCH (22:08)
[2020-11-14] MEDS: Flomax 0.4 MG PO SCH (22:08)
[2020-11-14] MEDS: NON-FORMULARY ITEM PO SCH (22:10)
--- NOTE | 2020-11-15 05:03 | PCM.NOTE ---
Date and Time: 11/15/20 0502 Subjective Assessment: doing better. undergoing Antibiotic therapy - Review of Systems Constitutional: No Fever, No Chills Eyes: No Symptoms Ears, Nose, & Throat: No Symptoms Respiratory: No Cough, No Short Of Breath Cardiac: No Chest Pain, No Edema, No Syncope Abdominal/Gastrointestinal: No Abdominal Pain, No Nausea, No Vomiting, No Diarrhea Genitourinary Symptoms: No Dysuria Musculoskeletal: No Back Pain, No Neck Pain Skin: Cellulitis, No Rash Neurological: No Dizziness, No Focal Weakness, No Sensory Changes Psychological: No Symptoms Endocrine: No Symptoms Hematologic/Lymphatic: No Symptoms Immunological/Allergic: No Symptoms Objective Exam General Appearance: no apparent distress, alert Neurologic Exam: alert, oriented x 3, cooperative, normal mood/affect, nml cerebellar function, sensation nml, No motor deficits Skin Exam: normal color, warm, dry Wound Assessment: Skin/Wound Assessment Wound/Incision Assessment Start: 11/07/20 00:33 Text: Status: Active Freq: Q6H Protocol: Document 11/15/20 00:00 (Rec: 11/15/20 00:10 [id number]) Wound/Incision Assessment Left Toe Wound Assessment Shift Assessment Wound Type WOUND Wound Stage Non Pressure Wound Dressing Status Dry & Intact Drainage Amount None Drainage Odor None/Absent Distal Left Upper Arm Wound Assessment Shift Assessment Wound Type Skin Tear Wound Stage Non Pressure Wound Dressing Status Dry & Intact Drainage Amount None Drainage Odor None/Absent Wound Bed Greatest Portion Pale [place] Wound Bed Lesser Portion [place] Red Surrounding Tissue [place] Primary Dressing TEGADERM Left Proximal Upper Arm Wound Assessment Shift Assessment Wound Type Skin Tear Wound Stage Non Pressure Wound Dressing Status Changed Drainage Amount Minimal Drainage Description Serosanguineous Drainage Odor None/Absent General Appearance Asymptomatic Wound Bed Greatest Portion [place] Wound Bed Lesser Portion Red (Granulation) Surrounding Tissue [place] Topical Solution/Irrigant Saline Irrigant Primary Dressing TEGADERM Eye Exam: PERRL, EOMI, eyes nml inspection Ears, Nose, Throat Exam: normal ENT inspection, pharynx normal, moist mucous membranes Neck Exam: normal inspection, non-tender, supple, full range of motion Respiratory Exam: normal breath sounds, lungs clear, No respiratory distress Cardiovascular Exam: regular rate/rhythm, normal heart sounds Gastrointestinal/Abdomen Exam: soft, No tenderness, No mass Extremity Exam: normal inspection, normal range of motion Back Exam: normal inspection, normal range of motion, No CVA tenderness, No vertebral tenderness Male Genitalia Exam: deferred Rectal Exam: deferred OBJECTIVE DATA Vital Signs: Vital Signs - 24 hr Temp Pulse Resp BP Pulse Ox 11/15/20 03:51 97.9 F 82 20 130/60 96 11/14/20 23:31 98.1 F 64 18 134/62 96 11/14/20 19:54 98.3 F 68 20 144/63 96 11/14/20 16:00 96.5 F 77 18 134/70 97 11/14/20 12:00 97.3 F 61 18 151/68 99 11/14/20 07:19 97.7 F 62 18 99/52 98 Pain Assessment - Last Documented Pain Intensity 0 Pain Scale Used 0-10 Pain Scale Intake and Output: Intake & Output 11/12/20 11/13/20 11/14/20 11/15/20 11:59 11:59 11:59 11:59 Intake Total 1132 1080 2432 1280 Output Total 850 300 200 Balance 740 859 3465 1280 Lab Results: Lab Results-Last 24 Hours 11/14/20 11/14/20 11/14/20 Range/Units 06:43 11:32 15:59 POC Glucometer 95 282 H 334 H (74 to 106) mg/dL 11/14/20 Range/Units 20:41 POC Glucometer 380 H (74 to 106) mg/dL Assessment/Plan (1) Cellulitis of toe of right foot Current Visit: Yes Status: Acute Assessment & Plan: improving. Code(s): L03.031 - CELLULITIS OF RIGHT TOE (2) Cellulitis, toe Current Visit: Yes Status: Acute Qualifiers: Laterality: right Qualified Code(s): L03.031 - Cellulitis of right toe Code(s): L03.039 - CELLULITIS OF UNSPECIFIED TOE (3) Diabetes mellitus with peripheral autonomic neuropathy Current Visit: Yes Status: Acute Qualifiers: Diabetes mellitus type: type 2 Diabetes mellitus termination clerk insulin use: with prison use Qualified Code(s): E11.43 - Type 2 diabetes mellitus with diabetic autonomic (poly)neuropathy; Z79.4 - shelter (current) use of insulin Code(s): E11.43 - TYPE 2 DIABETES W DIABETIC AUTONOMIC (POLY)NEUROPATHY
[2020-11-15] MEDS: CLINDAMYCIN-D5W 600 MG/50 ML*** 600 MG/50 ML BAG IV SCH ×3 (05:45→21:34)
[2020-11-15] MEDS: COREG 12.5 MG PO SCH ×2 (10:14→21:33)
[2020-11-15] MEDS: Bactroban OINTMENT TP SCH (10:14)
[2020-11-15] MEDS: Aricept 10 MG PO SCH ×2 (10:14→21:33)
[2020-11-15] MEDS: Namenda 5 MG PO SCH ×2 (10:15→21:33)
[2020-11-15] MEDS: ECOTRIN 81 MG PO SCH (10:15)
[2020-11-15] MEDS: Lasix 40 MG PO SCH (10:15)
[2020-11-15] MEDS: FEOSOL 325 MG PO SCH (10:15)
[2020-11-15] MEDS: NEURONTIN 300 MG PO SCH ×3 (10:16→21:34)
[2020-11-15] MEDS: VITA-BEE WITH C PO SCH (10:16)
[2020-11-15] MEDS: Lantus Insulin SQ SCH ×2 (10:16→21:33)
[2020-11-15] MEDS: SYNTHROID 25 MCG PO SCH (10:16)
[2020-11-15] MEDS: Prozac 20 MG PO SCH (10:16)
[2020-11-15] MEDS: Zithromax 500 MG/ 250 ML NaCl Premix 500 MG/250 ML IVPB IV SCH (10:16)
[2020-11-15] MEDS: Protonix 40MG Tablet PO SCH (10:16)
[2020-11-15] MEDS: TYLENOL 325 MG PO PRN ×2 (10:22→21:32)
[2020-11-15] MEDS: PATIENT OWN MEDICATION PO SCH (12:22)
[2020-11-15] MEDS: HUMALOG SQ PRN ×3 (12:23→21:35)
[2020-11-15] MEDS: Flomax 0.4 MG PO SCH (21:33)
[2020-11-15] MEDS: NON-FORMULARY ITEM PO SCH (21:34)
[2020-11-15] MEDS: ZOCOR 20MG PO SCH (21:34)
[2020-11-16] MEDS: CLINDAMYCIN-D5W 600 MG/50 ML*** 600 MG/50 ML BAG IV SCH (05:06)
[2020-11-16 07:57] VITALS: PULSE 60
--- NOTE | 2020-11-16 08:33 | PCM.DS ---
Discharge Summary Date of Admission: 11/06/20 21:52 Admitting Physician: WILMAR PONCE Consults: Consults on Case 11/10/20 11:04 Consult Podiatry ROUTINE Primary Care Provider: WILMAR PONCE Allergies Allergies No Known Allergies Allergy (Verified 11/06/20 22:58) Hospital Summary - Hospital Course Hospital Course: patient was admitted with fever, weakness, initially treated for pneumonia then discovereed to have right great toe infection. seen by podiatry, concern for osteo. culture negative, improved on IV clindamycin. since no growth on culture will switch to po cipro and remove PICC. going to [facility] for rehab - Vitals & Intake/Output Vital Signs: Vital Signs Temperature 97.3 F 11/16/20 07:57 Pulse Rate 60 11/16/20 07:57 Respiratory Rate 16 11/16/20 07:57 Blood Pressure 121/57 11/16/20 07:57 O2 Sat by Pulse Oximetry 97 11/16/20 07:57 Intake & Output: Intake & Output 11/13/20 11/14/20 11/15/20 11/16/20 11:59 11:59 11:59 11:59 Intake Total 1080 2432 1280 1300 Output Total 300 200 Balance 780 2232 1280 1300 - Lab Result Diagrams: 11/13/20 06:00 11/13/20 06:00 Lab Results-Last 24 Hrs: Lab Results-Last 24 Hours 11/15/20 11/15/20 11/15/20 Range/Units 11:10 16:14 21:09 POC Glucometer 288 H 294 H 316 H (74 to 106) mg/dL 11/16/20 Range/Units 07:15 POC Glucometer 110 H (74 to 106) mg/dL Micro Results-Entire Visit: Microbiology 11/10/20 14:00 Wound Culture - Final Toe - R Big (Greater) ORGANISMS ISOLATED ARE CONSISTENT WITH NORMAL SKIN TAVO MODERATE GROWTH, NO PREDOMINANT ORGANISM 11/06/20 19:13 Blood Culture Gram Stain - Final Blood Not Reportable Blood Culture - Final NO GROWTH 11/06/20 19:13 Blood Culture Gram Stain - Final Blood Not Reportable Blood Culture - Final NO GROWTH 11/06/20 19:23 Urine Culture - Final Urine, Catheterized NO GROWTH Accuchecks Date 11/16/20 Date 11/15/20 Date 11/15/20 Time 07:30 Time 16:30 - Procedures and Test Procedures and Tests throughout Hospitalization: Therapy Orders & Screens 11/07/20 10:00 PT Eval & Treat ( Order) ONCE Reason for Eval:: Decreased ADL function & ambulation ability due to disease process. Diagnosis: Hyperglycemia Discharge Exam General Appearance: no apparent distress, alert Respiratory Exam: normal breath sounds, lungs clear, No respiratory distress Cardiovascular Exam: regular rate/rhythm, normal heart sounds Gastrointestinal/Abdomen Exam: soft, No tenderness, No mass Extremity Exam: other (right great toe improved erythmea, nail removed) Wound Assessment: Skin/Wound Assessment Wound/Incision Assessment Start: 11/07/20 00:33 Text: Status: Active Freq: Q6H Protocol: Document 11/16/20 06:00 SG (Rec: 11/16/20 06:13 SG [id number]) Wound/Incision Assessment Left Toe Wound Assessment Shift Assessment Wound Type WOUND Wound Stage Non Pressure Wound Dressing Status Dry & Intact Drainage Amount None Drainage Description Serosanguineous Drainage Odor None/Absent Surrounding Tissue Macerated Topical Solution/Irrigant Medicated Gel Primary Dressing Medicated Gauze Pads Secondary Dressing kerlex Comment Dressing in place Distal Left Upper Arm Wound Assessment Shift Assessment Wound Type Skin Tear Wound Stage Non Pressure Wound Dressing Status Dry & Intact Drainage Amount None Drainage Odor None/Absent Wound Bed Greatest Portion Red (Granulation) Wound Bed Lesser Portion Red (Granulation) Surrounding Tissue [place] Primary Dressing band-aid Comment band-aid CDI Left Proximal Upper Arm Wound Assessment Shift Assessment Wound Type Skin Tear Wound Stage Non Pressure Wound Dressing Status Changed Drainage Amount Minimal Drainage Description Sanguineous Drainage Odor None/Absent General Appearance Asymptomatic Wound Bed Greatest Portion Red (Granulation) Wound Bed Lesser Portion Red (Granulation) Surrounding Tissue [place] Topical Solution/Irrigant Saline Irrigant Primary Dressing TEGADERM Comment tegaderm CDI Final Diagnosis/Problem List - Final Discharge Diagnosis/Problem (1) Osteomyelitis of great toe of right foot Current Visit: Yes Status: Acute Assessment & Plan: no growth on culture, will treat with po cipro emperically for 14 days then reassess Code(s): M86.9 - OSTEOMYELITIS, UNSPECIFIED (2) Type 2 diabetes mellitus with hyperosmolar hyperglycemic state (HHS) Current Visit: Yes Status: Acute Code(s): E11.00 - TYPE 2 DIAB W HYPROSM W/O NONKET HYPRGLY-HYPROS [facility] ([facility]); E11.65 - TYPE 2 DIABETES MELLITUS WITH HYPERGLYCEMIA (3) Generalized weakness Current Visit: Yes Status: Acute Code(s): R53.1 - WEAKNESS - Discharge Disposition: Skilled Care @ [facility] Condition: Stable Prescriptions: New Ciprofloxacin [Cipro 500 MG] 500 mg PO BID 14 Days #28 tablet Continue Levothyroxine Sodium 50 Mcg [Synthroid 50 Mcg] 25 mcg PO DAILY Aspirin 81 gm Chew [Baby Aspirin 81 mg Chew] 81 mg PO DAILY Tamsulosin HCl 0.4 mg [Flomax 0.4 MG] 0.4 mg PO HS Clopidogrel Bisulfate [Plavix] 75 mg PO 3XW Donepezil HCl [Aricept] 10 mg PO BID Memantine HCl [Namenda] 10 mg PO BID Fluoxetine HCl [Prozac] 40 mg PO DAILY Gabapentin [Neurontin] 300 mg PO BID Ferrous Sulfate [Iron] 325 mg PO DAILY Atorvastatin Calcium 20 mg PO HS Sodium Bicarbonate 650 mg PO HS Omeprazole 40 mg PO DAILY Carvedilol 12.5 mg [Coreg 12.5 mg] 12.5 mg PO BID Evolocumab [Repatha Sureclick] 140 mg SQ UD Insulin Detemir [Levemir] 25 unit SQ BID Insulin Lispro [Humalog] 0 unit SQ TID PRN PRN Reason: elevated blood sugar Vitamin B Complex 1 each PO DAILY Furosemide 40 mg [Lasix 40 MG] 40 mg PO DAILY Patiromer Calcium Sorbitex [Veltassa] 8.46 mg PO DAILY Follow up with: SAMANTHA VARGHESE DPM [ACTIVE STAFF] - WILMAR PONCE MD [Primary Care Provider] - HUGO NAVARRO [COURTESY STAFF] -
[2020-11-16] MEDS: NEURONTIN 300 MG PO SCH (08:52)
[2020-11-16] MEDS: SYNTHROID 25 MCG PO SCH (08:52)
[2020-11-16] MEDS: ECOTRIN 81 MG PO SCH (08:52)
[2020-11-16] MEDS: Prozac 20 MG PO SCH (08:52)
[2020-11-16] MEDS: Zithromax 500 MG/ 250 ML NaCl Premix 500 MG/250 ML IVPB IV SCH (08:52)
[2020-11-16] MEDS: Namenda 5 MG PO SCH (08:52)
[2020-11-16] MEDS: COREG 12.5 MG PO SCH (08:52)
[2020-11-16] MEDS: Protonix 40MG Tablet PO SCH (08:52)
[2020-11-16] MEDS: Aricept 10 MG PO SCH (08:53)
[2020-11-16] MEDS: Lantus Insulin SQ SCH (08:53)
[2020-11-16] MEDS: FEOSOL 325 MG PO SCH (08:53)
[2020-11-16] MEDS: Lasix 40 MG PO SCH (08:53)
[2020-11-16] MEDS: VITA-BEE WITH C PO SCH (08:56)
[2020-11-16] MEDS: PLAVIX 75 MG Tablet PO SCH (09:02)
[2020-11-16] MEDS: Bactroban OINTMENT TP SCH (09:09)
[2020-11-16] MEDS: PATIENT OWN MEDICATION PO SCH (11:58)
[2020-11-16] MEDS: HUMALOG SQ PRN (12:14)
[2020-11-16 12:25] VITALS: BP 157/71; O2SAT 98
== END 2020-11-16 12:45 | DRG 539 ==
LOC: ED 18:37 → ICU 21:52 → MED SURG 11-13 22:27
PROVIDERS: ADMIT Family Medicine; ATTEND Family Medicine
PROC: 02HV33Z Insertion of Infusion Device into Superior Vena Cava, Percutaneous Approach (ICD-10-PCS; principal; 2020-11-11)
DX: M86.171 Other acute osteomyelitis, right ankle and foot (principal); E11.00 Type 2 diabetes mellitus with hyperosmolarity without nonketotic hyperglycemic-hyperosmolar coma (NKHHC); J18.9 Pneumonia, unspecified organism; E87.1 Hypo-osmolality and hyponatremia; R53.1 Weakness; Z79.899 Other long term (current) drug therapy; Z79.01 Long term (current) use of anticoagulants; E83.42 Hypomagnesemia; I25.10 Atherosclerotic heart disease of native coronary artery without angina pectoris; E11.43 Type 2 diabetes mellitus with diabetic autonomic (poly)neuropathy; E11.621 Type 2 diabetes mellitus with foot ulcer; L97.519 Non-pressure chronic ulcer of other part of right foot with unspecified severity; L03.031 Cellulitis of right toe; E11.65 Type 2 diabetes mellitus with hyperglycemia; Z86.19 Personal history of other infectious and parasitic diseases; Z86.73 Personal history of transient ischemic attack (TIA), and cerebral infarction without residual deficits; I13.10 Hypertensive heart and chronic kidney disease without heart failure, with stage 1 through stage 4 chronic kidney disease, or unspecified chronic kidney disease; E11.22 Type 2 diabetes mellitus with diabetic chronic kidney disease; N18.9 Chronic kidney disease, unspecified; D64.9 Anemia, unspecified
CPT/HCPCS: 11730; 36000; 36415; 36573; 71045; 73630; 76937; 77001; 80048; 80053; 81001; 82947; 83605; 83735; 84134; 84436; 84443; 85025; 85610; 85730; 86308; 87040; 87070; 87086; 87400; 87651; 93005; 93041; 93922; 93925; 94762; 96365; 96367; 96374; 96375; 97110; 97161; 97530; 99231; 99234; 99285; 99291; U0003; C1769; J0456; J0696; J1610; J1642; J1644; J1815; J1817; J2405; J3475; A9270-GY

== ENCOUNTER 2020-11-27 16:11 | Inpatient (IN) | payer MEDICARE, OTHER ==
--- NOTE | 2020-11-27 16:46 | ERPHSYRPT ---
- History of Present Illness Time Seen by Provider: 11/27/20 16:30 Source: patient, EMS, care home records Exam Limitations: no limitations Patient Subjective Stated Complaint: [facility] nurse states "He is supposed to have his right great toe amputated by Dr. Sauceda on monday but he is running fevers and it is controlled by tylenol but he now has streaking going up his right foot. HE is not his normal self. I ran a covid test this morning on him and it was negative." Triage Nursing Assessment: Pt presented alert and oriented X 3, skin pwd Pt able to speak in clear full sentences pt right great toe red, hot, swollen, right foot swollen and red with streaking noted, CSM X 4, Physician History: This is a 80-year-old white male resident of [place] who has a history of insulin-dependent diabetes, dementia, hypothyroidism, hypertension, elevated cholesterol, coronary artery disease, anxiety and gastroesophageal reflux disease who presents to the emergency department because of worsening infection of his right foot. Patient is scheduled to have his right foot gangrenous toe amputated by Dr. Sauceda on 11/30/2020. Patient is on Plavix, has a cardiac stent in place and has a pacemaker in place. Of concern, the patient is noted to have increased redness traveling proximally on the dorsal aspect of his right foot as well as spiking of fevers to 100.3 F. He does not have any significant right foot pain. A rapid, i-STAT, COVID-19 test was performed today and the result was negative per care home report. Occurred: other (Chronically infected right first toe that is gangrenous) Severity of Pain-Max: mild Severity of Pain-Current: mild Lower Extremities Pain: 1st toe: right Modifying Factors: Improves With: nothing Allergies/Adverse Reactions: No Known Allergies Allergy (Verified 11/06/20 22:58) Home Medications: Aspirin 81 gm Chew [Baby Aspirin 81 mg Chew] 81 mg PO DAILY 03/27/14 [History] Levothyroxine Sodium 50 Mcg [Synthroid 50 Mcg] 25 mcg PO DAILY 03/27/14 [History] Clopidogrel Bisulfate [Plavix] 75 mg PO 3XW 06/16/14 [History] Donepezil HCl [Aricept] 10 mg PO BID 06/16/14 [History] Tamsulosin HCl 0.4 mg [Flomax 0.4 MG] 0.4 mg PO HS 06/16/14 [History] Fluoxetine HCl [Prozac] 40 mg PO DAILY 04/15/15 [History] Memantine HCl [Namenda] 10 mg PO BID 04/15/15 [History] Atorvastatin Calcium 20 mg PO HS 08/17/17 [History] Ferrous Sulfate [Iron] 325 mg PO DAILY 08/17/17 [History] Gabapentin [Neurontin] 300 mg PO BID 08/17/17 [History] Omeprazole 40 mg PO DAILY 08/17/17 [History] Sodium Bicarbonate 650 mg PO HS 08/17/17 [History] Carvedilol 12.5 mg [Coreg 12.5 mg] 12.5 mg PO BID 11/04/19 [History] Evolocumab [Repatha Sureclick] 140 mg SQ UD 11/04/19 [History] Insulin Detemir [Levemir] 25 unit SQ BID 06/23/20 [History] Insulin Lispro [Humalog] 0 unit SQ TID PRN 08/14/20 [History] Vitamin B Complex 1 each PO DAILY 09/24/20 [History] Furosemide 40 mg [Lasix 40 MG] 40 mg PO DAILY 11/07/20 [History] Patiromer Calcium Sorbitex [Veltassa] 8.46 mg PO DAILY 11/07/20 [History] Hx Tetanus, Diphtheria Vaccination/Date Given: Yes Hx Influenza Vaccination/Date Given: Yes Hx Pneumococcal Vaccination/Date Given: Yes Immunizations Up to Date: Yes Travel Risk - International Travel Have you traveled outside of the country in past 3 weeks: No - Coronavirus Screening Are you exhibiting any of the following symptoms?: No Close contact with a COVID-19 positive Pt in past 14-21 Days: No - Review of Systems Constitutional: No Symptoms Eyes: No Symptoms Ears, Nose, & Throat: No Symptoms Respiratory: No Symptoms Cardiac: No Symptoms Abdominal/Gastrointestinal: No Symptoms Genitourinary Symptoms: No Symptoms Musculoskeletal: Other (Gangrenous right first toe) Skin: Cellulitis (Mild cellulitis dorsal aspect right foot) Neurological: No Symptoms Psychological: No Symptoms Endocrine: No Symptoms Hematologic/Lymphatic: No Symptoms Immunological/Allergic: No Symptoms - Past Medical History Pertinent Past Medical History: Yes Neurological History: TIA ENT History: No Pertinent History Cardiac History: Coronary Artery Disease, High Cholesterol, Hypertension, Myocardial Infarction ([place]) Respiratory History: Pneumonia, Other Endocrine Medical History: Diabetes Type II Musculoskeletal History: Osteoarthritis GI Medical History: Diverticulitis, GERD, Other History: Renal Disease, Other Psycho-Social History: Anxiety, Depression Male Reproductive Disorders: Prostate Problems Other Medical History: Pacemaker, stents, Covid 19 - Past Surgical History Past Surgical History: Yes Neuro Surgical History: No Pertinent History Cardiac: Cardiac Catheterization, Cardiac Stent, Pacemaker Respiratory: No Pertinent History Gastrointestinal: No Pertinent History Genitourinary: No Pertinent History Musculoskeletal: Orthopedic Surgery Male Surgical History: No Pertinent History Other Surgical History: rt knee replacement and revision to rt knee, skin lesions removed left arm, partial parathyroid gland removed - Social History Smoking Status: Never smoker Exposure to second hand smoke: No Drug Use: none Patient Lives Alone: No Significant Family History: no pertinent family hx - Nursing Vital Signs Nursing Vital Signs: Initial Vital Signs Temperature 100.0 F 11/27/20 16:13 Pulse Rate 77 11/27/20 16:13 Respiratory Rate 20 11/27/20 16:13 Blood Pressure 172/75 11/27/20 16:13 O2 Sat by Pulse Oximetry 97 11/27/20 16:13 Pain Scale Pain Intensity 8 - Physical Exam General Appearance: no apparent distress, alert Eyes, Ears, Nose, Throat Exam: normal ENT inspection, moist mucous membranes Neck Exam: normal inspection, non-tender, supple, full range of motion Cardiovascular/Respiratory Exam: chest non-tender, normal breath sounds, regular rate/rhythm, heart sounds normal, no respiratory distress Gastrointestinal/Abdominal Exam: non-tender, soft Back Exam: No CVA tenderness, No vertebral tenderness Hips Exam: bilateral: non-tender, normal inspection, normal range of motion, no evidence of injury Legs Exam: bilateral leg: non-tender, normal inspection, normal range of motion, no evidence of injury Knees Exam: bilateral knee: non-tender, normal inspection, normal range of motion, no evidence of injury Ankle Exam: bilateral ankle: non-tender, normal inspection, normal range of motion, no evidence of injury Foot Exam: right foot: other, left foot: non-tender, normal inspection, normal range of motion, no evidence of injury Neuro/Tendon Exam: sensory deficit Mental Status Exam: alert, cooperative Skin Exam: other (Gangrenous right first toe. No odor. Cellulitis dorsal aspect just proximal to the gangrenous right first toe) SpO2 Interpretation: normal SpO2: 97 O2 Delivery: Room Air Ordered Tests: Active Orders 24 hr Category Date Time Status IV Insertion STAT Care 11/27/20 16:46 Active Pulse Oximetry (ED) STAT Care 11/27/20 16:46 Active BLOOD CULTURE Stat Lab 11/27/20 16:40 Received CBC W DIFF Stat Lab 11/27/20 16:30 Completed CMP Stat Lab 11/27/20 16:30 Completed Lactic Acid Stat Lab 11/27/20 16:53 Completed Transfer Order Routine Transfer 11/27/20 Ordered Medication Summary Generic Name Dose Route Start Last Admin Trade Name Freq PRN Reason Stop Dose Admin Ampicillin Sodium/Sulbactam Sodium 3 gm in 100 mls @ 200 mls/hr 11/27/20 18:10 11/27/20 18:19 Unasyn 3gm / Nacl 100ml IV 11/27/20 18:39 200 mls/hr STAT STA 200 mls/hr Administration Discontinued Medications Generic Name Dose Route Start Last Admin Trade Name Freq PRN Reason Stop Dose Admin Ampicillin Sodium/Sulbactam Sodium Confirm 11/27/20 18:13 Unasyn 3gm / Nacl 100ml Administered 11/27/20 18:14 Dose 3 gm in 100 mls @ ud .ROUTE .K-MED ONE Lab/Rad Data: Laboratory Result Diagrams 11/27/20 16:30 11/27/20 16:30 Laboratory Results 11/27/20 11/27/20 11/27/20 Range/Units 16:53 16:30 16:30 WBC 6.8 (4.0-10.5) K/mm3 RBC 3.01 L (4.1-5.6) M/mm3 Hgb 9.6 L (12.5-18.0) gm/dl Hct 30.7 L (42-50) % MCV 102.0 H (78-100) fl MCH 31.9 (26-32) pg MCHC 31.3 L (32-36) g/dl RDW 13.0 (11.5-14.0) % Plt Count 201 (150-450) K/mm3 MPV 8.7 (7.5-11.0) fl Gran % 82.3 H (36.0-66.0) % Eos # (Auto) 0.02 (0-0.5) Absolute Lymphs (auto) 0.61 L (1.0-4.6) Absolute Monos (auto) 0.56 (0.0-1.3) Lymphocytes % 8.9 L (24.0-44.0) % Monocytes % 8.2 (0.0-12.0) % Eosinophils % 0.3 (0.00-5.0) % Basophils % 0.3 (0.0-0.4) % Absolute Granulocytes 5.61 (1.4-6.9) Basophils # 0.02 (0-0.4) Sodium 133 L (137-145) mmol/L Potassium 4.6 (3.5-5.1) mmol/L Chloride 103 (98-107) mmol/L Carbon Dioxide 20 L (22-30) mmol/L Anion Gap 14.2 (5-15) MEQ/L BUN 52 H (9-20) mg/dL Creatinine 3.99 H (0.66-1.25) mg/dL Estimated GFR 15.6 ML/MIN Glucose 447 H (74-106) mg/dL Lactic Acid 1.7 (0.4-2.0) Calcium 9.1 (8.4-10.2) mg/dL Total Bilirubin 0.40 (0.2-1.3) mg/dL AST 20 (17-59) U/L ALT 21 (0-50) U/L Alkaline Phosphatase 83 (38-126) U/L Serum Total Protein 6.7 (6.3-8.2) g/dL Albumin 3.5 (3.5-5.0) g/dL - Progress Progress: unchanged, re-examined Progress Note: 11/27/20 18:19 Medical decision making: I reviewed the patient with Dr. Brownlee who is covering for Dr. Paz. This patient has gangrenous first toe on the right foot with some hyperemia and cellulitis present. He has been having fevers. We will admit him to the hospital and provide him with low rate IV fluids, intravenous antibiotics and antipyretics. Dr. Brownlee agrees with the admission. I also contacted the patient's net developer software engineer c, Dr. Sauceda. He is aware that the patient will be in the hospital and he anticipates seeing him tomorrow in the afternoon sometime. Paperwork, nurses report and recheck from care home confirmed that the patient had a negative COVID-19 test today. 11/27/20 18:21 Counseled pt/family regarding: lab results, diagnosis, need for follow-up - Departure Departure Disposition: In-patient Admission Clinical Impression: Diabetic infection of right foot, Gangrene of toe of right foot, Cellulitis of right foot Condition: Stable Critical Care Time: No Referrals: BRETT LANGLEY [Primary Care Provider] -
[2020-11-27 17:12] LABS: Absolute Neutrophil Ct (ANC) 5.61 (1.4-6.9); BASOPHIL % 0.3 % (0.0-0.4); Basophil (Absolute #) 0.02 (0-0.4); Eosinophil % 0.3 % (0.00-5.0); Eosinophil (Absolute #) 0.02 (0-0.5); Hematocrit 30.7 % (42-50); Hemoglobin 9.6 gm/dl (12.5-18.0); Lymphocyte (Absolute #) 0.61 (1.0-4.6); Lymphocytes % 8.9 % (24.0-44.0); Mean Corpuscular Hemoglobin 31.9 pg (26-32); Mean Corpuscular Hgb Concent. 31.3 g/dl (32-36); Mean Platelet Volume 8.7 fl (7.5-11.0); Monocyte (Absolute #) 0.56 (0.0-1.3); Monocytes % 8.2 % (0.0-12.0); Neutrophil % 82.3 % (36.0-66.0); Platelet Count 201 K/mm3 (150-450); Red Blood Count 3.01 M/mm3 (4.1-5.6); White Blood Count 6.8 K/mm3 (4.0-10.5)
[2020-11-27 17:19] LABS: ALBUMIN 3.5 g/dL (3.5-5.0); ANION GAP 14.2 MEQ/L (5-15); BILIRUBIN,TOTAL 0.4 mg/dL (0.2-1.3); Calcium 9.1 mg/dL (8.4-10.2); Creatinine 1 3.99 mg/dL (0.66-1.25); EST GLOMERULAR FILTRATION RATE 15.6 ML/MIN; Potassium 4.6 mmol/L (3.5-5.1); Total Protein 6.7 g/dL (6.3-8.2)
[2020-11-27] MEDS ORDERED: Unasyn 3GM / NaCl 100ML 3 GM/100 ML IVPB IV STA (18:10)
[2020-11-27] MEDS ORDERED: Unasyn 3GM / NaCl 100ML 3 GM/100 ML IVPB ONE (18:13)
[2020-11-27] MEDS ORDERED: Zofran 4 MG/2 ML VIAL IV PRN (20:23)
[2020-11-27] MEDS ORDERED: Unasyn 1.5GM / NaCl 100ML 1.5 GM/100 ML IVPB IV SCH ×2 (22:00→23:00)
[2020-11-27] MEDS ORDERED: Unasyn 1.5GM Vial ONE (22:38)
[2020-11-27] MEDS ORDERED: Sodium Chloride 100ML MINI-BAG PLUS 100 ML IV ONE (22:38)
[2020-11-27] MEDS: Sodium Chloride 0.9% 1000 ML 1,000 ML IV SCH (22:48)
[2020-11-27] MEDS: ZOCOR 20MG PO SCH (22:48)
[2020-11-27] MEDS: COREG 12.5 MG PO SCH (22:49)
[2020-11-27] MEDS: TYLENOL 325 MG PO PRN (22:49)
[2020-11-28] MEDS: Unasyn 1.5GM / NaCl 100ML 1.5 GM/100 ML IVPB IV SCH ×3 (01:52→22:01)
[2020-11-28] MEDS ORDERED: Unasyn 1.5GM / NaCl 100ML 1.5 GM/100 ML IVPB IV SCH (02:00)
[2020-11-28] MEDS: TYLENOL 325 MG PO PRN ×3 (04:19→16:58)
[2020-11-28 07:40] LABS: Absolute Neutrophil Ct (ANC) 6.09 (1.4-6.9); BASOPHIL % 0.2 % (0.0-0.4); Basophil (Absolute #) 0.02 (0-0.4); Eosinophil % 0.9 % (0.00-5.0); Eosinophil (Absolute #) 0.07 (0-0.5); Hematocrit 28.9 % (42-50); Hemoglobin 9.1 gm/dl (12.5-18.0); Lymphocyte (Absolute #) 0.92 (1.0-4.6); Lymphocytes % 11.5 % (24.0-44.0); Mean Cell Volume 101.4 fl (78-100); Mean Corpuscular Hemoglobin 31.9 pg (26-32); Mean Corpuscular Hgb Concent. 31.5 g/dl (32-36); Mean Platelet Volume 8.9 fl (7.5-11.0); Monocyte (Absolute #) 0.91 (0.0-1.3); Monocytes % 11.4 % (0.0-12.0); Platelet Count 196 K/mm3 (150-450); Red Blood Count 2.85 M/mm3 (4.1-5.6)
[2020-11-28 07:45] LABS: ANION GAP 11.2 MEQ/L (5-15); Calcium 8.9 mg/dL (8.4-10.2); Creatinine 1 3.93 mg/dL (0.66-1.25); EST GLOMERULAR FILTRATION RATE 15.8 ML/MIN; Potassium 4.1 mmol/L (3.5-5.1)
[2020-11-28] MEDS: HUMALOG SQ PRN ×4 (08:43→22:02)
[2020-11-28] MEDS: COREG 12.5 MG PO SCH ×2 (08:43→22:03)
--- NOTE | 2020-11-28 09:28 | PCM.CONS ---
Podiatry HPI - Consult Date of Consultation Date: 11/28/20 Reason for Consult: Gangrenous toe right foot Consulting Provider: SAMANTHA VARGHESE DPM - [facility] History of Present Illness: Frandy is a very pleasant 80-year-old male well-known to my service for diabetic care he recently had a extreme episode of hypoglycemia which resulted in loss of consciousness and trauma which resulted in hospitalization within the last week. Following this there were some changes noted to the right hallux toenail and an infection was encountered at the distal tip of the toe. Patient is a known vasculopath and discussion with Dr. Dunn in regards to proceeding with removal of infection prior to reperfusion Dr. Dunn advised to proceed with debridement to alleviate infection and would subsequently be benefited by an attempt at an angiogram with intervention in the following days. Patient presented to Dr. Dunn and an angiogram was performed demonstrating both dorsalis pedis and posterior tibial arteries showed diminutive and and vessel diseases typical in diabetics. Patient as well as daughter who is power of district attorney understand that local amputation of the great toe may result in failure of the surgical intervention secondary to the nature of the poor and vessel disease, renal failure and poorly controlled diabetes healing will likely be a risk factor so we have opted to move forward with a transmetatarsal amputation r ather than a hallux amputation. Medications & Allergies Home Medications: Home Medication List Levothyroxine Sodium 50 Mcg [Synthroid 50 Mcg] 25 mcg PO DAILY 03/27/14 [History Confirmed 11/27/20] Clopidogrel Bisulfate [Plavix] 75 mg PO UD 06/16/14 [History Confirmed 11/27/20] Donepezil HCl [Aricept] 10 mg PO BID 06/16/14 [History Confirmed 11/27/20] Tamsulosin HCl 0.4 mg [Flomax 0.4 MG] 0.4 mg PO HS 06/16/14 [History Confirmed 11/27/20] Fluoxetine HCl [Prozac] 40 mg PO DAILY 04/15/15 [History Confirmed 11/27/20] Memantine HCl [Namenda] 10 mg PO BID 04/15/15 [History Confirmed 11/27/20] Atorvastatin Calcium 20 mg PO HS 08/17/17 [History Confirmed 11/27/20] Ferrous Sulfate [Iron] 325 mg PO DAILY 08/17/17 [History Confirmed 11/27/20] Gabapentin [Neurontin] 300 mg PO BID 08/17/17 [History Confirmed 11/27/20] Omeprazole 40 mg PO DAILY 08/17/17 [History Confirmed 11/27/20] Sodium Bicarbonate 650 mg PO HS 08/17/17 [History Confirmed 11/27/20] Carvedilol 12.5 mg [Coreg 12.5 mg] 12.5 mg PO BID 11/04/19 [History Confirmed 11/27/20] Evolocumab [Repatha Sureclick] 140 mg SQ UD 11/04/19 [History Confirmed 11/27/20] Insulin Detemir [Levemir] 25 unit SQ BID 06/23/20 [History Confirmed 11/27/20] Insulin Lispro [Humalog] 0 unit SQ TID PRN 08/14/20 [History Confirmed 11/27/20] Vitamin B Complex 1 each PO DAILY 09/24/20 [History Confirmed 11/27/20] Furosemide 40 mg [Lasix 40 MG] 40 mg PO DAILY 11/07/20 [History Confirmed 11/27/20] Patiromer Calcium Sorbitex [Veltassa] 8.46 mg PO DAILY 11/07/20 [History Confirmed 11/27/20] Aspirin EC 81 mg [Ecotrin 81 mg] 81 mg PO DAILY 11/27/20 [History Confirmed 11/27/20] Allergies/Adverse Reactions: Allergies Allergy/AdvReac Type Severity Reaction Status Date / Time No Known Allergies Allergy Verified 11/06/20 22:58 - Past Medical History Past Medical History: Yes Neurological History: TIA ENT History: No Pertinent History Cardiac History: Coronary Artery Disease, High Cholesterol, Hypertension, Myocardial Infarction ([place]) Respiratory History: Pneumonia, Other Endocrine Medical History: Diabetes Type II Musculoskelatal History: Osteoarthritis GI Medical History: Diverticulitis, GERD, Other History: Renal Disease, Other Pyscho-Social History: Anxiety, Depression Male Reproductive Disorders: Prostate Problems Comment: Pacemaker, stents, Covid 19 - Past Surgical History Past Surgical History: Yes Neuro Surgical History: No Pertinent History Cardiac History: Cardiac Catheterization, Cardiac Stent, Pacemaker Respiratory Surgery: No Pertinent History GI Surgical History: No Pertinent History Genitourinary Surgical Hx: No Pertinent History Musculskeletal Surgical Hx: Orthopedic Surgery Male Surgical History: No Pertinent History Other Surgical History: rt knee replacement and revision to rt knee, skin lesions removed left arm, partial parathyroid gland removed - Social History Smoking Status: Never smoker Exposure to second hand smoke: No Alcohol: None Drug Use: none Significant Family History: no pertinent family hx Physical Exam - Narrative Narrative Physical Exam: Podiatry Physical Exam Vascular: DP and PT pulses non-palpable b/l. CFT <5 seconds b/l. Skin t emperature warm to cool from the proximal tibial tuberosity to distal toes b/l. Absent pedal hair growth b/l. Varicosities noted to lower legs b/l. No cellulitis, proximal streaking or lymphangitis noted. No lymphadenopathy on palpation of the popliteal or inguinal lymph nodes b/l Neurological: Protective sensation diminished 6/10 on the right and 4/10 on the left as indicated with [place] 5.07 monofilament b/l. Lower extremity temperature sensation diminished b/l. Evidence of intrinsic muscle atrophy Dermatological: Severely dystrophic changes to the skin. Skin is xerotic and scaly in nature. Turgor is rigid. No cicatrix noted. Nails are dystrophic crumbling and incurvated as well as discolored yellow to digits 1 through 5 on the left and 2 through 5 on the right. Gangrenous toe noted to the metatarsophalangeal joint of the right foot. Mild cellulitis to the dorsal aspect of the right foot Musculoskeletal: Not performed Wound Care / Suspicious Lesions: Wound #1 Location Lateral aspect of the right foot at styloid process fifth metatarsal Size - Healed Appearance - Healed over S/S of infection - Pain Additional - Wound #2 Locationgreat toe right foot Size circumferential great toe Appearance dry gangrene with indications of demarcation SS of infection: Results - Labs Lab/Micro Results: Lab Results-Last 24 Hours 11/27/20 11/27/20 11/27/20 Range/Units 16:30 16:30 16:53 WBC 6.8 (4.0-10.5) K/mm3 RBC 3.01 L (4.1-5.6) M/mm3 Hgb 9.6 L (12.5-18.0) gm/dl Hct 30.7 L (42-50) % MCV 102.0 H (78-100) fl MCH 31.9 (26-32) pg MCHC 31.3 L (32-36) g/dl RDW 13.0 (11.5-14.0) % Plt Count 201 (150-450) K/mm3 MPV 8.7 (7.5-11.0) fl Gran % 82.3 H (36.0-66.0) % Eos # (Auto) 0.02 (0-0.5) Absolute Lymphs (auto) 0.61 L (1.0-4.6) Absolute Monos (auto) 0.56 (0.0-1.3) Lymphocytes % 8.9 L (24.0-44.0) % Monocytes % 8.2 (0.0-12.0) % Eosinophils % 0.3 (0.00-5.0) % Basophils % 0.3 (0.0-0.4) % Absolute Granulocytes 5.61 (1.4-6.9) Basophils # 0.02 (0-0.4) Sodium 133 L (137-145) mmol/L Potassium 4.6 (3.5-5.1) mmol/L Chloride 103 (98-107) mmol/L Carbon Dioxide 20 L (22-30) mmol/L Anion Gap 14.2 (5-15) MEQ/L BUN 52 H (9-20) mg/dL Creatinine 3.99 H (0.66-1.25) mg/dL Estimated GFR 15.6 ML/MIN Glucose 447 H (74-106) mg/dL POC Glucometer (74 to 106) mg/dL Lactic Acid 1.7 (0.4-2.0) Calcium 9.1 (8.4-10.2) mg/dL Total Bilirubin 0.40 (0.2-1.3) mg/dL AST 20 (17-59) U/L ALT 21 (0-50) U/L Alkaline Phosphatase 83 (38-126) U/L Serum Total Protein 6.7 (6.3-8.2) g/dL Albumin 3.5 (3.5-5.0) g/dL Prealbumin (17.6-36.0) mg/dL 11/27/20 11/28/20 11/28/20 Range/Units 21:18 06:20 06:20 WBC 8.0 (4.0-10.5) K/mm3 RBC 2.85 L (4.1-5.6) M/mm3 Hgb 9.1 L (12.5-18.0) gm/dl Hct 28.9 L (42-50) % MCV 101.4 H (78-100) fl MCH 31.9 (26-32) pg MCHC 31.5 L (32-36) g/dl RDW 13.0 (11.5-14.0) % Plt Count 196 (150-450) K/mm3 MPV 8.9 (7.5-11.0) fl Gran % 76.0 H (36.0-66.0) % Eos # (Auto) 0.07 (0-0.5) Absolute Lymphs (auto) 0.92 L (1.0-4.6) Absolute Monos (auto) 0.91 (0.0-1.3) Lymphocytes % 11.5 L (24.0-44.0) % Monocytes % 11.4 (0.0-12.0) % Eosinophils % 0.9 (0.00-5.0) % Basophils % 0.2 (0.0-0.4) % Absolute Granulocytes 6.09 (1.4-6.9) Basophils # 0.02 (0-0.4) Sodium 135 L (137-145) mmol/L Potassium 4.1 (3.5-5.1) mmol/L Chloride 108 H (98-107) mmol/L Carbon Dioxide 20 L (22-30) mmol/L Anion Gap 11.2 (5-15) MEQ/L BUN 48 H (9-20) mg/dL Creatinine 3.93 H (0.66-1.25) mg/dL Estimated GFR 15.8 ML/MIN Glucose 292 H (74-106) mg/dL POC Glucometer 257 H (74 to 106) mg/dL Lactic Acid (0.4-2.0) Calcium 8.9 (8.4-10.2) mg/dL Total Bilirubin (0.2-1.3) mg/dL AST (17-59) U/L ALT (0-50) U/L Alkaline Phosphatase (38-126) U/L Serum Total Protein (6.3-8.2) g/dL Albumin (3.5-5.0) g/dL Prealbumin (17.6-36.0) mg/dL 11/28/20 11/28/20 Range/Units 06:20 07:47 WBC (4.0-10.5) K/mm3 RBC (4.1-5.6) M/mm3 Hgb (12.5-18.0) gm/dl Hct (42-50) % MCV (78-100) fl MCH (26-32) pg MCHC (32-36) g/dl RDW (11.5-14.0) % Plt Count (150-450) K/mm3 MPV (7.5-11.0) fl Gran % (36.0-66.0) % Eos # (Auto) (0-0.5) Absolute Lymphs (auto) (1.0-4.6) Absolute Monos (auto) (0.0-1.3) Lymphocytes % (24.0-44.0) % Monocytes % (0.0-12.0) % Eosinophils % (0.00-5.0) % Basophils % (0.0-0.4) % Absolute Granulocytes (1.4-6.9) Basophils # (0-0.4) Sodium (137-145) mmol/L Potassium (3.5-5.1) mmol/L Chloride (98-107) mmol/L Carbon Dioxide (22-30) mmol/L Anion Gap (5-15) MEQ/L BUN (9-20) mg/dL Creatinine (0.66-1.25) mg/dL Estimated GFR ML/MIN Glucose (74-106) mg/dL POC Glucometer 264 H (74 to 106) mg/dL Lactic Acid (0.4-2.0) Calcium (8.4-10.2) mg/dL Total Bilirubin (0.2-1.3) mg/dL AST (17-59) U/L ALT (0-50) U/L Alkaline Phosphatase (38-126) U/L Serum Total Protein (6.3-8.2) g/dL Albumin (3.5-5.0) g/dL Prealbumin 12.53 L (17.6-36.0) mg/dL Accuchecks Date 11/28/20 Date 11/27/20 Time 07:30 Time 22:00 Assessment/Plan (1) Cellulitis of right foot Current Visit: Yes Status: Acute Code(s): L03.115 - CELLULITIS OF RIGHT LOWER LIMB (2) Diabetic infection of right foot Current Visit: Yes Status: Acute Code(s): E11.628 - TYPE 2 DIABETES MELLITUS WITH OTHER SKIN COMPLICATIONS; L08.9 - LOCAL INFECTION OF THE SKIN AND SUBCUTANEOUS TISSUE, UNSP (3) Gangrene of toe of right foot Current Visit: Yes Status: Acute Assessment & Plan: Patient examination and evaluation. Per Dr. Dunn's recommendations as well as discussion with the daughter -who is the power of district attorney- likelihood of patient healing a hallux amputation as well as a first ray amputation would not be sufficient and both agree that a transmetatarsal amputation may be the best possible recourse at this time. I agree with this approach to limit the patient's OR time and prevent the necessitation of taking him back for additional amputations going forward. No guarantees were provided as to the outcome due to the severe nature of the fact the patient is a vasculopath with completely occluded circulation distal to the ankle as well as the and vessel disease, renal failure and the patient being a poorly controlled diabetic. Patient and daughter understand that if there are signs of demarcation following the transmetatarsal amputation I will likely be sending the patient for recommendation for a below-knee amputation We will plan for surgical intervention Monday at 7 AM. Consent to read transmetatarsal amputation right foot Patient will have to be nonweightbearing to the right lower extremity until the surgical site has healed Do not discontinue any anticoagulation or platelet therapies prior to procedure. Antibiotics to be managed by Dr. Brownlee appreciate recommendations. We will follow closely Code(s): I96 - GANGRENE, NOT ELSEWHERE CLASSIFIED
[2020-11-28] MEDS ORDERED: NON-FORMULARY ITEM (Vitamin B Complex [Vitamin B Complex] 1 EACH) PO SCH (10:00)
[2020-11-28] MEDS ORDERED: EVOLOCUMAB 140 MG SQ SCH (10:00)
[2020-11-28] MEDS ORDERED: NON-FORMULARY ITEM (Memantine Hcl [Namenda] 10 MG) PO SCH (10:00)
[2020-11-28] MEDS ORDERED: INSULIN DETEMIR 25 UNIT SQ SCH (10:00)
[2020-11-28] MEDS ORDERED: NON-FORMULARY ITEM (Omeprazole [Omeprazole] 40 MG) PO SCH (10:00)
[2020-11-28] MEDS ORDERED: MEDICATION INTERVENTION MC SCH (10:15)
[2020-11-28] MEDS ORDERED: PHARMACY DOSING REQUIRED: VANCOMYCIN IV STA (10:19)
[2020-11-28] MEDS: VANCOMYCIN 1.25 GM/250 ML BAG 1.25 GM/250 ML PIGGYBACK IV SCH (10:35)
[2020-11-28] MEDS: ECOTRIN 81 MG PO SCH (10:36)
[2020-11-28] MEDS: SYNTHROID 25 MCG PO SCH (10:36)
[2020-11-28] MEDS: Lasix 40 MG PO SCH (10:36)
[2020-11-28] MEDS: Protonix 40MG Tablet PO SCH (10:36)
[2020-11-28] MEDS: Prozac 20 MG PO SCH (10:36)
[2020-11-28] MEDS: Namenda 5 MG PO SCH ×2 (10:36→22:02)
[2020-11-28] MEDS: FEOSOL 325 MG PO SCH (10:37)
[2020-11-28] MEDS: NEURONTIN 300 MG PO SCH ×2 (10:37→22:03)
[2020-11-28] MEDS: Aricept 10 MG PO SCH ×2 (10:37→22:02)
[2020-11-28] MEDS: VITA-BEE WITH C PO SCH (10:37)
[2020-11-28] MEDS: Lantus Insulin SQ SCH ×2 (10:38→22:01)
[2020-11-28] MEDS: ULTRAM 50 MG PO PRN ×2 (12:30→19:56)
[2020-11-28] MEDS: Cyclobenzaprine 10 MG PO SCH ×2 (13:39→22:02)
--- NOTE | 2020-11-28 17:18 | XRAY ---
Indication: Low back pain. Comparison: CT lumbar spine February 21, 2014. 3 view lumbar spine demonstrates stable mild dextroscoliosis centered at L2-L3 with progressive worsening mild/moderate multilevel thoracolumbar degenerative spondylosis greatest at L3-L5. Stable 8 mm right anterior abdominal wall foreign body approximately L3 level and scattered aortoiliac calcifications. No acute fracture, subluxation, or suspicious bony lesions. Impression: Nonacute lumbar spine with chronic features.
[2020-11-28] MEDS: Sodium Chloride 0.9% 1000 ML 1,000 ML IV SCH (19:56)
[2020-11-28] MEDS ORDERED: NON-FORMULARY ITEM (Sodium Bicarbonate 650 MG) PO SCH (22:00)
[2020-11-28] MEDS: Flomax 0.4 MG PO SCH (22:02)
[2020-11-28] MEDS: ZOCOR 20MG PO SCH (22:02)
[2020-11-28] MEDS: NON-FORMULARY ITEM PO SCH (22:08)
[2020-11-29 06:29] LABS: Hematocrit 28.1 % (42-50); Hemoglobin 8.8 gm/dl (12.5-18.0); Mean Cell Volume 102.2 fl (78-100); Mean Corpuscular Hgb Concent. 31.3 g/dl (32-36); Mean Platelet Volume 8.7 fl (7.5-11.0); Platelet Count 207 K/mm3 (150-450); Red Blood Count 2.75 M/mm3 (4.1-5.6); Red Cell Distribution Width 12.9 % (11.5-14.0); White Blood Count 10.4 K/mm3 (4.0-10.5)
[2020-11-29 06:44] LABS: ANION GAP 12.3 MEQ/L (5-15); Calcium 8.9 mg/dL (8.4-10.2); Creatinine 1 3.83 mg/dL (0.66-1.25); EST GLOMERULAR FILTRATION RATE 16.3 ML/MIN
[2020-11-29] MEDS: ULTRAM 50 MG PO PRN (07:43)
[2020-11-29] MEDS: HUMALOG SQ PRN ×3 (07:44→21:43)
[2020-11-29] MEDS: Unasyn 1.5GM / NaCl 100ML 1.5 GM/100 ML IVPB IV SCH ×2 (09:41→22:02)
[2020-11-29] MEDS: Aricept 10 MG PO SCH ×2 (09:44→21:34)
[2020-11-29] MEDS: COREG 12.5 MG PO SCH ×2 (09:44→21:34)
[2020-11-29] MEDS: Cyclobenzaprine 10 MG PO SCH ×3 (09:44→21:34)
[2020-11-29] MEDS: FEOSOL 325 MG PO SCH (09:45)
[2020-11-29] MEDS: Protonix 40MG Tablet PO SCH (09:45)
[2020-11-29] MEDS: ECOTRIN 81 MG PO SCH (09:45)
[2020-11-29] MEDS: Lasix 40 MG PO SCH (09:45)
[2020-11-29] MEDS: SYNTHROID 25 MCG PO SCH (09:45)
[2020-11-29] MEDS: NEURONTIN 300 MG PO SCH ×2 (09:45→21:34)
[2020-11-29] MEDS: Namenda 5 MG PO SCH ×2 (09:45→21:34)
[2020-11-29] MEDS: VITA-BEE WITH C PO SCH (09:45)
[2020-11-29] MEDS: Prozac 20 MG PO SCH (09:45)
[2020-11-29] MEDS: Lantus Insulin SQ SCH ×2 (09:54→21:34)
[2020-11-29] MEDS: NORCO 5/325 MG PO PRN (12:47)
[2020-11-29] MEDS: Sodium Chloride 0.9% 1000 ML 1,000 ML IV SCH (16:22)
[2020-11-29] MEDS: Flomax 0.4 MG PO SCH (21:34)
[2020-11-29] MEDS: ZOCOR 20MG PO SCH (21:34)
[2020-11-29] MEDS: NON-FORMULARY ITEM PO SCH (21:34)
[2020-11-30] MEDS ORDERED: Lactated Ringers 1,000 ML IV SCH (05:30)
[2020-11-30] MEDS ORDERED: BUPIVACAINE 0.5% VIAL IJ ONE (06:20)
[2020-11-30] MEDS ORDERED: XYLOCAINE 1% HCL 20 ML MDV ONE (06:20)
[2020-11-30] MEDS ORDERED: Lactated Ringers 1,000 ML IV ONE (06:20)
[2020-11-30] MEDS ORDERED: Versed 2 MG/2 ML Injection IV ONE (06:58)
[2020-11-30] MEDS ORDERED: Ketamine HCl 50 MG/ML IV ONE (06:58)
[2020-11-30] MEDS ORDERED: DIPRIVAN 200 MG/20 ML IV ONE ×2 (06:58→07:51)
[2020-11-30] MEDS ORDERED: SUBLIMAZE 100 MCG/2 ML IV ONE (06:59)
[2020-11-30] MEDS ORDERED: Sodium Chloride 0.9% 1000 ML 1,000 ML ONE (07:04)
[2020-11-30] MEDS ORDERED: TRANDATE 20 MG/4 ML SYRINGE IV ONE (07:20)
[2020-11-30] MEDS: Cyclobenzaprine 10 MG PO SCH ×3 (09:17→20:53)
[2020-11-30] MEDS: ECOTRIN 81 MG PO SCH (09:17)
[2020-11-30] MEDS: FEOSOL 325 MG PO SCH (09:17)
[2020-11-30] MEDS: COREG 12.5 MG PO SCH ×2 (09:17→20:52)
[2020-11-30] MEDS: Aricept 10 MG PO SCH ×2 (09:17→20:53)
[2020-11-30] MEDS: Lantus Insulin SQ SCH ×2 (09:18→21:10)
[2020-11-30] MEDS: NEURONTIN 300 MG PO SCH ×2 (09:19→20:53)
[2020-11-30] MEDS: Namenda 5 MG PO SCH ×2 (09:19→20:52)
[2020-11-30] MEDS: Lasix 40 MG PO SCH (09:19)
[2020-11-30] MEDS: Protonix 40MG Tablet PO SCH (09:20)
[2020-11-30] MEDS: SYNTHROID 25 MCG PO SCH (09:20)
[2020-11-30] MEDS: VITA-BEE WITH C PO SCH (09:20)
[2020-11-30] MEDS: Prozac 20 MG PO SCH (09:20)
[2020-11-30] MEDS: PLAVIX 75 MG Tablet PO SCH (10:49)
[2020-11-30] MEDS: Sodium Chloride 0.9% 1000 ML 1,000 ML IV SCH ×2 (11:08→19:55)
[2020-11-30] MEDS: KEFLEX 500 MG PO SCH ×2 (11:13→17:04)
[2020-11-30] MEDS: VANCOMYCIN 1.25 GM/250 ML BAG 1.25 GM/250 ML PIGGYBACK IV SCH (11:13)
--- NOTE | 2020-11-30 11:14 | HP ---
CHIEF COMPLAINT: Cellulitis on the right foot and gangrenous right great toe. HISTORY OF PRESENT ILLNESS: The patient is a 80 year old white male patient resident of [facility] who had planned to have amputation of right great toe with Dr. Sauceda this coming 11/30/2020. However, the patient developed redness over the right foot extending to the top of the foot. Having spoken with Dr. Sauceda he stated the patient has been seen by Dr. Dunn and has essentially no flow below the knee and has made the decision that it is more likely that he should have a mid-foot amputation. The patient was brought in for IV antibiotic therapy pending surgical treatment. PAST MEDICAL/SURGICAL HISTORY: Otherwise significant for renal failure. 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 His creatinine has been 3. I discussed with him the possibility for dialysis but they are not currently doing this. The patient otherwise has hyperlipidemia, diabetes mellitus, hypothyroid. The patient's history otherwise is significant for previous pacemaker and stent placement. He has had diverticulitis and gastroesophageal reflux disease. PHYSICAL EXAMINATION: His vital signs on admission showed temperature of 100.0F, pulse 77, respiratory rate 20 and blood pressure 172/75. O2 saturation 97% on room air. HEENT: Normocephalic, atraumatic. Pupils equal round reactive to light. Extraocular movements intact. Oropharynx is slightly dry. NECK: Supple without lymphadenopathy, thyromegaly or JVD. CHEST: Clear to auscultation. HEART: Regular without significant murmurs, rubs or gallops. ABDOMEN: Soft. No palpable masses. EXTREMITIES: Revealed the black great toe on the right side with cellulitis extending up the mid-foot. LAB DATA AND TESTS: The patient's laboratory studies have shown lactic acid 1.7. White count 6,800 with hemoglobin 9.6, PLT count 201,000. Sugar nonfasting was 447. BUN 52, creatinine 3.99. Electrolytes showed slightly low sodium at 133. Liver enzymes were normal. The patient was still on Unasyn. We will add Vancomycin. He has a surgical consultation with Dr. Sauceda who is here to see him today. The patient has already eaten breakfast at this point and will likely be held off for surgery until Monday.
[2020-11-30] MEDS: NORCO 5/325 MG PO PRN (11:16)
[2020-11-30] MEDS ORDERED: Apresoline 25 MG TABLET PO PRN (16:11)
--- NOTE | 2020-11-30 16:17 | PCM.NOTE ---
Date and Time: 11/30/20 1612 Subjective Assessment: Pt had metatarsal amputation with Dr. Sauceda this morning, thank you. Pt is not feeling well but unable to tell me why. Does c/o pain in the leg "all the time" and states "I don't think they've been giving me pain medicine." - Review of Systems Constitutional: No Fever Musculoskeletal: Joint Pain Objective Exam General Appearance: no apparent distress, alert Neurologic Exam: cooperative, normal mood/affect (talks normally on the phone during my exam) Skin Exam: normal color, warm, dry, No rash Wound Assessment: Skin/Wound Assessment Wound/Incision Assessment Start: 11/27/20 20:27 Text: Status: Active Freq: Q6H Protocol: Document 11/30/20 14:00 GEE (Rec: 11/30/20 14:18 GEE [id number]) Wound/Incision Assessment Right Toe Wound Assessment Shift Assessment Wound Type 1st toe gangrenous/BLACK Wound Stage Non Pressure Wound Drainage Amount None General Appearance Open to air Comment REDNESS NOTED ON TOP OF FOOT Wound Photo Photo Taken No Eye Exam: eyes nml inspection Ears, Nose, Throat Exam: moist mucous membranes Respiratory Exam: normal breath sounds, lungs clear, No crackles/rales, No rhonchi, No wheezing Cardiovascular Exam: regular rate/rhythm, normal heart sounds, No murmur Extremity Exam: other (R foot wrapped s/p surgery; there is no erythema on the anterior lower leg. no edema. LLE without edema/erythema.) OBJECTIVE DATA Vital Signs: Vital Signs - 24 hr Temp Pulse Resp BP Pulse Ox 11/30/20 11:55 98.0 F 70 18 170/69 98 11/30/20 04:00 99.0 F 67 16 138/67 93 L 11/30/20 03:54 99.0 F 67 16 138/67 93 L 11/30/20 00:00 99.2 F 71 20 136/62 95 11/29/20 20:00 97.5 F 67 16 158/73 93 L Pain Assessment - Last Documented Pain Intensity 0 Pain Scale Used 0-10 Pain Scale Intake and Output: Intake & Output 11/28/20 11/29/20 11/30/20 12/01/20 11:59 11:59 11:59 11:59 Intake Total 240 3434 2817 Output Total 400 1800 Balance 240 3034 1017 Weight 95.2 kg 92.6 kg 95.8 kg 95.8 kg Lab Results: Lab Results-Last 24 Hours 11/29/20 11/29/20 11/30/20 Range/Units 16:21 21:20 06:03 POC Glucometer 248 H 215 H 85 (74 to 106) mg/dL 11/30/20 Range/Units 11:10 POC Glucometer 58 L (74 to 106) mg/dL Multi-Disciplinary Progress Notes: Multi-Disciplinary Progress Notes 11/30/20 14:20 Case Management Note by Estrella Yarbrough DISCHARGE PLAN REVIEWED, PLANS TO RETURN TO [place] ON DISCHARGE FOR CONTINUED REHAB STAY. DENIES ADDNL NEEDS AT PRESENT TIME. Initialized on 11/30/20 14:20 - END OF NOTE Assessment/Plan (1) Cellulitis of right foot Current Visit: Yes Status: Acute Assessment & Plan: Pt is on day #1 keflex 500mg 1 po q6h and day #3 vancomycin. He completed two days of unasyn prior to today. Appears to be improving. 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 (6) Diabetes mellitus Current Visit: No Status: Chronic Code(s): E11.9 - TYPE 2 DIABETES MELLITUS WITHOUT COMPLICATIONS (7) HTN (hypertension) Current Visit: No Status: Chronic Qualifiers: Hypertension type: essential hypertension Qualified Code(s): I10 - Essential (primary) hypertension Assessment & Plan: Most BP not concerning but he did have 1 systolic of 170; I added hydralazine for prn coverage. Code(s): I10 - ESSENTIAL (PRIMARY) HYPERTENSION
[2020-11-30 17:24] LABS: Absolute Neutrophil Ct (ANC) 5.06 (1.4-6.9); BASOPHIL % 0.3 % (0.0-0.4); Basophil (Absolute #) 0.02 (0-0.4); Eosinophil % 4.4 % (0.00-5.0); Eosinophil (Absolute #) 0.34 (0-0.5); Hematocrit 27.6 % (42-50); Hemoglobin 8.5 gm/dl (12.5-18.0); Lymphocyte (Absolute #) 1.61 (1.0-4.6); Lymphocytes % 20.7 % (24.0-44.0); Mean Cell Volume 103.8 fl (78-100); Mean Corpuscular Hgb Concent. 30.8 g/dl (32-36); Mean Platelet Volume 8.5 fl (7.5-11.0); Monocyte (Absolute #) 0.73 (0.0-1.3); Monocytes % 9.4 % (0.0-12.0); Neutrophil % 65.2 % (36.0-66.0); Platelet Count 241 K/mm3 (150-450); Red Blood Count 2.66 M/mm3 (4.1-5.6); Red Cell Distribution Width 13.2 % (11.5-14.0); White Blood Count 7.8 K/mm3 (4.0-10.5)
[2020-11-30] MEDS: Norco 10/325 MG Tablet PO PRN (17:48)
[2020-11-30 17:58] LABS: Creatinine 1 3.73 mg/dL (0.66-1.25); EST GLOMERULAR FILTRATION RATE 16.8 ML/MIN; Potassium 4.4 mmol/L (3.5-5.1)
[2020-11-30] MEDS: NON-FORMULARY ITEM PO SCH (20:53)
[2020-11-30] MEDS: Flomax 0.4 MG PO SCH (20:53)
[2020-11-30] MEDS: ZOCOR 20MG PO SCH (20:53)
[2020-12-01] MEDS: KEFLEX 500 MG PO SCH ×4 (00:10→17:34)
[2020-12-01] MEDS: Norco 10/325 MG Tablet PO PRN ×2 (00:10→10:48)
[2020-12-01 05:29] LABS: Absolute Neutrophil Ct (ANC) 4.98 (1.4-6.9); BASOPHIL % 0.3 % (0.0-0.4); Basophil (Absolute #) 0.02 (0-0.4); Eosinophil % 3.6 % (0.00-5.0); Eosinophil (Absolute #) 0.26 (0-0.5); Hemoglobin 8.4 gm/dl (12.5-18.0); Lymphocyte (Absolute #) 1.32 (1.0-4.6); Lymphocytes % 18.2 % (24.0-44.0); Mean Cell Volume 103.4 fl (78-100); Mean Corpuscular Hemoglobin 32.2 pg (26-32); Mean Corpuscular Hgb Concent. 31.1 g/dl (32-36); Mean Platelet Volume 8.5 fl (7.5-11.0); Monocyte (Absolute #) 0.68 (0.0-1.3); Monocytes % 9.4 % (0.0-12.0); Neutrophil % 68.5 % (36.0-66.0); Platelet Count 245 K/mm3 (150-450); Red Blood Count 2.61 M/mm3 (4.1-5.6); Red Cell Distribution Width 13.3 % (11.5-14.0); White Blood Count 7.3 K/mm3 (4.0-10.5)
[2020-12-01 05:55] LABS: ANION GAP 12.5 MEQ/L (5-15); Calcium 8.8 mg/dL (8.4-10.2); Creatinine 1 3.75 mg/dL (0.66-1.25); EST GLOMERULAR FILTRATION RATE 16.7 ML/MIN; Potassium 4.3 mmol/L (3.5-5.1)
[2020-12-01] MEDS: HUMALOG SQ PRN (07:59)
--- NOTE | 2020-12-01 08:34 | PCM.NOTE ---
Date and Time: 12/01/20829 Subjective Assessment: Pt's pain is improved - he denies foot pain this morning and c/o back pain /10. Tolerating po. - Review of Systems Constitutional: No Fever Abdominal/Gastrointestinal: No Vomiting Objective Exam General Appearance: no apparent distress, alert Neurologic Exam: cooperative, other (limited facies) Skin Exam: normal color, warm, dry, No rash Wound Assessment: Skin/Wound Assessment Wound/Incision Assessment Start: 11/27/20 20:27 Text: Status: Active Freq: Q6H Protocol: Document 12/01/20 02:00 RIN (Rec: 12/01/20 02:24 RIN [id number]) Wound/Incision Assessment Right Toe Wound Assessment Shift Assessment Wound Type Incision Wound Stage Non Pressure Wound Dressing Status Dry & Intact Drainage Amount None Comment DRESSING FROM OR CLEAN, DRY, AND INTACT, LEG ELEVATED ON 2 PILLOWS Wound Photo Photo Taken No Respiratory Exam: normal breath sounds, lungs clear, No crackles/rales, No rhonchi, No wheezing Cardiovascular Exam: regular rate/rhythm, normal heart sounds, No murmur Gastrointestinal/Abdomen Exam: normal bowel sounds Extremity Exam: other (RLE wrapped, s/p amputation. LLE no c/c/e.) OBJECTIVE DATA Vital Signs: Vital Signs - 24 hr Temp Pulse Resp BP Pulse Ox 12/01/20 07:32 98.3 F 71 16 125/56 95 12/01/20 05:00 98.1 F 71 16 154/72 94 L 11/30/20 23:50 99.1 F 68 18 143/68 95 11/30/20 20:00 98 F 69 20 154/66 95 11/30/20 16:00 98.5 F 114 H 20 144/63 98 11/30/20 14:00 70 20 126/70 11/30/20 13:30 72 20 128/65 97 11/30/20 13:00 82 20 126/59 96 11/30/20 12:15 83 20 153/64 96 11/30/20 12:00 97.9 F 68 20 110/56 96 11/30/20 11:55 98.0 F 70 18 170/69 98 Pain Assessment - Last Documented Pain Intensity 0 Pain Scale Used 0-10 Pain Scale Intake and Output: Intake & Output 01/16/11/29/20 11/30/20 12/01/20 11:59 11:59 11:59 11:59 Intake Total 240 3430 2817 2662 Output Total 400 1800 1150 Balance 240 3034 1017 1512 Weight 95.2 kg 92.6 kg 95.8 kg 95.2 kg Lab Results: Lab Results-Last 24 Hours 11/30/20 11/30/20 11/30/20 Range/Units 11:10 16:14 16:45 WBC 7.8 (4.0-10.5) K/mm3 RBC 2.66 L (4.1-5.6) M/mm3 Hgb 8.5 L (12.5-18.0) gm/dl Hct 27.6 L (42-50) % MCV 103.8 H (78-100) fl MCH 32.0 (26-32) pg MCHC 30.8 L (32-36) g/dl RDW 13.2 (11.5-14.0) % Plt Count 241 (150-450) K/mm3 MPV 8.5 (7.5-11.0) fl Gran % 65.2 (36.0-66.0) % Eos # (Auto) 0.34 (0-0.5) Absolute Lymphs (auto) 1.61 (1.0-4.6) Absolute Monos (auto) 0.73 (0.0-1.3) Lymphocytes % 20.7 L (24.0-44.0) % Monocytes % 9.4 (0.0-12.0) % Eosinophils % 4.4 (0.00-5.0) % Basophils % 0.3 (0.0-0.4) % Absolute Granulocytes 5.06 (1.4-6.9) Basophils # 0.02 (0-0.4) Sodium (137-145) mmol/L Potassium (3.5-5.1) mmol/L Chloride (98-107) mmol/L Carbon Dioxide (22-30) mmol/L Anion Gap (5-15) MEQ/L BUN (9-20) mg/dL Creatinine (0.66-1.25) mg/dL Estimated GFR ML/MIN Glucose (74-106) mg/dL POC Glucometer 58 L 160 H (74 to 106) mg/dL Calcium (8.4-10.2) mg/dL 11/30/20 11/30/20 12/01/20 Range/Units 16:45 21:06 05:10 WBC 7.3 (4.0-10.5) K/mm3 RBC 2.61 L (4.1-5.6) M/mm3 Hgb 8.4 L (12.5-18.0) gm/dl Hct 27.0 L (42-50) % MCV 103.4 H (78-100) fl MCH 32.2 H (26-32) pg MCHC 31.1 L (32-36) g/dl RDW 13.3 (11.5-14.0) % Plt Count 245 (150-450) K/mm3 MPV 8.5 (7.5-11.0) fl Gran % 68.5 H (36.0-66.0) % Eos # (Auto) 0.26 (0-0.5) Absolute Lymphs (auto) 1.32 (1.0-4.6) Absolute Monos (auto) 0.68 (0.0-1.3) Lymphocytes % 18.2 L (24.0-44.0) % Monocytes % 9.4 (0.0-12.0) % Eosinophils % 3.6 (0.00-5.0) % Basophils % 0.3 (0.0-0.4) % Absolute Granulocytes 4.98 (1.4-6.9) Basophils # 0.02 (0-0.4) Sodium 138 (137-145) mmol/L Potassium 4.4 (3.5-5.1) mmol/L Chloride 110 H (98-107) mmol/L Carbon Dioxide 20 L (22-30) mmol/L Anion Gap 13.0 (5-15) MEQ/L BUN 52 H (9-20) mg/dL Creatinine 3.73 H (0.66-1.25) mg/dL Estimated GFR 16.8 ML/MIN Glucose 151 H (74-106) mg/dL POC Glucometer 250 H (74 to 106) mg/dL Calcium 9.0 (8.4-10.2) mg/dL 12/01/20 Range/Units 05:10 WBC (4.0-10.5) K/mm3 RBC (4.1-5.6) M/mm3 Hgb (12.5-18.0) gm/dl Hct (42-50) % MCV (78-100) fl MCH (26-32) pg MCHC (32-36) g/dl RDW (11.5-14.0) % Plt Count (150-450) K/mm3 MPV (7.5-11.0) fl Gran % (36.0-66.0) % Eos # (Auto) (0-0.5) Absolute Lymphs (auto) (1.0-4.6) Absolute Monos (auto) (0.0-1.3) Lymphocytes % (24.0-44.0) % Monocytes % (0.0-12.0) % Eosinophils % (0.00-5.0) % Basophils % (0.0-0.4) % Absolute Granulocytes (1.4-6.9) Basophils # (0-0.4) Sodium 137 (137-145) mmol/L Potassium 4.3 (3.5-5.1) mmol/L Chloride 109 H (98-107) mmol/L Carbon Dioxide 20 L (22-30) mmol/L Anion Gap 12.5 (5-15) MEQ/L BUN 51 H (9-20) mg/dL Creatinine 3.75 H (0.66-1.25) mg/dL Estimated GFR 16.7 ML/MIN Glucose 264 H (74-106) mg/dL POC Glucometer (74 to 106) mg/dL Calcium 8.8 (8.4-10.2) mg/dL Multi-Disciplinary Progress Notes: Multi-Disciplinary Progress Notes 11/30/20 14:20 Case Management Note by Estrella Yarbrough DISCHARGE PLAN REVIEWED, PLANS TO RETURN TO [place] ON DISCHARGE FOR CONTINUED REHAB STAY. DENIES ADDNL NEEDS AT PRESENT TIME. Initialized on 11/30/20 14:20 - END OF NOTE Assessment/Plan (1) Cellulitis of right foot Current Visit: Yes Status: Acute Assessment & Plan: On IV vancomycin day #4 and keflex po day #2. Code(s): L03.115 - CELLULITIS OF RIGHT LOWER LIMB (2) Diabetic infection of right foot Current Visit: Yes Status: Acute Code(s): E11.628 - TYPE 2 DIABETES MELLITUS WITH OTHER SKIN COMPLICATIONS; L08.9 - LOCAL INFECTION OF THE SKIN AND SUBCUTANEOUS TISSUE, UNSP (3) Diabetes mellitus with peripheral autonomic neuropathy Current Visit: No Status: Acute Qualifiers: Diabetes mellitus type: type 2 Diabetes mellitus assisted insulin use: with termite control servicer use Qualified Code(s): E11.43 - Type 2 diabetes mellitus with diabetic autonomic (poly)neuropathy; Z79.4 - assisted (current) use of insulin Code(s): E11.43 - TYPE 2 DIABETES W DIABETIC AUTONOMIC (POLY)NEUROPATHY (4) Arthritis Current Visit: No Status: Acute Code(s): M19.90 - UNSPECIFIED OSTEOARTHRITIS, UNSPECIFIED SITE (5) Chronic renal failure Current Visit: No Status: Chronic Qualifiers: Chronic kidney disease stage: stage 5 Qualified Code(s): N18.5 - Chronic kidney disease, stage 5 Assessment & Plan: eGFR is 16.7 this morning; was 19 in 2016 and has been as low as 11 in 2017. (6) Diabetes mellitus Current Visit: No Status: Chronic Code(s): E11.9 - TYPE 2 DIABETES MELLITUS WITHOUT COMPLICATIONS (7) HTN (hypertension) Current Visit: No Status: Chronic Qualifiers: Hypertension type: essential hypertension Qualified Code(s): I10 - Essential (primary) hypertension Code(s): I10 - ESSENTIAL (PRIMARY) HYPERTENSION
[2020-12-01] MEDS: Namenda 5 MG PO SCH ×2 (09:15→21:26)
[2020-12-01] MEDS: Prozac 20 MG PO SCH (09:15)
[2020-12-01] MEDS: SYNTHROID 25 MCG PO SCH (09:16)
[2020-12-01] MEDS: COREG 12.5 MG PO SCH ×2 (09:16→21:25)
[2020-12-01] MEDS: NEURONTIN 300 MG PO SCH ×2 (09:16→21:26)
[2020-12-01] MEDS: Cyclobenzaprine 10 MG PO SCH ×3 (09:16→21:25)
[2020-12-01] MEDS: VITA-BEE WITH C PO SCH (09:16)
[2020-12-01] MEDS: Lasix 40 MG PO SCH (09:16)
[2020-12-01] MEDS: Protonix 40MG Tablet PO SCH (09:16)
[2020-12-01] MEDS: ECOTRIN 81 MG PO SCH (09:16)
[2020-12-01] MEDS: Aricept 10 MG PO SCH ×2 (09:16→21:25)
[2020-12-01] MEDS: FEOSOL 325 MG PO SCH (09:16)
[2020-12-01] MEDS: Lantus Insulin SQ SCH ×2 (09:17→21:26)
--- NOTE | 2020-12-01 12:52 | PCM.NOTE ---
Podiatry Narrative Note Podiatry Narrative Note: Subjective: Patient seen at bedside. Indicates he is feeling better however still in some pain. Pain primarily to back. Admits to no complaints related s/p surgical intervention. Denies calf pain, chest pain, cough or shortness of breath. Denies any consitutional symptoms. Denies any other pedal complaints this time. Medications & Allergies Home Medications: Home Medication List Levothyroxine Sodium 50 Mcg [Synthroid 50 Mcg] 25 mcg PO DAILY 03/27/14 [History Confirmed 11/27/20] Clopidogrel Bisulfate [Plavix] 75 mg PO UD 06/16/14 [History Confirmed 11/27/20] Donepezil HCl [Aricept] 10 mg PO BID 06/16/14 [History Confirmed 11/27/20] Tamsulosin HCl 0.4 mg [Flomax 0.4 MG] 0.4 mg PO HS 06/16/14 [History Confirmed 11/27/20] Fluoxetine HCl [Prozac] 40 mg PO DAILY 04/15/15 [History Confirmed 11/27/20] Memantine HCl [Namenda] 10 mg PO BID 04/15/15 [History Confirmed 11/27/20] Atorvastatin Calcium 20 mg PO HS 08/17/17 [History Confirmed 11/27/20] Ferrous Sulfate [Iron] 325 mg PO DAILY 08/17/17 [History Confirmed 11/27/20] Gabapentin [Neurontin] 300 mg PO BID 08/17/17 [History Confirmed 11/27/20] Omeprazole 40 mg PO DAILY 08/17/17 [History Confirmed 11/27/20] Sodium Bicarbonate 650 mg PO HS 08/17/17 [History Confirmed 11/27/20] Carvedilol 12.5 mg [Coreg 12.5 mg] 12.5 mg PO BID 11/04/19 [History Confirmed 11/27/20] Evolocumab [Repatha Sureclick] 140 mg SQ UD 11/04/19 [History Confirmed 11/27/20] Insulin Detemir [Levemir] 25 unit SQ BID 06/23/20 [History Confirmed 11/27/20] Insulin Lispro [Humalog] 0 unit SQ TID PRN 08/14/20 [History Confirmed 11/27/20] Vitamin B Complex 1 each PO DAILY 09/24/20 [History Confirmed 11/27/20] Furosemide 40 mg [Lasix 40 MG] 40 mg PO DAILY 11/07/20 [History Confirmed 11/27/20] Patiromer Calcium Sorbitex [Veltassa] 8.46 mg PO DAILY 11/07/20 [History Confirmed 11/27/20] Aspirin EC 81 mg [Ecotrin 81 mg] 81 mg PO DAILY 11/27/20 [History Confirmed 11/27/20] Allergies/Adverse Reactions: Allergies Allergy/AdvReac Type Severity Reaction Status Date / Time No Known Allergies Allergy Verified 11/06/20 22:58 - Past Medical History Past Medical History: Yes Neurological History: TIA ENT History: No Pertinent History Cardiac History: Coronary Artery Disease, High Cholesterol, Hypertension, Myocardial Infarction ([place]) Respiratory History: Pneumonia, Other Endocrine Medical History: Diabetes Type II Musculoskelatal History: Osteoarthritis GI Medical History: Diverticulitis, GERD, Other History: Renal Disease, Other Pyscho-Social History: Anxiety, Depression Male Reproductive Disorders: Prostate Problems Comment: Pacemaker, stents, Covid 19 - Past Surgical History Past Surgical History: Yes Neuro Surgical History: No Pertinent History Cardiac History: Cardiac Catheterization, Cardiac Stent, Pacemaker Respiratory Surgery: No Pertinent History GI Surgical History: No Pertinent History Genitourinary Surgical Hx: No Pertinent History Musculskeletal Surgical Hx: Orthopedic Surgery Male Surgical History: No Pertinent History Other Surgical History: rt knee replacement and revision to rt knee, skin lesions removed left arm, partial parathyroid gland removed - Social History Smoking Status: Never smoker Exposure to second hand smoke: No Alcohol: None Drug Use: none Significant Family History: no pertinent family hx Physical Exam - Narrative Narrative Physical Exam: Podiatry Physical Exam Vascular: DP and PT pulses non-palpable b/l. Dopplerable as monophasic to dp and biphasic to PT. no remaining cellulitis to amputation site. Neurological: Protective sensation diminished 6/10 on the right and 4/10 on the left as indicated with [place]-Maisha 5.07 monofilament b/l. Lower extremity temperature sensation diminished b/l. Evidence of intrinsic muscle atrophy Dermatological: Severely dystrophic changes to the skin. Skin is xerotic and scaly in nature. Turgor is rigid. No cicatrix noted. Nails are dystrophic crumbling and incurvated as well as discolored yellow to digits 1 through 5 on the left transmetatarsal amputation site clean without any remaining signs of infection or gangrene. sutures clean dry and intact without evidence of dehisence. Musculoskeletal: Not performed Results - Labs Lab/Micro Results: Lab Results-Last 24 Hours 11/27/20 11/27/20 11/27/20 Range/Units 16:30 16:30 16:53 WBC 6.8 (4.0-10.5) K/mm3 RBC 3.01 L (4.1-5.6) M/mm3 Hgb 9.6 L (12.5-18.0) gm/dl Hct 30.7 L (42-50) % MCV 102.0 H (78-100) fl MCH 31.9 (26-32) pg MCHC 31.3 L (32-36) g/dl RDW 13.0 (11.5-14.0) % Plt Count 201 (150-450) K/mm3 MPV 8.7 (7.5-11.0) fl Gran % 82.3 H (36.0-66.0) % Eos # (Auto) 0.02 (0-0.5) Absolute Lymphs (auto) 0.61 L (1.0-4.6) Absolute Monos (auto) 0.56 (0.0-1.3) Lymphocytes % 8.9 L (24.0-44.0) % Monocytes % 8.2 (0.0-12.0) % Eosinophils % 0.3 (0.00-5.0) % Basophils % 0.3 (0.0-0.4) % Absolute Granulocytes 5.61 (1.4-6.9) Basophils # 0.02 (0-0.4) Sodium 133 L (137-145) mmol/L Potassium 4.6 (3.5-5.1) mmol/L Chloride 103 (98-107) mmol/L Carbon Dioxide 20 L (22-30) mmol/L Anion Gap 14.2 (5-15) MEQ/L BUN 52 H (9-20) mg/dL Creatinine 3.99 H (0.66-1.25) mg/dL Estimated GFR 15.6 ML/MIN Glucose 447 H (74-106) mg/dL POC Glucometer (74 to 106) mg/dL Lactic Acid 1.7 (0.4-2.0) Calcium 9.1 (8.4-10.2) mg/dL Total Bilirubin 0.40 (0.2-1.3) mg/dL AST 20 (17-59) U/L ALT 21 (0-50) U/L Alkaline Phosphatase 83 (38-126) U/L Serum Total Protein 6.7 (6.3-8.2) g/dL Albumin 3.5 (3.5-5.0) g/dL Prealbumin (17.6-36.0) mg/dL 11/27/20 11/28/20 11/28/20 Range/Units 21:18 06:20 06:20 WBC 8.0 (4.0-10.5) K/mm3 RBC 2.85 L (4.1-5.6) M/mm3 Hgb 9.1 L (12.5-18.0) gm/dl Hct 28.9 L (42-50) % MCV 101.4 H (78-100) fl MCH 31.9 (26-32) pg MCHC 31.5 L (32-36) g/dl RDW 13.0 (11.5-14.0) % Plt Count 196 (150-450) K/mm3 MPV 8.9 (7.5-11.0) fl Gran % 76.0 H (36.0-66.0) % Eos # (Auto) 0.07 (0-0.5) Absolute Lymphs (auto) 0.92 L (1.0-4.6) Absolute Monos (auto) 0.91 (0.0-1.3) Lymphocytes % 11.5 L (24.0-44.0) % Monocytes % 11.4 (0.0-12.0) % Eosinophils % 0.9 (0.00-5.0) % Basophils % 0.2 (0.0-0.4) % Absolute Granulocytes 6.09 (1.4-6.9) Basophils # 0.02 (0-0.4) Sodium 135 L (137-145) mmol/L Potassium 4.1 (3.5-5.1) mmol/L Chloride 108 H (98-107) mmol/L Carbon Dioxide 20 L (22-30) mmol/L Anion Gap 11.2 (5-15) MEQ/L BUN 48 H (9-20) mg/dL Creatinine 3.93 H (0.66-1.25) mg/dL Estimated GFR 15.8 ML/MIN Glucose 292 H (74-106) mg/dL POC Glucometer 257 H (74 to 106) mg/dL Lactic Acid (0.4-2.0) Calcium 8.9 (8.4-10.2) mg/dL Total Bilirubin (0.2-1.3) mg/dL AST (17-59) U/L ALT (0-50) U/L Alkaline Phosphatase (38-126) U/L Serum Total Protein (6.3-8.2) g/dL Albumin (3.5-5.0) g/dL Prealbumin (17.6-36.0) mg/dL 11/28/20 11/28/20 Range/Units 06:20 07:47 WBC (4.0-10.5) K/mm3 RBC (4.1-5.6) M/mm3 Hgb (12.5-18.0) gm/dl Hct (42-50) % MCV (78-100) fl MCH (26-32) pg MCHC (32-36) g/dl RDW (11.5-14.0) % Plt Count (150-450) K/mm3 MPV (7.5-11.0) fl Gran % (36.0-66.0) % Eos # (Auto) (0-0.5) Absolute Lymphs (auto) (1.0-4.6) Absolute Monos (auto) (0.0-1.3) Lymphocytes % (24.0-44.0) % Monocytes % (0.0-12.0) % Eosinophils % (0.00-5.0) % Basophils % (0.0-0.4) % Absolute Granulocytes (1.4-6.9) Basophils # (0-0.4) Sodium (137-145) mmol/L Potassium (3.5-5.1) mmol/L Chloride (98-107) mmol/L Carbon Dioxide (22-30) mmol/L Anion Gap (5-15) MEQ/L BUN (9-20) mg/dL Creatinine (0.66-1.25) mg/dL Estimated GFR ML/MIN Glucose (74-106) mg/dL POC Glucometer 264 H (74 to 106) mg/dL Lactic Acid (0.4-2.0) Calcium (8.4-10.2) mg/dL Total Bilirubin (0.2-1.3) mg/dL AST (17-59) U/L ALT (0-50) U/L Alkaline Phosphatase (38-126) U/L Serum Total Protein (6.3-8.2) g/dL Albumin (3.5-5.0) g/dL Prealbumin 12.53 L (17.6-36.0) mg/dL Accuchecks Date 11/28/20 Date 11/27/20 Time 07:30 Time 22:00 Assessment/Plan (1) Cellulitis of right foot Current Visit: Yes Status: Acute Code(s): L03.115 - CELLULITIS OF RIGHT LOWER LIMB (2) Diabetic infection of right foot Current Visit: Yes Status: Acute Code(s): E11.628 - TYPE 2 DIABETES MELLITUS WITH OTHER SKIN COMPLICATIONS; L08.9 - LOCAL INFECTION OF THE SKIN AND SUBCUTANEOUS TISSUE, UNSP (3) Gangrene of toe of right foot Current Visit: Yes Status: Acute Assessment & Plan: Patient examination and evaluation. Patient is progressing without complication. There is no further demarcation of the surgical site. Post op dy #1 dressing changed today showing no signs of dehisences or further demarcation secondary to gangrene. Patient and daughter understand that if there are signs of demarcation following the transmetatarsal amputation I will likely be sending the patient for recommendation for a below-knee amputation Non weight bearing to RLE PT/OT assess and treat Case managmenet for dc planning Pain control as prescribed VTE prophylaxis as prescribed. Abx management by medical team. Ok for discharge tomorrow if ok with other providers. Would like to assess once more if further need for surgical intervention necessitated however he is progressing without complication at this time. Will follow closely. Code(s): I96 - GANGRENE, NOT ELSEWHERE CLASSIFIED
--- NOTE | 2020-12-01 13:19 | OP ---
SURGERY DATE/TIME: 11/30/2020 0654 INDICATION FOR SURGERY: Frandy is a very pleasant 80 year old male who is known to my service. Recently he was in the hospital for an episode of hyperglycemia which resulted in loss of consciousness and atraumatic fall. Initially there was no injury assessed on presentation to the hospital. However throughout his course there was determined to be some gangrenous changes and an infection to the right hallux which was addressed at bedside with incision and drainage. Following the incision and drainage and also medical stabilization, the patient was discharged and sent to Dr. Dunn for a revascularization or angiography with potential intervention. The patient had intervention and the process of demarcation of the hallux began. At this point the demarcation has stopped at the level of the first metatarsal approximately 2 cm from the metatarsophalangeal joint with involvement of the distal tip of the second digit. According to Dr. Dunn's note, there is no significant blood flow through the dorsalis pedis or the posterior tibial past the level of the ankle and he recommends amputation. However there are no guarantees as to the level of amputation that will be necessitated. At this time a discussion with the patient, Dr. Dunn and the patient's daughter who is the Power Of V[employer] Drier Feeder, we decided to proceed with transmetatarsal amputation to prevent the potential of multiple repeat amputations and the need for multiple trips to the OR. The patient understands all risks, benefits and complications of the procedure which include but are not limited to potential need for reassessment and reoperation as well as potential nonhealing or delayed healing of the wound. Wound dehiscences are an issue in this type of patient profile with chronic kidney disease, vasculopathy as well as diabetes so an intrinsic muscle flap was planned to protect the open medullary cavities of the metatarsal in order to prevent this scenario. PREOPERATIVE DIAGNOSES: 1) Diabetes mellitus type I. 2) Peripheral vascular disease. 3) Gangrene. 4) Diabetic foot infection, right foot. POSTOPERATIVE DIAGNOSES: 1) Diabetes mellitus type I. 2) Peripheral vascular disease. 3) Gangrene. 4) Diabetic foot infection, right foot. PROCEDURES: 1) Transmetatarsal amputation right foot. 2) Intrinsic muscle flap right foot. SURGEON: Sohail Infante DPM. EYEGLASS LENS CUTTER: None. ANESTHESIA: MAC plus local. See injectable section. HEMOSTASIS: None. ESTIMATED BLOOD LOSS: Less than 50 cc. MATERIALS: 2-0 Vicryl and 3-0 Nylon. INJECTABLES: A 1:1 mixture of 30 cc 1% lidocaine plain and 0.5% Marcaine plain injected into the right ankle in an ankle block-type fashion. DESCRIPTION OF PROCEDURE AND FINDINGS: The patient was brought into the OR and placed on the OR table in supine position. At this time the right lower extremity was prepped and draped in the typical sterile fashion and lowered onto the surgical field. At this time attention was directed to the gangrenous toe of the right foot where was a significant amount of necrosis which was demarcated at the level approximately 3 cm proximal to the first metatarsophalangeal joint. At this time a skin marker was utilized to draw an incision, a fish mouth incision, encapsulating the metatarsophalangeal joint distally saving a large plantar flap and extending proximally to the base of the metatarsals on the medial and lateral aspect. A 15 blade was utilized to make an incision down to bone following the surgical planning route. Once this was achieved a Montero periosteal elevator was utilized to reflect the soft tissue off of the surface of the bone. Following this a sagittal saw was utilized to resect the metatarsals at the level of the mid tarsal shaft with a perpendicular orientation to the longitudinal access of these metatarsals. Once the bones were resected a pulse lavage was utilized to remove any nonviable tissue. At this time the pathological tissue was sampled, handed off the field and sent for microbiological as well as pathological assessment. At this time a new 15 blade was utilized to separate the intrinsic muscle from the plantar aspect of the surgical wound in order to cover the distal ends of the medullary cavities of the bone. There was deemed adequate enough intrinsic musculature in order to not have to perform a dorsalis pedis adipose fascial flap in order to secure. These were secured to the periosteum of the dorsal aspect of the resected metatarsals. At this time the remaining soft tissue flaps were surgically planned for closure and a 15 blade was utilized to resect any dog ears off of the site. At this time the edges were coapted in a buried suture-type fashion with 2-0 Vicryl and then coapted with alternating horizontal mattress and [id number] type sutures to close the incision in total. Following this the leg was cleansed with a wet lap and then dried. The wound was cleansed with Betadine and dressing consisting of Adaptic, 4x4, two Kerlix and a very lightly applied KANDY was placed on the patient's leg in order to secure the dressing. The patient's anesthesia was reversed at this time and the patient was returned to the postoperative anesthesia care unit with palpable dorsalis pedis and posterior tibial arteries and vital signs stable. The patient's orders as indicated in the patient's chart.
[2020-12-01] MEDS: Sodium Chloride 0.9% 1000 ML 1,000 ML IV SCH (17:34)
[2020-12-01] MEDS: Flomax 0.4 MG PO SCH (21:25)
[2020-12-01] MEDS: ZOCOR 20MG PO SCH (21:26)
[2020-12-01] MEDS: NON-FORMULARY ITEM PO SCH (21:26)
[2020-12-02] MEDS: KEFLEX 500 MG PO SCH ×3 (00:15→11:39)
[2020-12-02] MEDS: Norco 10/325 MG Tablet PO PRN ×2 (00:15→11:39)
[2020-12-02] MEDS ORDERED: HUMALOG SQ PRN (09:13)
--- NOTE | 2020-12-02 09:21 | PCM.DS ---
Discharge Summary Date of Admission: 11/27/20 20:01 Admitting Physician: ELADIO LANE Consults: Consults on Case 11/28/20 09:26 Consult Podiatry ROUTINE Primary Care Provider: YOHAN Allergies Allergies No Known Allergies Allergy (Verified 11/06/20 22:58) Hospital Summary - Hospital Course Hospital Course: patient was admitted with cellulitis, diabetic foot ulcer and osteomyelitis to right great toe, had transmetatarsal amputation by Dr Sauceda, doing well postoperatively, has some back pain otherwise doing well postop pain is minimal. has poor appetite and has had some low blood sugar readings. - Vitals & Intake/Output Vital Signs: Vital Signs Temperature 97.9 F 12/02/20 07:19 Pulse Rate 68 12/02/20 07:19 Respiratory Rate 18 12/02/20 07:19 Blood Pressure 176/79 12/02/20 07:19 O2 Sat by Pulse Oximetry 95 12/02/20 07:19 Intake & Output: Intake & Output 11/29/20 11/30/20 12/01/20 12/02/20 11:59 11:59 11:59 11:59 Intake Total 3434 2817 3042 2094 Output Total 400 1800 1150 Balance 3034 1017 1892 2094 Weight 92.6 kg 95.8 kg 95.2 kg - Lab Result Diagrams: 12/01/20 05:10 12/01/20 05:10 Lab Results-Last 24 Hrs: Lab Results-Last 24 Hours 12/01/20 12/01/20 12/01/20 Range/Units 11:27 16:42 20:50 POC Glucometer 192 H 125 H 179 H (74 to 106) mg/dL 12/02/20 Range/Units 06:31 POC Glucometer 73 L (74 to 106) mg/dL Micro Results-Entire Visit: Microbiology 11/27/20 16:40 Blood Culture Gram Stain - Final Blood Blood Culture - Final POSSIBLE CONTAMINANT. CLINICAL JUDGEMENT REQUIRED. 11/27/20 16:30 Blood Culture Gram Stain - Final Blood Not Reportable Blood Culture - Final NO GROWTH 11/30/20 07:45 Aerobic Organism ID Result 1 - Final Foot - Right Not Reportable Aerobic Organism ID Result 2 - Final Not Reportable Aerobic Organism ID Result 3 - Final Not Reportable Aerobic Organism ID Result 4 - Final Not Reportable Aerobic Bacterial Sensitivity - Final Not Reportable Accuchecks Date 12/02/20 Date 12/01/20 Date 12/01/20 Time 07:00 Time 16:44 Time 11:38 - Procedures and Test Procedures and Tests throughout Hospitalization: Therapy Orders & Screens 11/27/20 23:27 OT Screen per Nursing Assess ONCE Comment: Protocol Order Physician Instructions: Greater than 3 points order OT Admission Screening Reason For Exam: Triggered on Admission Diagnosis: Diabetic Infection and Cellulitis Right Foot;Gangrene of toe of Right Foot Open Wound/Cellutlitis/Pressure Ulcers: Yes Acute Fx/ORIF/Change in wt bearing status: No Severe MUSCULOSKELETAL pain: No ADL Dysfunction: Yes Acute CVA w/Hemiparesis/Hemiplegia: No Decreased Functional Mobility/Strength: Yes Sprain/Strain: No Acute Post-op Mobility Dysfunction: No Total Points: 9 PT Screen per Nursing Assess ONCE Comment: Protocol Order Physician Instructions: Greater than 3 points order PT Admission Screenin Reason For Exam: Triggered on Admission Diagnosis: Diabetic Infection and Cellulitis Right Foot;Gangrene of toe of Right Foot Open Wound/Cellutlitis/Pressure Ulcers: Yes Acute Fx/ORIF/Change in wt bearing status: No Severe MUSCULOSKELETAL pain: No ADL Dysfunction: Yes Acute CVA w/Hemiparesis/Hemiplegia: No Decreased Functional Mobility/Strength: Yes Sprain/Strain: No Acute Post-op Mobility Dysfunction: No Total Points: 9 12/01/20 08:34 Incentive Spirometry TID Comment: Diagnosis: Diabetic Infection and Cellulitis Right Foot;Gangrene of toe of Right Foot 12/02/20 08:19 OT Eval and Treat (MD Order) ONCE Comment: Consulting Provider: Physician Instructions: Reason For Exam: Diagnosis: Diabetic Infection and Cellulitis Right Foot;Gangrene of toe of Right Foot PT Eval & Treat (MD Order) ONCE Reason for Eval:: s/p amputation Diagnosis: Diabetic Infection and Cellulitis Right Foot;Gangrene of toe of Right Foot Discharge Exam General Appearance: no apparent distress, alert Respiratory Exam: normal breath sounds, lungs clear, No respiratory distress Cardiovascular Exam: regular rate/rhythm, normal heart sounds Gastrointestinal/Abdomen Exam: soft, No tenderness, No mass Extremity Exam: other (dressing c/d/i right foot) Wound Assessment: Skin/Wound Assessment Wound/Incision Assessment Start: 11/27/20 20:27 Text: Status: Active Freq: Q6H Protocol: Document 12/02/20 02:00 MG (Rec: 12/02/20 03:19 MG [id number]) Wound/Incision Assessment Right Toe Wound Assessment Shift Assessment Wound Type Incision Wound Stage Non Pressure Wound Dressing Status Dry & Intact Drainage Amount None Comment DRESSING CDI, LEG ELEVATED ON 2 PILLOWS Final Diagnosis/Problem List - Final Discharge Diagnosis/Problem (1) Diabetic infection of right foot Current Visit: Yes Status: Acute Code(s): E11.628 - TYPE 2 DIABETES MELLITUS WITH OTHER SKIN COMPLICATIONS; L08.9 - LOCAL INFECTION OF THE SKIN AND SUBCUTANEOUS TISSUE, UNSP (2) Gangrene of toe of right foot Current Visit: Yes Status: Acute Code(s): I96 - GANGRENE, NOT ELSEWHERE CLASSIFIED (3) Diabetes mellitus with peripheral autonomic neuropathy Current Visit: No Status: Acute Code(s): E11.43 - TYPE 2 DIABETES W DIABETIC AUTONOMIC (POLY)NEUROPATHY (4) Generalized weakness Current Visit: No Status: Acute Code(s): R53.1 - WEAKNESS - Discharge Disposition: Skilled Care @ [facility] Condition: Stable Prescriptions: New Cephalexin Mh 500 mg [Keflex 500 mg] 500 mg PO Q6HT #28 capsule Insulin Glargine [Lantus Insulin] 10 unit SQ HS 30 Days unit Hydrocodone/APAP 10/325 mg [[place] 10/325 MG Tablet] 1 tab PO Q4H PRN PRN #60 tablet MDD 6 PRN Reason: Pain Vancomycin/Water For Inj (Peg) [Vancomycin 1.25 gm/250 ml Bag] 1.25 gm IV Q48H #4 piggyback Continue Levothyroxine Sodium 50 Mcg [Synthroid 50 Mcg] 25 mcg PO DAILY Tamsulosin HCl 0.4 mg [Flomax 0.4 MG] 0.4 mg PO HS Clopidogrel Bisulfate [Plavix] 75 mg PO UD Donepezil HCl [Aricept] 10 mg PO BID Memantine HCl [Namenda] 10 mg PO BID Fluoxetine HCl [Prozac] 40 mg PO DAILY Gabapentin [Neurontin] 300 mg PO BID Ferrous Sulfate [Iron] 325 mg PO DAILY Atorvastatin Calcium 20 mg PO HS Sodium Bicarbonate 650 mg PO HS Omeprazole 40 mg PO DAILY Carvedilol 12.5 mg [Coreg 12.5 mg] 12.5 mg PO BID Evolocumab [Repatha Sureclick] 140 mg SQ UD Insulin Lispro [Humalog] 0 unit SQ TID PRN PRN Reason: elevated blood sugar Vitamin B Complex 1 each PO DAILY Furosemide 40 mg [Lasix 40 MG] 40 mg PO DAILY Patiromer Calcium Sorbitex [Veltassa] 8.46 mg PO DAILY Aspirin EC 81 mg [Ecotrin 81 mg] 81 mg PO DAILY Discontinued Insulin Detemir [Levemir] 25 unit SQ BID Additional Instructions: continue keflex and vancomycin for 7 days (pharmacy to dose vanc at [facility]) low dose humalog sliding scale with accuchecks ac and hs, lantus 10 units at bedtime. see Dr Sauceda as scheduled in 5 days. Follow up with: SAMANTHA VARGHESE DPM [ACTIVE STAFF] - 12/07/20 11:00 am
[2020-12-02] MEDS: Namenda 5 MG PO SCH (10:27)
[2020-12-02] MEDS: Aricept 10 MG PO SCH (10:27)
[2020-12-02] MEDS: Lasix 40 MG PO SCH (10:27)
[2020-12-02] MEDS: Cyclobenzaprine 10 MG PO SCH ×2 (10:27→16:07)
[2020-12-02] MEDS: ECOTRIN 81 MG PO SCH (10:27)
[2020-12-02] MEDS: COREG 12.5 MG PO SCH (10:28)
[2020-12-02] MEDS: Prozac 20 MG PO SCH (10:28)
[2020-12-02] MEDS: VITA-BEE WITH C PO SCH (10:28)
[2020-12-02] MEDS: PLAVIX 75 MG Tablet PO SCH (10:28)
[2020-12-02] MEDS: FEOSOL 325 MG PO SCH (10:28)
[2020-12-02] MEDS: Protonix 40MG Tablet PO SCH (10:28)
[2020-12-02] MEDS: NEURONTIN 300 MG PO SCH (10:28)
[2020-12-02] MEDS: SYNTHROID 25 MCG PO SCH (10:28)
[2020-12-02] MEDS ORDERED: TROUGH DRUG LEVELS IJ ONE (11:30)
[2020-12-02 12:15] VITALS: BP 171/79; PULSE 66; O2SAT 97
[2020-12-02] MEDS: VANCOMYCIN 1.25 GM/250 ML BAG 1.25 GM/250 ML PIGGYBACK IV SCH (12:29)
[2020-12-02] MEDS ORDERED: Lantus Insulin SQ SCH (22:00)
== END 2020-12-02 15:25 | DRG 617 ==
LOC: ED 16:11 → MED SURG 20:01
PROVIDERS: ADMIT Family Medicine; ATTEND Family Medicine
PROC: 0Y6M0Z9 Detachment at Right Foot, Partial 1st Ray, Open Approach (ICD-10-PCS; principal; 2020-11-30)
PROC: 0Y6M0ZB Detachment at Right Foot, Partial 2nd Ray, Open Approach (ICD-10-PCS; 2020-11-30)
PROC: 0Y6M0ZC Detachment at Right Foot, Partial 3rd Ray, Open Approach (ICD-10-PCS; 2020-11-30)
PROC: 0Y6M0ZD Detachment at Right Foot, Partial 4th Ray, Open Approach (ICD-10-PCS; 2020-11-30)
PROC: 0Y6M0ZF Detachment at Right Foot, Partial 5th Ray, Open Approach (ICD-10-PCS; 2020-11-30)
PROC: 0JRQ07Z Replacement of Right Foot Subcutaneous Tissue and Fascia with Autologous Tissue Substitute, Open Approach (ICD-10-PCS; 2020-11-30)
DX: E11.628 Type 2 diabetes mellitus with other skin complications (principal); I96 Gangrene, not elsewhere classified; L03.115 Cellulitis of right lower limb; M86.171 Other acute osteomyelitis, right ankle and foot; L08.9 Local infection of the skin and subcutaneous tissue, unspecified; E11.43 Type 2 diabetes mellitus with diabetic autonomic (poly)neuropathy; R53.1 Weakness; Z79.899 Other long term (current) drug therapy; Z79.4 Long term (current) use of insulin; Z79.01 Long term (current) use of anticoagulants; E78.5 Hyperlipidemia, unspecified; E03.9 Hypothyroidism, unspecified; M19.90 Unspecified osteoarthritis, unspecified site; I13.10 Hypertensive heart and chronic kidney disease without heart failure, with stage 1 through stage 4 chronic kidney disease, or unspecified chronic kidney disease; E11.22 Type 2 diabetes mellitus with diabetic chronic kidney disease; N18.9 Chronic kidney disease, unspecified
CPT/HCPCS: 15738; 28805; 36000; 36415; 72100; 80048; 80053; 80202; 82947; 83036; 83605; 84134; 84145; 85025; 85027; 87040; 87070; 87077; 88307; 88311; 94760; 96365; 99100; 99232; 99252; 99284; J0295; J1817; J2250; J2704; J3010; A9270-GY; J3370

== ENCOUNTER 2020-12-25 06:34 | Day surgery (SDC) | payer MEDICARE, OTHER ==
[2020-12-25] MEDS ORDERED: CEFAZOLIN 2 GM-D5W BAG** 2 GM/50 ML ML IV ONE (06:35)
[2020-12-25] MEDS ORDERED: XYLOCAINE 1% HCL 20 ML MDV ONE ×2 (06:59→07:00)
[2020-12-25] MEDS ORDERED: Lactated Ringers 1,000 ML IV ONE ×2 (06:59→07:54)
[2020-12-25] MEDS ORDERED: BUPIVACAINE 0.5% VIAL IJ ONE ×2 (06:59→07:00)
[2020-12-25] MEDS ORDERED: SUBLIMAZE 100 MCG/2 ML ONE (07:49)
[2020-12-25] MEDS ORDERED: DIPRIVAN 200 MG/20 ML IV ONE ×2 (07:49→07:53)
[2020-12-25] MEDS ORDERED: Versed 2 MG/2 ML Injection ONE (07:49)
[2020-12-25] MEDS ORDERED: Ketamine HCl 50 MG/ML ONE (07:49)
[2020-12-25] MEDS ORDERED: Xylocaine-Mpf 2% 5 Ml Vial ONE (07:49)
[2020-12-25] MEDS ORDERED: Lactated Ringers 1,000 ML IV SCH (08:00)
[2020-12-25 11:47] VITALS: O2SAT 97
[2020-12-25 13:33] VITALS: BP 158/97; PULSE 72
--- NOTE | 2020-12-25 13:41 | OP ---
SURGERY DATE/TIME: 12/25/2020 0843 INDICATION FOR SURGERY: Jac is a very pleasant 80 male who on follow up following a transmetatarsal amputation to the right foot showed signs of some significant dehiscence and nonblanchable areas to the plantar flap of the right foot. On that same visit there were also some gangrenous changes to the hallux of the left foot. Giving time to demarcate the dehiscence it was isolated to the lateral aspect of the right foot as well as necrotic tissue as well as gangrenous changes to the hallux at the level of the interphalangeal joint of the left foot. The patient and daughter (who is the Power [employer] Associate) were advised that following the transmetatarsal amputation there is a high likelihood of the patient requiring a below knee amputation secondary to his chronic kidney disease, uncontrolled diabetes mellitus with peripheral angiopathy as well as his peripheral vascular disease and chronic kidney disease. The patient and daughter understand this at this time. Recommendation was made for a below knee amputation however the patient and daughter say psychologically the patient cannot handle a below knee amputation and would like to proceed with limb salvage efforts at this time. They also understand that there will be no chance of saving the toe of the left foot. However at this time I am not planning on proceeding past the amputation of the toe on the left foot. Patient understands all risks, benefits and complications of the procedure including failure of surgical intervention, surgical dehiscence, surgical nonwound healing, need for follow up wound care and possible below knee amputation or loss of life secondary to the complications related to the surgery. The patient understands all of the risks, benefits and complications of the surgical intervention at this time and wishes to proceed. PREOPERATIVE DIAGNOSES: 1) Surgical dehiscence and overt gangrenous changes of right transmetatarsal amputation site. 2) Gangrenous changes to left hallux. 3) Peripheral vascular disease. 4) Diabetes mellitus type II with peripheral angiography. 5) Uncontrolled diabetes mellitus type II. 6) Chronic kidney disease Stage IV. POSTOPERATIVE DIAGNOSES: 1) Surgical dehiscence and overt gangrenous changes of right transmetatarsal amputation site. 2) Gangrenous changes to left hallux. 3) Peripheral vascular disease. 4) Diabetes mellitus type II with peripheral angiopathy. 5) Uncontrolled diabetes mellitus type II. 6) Chronic kidney disease Stage IV. PROCEDURES: 1) Revision of transmetatarsal amputation right foot. 2) Fifth ray resection right foot. 3) Complex closure of surgical wound right foot. 4) Amputation of left hallux at the level of the metatarsophalangeal joint. SURGEON: Sohail Infante DPM. DRIVING INSTRUCTOR: None. ANESTHESIA: MAC plus local. HEMOSTASIS: Pressure dressing. ESTIMATED BLOOD LOSS: Less than 50 cc. INJECTABLES: 50 cc of 1:1 mixture of 1% lidocaine plain and 0.5% Marcaine plain injected in 20 cc into the left foot in a Trejo block-type fashion and 40 cc into the right foot in an ankle block-type fashion. DESCRIPTION OF PROCEDURE AND FINDINGS: After adequate assessment by the preoperative surgical team, the patient was brought into the OR and placed on the OR table in the supine position. Adequate MAC sedation was then administered by the anesthesiologist and aseptic technique was applied in order to apply the Trejo block to the left foot and the ankle block to the right foot. At this time the lower extremity was prepped and draped in the typical sterile fashion and the extremities were lowered on to the field. At this time attention was directed to the left hallux where a skin marker was utilized to draw a fish mouth incision at the distal aspect saving as much skin as possible in order to plan for closure. At this time a 15 blade was utilized to make the skin incision down to the level of bone. At this time a [place] was utilized to elevate the skin at the level of the bone to the level of the metatarsophalangeal joint and the 15 blade was then utilized to release the medial and lateral collateral ligaments in order to disarticulate the digit in toto. At this time copious amounts of sterile saline were utilized to flush the surgical site and a 2-0 Vicryl was used to coapt the skin edges followed by 3-0 Nylon which was utilized to coapt the subcutaneous skin edges and 3-0 Nylon utilized to coapt the skin edges under minimal tension. At this time the left foot portion of the procedure was finished and attention was directed to the right foot where surgical dehiscence were identified as well as further necrosis of the lateral aspect of the right foot. At this time the edges of the wound were debrided removing any nonviable tissue this resulted in removal of the entire central portion of the wound itself and a sizeable portion of the lateral aspect of the surgical wound. At this time an osteotome was utilized in between the fourth and fifth metatarsal resection site in order to disarticulate the fifth metatarsal base from its articulation with the fourth metatarsal as well as the cuboid. At this point a 15 blade was used to resect the peroneus brevis tendon and the fifth ray was resected in toto. At this time the wound was inspected for any remaining necrotic tissue and a rongeur was utilized to remove this tissue. At this time pulse lavage was utilized flush out the surgical site leaving only healthy viable tissue with the ability to close under very little tension on the lateral aspect of the wound. At this time 2-0 Vicryl was utilized to coapt the subcutaneous skin edges under minimal tension and 2-0 Nylon was then utilized to coapt the remaining skin edges at the lateral aspect this also took place to a portion of the medial aspect of the wound where the wound edges were resected where there was minimal necrosis and dehiscence of the surgical wound. It was flushed with copious amounts of sterile saline and 2-0 Vicryl and 3-0 Nylon were utilized to coapt the skin edges following this. At the end of the procedure pulses at the dorsalis pedis were not palpable however the posterior tibial was faintly palpable. The edges of the surgical site were blanchable. A wet lap was utilized to cleanse the surgical sites and they were dried. Following this Betadine was painted to the incision site. Adaptic, 4x4, Kerlix and a very lightly applied KANDY was utilized to cover the surgical sites. Following this the patient was reversed from monitored anesthesia care and returned to the postoperative anesthesia care unit with vital signs stable and vascular status intact. Postoperative orders as indicated in the operative report.
== END 2020-12-25 13:15 ==
LOC: SDC 06:34
PROVIDERS: ATTEND Podiatrist Foot & Ankle Surgery
DX: T87.81 Dehiscence of amputation stump (principal); E11.52 Type 2 diabetes mellitus with diabetic peripheral angiopathy with gangrene; E11.40 Type 2 diabetes mellitus with diabetic neuropathy, unspecified; I12.9 Hypertensive chronic kidney disease with stage 1 through stage 4 chronic kidney disease, or unspecified chronic kidney disease; E11.22 Type 2 diabetes mellitus with diabetic chronic kidney disease; E11.65 Type 2 diabetes mellitus with hyperglycemia; N18.4 Chronic kidney disease, stage 4 (severe); Z79.4 Long term (current) use of insulin
CPT/HCPCS: 82947; 87070; 88305; J0690; J2250; J2704; J3010

== ENCOUNTER 2021-03-05 06:38 | Day surgery (SDC) | payer MEDICARE, OTHER ==
[2021-03-05] MEDS ORDERED: Lactated Ringers 1,000 ML IV SCH (07:00)
[2021-03-05] MEDS ORDERED: Lactated Ringers 1,000 ML IV ONE (07:39)
[2021-03-05] MEDS ORDERED: CEFAZOLIN 2 GM-D5W BAG** 2 GM/50 ML ML IV SCH (08:00)
[2021-03-05] MEDS ORDERED: DIPRIVAN 200 MG/20 ML IV ONE ×2 (08:22→08:59)
[2021-03-05] MEDS ORDERED: Versed 2 MG/2 ML Injection ONE (08:23)
[2021-03-05] MEDS ORDERED: Ketamine HCl 50 MG/ML ONE (08:23)
[2021-03-05] MEDS ORDERED: SUBLIMAZE 100 MCG/2 ML ONE (08:23)
[2021-03-05] MEDS ORDERED: XYLOCAINE 1% HCL 20 ML MDV ONE ×2 (08:23→09:15)
[2021-03-05] MEDS ORDERED: BUPIVACAINE 0.5% VIAL IJ ONE (09:15)
[2021-03-05 10:28] LABS: Hematocrit 21.7 % (42-50); Mean Cell Volume 99.5 fl (78-100); Mean Corpuscular Hemoglobin 32.1 pg (26-32); Mean Corpuscular Hgb Concent. 32.3 g/dl (32-36); Mean Platelet Volume 8.1 fl (7.5-11.0); Platelet Count 241 K/mm3 (150-450); Red Blood Count 2.18 M/mm3 (4.1-5.6); Red Cell Distribution Width 14.6 % (11.5-14.0); White Blood Count 10.8 K/mm3 (4.0-10.5)
[2021-03-05 10:38] LABS: ALBUMIN 3.4 g/dL (3.5-5.0); ANION GAP 18.3 MEQ/L (5-15); BILIRUBIN,TOTAL 0.2 mg/dL (0.2-1.3); Calcium 9.2 mg/dL (8.4-10.2); Creatinine 1 5.91 mg/dL (0.66-1.25); EST GLOMERULAR FILTRATION RATE 9.9 ML/MIN; Potassium 4.1 mmol/L (3.5-5.1); Total Protein 6.8 g/dL (6.3-8.2)
[2021-03-05 11:17] VITALS: O2SAT 98
[2021-03-05 12:16] VITALS: BP 100/58; PULSE 64
--- NOTE | 2021-03-05 13:43 | OP ---
SURGERY DATE/TIME: 03/05/2021 0884 PREOPERATIVE DIAGNOSES: 1) Surgical dehiscence of right transmetatarsal amputation site. 2) Surgical dehiscence of hallux amputation site on the left. 3) Peripheral vascular disease, single vessel run off. 4) Chronic kidney disease. 5) Uncontrolled diabetes mellitus. POSTOPERATIVE DIAGNOSES: 1) Surgical dehiscence of right transmetatarsal amputation site. 2) Surgical dehiscence of hallux amputation site on the left. 3) Peripheral vascular disease, single vessel run off. 4) Chronic kidney disease. 5) Uncontrolled diabetes mellitus. PROCEDURES: 1) Revision of transmetatarsal amputation. 2) Application of wound VAC right foot. 3) Revision hallux amputation. 4) Partial first ray amputation possible wound VAC application left foot. SURGEON: Sohail Infante DPM. SHANK BONER: None. ANESTHESIA: MAC plus local. HEMOSTASIS: Pressure dressing and wound vac to the right lower extremity. ESTIMATED BLOOD LOSS: Less than 40 cc. MATERIALS: 2-0 Vicryl, 3-0 Nylon and a negative pressure wound VAC (vacuum-assisted closure). INJECTABLES: 50 cc of 1:1 mixture of 0.5% bupivacaine plain and 1% lidocaine plain injected in a Trejo-type block left foot total of 20 cc and 10 cc injected into the right ankle in an ankle block-type fashion. INDICATION FOR PROCEDURE: Frandy Ramsey is a very pleasant 80 year-old male who is very well known to my service for multiple issues in regards to his uncontrolled diabetes, peripheral vascular disease and gangrenous changes to bilateral lower extremity. The patient initially presented in the hospital after an episode of hyperglycemia resulting in some changes to the hallux of the left foot. These quickly devolved into peripheral vascular changes for which I sent him to Dr. Dunn for intervention and revascularization. Following the intervention he is planned for a transmetatarsal amputation to the right which was successful initially. However, with his complicated medical history he quickly devolved and the wounds in the left great toe also started to become vascularly incompetent resulting in an amputation of the hallux to the left and a transmetatarsal amputation to the right. We have been treating him conservatively during this time. After discussion with Dr. Ariel Dunn in regards to tentative limb loss at this time is high. However, Dr. Dunn believes that despite his single vessel run off he may respond to negative wound VAC therapy to the right lower extremity and revision to the left. At this time I agree with him and wish to proceed with surgical intervention. The patient understands all of the risks, complications and benefits of the procedure at this time including but not limited to surgical intervention, possible surgical wound infection, dehiscence and need for further amputation in the future, possible loss of limb and possible loss of life. Understanding all of this he still wishes to proceed. DESCRIPTION OF PROCEDURE AND FINDINGS: After adequate assessment by the anesthesia team preoperatively, the patient is brought into the OR and placed on the OR table in supine position. The patient's bilateral lower extremity was prepped and draped in the typical sterile fashion utilizing Betadine paint and the bilateral lower extremities were lowered onto the surgical field. At this time attention was directed to the left foot where there was a surgical dehiscence with stable eschar and a malodor of the distal extent of the amputation site. At this time the incision was made down to bone in William-type fashion ellipsing the entirety and getting all nonviable, necrotic and devitalized bone. Following there was resection of the first ray utilizing a sagittal saw. Following the resection of the first ray, the remaining tissue was inspected for any devitalized, infected or necrotic tissue this was then debrided and a Pulsavac was utilized to cleanse the site with copious amount of sterile saline, 3 liters of sterile saline. Following this abductor hallucis muscle transfer was performed along with adequate fascial flap to the dorsal aspect of the first ray insuring that there was not wound dehiscence and there would no longer be a potential for osteomyelitis this was performed utilizing 2-0 Vicryl and secured to the periosteum of the resected bone. Following this the surgical site was then inspected for a third time for any remaining skin edges and necrotic tissue which were removed and dog ears were coapt the bone, 2-0 Vicryl was utilized to coapt subcutaneous tissue and 3-0 Nylon was utilize to coapt the skin in a horizontal mattress-type fashion with simple interrupted sutures. A dressing consisting of Betadine paint, Adaptic, 4x4, Kerlix and Herman was applied to this extremity. This extremity was then covered with a sterile drape in order to protect throughout the remaining procedure to the right lower extremity. At this time attention was then directed to the right lower extremity where the transmetatarsal amputation site was visualized and the remaining retaining stitches were removed. Following this all necrotic and devitalized tissues were removed. The bone that was recovered by the transmetatarsal amputation site was free of any necrosis. However at the lateral aspect of the wound there appeared to be some bone that was devitalized and necrotic which was debrided utilizing a combination of rongeurs, curettes and osteotomes. Following this the soft tissue was then cleansed utilizing the Pulsavac utilizing 2 liters of sterile saline. Following this the remaining tissue was inspected for any necrotic tissue which was resected using a combination of curettes, rongeurs and a 15 blade. Following this Pulsavac was again used to cleanse the site and a retention suture was placed at the site of the central aspect of the wound where there was no tension in order to coapt these edges. The two resulting wounds were then fitted for wound VAC which was applied utilizing sterile drape and applied with a void to the dorsal aspect of the foot. Following application the wound VAC canister was 175 mm of Mercury with no indications of leakage or disconnection. Following this gauze sponge was placed on the tube and a dressing was applied to the right lower extremity consisting of Kerlix and Herman securing the wound VAC canister to the proximal aspect of the leg. Following the procedure a CBC was performed to insure the patient's hemoglobin and hematocrit was adequate. The patient was reversed from anesthesia and brought to the postoperative anesthesia care unit with vital signs stable and vascular status intact. Following the procedure the patient was awakened and indicates that the pain is under control at this time. Postoperative orders as indicated in the patient's chart.
== END 2021-03-05 12:15 ==
LOC: SDC 06:38
PROVIDERS: ATTEND Podiatrist Foot & Ankle Surgery
DX: T87.81 Dehiscence of amputation stump (principal); E11.52 Type 2 diabetes mellitus with diabetic peripheral angiopathy with gangrene; I96 Gangrene, not elsewhere classified; E11.22 Type 2 diabetes mellitus with diabetic chronic kidney disease; E11.65 Type 2 diabetes mellitus with hyperglycemia; I12.9 Hypertensive chronic kidney disease with stage 1 through stage 4 chronic kidney disease, or unspecified chronic kidney disease; N18.9 Chronic kidney disease, unspecified; M79.671 Pain in right foot; M79.672 Pain in left foot; Z79.899 Other long term (current) drug therapy; Z79.4 Long term (current) use of insulin
CPT/HCPCS: 36415; 80053; 82947; 85027; 87070; 87075; 93005; J0690; J2250; J2704; J3010

== ENCOUNTER 2021-03-05 20:06 | Inpatient (IN) | payer MEDICARE, OTHER ==
[~2021-03-05 20:06] MED LIST: BUPIVACAINE 0.5% VIAL IJ ONE; ROCEPHIN 1 Gm-D5w 50 ml Bag** 1 G/50 ML IVPB IV SCH; Sodium Chloride 0.9% 1000 ML 1,000 ML IV ONE
[2021-03-05] MEDS ORDERED: Sodium Chloride 0.9% 1000 ML 1,000 ML IV STA (20:18)
[2021-03-05] MEDS ORDERED: Sodium Chloride 0.9% 1000 ML 1,000 ML ONE (20:25)
[2021-03-05 20:54] LABS: Absolute Neutrophil Ct (ANC) 9.42 (1.4-6.9); BASOPHIL % 0.2 % (0.0-0.4); Basophil (Absolute #) 0.02 (0-0.4); Eosinophil (Absolute #) 0.11 (0-0.5); Hematocrit 21.6 % (42-50); Hemoglobin 7.1 gm/dl (12.5-18.0); Lymphocyte (Absolute #) 1.04 (1.0-4.6); Lymphocytes % 9.2 % (24.0-44.0); Mean Cell Volume 99.1 fl (78-100); Mean Corpuscular Hemoglobin 32.6 pg (26-32); Mean Corpuscular Hgb Concent. 32.9 g/dl (32-36); Mean Platelet Volume 8.8 fl (7.5-11.0); Monocyte (Absolute #) 0.73 (0.0-1.3); Monocytes % 6.4 % (0.0-12.0); Neutrophil % 83.2 % (36.0-66.0); Platelet Count 269 K/mm3 (150-450); Red Blood Count 2.18 M/mm3 (4.1-5.6); Red Cell Distribution Width 14.4 % (11.5-14.0); White Blood Count 11.3 K/mm3 (4.0-10.5)
[2021-03-05 21:01] LABS: Amourphous Crystal FEW /HPF (NEGATIVE); Appearance CLOUDY (CLEAR); Bilirubin NEGATIVE (NEGATIVE); Blood MODERATE Ery/ul (0-5); Glucose NEGATIVE (NEGATIVE); Ketones NEGATIVE (NEGATIVE); Leukocyte Esterase LARGE (NEGATIVE); Nitrite NEGATIVE (NEGATIVE); Protein,Urine Dip 30 (Negative); RBC 0-2 /HPF (0-2); Specific Gravity 1.014 (1.005-1.025); Urobilinogen NEGATIVE mg/dL (0-1); WBC >100 /HPF (0-5)
[2021-03-05] MEDS ORDERED: ROCEPHIN 1 Gm-D5w 50 ml Bag** 1 G/50 ML IVPB IV STA (21:05)
[2021-03-05] MEDS ORDERED: ROCEPHIN 1 Gm-D5w 50 ml Bag** 1 G/50 ML IVPB IV ONE (21:09)
[2021-03-05] MEDS ORDERED: Levofloxacin 500MG/100ML D5W 500 MG/100 ML BAG IV ONE (21:09)
[2021-03-05] MEDS: Levofloxacin 500MG/100ML D5W 500 MG/100 ML BAG IV STA (21:11)
[2021-03-05 21:16] LABS: ALBUMIN 3.5 g/dL (3.5-5.0); ANION GAP 18.2 MEQ/L (5-15); BILIRUBIN,TOTAL 0.3 mg/dL (0.2-1.3); Calcium 9.5 mg/dL (8.4-10.2); Creatinine 1 5.77 mg/dL (0.66-1.25); EST GLOMERULAR FILTRATION RATE 10.2 ML/MIN; Potassium 4.2 mmol/L (3.5-5.1)
--- NOTE | 2021-03-05 21:51 | ERPHSYRPT ---
- History of Present Illness Time Seen by Provider: 03/05/21 20:15 Patient Subjective Stated Complaint: Per EMS, "he had a surgical debridement done today. Now he is running a temperature." Triage Nursing Assessment: Patient presented from [place] via EMS with reported temperature onset following a surgical debridement. Patient has both feet wrapped and a wound-vac to the right foot. history of osteomyelitis. Patient confused. Alert to person and place. Denied headache, dizziness, pain, c hest pain/shortness of breath, N/V/D. Pupils 3mm bilateral. Skin pink/hot/dry. Symmetrical chest expansion. Heart tones S1/S2. Lungs vesicular without adventitious sounds. Pacemaker to the left upper chest. Abdomen soft non- distened with normoactive bowel sounds. No palpated hepatosplenomegaly. Per ipheral pulses +2 bilateral. Physician History: Patient is a 80-year-old male who [facility] where he was found to have a temperature of 104. This was confirmed directly upon his arrival he had a surgical debridement and redressing of both feet today by podiatry and the fever started this evening. 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 Associated Symptoms: denies symptoms Allergies/Adverse Reactions: No Known Allergies Allergy (Verified 01/05/21 08:38) Home Medications: Levothyroxine Sodium 50 Mcg [Synthroid 50 Mcg] 25 mcg PO DAILY 03/27/14 [History] Clopidogrel Bisulfate [Plavix] 75 mg PO UD 06/16/14 [History] Donepezil HCl [Aricept] 10 mg PO BID 06/16/14 [History] Tamsulosin HCl 0.4 mg [Flomax 0.4 MG] 0.4 mg PO HS 06/16/14 [History] Fluoxetine HCl [Prozac] 20 mg PO DAILY 04/15/15 [History] Memantine HCl [Namenda] 10 mg PO BID 04/15/15 [History] Atorvastatin Calcium 20 mg PO HS 08/17/17 [History] Ferrous Sulfate [Iron] 325 mg PO DAILY 08/17/17 [History] Gabapentin [Neurontin] 300 mg PO BID 08/17/17 [History] Omeprazole 40 mg PO DAILY 08/17/17 [History] Sodium Bicarbonate 650 mg PO HS 08/17/17 [History] Carvedilol 12.5 mg [Coreg 12.5 mg] 12.5 mg PO BID 11/04/19 [History] Insulin Lispro [Humalog] 0 unit SQ TID PRN 08/14/20 [History] Vitamin B Complex 1 each PO DAILY 09/24/20 [History] Furosemide 40 mg [Lasix 40 MG] 40 mg PO DAILY 11/07/20 [History] Patiromer Calcium Sorbitex [Veltassa] 8.46 mg PO DAILY 11/07/20 [History] Aspirin EC 81 mg [Ecotrin 81 mg] 81 mg PO DAILY 11/27/20 [History] Cephalexin Monohydrate [Keflex] 1 cap PO Q6H 03/05/21 [History] Enoxaparin Sodium [Lovenox] 40 mg SQ DAILY 03/05/21 [History] Hydrocodone Bit/Acetaminophen [Hydrocodon-Acetaminophen 5-325] 1 tab PO Q4H PRN 03/05/21 [History] Insulin Glargine [Lantus Insulin] 25 unit SQ HS 03/05/21 [History] Hx Tetanus, Diphtheria Vaccination/Date Given: Yes Hx Influenza Vaccination/Date Given: Yes Hx Pneumococcal Vaccination/Date Given: Yes Travel Risk - International Travel Have you traveled outside of the country in past 3 weeks: No - Coronavirus Screening Are you exhibiting any of the following symptoms?: Yes Symptoms: Fever Close contact with a COVID-19 positive Pt in past 14-21 Days: No - Vaccine Status Have you recieved a Covid-19 vaccination: (unknown) - Review of Systems Constitutional: Fever Eyes: No Symptoms Ears, Nose, & Throat: No Symptoms Respiratory: No Cough, No Dyspnea Cardiac: No Chest Pain, No Edema, No Syncope Abdominal/Gastrointestinal: No Abdominal Pain, No Nausea, No Vomiting, No Diarrhea Genitourinary Symptoms: Frequency Musculoskeletal: No Back Pain, No Neck Pain Skin: No Rash Neurological: No Dizziness, No Focal Weakness, No Sensory Changes Psychological: No Symptoms Endocrine: No Symptoms - Past Medical History Pertinent Past Medical History: Yes Neurological History: TIA ENT History: No Pertinent History Cardiac History: Coronary Artery Disease, High Cholesterol, Hypertension, Myocardial Infarction ([place]) Respiratory History: Pneumonia, Other Endocrine Medical History: Diabetes Type II Musculoskeletal History: Osteoarthritis GI Medical History: Diverticulitis, GERD, Other History: Renal Disease, Other Psycho-Social History: Anxiety, Depression Male Reproductive Disorders: Prostate Problems Other Medical History: Pacemaker, stents, Covid 19 - Past Surgical History Past Surgical History: Yes Neuro Surgical History: No Pertinent History Cardiac: Cardiac Catheterization, Cardiac Stent, Pacemaker Respiratory: No Pertinent History Gastrointestinal: No Pertinent History Genitourinary: No Pertinent History Musculoskeletal: Orthopedic Surgery Male Surgical History: No Pertinent History Other Surgical History: rt knee replacement and revision to rt knee, skin lesions removed left arm, partial parathyroid gland removed, bilateral feet - toe amputations - Social History Smoking Status: Never smoker Exposure to second hand smoke: No Drug Use: none Patient Lives Alone: Yes Significant Family History: no pertinent family hx - Nursing Vital Signs Nursing Vital Signs: Initial Vital Signs Temperature 104 F 03/05/21 20:07 Pulse Rate 90 03/05/21 20:07 Respiratory Rate 16 03/05/21 20:07 Blood Pressure 167/76 03/05/21 20:07 O2 Sat by Pulse Oximetry 100 03/05/21 20:07 Pain Scale Pain Intensity 0 - Physical Exam General Appearance: mild distress Eye Exam: PERRL/EOMI ENT Exam: normal ENT inspection, No pharyngeal erythema, No tonsillar exudate Neck Exam: supple, full range of motion, No meningismus Respiratory Exam: normal breath sounds, lungs clear, no respiratory distress Cardiovascular/Chest Exam: normal heart sounds, regular rate/rhythm, No murmur, No edema Gastrointestinal/Abdominal Exam: soft, non tender, no distention Extremity Exam: limited range of motion (Patient has dressings to both feet up to mid leg.) Neurologic Exam: alert, oriented x 3, cooperative, 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 tested, normal mood/affect, sensation nml, No motor deficits Skin Exam: normal color, warm, dry, No rash Lymphatic: No adenopathy SpO2 Interpretation: normal SpO2: 100 O2 Delivery: Room Air - Course Nursing assessment & vital signs reviewed: Yes - Radiology Exams Chest X-ray Interpretation: Interpreted by me, Other (No acute processes identified) Ordered Tests: Active Orders 24 hr Category Date Time Status Risk Management Analyst STAT Care 03/05/21 20:19 Active EKG-ER Only STAT Care 03/05/21 20:18 Active Maher [Catheter-[place] Maher] STAT Care 03/05/21 20:42 Active IV Insertion STAT Care 03/05/21 20:18 Active CHEST 1 VIEW (PORTABLE) Stat Exams 03/05/21 20:19 Taken BLOOD CULTURE Stat Lab 03/05/21 20:45 Received CBC W DIFF Stat Lab 03/05/21 20:30 Completed CMP Stat Lab 03/05/21 20:30 Completed CULTURE,URINE Stat Lab 03/05/21 20:43 Received Lactic Acid Stat Lab 03/05/21 20:33 Completed UA W/RFX UR CULTURE Stat Lab 03/05/21 20:43 Completed Medication Summary Generic Name Dose Route Start Last Admin Trade Name Freq PRN Reason Stop Dose Admin Levofloxacin/Dextrose 500 mg in 100 mls @ 100 mls/hr 03/05/21 21:06 03/05/21 21:11 Levofloxacin 500mg/100ml D5w IV 03/05/21 22:05 100 mls/hr STAT STA 100 mls/hr Administration Discontinued Medications Generic Name Dose Route Start Last Admin Trade Name Freq PRN Reason Stop Dose Admin Sodium Chloride 1,000 mls @ 999 mls/hr 03/05/21 20:18 03/05/21 20:26 Sodium Chloride 0.9% 1000 Ml IV 03/05/21 21:18 999 mls/hr .Q1H1M STA Administration Sodium Chloride Confirm 03/05/21 20:25 Sodium Chloride 0.9% 1000 Ml Administered 03/05/21 20:26 Dose 1,000 mls @ ud .ROUTE .STK-MED ONE Ceftriaxone Sodium/Dextrose 1 g in 50 mls @ 100 mls/hr 03/05/21 21:05 03/05/21 21:11 Rocephin 1 Gm-D5w 50 Ml Bag IV 03/05/21 21:34 100 mls/hr STAT STA 100 mls/hr Administration Ceftriaxone Sodium/Dextrose Confirm 03/05/21 21:09 Rocephin 1 Gm-D5w 50 Ml Bag Administered 03/05/21 21:10 Dose 1 g in 50 mls @ ud IV .STK-MED ONE Levofloxacin/Dextrose Confirm 03/05/21 21:09 Levofloxacin 500mg/100ml D5w Administered 03/05/21 21:10 Dose 500 mg in 100 mls @ ud IV .STK-MED ONE Lab/Rad Data: Laboratory Result Diagrams 03/05/21 20:30 03/05/21 20:30 Laboratory Results 03/05/21 03/05/21 03/05/21 Range/Units 20:43 20:33 20:30 WBC (4.0-10.5) K/mm3 RBC (4.1-5.6) M/mm3 Hgb (12.5-18.0) gm/dl Hct (42-50) % MCV (78-100) fl MCH (26-32) pg MCHC (32-36) g/dl RDW (11.5-14.0) % Plt Count (150-450) K/mm3 MPV (7.5-11.0) fl Gran % (36.0-66.0) % Eos # (Auto) (0-0.5) Absolute Lymphs (auto) (1.0-4.6) Absolute Monos (auto) (0.0-1.3) Lymphocytes % (24.0-44.0) % Monocytes % (0.0-12.0) % Eosinophils % (0.00-5.0) % Basophils % (0.0-0.4) % Absolute Granulocytes (1.4-6.9) Basophils # (0-0.4) Sodium 141 (137-145) mmol/L Potassium 4.2 (3.5-5.1) mmol/L Chloride 110 H (98-107) mmol/L Carbon Dioxide 17 L (22-30) mmol/L Anion Gap 18.2 H (5-15) MEQ/L BUN 106 H (9-20) mg/dL Creatinine 5.77 H (0.66-1.25) mg/dL Estimated GFR 10.2 ML/MIN Glucose 215 H (74-106) mg/dL Lactic Acid 1.4 (0.4-2.0) Calcium 9.5 (8.4-10.2) mg/dL Total Bilirubin 0.30 (0.2-1.3) mg/dL AST 27 (17-59) U/L ALT 14 (0-50) U/L Alkaline Phosphatase 66 (38-126) U/L Serum Total Protein 7.0 (6.3-8.2) g/dL Albumin 3.5 (3.5-5.0) g/dL Urine Color YELLOW (YELLOW) Urine Appearance CLOUDY (CLEAR) Urine pH 5.0 (5-6) Ur Specific [place] 1.014 (1.005-1.025) Urine Protein 30 (Negative) Urine Ketones NEGATIVE (NEGATIVE) Urine Blood MODERATE (0-5) Donn/ul Urine Nitrite NEGATIVE (NEGATIVE) Urine Bilirubin NEGATIVE (NEGATIVE) Urine Urobilinogen NEGATIVE (0-1) mg/dL Ur Leukocyte Esterase LARGE (NEGATIVE) Urine WBC (Auto) >100 (0-5) /HPF Urine RBC (Auto) 0-2 (0-2) /HPF U Epithel Cells (Auto) NONE (FEW) /HPF Urine Bacteria (Auto) NONE (NEGATIVE) /HPF Amorphous Crystals FEW (NEGATIVE) /HPF Urine Culture Reflexed ORDERED SEPARATELY (NO) Urine Glucose NEGATIVE (NEGATIVE) mg/dL 03/05/21 Range/Units 20:30 WBC 11.3 H (4.0-10.5) K/mm3 RBC 2.18 L (4.1-5.6) M/mm3 Hgb 7.1 L (12.5-18.0) gm/dl Hct 21.6 L (42-50) % MCV 99.1 (78-100) fl MCH 32.6 H (26-32) pg MCHC 32.9 (32-36) g/dl RDW 14.4 H (11.5-14.0) % Plt Count 269 (150-450) K/mm3 MPV 8.8 (7.5-11.0) fl Gran % 83.2 H (36.0-66.0) % Eos # (Auto) 0.11 (0-0.5) Absolute Lymphs (auto) 1.04 (1.0-4.6) Absolute Monos (auto) 0.73 (0.0-1.3) Lymphocytes % 9.2 L (24.0-44.0) % Monocytes % 6.4 (0.0-12.0) % Eosinophils % 1.0 (0.00-5.0) % Basophils % 0.2 (0.0-0.4) % Absolute Granulocytes 9.42 H (1.4-6.9) Basophils # 0.02 (0-0.4) Sodium (137-145) mmol/L Potassium (3.5-5.1) mmol/L Chloride (98-107) mmol/L Carbon Dioxide (22-30) mmol/L Anion Gap (5-15) MEQ/L BUN (9-20) mg/dL Creatinine (0.66-1.25) mg/dL Estimated GFR ML/MIN Glucose (74-106) mg/dL Lactic Acid (0.4-2.0) Calcium (8.4-10.2) mg/dL Total Bilirubin (0.2-1.3) mg/dL AST (17-59) U/L ALT (0-50) U/L Alkaline Phosphatase (38-126) U/L Serum Total Protein (6.3-8.2) g/dL Albumin (3.5-5.0) g/dL Urine Color (YELLOW) Urine Appearance (CLEAR) Urine pH (5-6) Ur Specific [place] (1.005-1.025) Urine Protein (Negative) Urine Ketones (NEGATIVE) Urine Blood (0-5) Donn/ul Urine Nitrite (NEGATIVE) Urine Bilirubin (NEGATIVE) Urine Urobilinogen (0-1) mg/dL Ur Leukocyte Esterase (NEGATIVE) Urine WBC (Auto) (0-5) /HPF Urine RBC (Auto) (0-2) /HPF U Epithel Cells (Auto) (FEW) /HPF Urine Bacteria (Auto) (NEGATIVE) /HPF Amorphous Crystals (NEGATIVE) /HPF Urine Culture Reflexed (NO) Urine Glucose (NEGATIVE) mg/dL - Progress Progress: unchanged Discussed with : Candelario Will see patient in: hospital (observation) - Departure Departure Disposition: Observation Clinical Impression: UTI (urinary tract infection), CKD (chronic kidney disease), Sepsis, Generalized weakness Condition: Fair Critical Care Time: No Referrals: BRETT LANGLEY [Primary Care Provider] -
[2021-03-05 23:12] LABS: INFLUENZA A NEGATIVE (NEGATIVE); INFLUENZA B NEGATIVE (NEGATIVE); RESPIRATORY SYNCTIAL VIRUS NEGATIVE (Negative)
[2021-03-06] MEDS ORDERED: ZOLOFT 50 MG TABLET PO SCH (01:20)
[2021-03-06] MEDS: Levofloxacin 500MG/100ML D5W 500 MG/100 ML BAG IV STA (01:24)
[2021-03-06] MEDS: Aricept 10 MG PO SCH ×2 (01:30→21:29)
[2021-03-06] MEDS: Namenda 5 MG PO SCH ×3 (01:31→21:31)
[2021-03-06] MEDS: HYDROCODONE-ACETAMIN 10-325 MG PO PRN ×3 (01:31→21:32)
[2021-03-06] MEDS: Flomax 0.4 MG PO SCH ×2 (01:31→21:30)
[2021-03-06] MEDS: Lantus Insulin SQ SCH ×2 (01:32→21:31)
[2021-03-06] MEDS: COREG 12.5 MG PO SCH ×3 (01:32→21:30)
[2021-03-06] MEDS: NEURONTIN 300 MG PO SCH ×3 (01:32→21:31)
[2021-03-06 07:10] LABS: Absolute Neutrophil Ct (ANC) 9.65 (1.4-6.9); BASOPHIL % 0.2 % (0.0-0.4); Basophil (Absolute #) 0.02 (0-0.4); Eosinophil % 0.4 % (0.00-5.0); Eosinophil (Absolute #) 0.05 (0-0.5); INR 1.34 (0.8-3.0); Lymphocytes % 13.4 % (24.0-44.0); Mean Cell Volume 101.1 fl (78-100); Mean Corpuscular Hemoglobin 31.9 pg (26-32); Mean Corpuscular Hgb Concent. 31.6 g/dl (32-36); Monocyte (Absolute #) 1.22 (0.0-1.3); Monocytes % 9.7 % (0.0-12.0); Neutrophil % 76.3 % (36.0-66.0); PROTIME 15.2 SECONDS (8.83-12.87); Platelet Count 233 K/mm3 (150-450); Red Cell Distribution Width 14.5 % (11.5-14.0); White Blood Count 12.6 K/mm3 (4.0-10.5)
[2021-03-06 07:22] LABS: ALBUMIN 2.9 g/dL (3.5-5.0); ANION GAP 15.8 MEQ/L (5-15); BILIRUBIN,TOTAL 0.2 mg/dL (0.2-1.3); Calcium 8.8 mg/dL (8.4-10.2); Creatinine 1 5.59 mg/dL (0.66-1.25); EST GLOMERULAR FILTRATION RATE 10.5 ML/MIN
[2021-03-06 07:43] LABS: Red Blood Count 1.88 M/mm3 (4.1-5.6)
--- NOTE | 2021-03-06 08:09 | XRAY ---
Indication: Fever. Comparison: November 06, 2020. Portable chest unchanged again slightly underinflated with hazy bilateral interstitial opacities. No consolidation/large effusion. Heart not enlarged with left pacemaker. Bony thorax intact with mild degenerative changes and surgical viktoriya base of neck/left axilla. No new cardiopulmonary abnormalities.
[2021-03-06] MEDS ORDERED: PHARMACY DOSING REQUEST MC ONE (08:59)
[2021-03-06] MEDS: Zosyn 2.25 GM 2.25 GM in Sodium Chloride 100ML MINI-BAG PLUS 100 ML IV SCH ×3 (10:13→18:48)
--- NOTE | 2021-03-06 10:44 | PCM.HP ---
History of Present Illness - Chief Complaint Chief Complaint: sepis, UTI, CKD History of Present Illness: is a 80 year old male. Medications & Allergies Home Medications: Home Medication List Levothyroxine Sodium 50 Mcg [Synthroid 50 Mcg] 25 mcg PO DAILY 03/27/14 [History Confirmed 03/06/21] Clopidogrel Bisulfate [Plavix] 75 mg PO UD 06/16/14 [History Confirmed 03/06/21] Donepezil HCl [Aricept] 10 mg PO HS 06/16/14 [History Confirmed 03/06/21] Tamsulosin HCl 0.4 mg [Flomax 0.4 MG] 0.4 mg PO HS 06/16/14 [History Confirmed 03/06/21] Fluoxetine HCl [Prozac] 20 mg PO DAILY 04/15/15 [History Confirmed 03/06/21] Memantine HCl [Namenda] 10 mg PO BID 04/15/15 [History Confirmed 03/06/21] Atorvastatin Calcium 20 mg PO HS 08/17/17 [History Confirmed 03/06/21] Ferrous Sulfate [Iron] 325 mg PO DAILY 08/17/17 [History Confirmed 03/06/21] Gabapentin [Neurontin] 300 mg PO BID 08/17/17 [History Confirmed 03/06/21] Omeprazole 40 mg PO DAILY 08/17/17 [History Confirmed 03/06/21] Sodium Bicarbonate 650 mg PO BID 08/17/17 [History Confirmed 03/06/21] Carvedilol 12.5 mg [Coreg 12.5 mg] 12.5 mg PO BID 11/04/19 [History Confirmed 03/06/21] Insulin Lispro [Humalog] 0 unit SQ TID PRN 08/14/20 [History Confirmed 03/05/21] Vitamin B Complex 1 each PO DAILY 09/24/20 [History Confirmed 03/06/21] Furosemide 40 mg [Lasix 40 MG] 40 mg PO DAILY 11/07/20 [History Confirmed 03/06/21] Patiromer Calcium Sorbitex [Veltassa] 8.4 mg PO DAILY 11/07/20 [History Confirmed 03/06/21] Aspirin EC 81 mg [Ecotrin 81 mg] 81 mg PO DAILY 11/27/20 [History Confirmed 03/06/21] Cephalexin Monohydrate [Keflex] 1 cap PO Q6H 03/05/21 [History Confirmed 03/05/21] Enoxaparin Sodium [Lovenox] 40 mg SQ DAILY 03/05/21 [History Confirmed 03/05/21] Insulin Glargine [Lantus Insulin] 25 unit SQ HS 03/05/21 [History Confirmed 03/06/21] Acetaminophen 325 mg [Tylenol 325 mg] 650 mg PO Q4H PRN PRN 03/06/21 [History Confirmed 03/06/21] Acetaminophen 500 mg [Tylenol Extra Strength 500 mg] 500 mg PO Q4H PRN PRN 03/06/21 [History Confirmed 03/06/21] Arginine/Ascorbate Sod/Troy AC [Arginaid Powder] 1 packet PO BID 03/06/21 [History Confirmed 03/06/21] Evolocumab [Repatha Suresriick] 140 mg SQ UD 03/06/21 [History Confirmed 03/06/21] Hydrocodone Bit/Acetaminophen [Hydrocodon-Acetaminophn 10-325] 1 tablet PO Q4H PRN PRN 03/06/21 [History Confirmed 03/06/21] Hydrocodone/Acetaminophen [Hydrocodone-Acetamin 5-325 mg] 1 tab PO Q4H PRN PRN 03/06/21 [History Confirmed 03/06/21] Insulin Lispro [Humalog] 8 units SQ ACHS 03/06/21 [History Confirmed 03/06/21] Magnesium Hydroxide 30 ml [Milk of Magnesia 30 ml] 30 ml PO DAILY PRN PRN 03/06/21 [History Confirmed 03/06/21] Multivit with Iron,Minerals [Unicomplex-M] 1 tab PO DAILY 03/06/21 [History Confirmed 03/06/21] Patient Own Med [Patient Own Medication] 30 ml PO TID 03/06/21 [History Confirmed 03/06/21] Sertraline HCl 50 mg [Zoloft 50 mg Tablet] 25 mg PO HS 03/06/21 [History Confirmed 03/06/21] Smz/Tmp Ds Tablet [Bactrim Ds Tablet] 1 tab PO BID 03/06/21 [History Confirmed 03/06/21] Allergies/Adverse Reactions: Allergies Allergy/AdvReac Type Severity Reaction Status Date / Time No Known Allergies Allergy Verified 01/05/21 08:38 - Past Medical History Past Medical History: Yes Neurological History: TIA ENT History: No Pertinent History Cardiac History: Coronary Artery Disease, High Cholesterol, Hypertension, Myocardial Infarction ([place]) Respiratory History: Pneumonia, Other Endocrine Medical History: Diabetes Type II Musculoskelatal History: Osteoarthritis GI Medical History: Diverticulitis, GERD, Other History: Renal Disease, Other Pyscho-Social History: Anxiety, Depression Male Reproductive Disorders: Prostate Problems Comment: Pacemaker, stents, Covid 19 - Past Surgical History Past Surgical History: Yes Neuro Surgical History: No Pertinent History Cardiac History: Cardiac Catheterization, Cardiac Stent, Pacemaker Respiratory Surgery: No Pertinent History GI Surgical History: No Pertinent History Genitourinary Surgical Hx: No Pertinent History Musculskeletal Surgical Hx: Orthopedic Surgery Male Surgical History: No Pertinent History Other Surgical History: rt knee replacement and revision to rt knee, skin lesions removed left arm, partial parathyroid gland removed, bilateral feet - toe amputations - Social History Smoking Status: Never smoker Exposure to second hand smoke: No Alcohol: None Drug Use: none Significant Family History: no pertinent family hx - Physical Exam Vital Signs: Vital Signs - 24 hr Temp Pulse Resp BP Pulse Ox 03/06/21 07:52 99.5 F 72 20 118/36 99 03/06/21 07:05 98 03/06/21 04:00 100.6 F 79 21 127/49 100 03/06/21 00:56 102.3 F 87 18 145/60 99 03/05/21 22:26 102.9 F 90 148/59 98 03/05/21 21:51 100 03/05/21 21:48 99 03/05/21 21:30 102.7 F 92 H 17 124/94 100 03/05/21 20:07 104 F 90 16 167/76 100 Oxygen-Last 24 hours Oxygen Flowrate (L/min)-RT 2 Wound Assessment: Skin/Wound Assessment Wound/Incision Assessment Start: 03/06/21 01:14 Text: Status: Active Freq: Q6H Protocol: Document 03/06/21 08:00 BA (Rec: 03/06/21 09:23 BA [id number]) Wound Photo Photo Taken No Results - Labs Lab/Micro Results: Lab Results-Last 24 Hours 03/05/21 03/05/21 03/05/21 Range/Units 20:30 20:30 20:33 WBC 11.3 H (4.0-10.5) K/mm3 RBC 2.18 L (4.1-5.6) M/mm3 Hgb 7.1 L (12.5-18.0) gm/dl Hct 21.6 L (42-50) % MCV 99.1 (78-100) fl MCH 32.6 H (26-32) pg MCHC 32.9 (32-36) g/dl RDW 14.4 H (11.5-14.0) % Plt Count 269 (150-450) K/mm3 MPV 8.8 (7.5-11.0) fl Gran % 83.2 H (36.0-66.0) % Eos # (Auto) 0.11 (0-0.5) Absolute Lymphs (auto) 1.04 (1.0-4.6) Absolute Monos (auto) 0.73 (0.0-1.3) Lymphocytes % 9.2 L (24.0-44.0) % Monocytes % 6.4 (0.0-12.0) % Eosinophils % 1.0 (0.00-5.0) % Basophils % 0.2 (0.0-0.4) % Absolute Granulocytes 9.42 H (1.4-6.9) Basophils # 0.02 (0-0.4) PT (8.83-12.87) SECONDS INR (0.8-3.0) Sodium 141 (137-145) mmol/L Potassium 4.2 (3.5-5.1) mmol/L Chloride 110 H (98-107) mmol/L Carbon Dioxide 17 L (22-30) mmol/L Anion Gap 18.2 H (5-15) MEQ/L BUN 106 H (9-20) mg/dL Creatinine 5.77 H (0.66-1.25) mg/dL Estimated GFR 10.2 ML/MIN Glucose 215 H (74-106) mg/dL POC Glucometer (74 to 106) mg/dL Lactic Acid 1.4 (0.4-2.0) Calcium 9.5 (8.4-10.2) mg/dL Total Bilirubin 0.30 (0.2-1.3) mg/dL AST 27 (17-59) U/L ALT 14 (0-50) U/L Alkaline Phosphatase 66 (38-126) U/L Serum Total Protein 7.0 (6.3-8.2) g/dL Albumin 3.5 (3.5-5.0) g/dL Urine Color (YELLOW) Urine Appearance (CLEAR) Urine pH (5-6) Ur Specific [place] (1.005-1.025) Urine Protein (Negative) Urine Ketones (NEGATIVE) Urine Blood (0-5) Donn/ul Urine Nitrite (NEGATIVE) Urine Bilirubin (NEGATIVE) Urine Urobilinogen (0-1) mg/dL Ur Leukocyte Esterase (NEGATIVE) Urine WBC (Auto) (0-5) /HPF Urine RBC (Auto) (0-2) /HPF U Epithel Cells (Auto) (FEW) /HPF Urine Bacteria (Auto) (NEGATIVE) /HPF Amorphous Crystals (NEGATIVE) /HPF Urine Culture Reflexed (NO) Urine Glucose (NEGATIVE) mg/dL Influenza Type A Ag (NEGATIVE) Influenza Type B Ag (NEGATIVE) RSV (PCR) (Negative) SARS-CoV-2 (PCR) (NEGATIVE) 03/05/21 03/05/21 03/06/21 Range/Units 20:43 22:05 05:47 WBC 12.6 H (4.0-10.5) K/mm3 RBC 1.88 L* (4.1-5.6) M/mm3 Hgb 6.0 L* (12.5-18.0) gm/dl Hct 19.0 L (42-50) % MCV 101.1 H (78-100) fl MCH 31.9 (26-32) pg MCHC 31.6 L (32-36) g/dl RDW 14.5 H (11.5-14.0) % Plt Count 233 (150-450) K/mm3 MPV 9.0 (7.5-11.0) fl Gran % 76.3 H (36.0-66.0) % Eos # (Auto) 0.05 (0-0.5) Absolute Lymphs (auto) 1.70 (1.0-4.6) Absolute Monos (auto) 1.22 (0.0-1.3) Lymphocytes % 13.4 L (24.0-44.0) % Monocytes % 9.7 (0.0-12.0) % Eosinophils % 0.4 (0.00-5.0) % Basophils % 0.2 (0.0-0.4) % Absolute Granulocytes 9.65 H (1.4-6.9) Basophils # 0.02 (0-0.4) PT (8.83-12.87) SECONDS INR (0.8-3.0) Sodium (137-145) mmol/L Potassium (3.5-5.1) mmol/L Chloride (98-107) mmol/L Carbon Dioxide (22-30) mmol/L Anion Gap (5-15) MEQ/L BUN (9-20) mg/dL Creatinine (0.66-1.25) mg/dL Estimated GFR ML/MIN Glucose (74-106) mg/dL POC Glucometer (74 to 106) mg/dL Lactic Acid (0.4-2.0) Calcium (8.4-10.2) mg/dL Total Bilirubin (0.2-1.3) mg/dL AST (17-59) U/L ALT (0-50) U/L Alkaline Phosphatase (38-126) U/L Serum Total Protein (6.3-8.2) g/dL Albumin (3.5-5.0) g/dL Urine Color YELLOW (YELLOW) Urine Appearance CLOUDY (CLEAR) Urine pH 5.0 (5-6) Ur Specific [place] 1.014 (1.005-1.025) Urine Protein 30 (Negative) Urine Ketones NEGATIVE (NEGATIVE) Urine Blood MODERATE (0-5) Donn/ul Urine Nitrite NEGATIVE (NEGATIVE) Urine Bilirubin NEGATIVE (NEGATIVE) Urine Urobilinogen NEGATIVE (0-1) mg/dL Ur Leukocyte Esterase LARGE (NEGATIVE) Urine WBC (Auto) >100 (0-5) /HPF Urine RBC (Auto) 0-2 (0-2) /HPF U Epithel Cells (Auto) NONE (FEW) /HPF Urine Bacteria (Auto) NONE (NEGATIVE) /HPF Amorphous Crystals FEW (NEGATIVE) /HPF Urine Culture Reflexed ORDERED SEPARATELY (NO) Urine Glucose NEGATIVE (NEGATIVE) mg/dL Influenza Type A Ag NEGATIVE (NEGATIVE) Influenza Type B Ag NEGATIVE (NEGATIVE) RSV (PCR) NEGATIVE (Negative) SARS-CoV-2 (PCR) NEGATIVE (NEGATIVE) 03/06/21 03/06/21 03/06/21 Range/Units 05:47 05:47 06:29 WBC (4.0-10.5) K/mm3 RBC (4.1-5.6) M/mm3 Hgb (12.5-18.0) gm/dl Hct (42-50) % MCV (78-100) fl MCH (26-32) pg MCHC (32-36) g/dl RDW (11.5-14.0) % Plt Count (150-450) K/mm3 MPV (7.5-11.0) fl Gran % (36.0-66.0) % Eos # (Auto) (0-0.5) Absolute Lymphs (auto) (1.0-4.6) Absolute Monos (auto) (0.0-1.3) Lymphocytes % (24.0-44.0) % Monocytes % (0.0-12.0) % Eosinophils % (0.00-5.0) % Basophils % (0.0-0.4) % Absolute Granulocytes (1.4-6.9) Basophils # (0-0.4) PT 15.2 H (8.83-12.87) SECONDS INR 1.34 (0.8-3.0) Sodium 140 (137-145) mmol/L Potassium 4.0 (3.5-5.1) mmol/L Chloride 113 H (98-107) mmol/L Carbon Dioxide 16 L* (22-30) mmol/L Anion Gap 15.8 H (5-15) MEQ/L BUN 97 H (9-20) mg/dL Creatinine 5.59 H (0.66-1.25) mg/dL Estimated GFR 10.5 ML/MIN Glucose 250 H (74-106) mg/dL POC Glucometer (74 to 106) mg/dL Lactic Acid 1.0 (0.4-2.0) Calcium 8.8 (8.4-10.2) mg/dL Total Bilirubin 0.20 (0.2-1.3) mg/dL AST 47 (17-59) U/L ALT 13 (0-50) U/L Alkaline Phosphatase 59 (38-126) U/L Serum Total Protein 6.0 L (6.3-8.2) g/dL Albumin 2.9 L (3.5-5.0) g/dL Urine Color (YELLOW) Urine Appearance (CLEAR) Urine pH (5-6) Ur Specific [place] (1.005-1.025) Urine Protein (Negative) Urine Ketones (NEGATIVE) Urine Blood (0-5) Donn/ul Urine Nitrite (NEGATIVE) Urine Bilirubin (NEGATIVE) Urine Urobilinogen (0-1) mg/dL Ur Leukocyte Esterase (NEGATIVE) Urine WBC (Auto) (0-5) /HPF Urine RBC (Auto) (0-2) /HPF U Epithel Cells (Auto) (FEW) /HPF Urine Bacteria (Auto) (NEGATIVE) /HPF Amorphous Crystals (NEGATIVE) /HPF Urine Culture Reflexed (NO) Urine Glucose (NEGATIVE) mg/dL Influenza Type A Ag (NEGATIVE) Influenza Type B Ag (NEGATIVE) RSV (PCR) (Negative) SARS-CoV-2 (PCR) (NEGATIVE) 03/06/21 Range/Units 07:05 WBC (4.0-10.5) K/mm3 RBC (4.1-5.6) M/mm3 Hgb (12.5-18.0) gm/dl Hct (42-50) % MCV (78-100) fl MCH (26-32) pg MCHC (32-36) g/dl RDW (11.5-14.0) % Plt Count (150-450) K/mm3 MPV (7.5-11.0) fl Gran % (36.0-66.0) % Eos # (Auto) (0-0.5) Absolute Lymphs (auto) (1.0-4.6) Absolute Monos (auto) (0.0-1.3) Lymphocytes % (24.0-44.0) % Monocytes % (0.0-12.0) % Eosinophils % (0.00-5.0) % Basophils % (0.0-0.4) % Absolute Granulocytes (1.4-6.9) Basophils # (0-0.4) PT (8.83-12.87) SECONDS INR (0.8-3.0) Sodium (137-145) mmol/L Potassium (3.5-5.1) mmol/L Chloride (98-107) mmol/L Carbon Dioxide (22-30) mmol/L Anion Gap (5-15) MEQ/L BUN (9-20) mg/dL Creatinine (0.66-1.25) mg/dL Estimated GFR ML/MIN Glucose (74-106) mg/dL POC Glucometer 228 H (74 to 106) mg/dL Lactic Acid (0.4-2.0) Calcium (8.4-10.2) mg/dL Total Bilirubin (0.2-1.3) mg/dL AST (17-59) U/L ALT (0-50) U/L Alkaline Phosphatase (38-126) U/L Serum Total Protein (6.3-8.2) g/dL Albumin (3.5-5.0) g/dL Urine Color (YELLOW) Urine Appearance (CLEAR) Urine pH (5-6) Ur Specific [place] (1.005-1.025) Urine Protein (Negative) Urine Ketones (NEGATIVE) Urine Blood (0-5) Donn/ul Urine Nitrite (NEGATIVE) Urine Bilirubin (NEGATIVE) Urine Urobilinogen (0-1) mg/dL Ur Leukocyte Esterase (NEGATIVE) Urine WBC (Auto) (0-5) /HPF Urine RBC (Auto) (0-2) /HPF U Epithel Cells (Auto) (FEW) /HPF Urine Bacteria (Auto) (NEGATIVE) /HPF Amorphous Crystals (NEGATIVE) /HPF Urine Culture Reflexed (NO) Urine Glucose (NEGATIVE) mg/dL Influenza Type A Ag (NEGATIVE) Influenza Type B Ag (NEGATIVE) RSV (PCR) (Negative) SARS-CoV-2 (PCR) (NEGATIVE) Microbiology 03/05/21 20:43 Urine Culture - Preliminary Catherized NO GROWTH TO DATE Accuchecks Date 03/06/21 - Radiology Impressions Radiology Exams & Impressions: Radiology Procedures Category Date Time Status CHEST 1 VIEW (PORTABLE) Stat Exams 03/05/21 20:19 Completed
[2021-03-06] MEDS ORDERED: HUMALOG SQ PRN (12:09)
[2021-03-06 12:37] LABS: ABO TYPING O; Antibody Screen NEGATIVE (NEGATIVE); RH TYPING POSITIVE
[2021-03-06 12:41] LABS: CROSS MATCH (PRBC) COMPATIBLE (COMPATIBLE)
[2021-03-06] MEDS: Sodium Chloride 0.9% 1000 ML 1,000 ML IV SCH (12:47)
[2021-03-06] MEDS ORDERED: MILK OF MAGNESIA 30 ML PO PRN (12:52)
[2021-03-06] MEDS ORDERED: PLAVIX 75 MG Tablet PO SCH (13:00)
[2021-03-06] MEDS: Lasix 40 MG PO SCH (13:42)
[2021-03-06] MEDS: THERAGRAN MULTIVITAMIN PO SCH (13:42)
[2021-03-06] MEDS: Protonix 40MG Tablet PO SCH (13:42)
[2021-03-06] MEDS: SYNTHROID 25 MCG PO SCH (13:42)
[2021-03-06] MEDS: FEOSOL 325 MG PO SCH (13:43)
[2021-03-06] MEDS: ECOTRIN 81 MG PO SCH (13:43)
[2021-03-06] MEDS: Prozac 20 MG PO SCH (13:45)
[2021-03-06] MEDS ORDERED: INSULIN LISPRO 8 UNIT SQ SCH (16:30)
[2021-03-06] MEDS: HUMALOG SQ SCH ×2 (17:14→21:30)
[2021-03-06] MEDS: TYLENOL EXTRA STRENGTH 500 MG PO PRN (19:54)
[2021-03-06 20:21] LABS: Hemoglobin 8.5 gm/dl (12.5-18.0)
[2021-03-06] MEDS: ZOCOR 20MG PO SCH (21:32)
[2021-03-06] MEDS: SODIUM BICARBONATE PO SCH (21:33)
[2021-03-06] MEDS ORDERED: NON-FORMULARY ITEM (Atorvastatin Calcium [Atorvastatin Calcium] 20 MG) PO SCH (22:00)
[2021-03-06] MEDS ORDERED: ROCEPHIN 1 Gm-D5w 50 ml Bag** 1 G/50 ML IVPB IV SCH (22:00)
[2021-03-07] MEDS: Zosyn 2.25 GM 2.25 GM in Sodium Chloride 100ML MINI-BAG PLUS 100 ML IV SCH ×3 (01:51→17:23)
[2021-03-07 05:12] LABS: CROSS MATCH (PRBC) COMPATIBLE (COMPATIBLE)
[2021-03-07 06:37] LABS: Hematocrit 24.7 % (42-50); Hemoglobin 8.1 gm/dl (12.5-18.0); Mean Cell Volume 95.7 fl (78-100); Mean Corpuscular Hemoglobin 31.4 pg (26-32); Mean Corpuscular Hgb Concent. 32.8 g/dl (32-36); Mean Platelet Volume 8.9 fl (7.5-11.0); Platelet Count 236 K/mm3 (150-450); Red Blood Count 2.58 M/mm3 (4.1-5.6); Red Cell Distribution Width 16.4 % (11.5-14.0); White Blood Count 13.5 K/mm3 (4.0-10.5)
[2021-03-07 06:47] LABS: ALBUMIN 3.3 g/dL (3.5-5.0); ANION GAP 16.7 MEQ/L (5-15); BILIRUBIN,TOTAL 0.4 mg/dL (0.2-1.3); Calcium 9.1 mg/dL (8.4-10.2); Creatinine 1 5.42 mg/dL (0.66-1.25); EST GLOMERULAR FILTRATION RATE 10.9 ML/MIN; Potassium 3.9 mmol/L (3.5-5.1); Total Protein 6.7 g/dL (6.3-8.2)
[2021-03-07] MEDS: HYDROCODONE-ACETAMIN 10-325 MG PO PRN ×2 (07:35→20:18)
[2021-03-07] MEDS: HUMALOG SQ SCH ×4 (07:40→21:21)
[2021-03-07] MEDS: Sodium Chloride 0.9% 1000 ML 1,000 ML IV SCH (07:47)
[2021-03-07] MEDS ORDERED: FLUOXETINE HCL 20 MG PO SCH (10:00)
[2021-03-07] MEDS ORDERED: PATIROMER PO SCH (10:00)
[2021-03-07] MEDS ORDERED: NON-FORMULARY ITEM (Vitamin B Complex [Vitamin B Complex] 1 EACH) PO SCH (10:00)
[2021-03-07] MEDS ORDERED: NON-FORMULARY ITEM (Omeprazole [Omeprazole] 40 MG) PO SCH (10:00)
[2021-03-07] MEDS ORDERED: SYNTHROID 50 MCG PO SCH (10:00)
[2021-03-07] MEDS ORDERED: MULTIVIT WITH IRON MINERALS PO SCH (10:00)
[2021-03-07] MEDS: FEOSOL 325 MG PO SCH (10:05)
[2021-03-07] MEDS: DULCOLAX 5 MG PO PRN ×2 (10:05→18:45)
[2021-03-07] MEDS: THERAGRAN MULTIVITAMIN PO SCH (10:05)
[2021-03-07] MEDS: COREG 12.5 MG PO SCH ×2 (10:05→20:15)
[2021-03-07] MEDS: Namenda 5 MG PO SCH ×2 (10:05→20:15)
[2021-03-07] MEDS: Protonix 40MG Tablet PO SCH (10:05)
[2021-03-07] MEDS: ECOTRIN 81 MG PO SCH (10:05)
[2021-03-07] MEDS: Prozac 20 MG PO SCH (10:06)
[2021-03-07] MEDS: NEURONTIN 300 MG PO SCH ×2 (10:06→20:15)
[2021-03-07] MEDS: Lasix 40 MG PO SCH (10:06)
[2021-03-07] MEDS: SYNTHROID 25 MCG PO SCH (10:06)
[2021-03-07] MEDS: SODIUM BICARBONATE PO SCH ×2 (10:07→20:16)
[2021-03-07] MEDS: VITA-BEE WITH C PO SCH (10:09)
[2021-03-07] MEDS: VELTASSA PO SCH (10:14)
[2021-03-07] MEDS ORDERED: Dulcolax 10 MG SUPP PR PRN (13:41)
--- NOTE | 2021-03-07 14:26 | PCM.NOTE ---
Date and Time: 03/07/21 1425 Subjective Assessment: 80 yr old male seen and examined this am. Patient reports he is feeling a little bit better today. He reports his feet are still painful. Nurse reported patient received pain medication at around 6 am. He was reporting constipation to the nurse as well. Denies any pain anywhere else. Patient has no other reported concerns this am. - Review of Systems Constitutional: Fever, No Weight Loss Eyes: No Symptoms Ears, Nose, & Throat: No Symptoms Respiratory: No Symptoms Cardiac: No Symptoms Abdominal/Gastrointestinal: No Symptoms Genitourinary Symptoms: No Symptoms Musculoskeletal: Other (bilateral feet pain patient has partial amputation R foot) Skin: No Symptoms Neurological: No Symptoms Psychological: No Symptoms Objective Exam General Appearance: mild distress, other (overweight) Neurologic Exam: alert, oriented x 3, cooperative, agitation, depressed mood/affect Skin Exam: normal color, warm, dry, No rash Wound Assessment: Skin/Wound Assessment Wound/Incision Assessment Start: 03/06/21 01:14 Text: Status: Active Freq: Q6H Protocol: Document 03/07/21 08:00 BA (Rec: 03/07/21 08:28 [id number]) Wound/Incision Assessment Left Foot Wound Assessment Shift Assessment Wound Type Incision Wound Stage Stage I Drainage Amount None Secondary Dressing esperanza wrap. Comment Dressing CDI; moves toes freely. Right Foot Wound Assessment Shift Assessment Wound Type Incision Wound Stage Non Pressure Wound Drainage Amount None Primary Dressing drain gauze Secondary Dressing esperanza wrap. Comment dressing CDI. Wound Photo Photo Taken No Eye Exam: eyes nml inspection, No scleral icterus Ears, Nose, Throat Exam: moist mucous membranes Neck Exam: normal inspection Respiratory Exam: normal breath sounds, lungs clear, No chest tenderness, No diminished breath sounds, No crackles/rales, No rhonchi, No wheezing Cardiovascular Exam: regular rate/rhythm, normal heart sounds, murmur, No friction rub, No gallop Gastrointestinal/Abdomen Exam: soft, normal bowel sounds, distention, No tenderness, No mass, No guarding Extremity Exam: other (lower extremites are both wrapped. R foot is partially amputated. L foot with great toe amputation. Foul odor not present today.) Male Genitalia Exam: deferred Rectal Exam: deferred OBJECTIVE DATA Vital Signs: Vital Signs - 24 hr Temp Pulse Resp BP Pulse Ox 03/07/21 11:42 99.4 F 67 18 139/63 99 03/07/21 07:26 100.2 F 68 18 139/64 97 03/07/21 04:03 99.3 F 60 18 143/63 99 03/06/21 23:57 99.9 F 65 18 121/61 97 03/06/21 20:08 99 03/06/21 20:06 100.9 F 71 18 147/71 100 03/06/21 16:00 99.4 F 61 18 104/58 99 Pain Assessment - Last Documented Pain Intensity 2 Pain Scale Used 0-10 Pain Scale Intake and Output: Intake & Output 03/05/21 03/06/21 03/07/21 03/08/21 11:59 11:59 11:59 11:59 Intake Total 640 2454 240 Output Total 675 3575 Balance -35 579 240 Weight 93.6 kg 95 kg Lab Results: Lab Results-Last 24 Hours 03/06/21 03/06/21 03/06/21 Range/Units 09:35 16:26 20:00 WBC (4.0-10.5) K/mm3 RBC (4.1-5.6) M/mm3 Hgb 8.5 L D (12.5-18.0) gm/dl Hct 26.0 L (42-50) % MCV (78-100) fl MCH (26-32) pg MCHC (32-36) g/dl RDW (11.5-14.0) % Plt Count (150-450) K/mm3 MPV (7.5-11.0) fl Sodium (137-145) mmol/L Potassium (3.5-5.1) mmol/L Chloride (98-107) mmol/L Carbon Dioxide (22-30) mmol/L Anion Gap (5-15) MEQ/L BUN (9-20) mg/dL Creatinine (0.66-1.25) mg/dL Estimated GFR ML/MIN Glucose (74-106) mg/dL POC Glucometer 190 H (74 to 106) mg/dL Calcium (8.4-10.2) mg/dL Total Bilirubin (0.2-1.3) mg/dL AST (17-59) U/L ALT (0-50) U/L Alkaline Phosphatase (38-126) U/L Serum Total Protein (6.3-8.2) g/dL Albumin (3.5-5.0) g/dL Stl Occult Blood (IFOB) (NEGATIVE) Crossmatch COMPATIBLE (COMPATIBLE) 03/06/21 03/07/21 03/07/21 Range/Units 20:53 05:30 05:30 WBC 13.5 H (4.0-10.5) K/mm3 RBC 2.58 L (4.1-5.6) M/mm3 Hgb 8.1 L (12.5-18.0) gm/dl Hct 24.7 L (42-50) % MCV 95.7 (78-100) fl MCH 31.4 (26-32) pg MCHC 32.8 (32-36) g/dl RDW 16.4 H (11.5-14.0) % Plt Count 236 (150-450) K/mm3 MPV 8.9 (7.5-11.0) fl Sodium 141 (137-145) mmol/L Potassium 3.9 (3.5-5.1) mmol/L Chloride 112 H (98-107) mmol/L Carbon Dioxide 17 L (22-30) mmol/L Anion Gap 16.7 H (5-15) MEQ/L BUN 91 H (9-20) mg/dL Creatinine 5.42 H (0.66-1.25) mg/dL Estimated GFR 10.9 ML/MIN Glucose 94 (74-106) mg/dL POC Glucometer 212 H (74 to 106) mg/dL Calcium 9.1 (8.4-10.2) mg/dL Total Bilirubin 0.40 (0.2-1.3) mg/dL AST 46 (17-59) U/L ALT 9 (0-50) U/L Alkaline Phosphatase 62 (38-126) U/L Serum Total Protein 6.7 (6.3-8.2) g/dL Albumin 3.3 L (3.5-5.0) g/dL Stl Occult Blood (IFOB) (NEGATIVE) Crossmatch (COMPATIBLE) 03/07/21 03/07/21 03/07/21 Range/Units 07:02 11:23 13:00 WBC (4.0-10.5) K/mm3 RBC (4.1-5.6) M/mm3 Hgb (12.5-18.0) gm/dl Hct (42-50) % MCV (78-100) fl MCH (26-32) pg MCHC (32-36) g/dl RDW (11.5-14.0) % Plt Count (150-450) K/mm3 MPV (7.5-11.0) fl Sodium (137-145) mmol/L Potassium (3.5-5.1) mmol/L Chloride (98-107) mmol/L Carbon Dioxide (22-30) mmol/L Anion Gap (5-15) MEQ/L BUN (9-20) mg/dL Creatinine (0.66-1.25) mg/dL Estimated GFR ML/MIN Glucose (74-106) mg/dL POC Glucometer TNP 232 H (74 to 106) mg/dL Calcium (8.4-10.2) mg/dL Total Bilirubin (0.2-1.3) mg/dL AST (17-59) U/L ALT (0-50) U/L Alkaline Phosphatase (38-126) U/L Serum Total Protein (6.3-8.2) g/dL Albumin (3.5-5.0) g/dL Stl Occult Blood (IFOB) POSITIVE A (NEGATIVE) Crossmatch (COMPATIBLE) Radiology Exams: Radiology Procedures Category Date Time Status CHEST 1 VIEW (PORTABLE) Stat Exams 03/05/21 20:19 Completed Multi-Disciplinary Progress Notes: Multi-Disciplinary Progress Notes 03/07/21 11:36 Case Management Note by Moriah Sánchez DISCHARGE PLAN REVIEWED. PT NORMALLY IS A RESIDENT OF [facility] AND IS ASSISTED WITH ALL ADLs. PLAN TO RETURN TO [facility] AT PRE EPISODIC LEVEL OF CARE. WILL CONTINUE TO MONITOR FOR ANY D/C NEEDS. 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 Initialized on 03/07/21 05:31 - END OF NOTE Assessment/Plan (1) Sepsis Current Visit: Yes Status: Acute Assessment & Plan: Patient met two initial criteria for sepsis with heart rate above 90 and temp. Patient was started on iv fluids and antibiotics in ER. He continues to have a elevated temp and trending up white count. Additional antibiotic was added today. Limited on which antibiotics can be given to patient due to extremely poor renal function. Patient has cultures pending from his recent bilateral foot debridement. Will continue to follow up on cultures and change antibiotics if necessary. (2) CKD (chronic kidney disease) Current Visit: Yes Status: Acute Assessment & Plan: Patient has been seen by both Dr MENSAH and Sharif in the past. Patient does not want to have dialysis. Patient is CKD stage 5. He has been getting IV fluids and has had a mild improvement in labs. These valued appear to be baseline for patient. Code(s): N18.9 - CHRONIC KIDNEY DISEASE, UNSPECIFIED (3) Generalized weakness Current Visit: Yes Status: Acute Assessment & Plan: Likely due to deconditioning and sepsis. Patient is being treated for sepsis. He will need PT to help with reconditioning. Code(s): R53.1 - WEAKNESS (4) UTI (urinary tract infection) Current Visit: Yes Status: Acute Assessment & Plan: Patient is on zosyn and rocephin. Will adjust based on culture results if needed. Code(s): N39.0 - URINARY TRACT INFECTION, SITE NOT SPECIFIED (5) Anemia Current Visit: No Status: Acute Assessment & Plan: Most likely anemina of chronic disease related to CKD however patient was occult positive and had recent surgical debridement of his feet performed. He has received blood products and his hgb trended up and has trended slightly down. Will have surgery consulted for colonoscopy Code(s): D64.9 - ANEMIA, UNSPECIFIED (6) Diabetes mellitus Current Visit: No Status: Chronic Code(s): E11.9 - TYPE 2 DIABETES MELLITUS WITHOUT COMPLICATIONS (7) GERD (gastroesophageal reflux disease) Current Visit: No Status: Chronic Qualifiers: Esophagitis presence: without esophagitis Qualified Code(s): K21.9 - Gastro-esophageal reflux disease without esophagitis Assessment & Plan: Will continue with routine meds Code(s): K21.9 - GASTRO-ESOPHAGEAL REFLUX DISEASE WITHOUT ESOPHAGITIS (8) HTN (hypertension) Current Visit: No Status: Chronic Qualifiers: Hypertension type: essential hypertension Qualified Code(s): I10 - Essential (primary) hypertension Code(s): I10 - ESSENTIAL (PRIMARY) HYPERTENSION
[2021-03-07] MEDS: TYLENOL EXTRA STRENGTH 500 MG PO PRN (15:40)
[2021-03-07] MEDS: ZOCOR 20MG PO SCH (20:15)
[2021-03-07] MEDS: Flomax 0.4 MG PO SCH (20:15)
[2021-03-07] MEDS: Aricept 10 MG PO SCH (20:16)
[2021-03-07] MEDS: Lantus Insulin SQ SCH (21:21)
[2021-03-08] MEDS: Zosyn 2.25 GM 2.25 GM in Sodium Chloride 100ML MINI-BAG PLUS 100 ML IV SCH ×2 (01:56→10:29)
[2021-03-08] MEDS: HYDROCODONE-ACETAMIN 10-325 MG PO PRN ×2 (02:50→09:17)
[2021-03-08] MEDS: Sodium Chloride 0.9% 1000 ML 1,000 ML IV SCH (05:28)
[2021-03-08 06:01] LABS: Absolute Neutrophil Ct (ANC) 10.34 (1.4-6.9); BASOPHIL % 0.2 % (0.0-0.4); Basophil (Absolute #) 0.03 (0-0.4); Eosinophil % 3.3 % (0.00-5.0); Eosinophil (Absolute #) 0.45 (0-0.5); Hematocrit 25.3 % (42-50); Hemoglobin 8.2 gm/dl (12.5-18.0); Lymphocyte (Absolute #) 1.84 (1.0-4.6); Lymphocytes % 13.5 % (24.0-44.0); Mean Cell Volume 96.2 fl (78-100); Mean Corpuscular Hemoglobin 31.2 pg (26-32); Mean Corpuscular Hgb Concent. 32.4 g/dl (32-36); Mean Platelet Volume 8.6 fl (7.5-11.0); Monocyte (Absolute #) 0.96 (0.0-1.3); Platelet Count 246 K/mm3 (150-450); Red Blood Count 2.63 M/mm3 (4.1-5.6); Red Cell Distribution Width 16.1 % (11.5-14.0); White Blood Count 13.6 K/mm3 (4.0-10.5)
[2021-03-08 06:11] LABS: ALBUMIN 3.1 g/dL (3.5-5.0); BILIRUBIN,TOTAL 0.4 mg/dL (0.2-1.3); Calcium 9.2 mg/dL (8.4-10.2); Creatinine 1 5.32 mg/dL (0.66-1.25); EST GLOMERULAR FILTRATION RATE 11.2 ML/MIN; Potassium 3.8 mmol/L (3.5-5.1); Total Protein 6.6 g/dL (6.3-8.2)
[2021-03-08] MEDS: HUMALOG SQ SCH ×2 (07:38→11:29)
--- NOTE | 2021-03-08 08:51 | PCM.DS ---
Discharge Summary Date of Admission: 03/06/21 12:22 Admitting Physician: SULTANA CARRINGTON MD Consults: Consults on Case 03/06/21 09:00 Consult Nephrology ROUTINE Consult Podiatry ROUTINE 03/07/21 21:21 Consult Surgery ROUTINE Primary Care Provider: YOHAN Allergies Allergies No Known Allergies Allergy (Verified 01/05/21 08:38) Hospital Summary - Hospital Course Hospital Course: patient admitted following a recent debridement and wound vac to right foot, he has CKD stage 5 but refuses dialysis. his hemoglobin was low after surgery, did have +occult blood but anemia is chronic related to CKD as well. prognosis is poor based on renal issues and chronic wounds/vascular disease etc. - Vitals & Intake/Output Vital Signs: Vital Signs Temperature 99.5 F 03/08/21 07:39 Pulse Rate 62 03/08/21 07:39 Respiratory Rate 18 03/08/21 07:39 Blood Pressure 167/74 03/08/21 07:39 O2 Sat by Pulse Oximetry 96 03/08/21 07:39 Intake & Output: Intake & Output 03/05/21 03/06/21 03/07/21 03/08/21 11:59 11:59 11:59 11:59 Intake Total 640 2454 3002 Output Total 675 1875 2950 Balance -35 579 52 Weight 93.6 kg 95 kg 92.2 kg - Lab Result Diagrams: 03/08/21 05:10 03/08/21 05:10 Lab Results-Last 24 Hrs: Lab Results-Last 24 Hours 03/07/21 03/07/21 03/07/21 Range/Units 11:23 13:00 16:35 WBC (4.0-10.5) K/mm3 RBC (4.1-5.6) M/mm3 Hgb (12.5-18.0) gm/dl Hct (42-50) % MCV (78-100) fl MCH (26-32) pg MCHC (32-36) g/dl RDW (11.5-14.0) % Plt Count (150-450) K/mm3 MPV (7.5-11.0) fl Gran % (36.0-66.0) % Eos # (Auto) (0-0.5) Absolute Lymphs (auto) (1.0-4.6) Absolute Monos (auto) (0.0-1.3) Lymphocytes % (24.0-44.0) % Monocytes % (0.0-12.0) % Eosinophils % (0.00-5.0) % Basophils % (0.0-0.4) % Absolute Granulocytes (1.4-6.9) Basophils # (0-0.4) Sodium (137-145) mmol/L Potassium (3.5-5.1) mmol/L Chloride (98-107) mmol/L Carbon Dioxide (22-30) mmol/L Anion Gap (5-15) MEQ/L BUN (9-20) mg/dL Creatinine (0.66-1.25) mg/dL Estimated GFR ML/MIN Glucose (74-106) mg/dL POC Glucometer 232 H 261 H (74 to 106) mg/dL Calcium (8.4-10.2) mg/dL Total Bilirubin (0.2-1.3) mg/dL AST (17-59) U/L ALT (0-50) U/L Alkaline Phosphatase (38-126) U/L Serum Total Protein (6.3-8.2) g/dL Albumin (3.5-5.0) g/dL Stl Occult Blood (IFOB) POSITIVE A (NEGATIVE) 03/07/21 03/08/21 03/08/21 Range/Units 21:05 05:10 05:10 WBC 13.6 H (4.0-10.5) K/mm3 RBC 2.63 L (4.1-5.6) M/mm3 Hgb 8.2 L (12.5-18.0) gm/dl Hct 25.3 L (42-50) % MCV 96.2 (78-100) fl MCH 31.2 (26-32) pg MCHC 32.4 (32-36) g/dl RDW 16.1 H (11.5-14.0) % Plt Count 246 (150-450) K/mm3 MPV 8.6 (7.5-11.0) fl Gran % 76.0 H (36.0-66.0) % Eos # (Auto) 0.45 (0-0.5) Absolute Lymphs (auto) 1.84 (1.0-4.6) Absolute Monos (auto) 0.96 (0.0-1.3) Lymphocytes % 13.5 L (24.0-44.0) % Monocytes % 7.0 (0.0-12.0) % Eosinophils % 3.3 (0.00-5.0) % Basophils % 0.2 (0.0-0.4) % Absolute Granulocytes 10.34 H (1.4-6.9) Basophils # 0.03 (0-0.4) Sodium 140 (137-145) mmol/L Potassium 3.8 (3.5-5.1) mmol/L Chloride 112 H (98-107) mmol/L Carbon Dioxide 16 L* (22-30) mmol/L Anion Gap 16.0 H (5-15) MEQ/L BUN 80 H (9-20) mg/dL Creatinine 5.32 H (0.66-1.25) mg/dL Estimated GFR 11.2 ML/MIN Glucose 108 H (74-106) mg/dL POC Glucometer 219 H (74 to 106) mg/dL Calcium 9.2 (8.4-10.2) mg/dL Total Bilirubin 0.40 (0.2-1.3) mg/dL AST 33 (17-59) U/L ALT 8 (0-50) U/L Alkaline Phosphatase 61 (38-126) U/L Serum Total Protein 6.6 (6.3-8.2) g/dL Albumin 3.1 L (3.5-5.0) g/dL Stl Occult Blood (IFOB) (NEGATIVE) 03/08/21 Range/Units 07:21 WBC (4.0-10.5) K/mm3 RBC (4.1-5.6) M/mm3 Hgb (12.5-18.0) gm/dl Hct (42-50) % MCV (78-100) fl MCH (26-32) pg MCHC (32-36) g/dl RDW (11.5-14.0) % Plt Count (150-450) K/mm3 MPV (7.5-11.0) fl Gran % (36.0-66.0) % Eos # (Auto) (0-0.5) Absolute Lymphs (auto) (1.0-4.6) Absolute Monos (auto) (0.0-1.3) Lymphocytes % (24.0-44.0) % Monocytes % (0.0-12.0) % Eosinophils % (0.00-5.0) % Basophils % (0.0-0.4) % Absolute Granulocytes (1.4-6.9) Basophils # (0-0.4) Sodium (137-145) mmol/L Potassium (3.5-5.1) mmol/L Chloride (98-107) mmol/L Carbon Dioxide (22-30) mmol/L Anion Gap (5-15) MEQ/L BUN (9-20) mg/dL Creatinine (0.66-1.25) mg/dL Estimated GFR ML/MIN Glucose (74-106) mg/dL POC Glucometer 179 H (74 to 106) mg/dL Calcium (8.4-10.2) mg/dL Total Bilirubin (0.2-1.3) mg/dL AST (17-59) U/L ALT (0-50) U/L Alkaline Phosphatase (38-126) U/L Serum Total Protein (6.3-8.2) g/dL Albumin (3.5-5.0) g/dL Stl Occult Blood (IFOB) (NEGATIVE) Micro Results-Entire Visit: Microbiology 03/05/21 20:43 Urine Culture - Final Catherized NO GROWTH 03/05/21 20:30 Blood Culture - Preliminary Blood NO GROWTH TO DATE 03/05/21 20:45 Blood Culture - Preliminary Blood NO GROWTH TO DATE Accuchecks Date 03/08/21 Date 03/07/21 Date 03/07/21 Time 07:30 Time 11:20 Discharge Exam General Appearance: no apparent distress, alert Respiratory Exam: normal breath sounds, lungs clear, No respiratory distress Cardiovascular Exam: regular rate/rhythm, normal heart sounds Gastrointestinal/Abdomen Exam: soft, No tenderness, No mass Extremity Exam: other (dressing intact with wound vac on right lower foot) Wound Assessment: Skin/Wound Assessment Wound/Incision Assessment Start: 03/06/21 01:14 Text: Status: Active Freq: Q6H Protocol: Document 03/08/21 07:41 BA (Rec: 03/08/21 07:56 BA [id number]) Wound/Incision Assessment Left Foot Wound Assessment Shift Assessment Drainage Amount None Secondary Dressing esperanza wrap. Comment Dressing CDI. Right Foot Wound Assessment Shift Assessment Wound Type Incision Wound Stage Non Pressure Wound Drainage Amount None Primary Dressing drain gauze Secondary Dressing esperanza wrap. Comment dressing CDI. wound vac intact ; no difficulty noted. Wound Photo Photo Taken No Final Diagnosis/Problem List - Final Discharge Diagnosis/Problem (1) Diabetic infection of right foot Current Visit: No Status: Acute Assessment & Plan: urine culture was negative, wound culture pending from recent surgical procedure. patient is stable, h/h is stable. no reason to keep for renal consult since patient has refused dialysis and continues to. will discharge back to [facility] on emperic bactrim and keflex as ordered for foot and adjust when culture return accordingly Code(s): E11.628 - TYPE 2 DIABETES MELLITUS WITH OTHER SKIN COMPLICATIONS; L08.9 - LOCAL INFECTION OF THE SKIN AND SUBCUTANEOUS TISSUE, UNSP (2) CKD (chronic kidney disease) Current Visit: Yes Status: Acute Code(s): N18.9 - CHRONIC KIDNEY DISEASE, UNSPECIFIED (3) Diabetes mellitus with peripheral autonomic neuropathy Current Visit: No Status: Acute Code(s): E11.43 - TYPE 2 DIABETES W DIABETIC AUTONOMIC (POLY)NEUROPATHY - Discharge Disposition: Skilled Care @ [facility] Condition: Fair Prescriptions: New PANTOPRAZOLE 40 mg Tablet [Protonix 40MG Tablet] 40 mg PO DAILY #90 tab Continue Levothyroxine Sodium 50 Mcg [Synthroid 50 Mcg] 25 mcg PO DAILY Tamsulosin HCl 0.4 mg [Flomax 0.4 MG] 0.4 mg PO HS Clopidogrel Bisulfate [Plavix] 75 mg PO UD Donepezil HCl [Aricept] 10 mg PO HS Memantine HCl [Namenda] 10 mg PO BID Fluoxetine HCl [Prozac] 20 mg PO DAILY Gabapentin [Neurontin] 300 mg PO BID Ferrous Sulfate [Iron] 325 mg PO DAILY Atorvastatin Calcium 20 mg PO HS Sodium Bicarbonate 650 mg PO BID Carvedilol 12.5 mg [Coreg 12.5 mg] 12.5 mg PO BID Insulin Lispro [Humalog] 0 unit SQ TID PRN PRN Reason: elevated blood sugar Vitamin B Complex 1 each PO DAILY Furosemide 40 mg [Lasix 40 MG] 40 mg PO DAILY Patiromer Calcium Sorbitex [Veltassa] 8.4 mg PO DAILY Aspirin EC 81 mg [Ecotrin 81 mg] 81 mg PO DAILY Enoxaparin Sodium [Lovenox] 40 mg SQ DAILY Cephalexin Monohydrate [Keflex] 1 cap PO Q6H Insulin Glargine [Lantus Insulin] 25 unit SQ HS Patient Own Med [Patient Own Medication] 30 ml PO TID Arginine/Ascorbate Sod/Troy AC [Arginaid Powder] 1 packet PO BID Multivit with Iron,Minerals [Unicomplex-M] 1 tab PO DAILY Sertraline HCl 50 mg [Zoloft 50 mg Tablet] 25 mg PO HS Smz/Tmp Ds Tablet [Bactrim Ds Tablet] 1 tab PO BID Acetaminophen 500 mg [Tylenol Extra Strength 500 mg] 500 mg PO Q4H PRN PRN PRN Reason: Pain Acetaminophen 325 mg [Tylenol 325 mg] 650 mg PO Q4H PRN PRN PRN Reason: pain or temp >100 Hydrocodone Bit/Acetaminophen [Hydrocodon-Acetaminophn 10-325] 1 tablet PO Q4H PRN PRN PRN Reason: Pain Magnesium Hydroxide 30 ml [Milk of Magnesia 30 ml] 30 ml PO DAILY PRN PRN PRN Reason: Constipation Evolocumab [Repatha Sureclick] 140 mg SQ UD Insulin Lispro [Humalog] 8 units SQ ACHS Hydrocodone/Acetaminophen [Hydrocodone-Acetamin 5-325 mg] 1 tab PO Q4H PRN PRN PRN Reason: Pain Discontinued Omeprazole 40 mg PO DAILY Follow up with: BRETT LANGLEY [Primary Care Provider] -
[2021-03-08] MEDS: THERAGRAN MULTIVITAMIN PO SCH (09:17)
[2021-03-08] MEDS: VELTASSA PO SCH (09:17)
[2021-03-08] MEDS: Namenda 5 MG PO SCH (09:17)
[2021-03-08] MEDS: NEURONTIN 300 MG PO SCH (09:17)
[2021-03-08] MEDS: Protonix 40MG Tablet PO SCH (09:17)
[2021-03-08] MEDS: SYNTHROID 25 MCG PO SCH (09:17)
[2021-03-08] MEDS: COREG 12.5 MG PO SCH (09:17)
[2021-03-08] MEDS: FEOSOL 325 MG PO SCH (09:17)
[2021-03-08] MEDS: ECOTRIN 81 MG PO SCH (09:17)
[2021-03-08] MEDS: Lasix 40 MG PO SCH (09:18)
[2021-03-08] MEDS: SODIUM BICARBONATE PO SCH (09:18)
[2021-03-08] MEDS: Prozac 20 MG PO SCH (09:18)
[2021-03-08] MEDS: VITA-BEE WITH C PO SCH (09:19)
[2021-03-08] MEDS ORDERED: PLAVIX 75 MG Tablet PO SCH (10:00)
[2021-03-08] MEDS ORDERED: ROCEPHIN 1 Gm-D5w 50 ml Bag** 1 G/50 ML IVPB IV SCH ×2 (10:00→22:00)
[2021-03-08 12:48] VITALS: BP 153/70; PULSE 76; O2SAT 95
[2021-03-08] MEDS ORDERED: NON-FORMULARY ITEM PO SCH (22:00)
[2021-03-12] MEDS ORDERED: EVOLOCUMAB 140 MG SQ SCH (10:00)
== END 2021-03-08 12:20 | DRG 637 ==
LOC: ED 20:06 → MED SURG 23:42 → OBSVTOIN 03-06 12:22
PROVIDERS: ADMIT Family Medicine; ATTEND Family Medicine
DX: E11.628 Type 2 diabetes mellitus with other skin complications (principal); A41.9 Sepsis, unspecified organism; I12.0 Hypertensive chronic kidney disease with stage 5 chronic kidney disease or end stage renal disease; N39.0 Urinary tract infection, site not specified; L08.9 Local infection of the skin and subcutaneous tissue, unspecified; E11.22 Type 2 diabetes mellitus with diabetic chronic kidney disease; N18.5 Chronic kidney disease, stage 5; Z79.899 Other long term (current) drug therapy; Z79.01 Long term (current) use of anticoagulants; Z98.890 Other specified postprocedural states; K59.00 Constipation, unspecified; R53.1 Weakness; D64.9 Anemia, unspecified; K21.9 Gastro-esophageal reflux disease without esophagitis; Z20.828 Contact with and (suspected) exposure to other viral communicable diseases
CPT/HCPCS: 0241U; 36000; 36415; 36430; 51702; 71045; 80053; 81001; 82274; 82947; 83605; 85014; 85018; 85025; 85027; 85610; 86850; 86900; 86901; 86922; 87040; 87070; 87075; 87086; 93005; 93041; 94762; 96360; 96365; 99285; G0378; P9016; 15738; 28005; 28810; 97605; J0690; J0696; J1817; J1956; J2250; J2543; J2704; J3010; A9270-GY

== ENCOUNTER 2021-03-11 11:05 | Inpatient (IN) | payer MEDICARE, OTHER ==
[2021-03-11 11:58] LABS: Absolute Neutrophil Ct (ANC) 12.17 (1.4-6.9); BASOPHIL % 0.1 % (0.0-0.4); Basophil (Absolute #) 0.02 (0-0.4); Eosinophil % 1.1 % (0.00-5.0); Eosinophil (Absolute #) 0.16 (0-0.5); Hematocrit 26.8 % (42-50); Hemoglobin 8.6 gm/dl (12.5-18.0); Lymphocytes % 9.4 % (24.0-44.0); Mean Cell Volume 98.2 fl (78-100); Mean Corpuscular Hemoglobin 31.5 pg (26-32); Mean Corpuscular Hgb Concent. 32.1 g/dl (32-36); Mean Platelet Volume 8.5 fl (7.5-11.0); Monocyte (Absolute #) 1.08 (0.0-1.3); Monocytes % 7.3 % (0.0-12.0); Neutrophil % 82.1 % (36.0-66.0); Platelet Count 301 K/mm3 (150-450); Red Blood Count 2.73 M/mm3 (4.1-5.6); Red Cell Distribution Width 15.5 % (11.5-14.0); White Blood Count 14.8 K/mm3 (4.0-10.5)
--- NOTE | 2021-03-11 12:04 | ERPHSYRPT ---
- History of Present Illness Time Seen by Provider: 03/11/21 11:30 Source: patient Exam Limitations: no limitations Patient Subjective Stated Complaint: Weakness Triage Nursing Assessment: Patient brought back to ED via w/c from Dr. Sauceda's office. Nurse stated when he arrived her was lethargic and not acting like himself. Patient Alert to self. Patient's skin pink, warm and dry. Patient denies pain or discomfort. Patient has wounds to BLE that are dressed. 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 User Support Analyst reports that patient has a foot infection. There may be some component of sepsis. Patient has Alzheimer's disease. Per report patient has a history of end-stage renal disease and is required to be on dialysis but has refused. Patient is a poor historian. Patient is max assist with transfers requiring Valentina lift for assistance. Patient denies pain. However he appears pale. Patient is on Plavix. Patient has a history of congestive heart failure as well. He currently denies pain. Symptoms are constant. No specific worsening or improving factors. Patient voices no other complaints at this time. Timing/Duration: today Severity: moderate Modifying Factors: Improves With: nothing Associated Symptoms: denies symptoms, No nausea, No vomiting, No cough, No fever, No syncope, No seizure, No weakness Allergies/Adverse Reactions: No Known Allergies Allergy (Verified 03/11/21 11:23) Home Medications: Levothyroxine Sodium 50 Mcg [Synthroid 50 Mcg] 25 mcg PO DAILY 03/27/14 [History] Clopidogrel Bisulfate [Plavix] 75 mg PO UD 06/16/14 [History] Donepezil HCl [Aricept] 10 mg PO HS 06/16/14 [History] Tamsulosin HCl 0.4 mg [Flomax 0.4 MG] 0.4 mg PO HS 06/16/14 [History] Fluoxetine HCl [Prozac] 20 mg PO DAILY 04/15/15 [History] Memantine HCl [Namenda] 10 mg PO BID 04/15/15 [History] Atorvastatin Calcium 20 mg PO HS 08/17/17 [History] Ferrous Sulfate [Iron] 325 mg PO DAILY 08/17/17 [History] Gabapentin [Neurontin] 300 mg PO BID 08/17/17 [History] Sodium Bicarbonate 650 mg PO BID 08/17/17 [History] Carvedilol 12.5 mg [Coreg 12.5 mg] 12.5 mg PO BID 11/04/19 [History] Insulin Lispro [Humalog] 0 unit SQ TID PRN 08/14/20 [History] Vitamin B Complex 1 each PO DAILY 09/24/20 [History] Furosemide 40 mg [Lasix 40 MG] 40 mg PO DAILY 11/07/20 [History] Patiromer Calcium Sorbitex [Veltassa] 8.4 mg PO DAILY 11/07/20 [History] Aspirin EC 81 mg [Ecotrin 81 mg] 81 mg PO DAILY 11/27/20 [History] Cephalexin Monohydrate [Keflex] 1 cap PO Q6H 03/05/21 [History] Enoxaparin Sodium [Lovenox] 40 mg SQ DAILY 03/05/21 [History] Insulin Glargine [Lantus Insulin] 25 unit SQ HS 03/05/21 [History] Acetaminophen 325 mg [Tylenol 325 mg] 650 mg PO Q4H PRN PRN 03/06/21 [History] Acetaminophen 500 mg [Tylenol Extra Strength 500 mg] 500 mg PO Q4H PRN PRN 03/06/21 [History] Arginine/Ascorbate Sod/Troy AC [Arginaid Powder] 1 packet PO BID 03/06/21 [History] Evolocumab [Repatha Suresriick] 140 mg SQ UD 03/06/21 [History] Hydrocodone Bit/Acetaminophen [Hydrocodon-Acetaminophn 10-325] 1 tablet PO Q4H PRN PRN 03/06/21 [History] Hydrocodone/Acetaminophen [Hydrocodone-Acetamin 5-325 mg] 1 tab PO Q4H PRN PRN 03/06/21 [History] Insulin Lispro [Humalog] 8 units SQ ACHS 03/06/21 [History] Magnesium Hydroxide 30 ml [Milk of Magnesia 30 ml] 30 ml PO DAILY PRN PRN 03/06/21 [History] Multivit with Iron,Minerals [Unicomplex-M] 1 tab PO DAILY 03/06/21 [History] Patient Own Med [Patient Own Medication] 30 ml PO TID 03/06/21 [History] Sertraline HCl 50 mg [Zoloft 50 mg Tablet] 25 mg PO HS 03/06/21 [History] Smz/Tmp Ds Tablet [Bactrim Ds Tablet] 1 tab PO BID 03/06/21 [History] Hx Tetanus, Diphtheria Vaccination/Date Given: Yes Hx Influenza Vaccination/Date Given: Yes Hx Pneumococcal Vaccination/Date Given: Yes Immunizations Up to Date: Yes Travel Risk - International Travel Have you traveled outside of the country in past 3 weeks: No - Coronavirus Screening Are you exhibiting any of the following symptoms?: No Close contact with a COVID-19 positive Pt in past 14-21 Days: No - Vaccine Status Have you recieved a Covid-19 vaccination: Yes (unknown) [employer]: [employer] - Vaccination Dates Date of 2cond Vaccination (if applicable): N/A - Review of Systems Constitutional: No Symptoms, No Fever, No Chills Eyes: No Symptoms Ears, Nose, & Throat: No Symptoms Respiratory: No Symptoms, No Cough, No Dyspnea Cardiac: No Symptoms, No Chest Pain, No Edema, No Syncope Abdominal/Gastrointestinal: No Symptoms, No Abdominal Pain, No Nausea, No Vomiting, No Diarrhea Genitourinary Symptoms: No Symptoms, No Dysuria Musculoskeletal: No Symptoms, No Back Pain, No Neck Pain Skin: No Symptoms, No Rash Neurological: No Symptoms, No Dizziness, No Focal Weakness, No Sensory Changes Psychological: No Symptoms Endocrine: No Symptoms Hematologic/Lymphatic: No Symptoms Immunological/Allergic: No Symptoms All Other Systems: Reviewed and Negative - Past Medical History Pertinent Past Medical History: Yes Neurological History: TIA ENT History: No Pertinent History Cardiac History: Coronary Artery Disease, High Cholesterol, Hypertension, Myocardial Infarction ([place]) Respiratory History: Pneumonia, Other Endocrine Medical History: Diabetes Type II Musculoskeletal History: Osteoarthritis GI Medical History: Diverticulitis, GERD, Other History: Renal Disease, Other Psycho-Social History: Anxiety, Depression Male Reproductive Disorders: Prostate Problems Other Medical History: Pacemaker, stents, Covid 19 - Past Surgical History Past Surgical History: Yes Neuro Surgical History: No Pertinent History Cardiac: Cardiac Catheterization, Cardiac Stent, Pacemaker Respiratory: No Pertinent History Gastrointestinal: No Pertinent History Genitourinary: No Pertinent History Musculoskeletal: Orthopedic Surgery Male Surgical History: No Pertinent History Other Surgical History: rt knee replacement and revision to rt knee, skin lesions removed left arm, partial parathyroid gland removed, bilateral feet - toe amputations - Social History Smoking Status: Never smoker Exposure to second hand smoke: No Drug Use: none Patient Lives Alone: No ([place]) Significant Family History: no pertinent family hx - Nursing Vital Signs Nursing Vital Signs: Initial Vital Signs Temperature 98.7 F 03/11/21 11:24 Pulse Rate 69 03/11/21 11:24 Respiratory Rate 18 03/11/21 11:24 Blood Pressure 115/64 03/11/21 11:24 O2 Sat by Pulse Oximetry 95 03/11/21 11:24 Pain Scale Pain Intensity 4 - Physical Exam General Appearance: no apparent distress, alert, other (Patient appears pale. Lethargy apparently resolved. Patient is more alert and responsive and able to answer simple questions appropriately.) Eye Exam: PERRL/EOMI, eyes nml inspection Ears, Nose, Throat Exam: normal ENT inspection, TMs normal, pharynx normal, moist mucous membranes Neck Exam: normal inspection, non-tender, supple, full range of motion Respiratory Exam: normal breath sounds, lungs clear, No respiratory distress Cardiovascular Exam: regular rate/rhythm, normal heart sounds, normal peripheral pulses Gastrointestinal/Abdomen Exam: soft, normal bowel sounds, No tenderness, No mass Back Exam: normal inspection, normal range of motion, No CVA tenderness, No vertebral tenderness Extremity Exam: normal inspection, normal range of motion, pelvis stable, other (Bilateral lower extremity dressings intact.) Neurologic Exam: alert, oriented x 3, cooperative, normal mood/affect, nml cerebellar function, nml station & gait, sensation nml, No motor deficits Skin Exam: normal color, warm, dry, No rash Lymphatic Exam: No adenopathy SpO2 Interpretation: normal SpO2: 98 O2 Delivery: Room Air - Course Nursing assessment & vital signs reviewed: Yes EKG Interpreted by Me: RATE, NORMAL AXIS, Left Bundle Branch Block - Radiology Exams Chest X-ray Interpretation: Teleradiologist Report (Portable chest demonstrates stable right lung underinflation with subsegmental atelectasis/scarring. Left lung now clear. Heart not enlarged again with left pacemaker. No new acute abnormalities.) Foot X-ray Interpretation: Teleradiologist Report (Amputation of the first mid to distal metatarsal/toe Lt foot with overlying soft tissue swelling and subcutaneous air concerning for gas-forming cellulitis. Osteopenia/heel spur and diffuse scattered vascular calcifications. Right foot demonstrates new lateral soft tissue swelling with overlying b) - CT Exams Head CT Interpretation: Tele-radiologist Report (Age-related changes including atrophy and degenerative microischemia. Incidental right maxillary sinus. No acute intracranial abnormalities.) Ordered Tests: Active Orders 24 hr Category Date Time Status Scrap Sorter STAT Care 03/11/21 11:26 Active EKG-ER Only STAT Care 03/11/21 11:25 Active Maher [Catheter-Stonewall Maher] STAT Care 03/11/21 12:44 Active IV Insertion STAT Care 03/11/21 11:25 Active Pulse Oximetry (ED) STAT Care 03/11/21 11:25 Active CHEST 1 VIEW (PORTABLE) Stat Exams 03/11/21 11:26 Completed FOOT (MINIMUM 3 VIEWS) Stat Exams 03/11/21 12:18 Completed FOOT (MINIMUM 3 VIEWS) Stat Exams 03/11/21 12:19 Completed HEAD WITHOUT CONTRAST [CT] Stat Exams 03/11/21 13:32 Completed CBC W DIFF Stat Lab 03/11/21 11:40 Completed CMP Stat Lab 03/11/21 11:40 Completed Erythrocyte Sedimentation Rate Stat Lab 03/11/21 12:17 Completed MAGNESIUM Stat Lab 03/11/21 11:40 Completed TROPONIN Q3H Lab 03/11/21 11:40 Completed TROPONIN Q3H Lab 03/11/21 14:35 Completed TROPONIN Q3H Lab 03/11/21 17:30 Ordered TROPONIN Q3H Lab 03/11/21 20:30 Ordered TROPONIN Q3H Lab 03/11/21 23:30 Ordered UA W/RFX UR CULTURE Stat Lab 03/11/21 12:43 Completed Transfer Order Routine Transfer 03/11/21 Ordered Lab/Rad Data: Laboratory Result Diagrams 03/11/21 11:40 03/11/21 11:40 Laboratory Results 03/11/21 03/11/21 03/11/21 Range/Units 15:03 14:35 12:43 WBC (4.0-10.5) K/mm3 RBC (4.1-5.6) M/mm3 Hgb (12.5-18.0) gm/dl Hct (42-50) % MCV (78-100) fl MCH (26-32) pg MCHC (32-36) g/dl RDW (11.5-14.0) % Plt Count (150-450) K/mm3 MPV (7.5-11.0) fl Gran % (36.0-66.0) % Eos # (Auto) (0-0.5) Absolute Lymphs (auto) (1.0-4.6) Absolute Monos (auto) (0.0-1.3) Lymphocytes % (24.0-44.0) % Monocytes % (0.0-12.0) % Eosinophils % (0.00-5.0) % Basophils % (0.0-0.4) % Absolute Granulocytes (1.4-6.9) Basophils # (0-0.4) ESR (0-15) mm/hr Sodium (137-145) mmol/L Potassium (3.5-5.1) mmol/L Chloride (98-107) mmol/L Carbon Dioxide (22-30) mmol/L Anion Gap (5-15) MEQ/L BUN (9-20) mg/dL Creatinine (0.66-1.25) mg/dL Estimated GFR ML/MIN Glucose (74-106) mg/dL Calcium (8.4-10.2) mg/dL Magnesium (1.6-2.3) mg/dL Total Bilirubin (0.2-1.3) mg/dL AST (17-59) U/L ALT (0-50) U/L Alkaline Phosphatase (38-126) U/L Troponin I 0.058 H* (0.000-0.034) ng/mL Serum Total Protein (6.3-8.2) g/dL Albumin (3.5-5.0) g/dL Urine Color YELLOW (YELLOW) Urine Appearance SLIGHTLY CLOUDY (CLEAR) Urine pH 5.0 (5-6) Ur Specific [place] 1.014 (1.005-1.025) Urine Protein 30 (Negative) Urine Ketones NEGATIVE (NEGATIVE) Urine Blood NEGATIVE (0-5) Donn/ul Urine Nitrite NEGATIVE (NEGATIVE) Urine Bilirubin NEGATIVE (NEGATIVE) Urine Urobilinogen NEGATIVE (0-1) mg/dL Ur Leukocyte Esterase NEGATIVE (NEGATIVE) Urine WBC (Auto) 3-5 (0-5) /HPF Urine RBC (Auto) NONE (0-2) /HPF U Epithel Cells (Auto) NONE (FEW) /HPF Urine Bacteria (Auto) NONE (NEGATIVE) /HPF Urine Culture Reflexed NO (NO) Urine Glucose NEGATIVE (NEGATIVE) mg/dL Influenza Type A Ag NEGATIVE (NEGATIVE) Influenza Type B Ag NEGATIVE (NEGATIVE) RSV (PCR) NEGATIVE (Negative) SARS-CoV-2 (PCR) NEGATIVE (NEGATIVE) 03/11/21 03/11/21 03/11/21 Range/Units 12:17 11:40 11:40 WBC (4.0-10.5) K/mm3 RBC (4.1-5.6) M/mm3 Hgb (12.5-18.0) gm/dl Hct (42-50) % MCV (78-100) fl MCH (26-32) pg MCHC (32-36) g/dl RDW (11.5-14.0) % Plt Count (150-450) K/mm3 MPV (7.5-11.0) fl Gran % (36.0-66.0) % Eos # (Auto) (0-0.5) Absolute Lymphs (auto) (1.0-4.6) Absolute Monos (auto) (0.0-1.3) Lymphocytes % (24.0-44.0) % Monocytes % (0.0-12.0) % Eosinophils % (0.00-5.0) % Basophils % (0.0-0.4) % Absolute Granulocytes (1.4-6.9) Basophils # (0-0.4) ESR 127 H (0-15) mm/hr Sodium 142 (137-145) mmol/L Potassium 4.3 (3.5-5.1) mmol/L Chloride 110 H (98-107) mmol/L Carbon Dioxide 17 L (22-30) mmol/L Anion Gap 19.7 H (5-15) MEQ/L BUN 79 H (9-20) mg/dL Creatinine 6.33 H (0.66-1.25) mg/dL Estimated GFR 9.1 ML/MIN Glucose 120 H (74-106) mg/dL Calcium 9.9 (8.4-10.2) mg/dL Magnesium 2.0 (1.6-2.3) mg/dL Total Bilirubin 0.30 (0.2-1.3) mg/dL AST 26 (17-59) U/L ALT 16 (0-50) U/L Alkaline Phosphatase 82 (38-126) U/L Troponin I 0.061 H* (0.000-0.034) ng/mL Serum Total Protein 7.5 (6.3-8.2) g/dL Albumin 3.6 (3.5-5.0) g/dL Urine Color (YELLOW) Urine Appearance (CLEAR) Urine pH (5-6) Ur Specific [place] (1.005-1.025) Urine Protein (Negative) Urine Ketones (NEGATIVE) Urine Blood (0-5) Donn/ul Urine Nitrite (NEGATIVE) Urine Bilirubin (NEGATIVE) Urine Urobilinogen (0-1) mg/dL Ur Leukocyte Esterase (NEGATIVE) Urine WBC (Auto) (0-5) /HPF Urine RBC (Auto) (0-2) /HPF U Epithel Cells (Auto) (FEW) /HPF Urine Bacteria (Auto) (NEGATIVE) /HPF Urine Culture Reflexed (NO) Urine Glucose (NEGATIVE) mg/dL Influenza Type A Ag (NEGATIVE) Influenza Type B Ag (NEGATIVE) RSV (PCR) (Negative) SARS-CoV-2 (PCR) (NEGATIVE) 03/11/21 Range/Units 11:40 WBC 14.8 H (4.0-10.5) K/mm3 RBC 2.73 L (4.1-5.6) M/mm3 Hgb 8.6 L (12.5-18.0) gm/dl Hct 26.8 L (42-50) % MCV 98.2 (78-100) fl MCH 31.5 (26-32) pg MCHC 32.1 (32-36) g/dl RDW 15.5 H (11.5-14.0) % Plt Count 301 (150-450) K/mm3 MPV 8.5 (7.5-11.0) fl Gran % 82.1 H (36.0-66.0) % Eos # (Auto) 0.16 (0-0.5) Absolute Lymphs (auto) 1.40 (1.0-4.6) Absolute Monos (auto) 1.08 (0.0-1.3) Lymphocytes % 9.4 L (24.0-44.0) % Monocytes % 7.3 (0.0-12.0) % Eosinophils % 1.1 (0.00-5.0) % Basophils % 0.1 (0.0-0.4) % Absolute Granulocytes 12.17 H (1.4-6.9) Basophils # 0.02 (0-0.4) ESR (0-15) mm/hr Sodium (137-145) mmol/L Potassium (3.5-5.1) mmol/L Chloride (98-107) mmol/L Carbon Dioxide (22-30) mmol/L Anion Gap (5-15) MEQ/L BUN (9-20) mg/dL Creatinine (0.66-1.25) mg/dL Estimated GFR ML/MIN Glucose (74-106) mg/dL Calcium (8.4-10.2) mg/dL Magnesium (1.6-2.3) mg/dL Total Bilirubin (0.2-1.3) mg/dL AST (17-59) U/L ALT (0-50) U/L Alkaline Phosphatase (38-126) U/L Troponin I (0.000-0.034) ng/mL Serum Total Protein (6.3-8.2) g/dL Albumin (3.5-5.0) g/dL Urine Color (YELLOW) Urine Appearance (CLEAR) Urine pH (5-6) Ur Specific [place] (1.005-1.025) Urine Protein (Negative) Urine Ketones (NEGATIVE) Urine Blood (0-5) Donn/ul Urine Nitrite (NEGATIVE) Urine Bilirubin (NEGATIVE) Urine Urobilinogen (0-1) mg/dL Ur Leukocyte Esterase (NEGATIVE) Urine WBC (Auto) (0-5) /HPF Urine RBC (Auto) (0-2) /HPF U Epithel Cells (Auto) (FEW) /HPF Urine Bacteria (Auto) (NEGATIVE) /HPF Urine Culture Reflexed (NO) Urine Glucose (NEGATIVE) mg/dL Influenza Type A Ag (NEGATIVE) Influenza Type B Ag (NEGATIVE) RSV (PCR) (Negative) SARS-CoV-2 (PCR) (NEGATIVE) - Progress Progress: improved Progress Note: Patient reassessed. He remains alert. Work-up reveals elevated troponin. However this may be secondary to end-stage renal disease. BUN 79 creatinine 6.33. Patient has known to have renal failure and per report was advised to start hemodialysis. However patient has refused. Patient does have a history of dementia. His competency to refuse medical treatment should be further evaluated. X-rays of bilateral feet demonstrate cellulitis. We will start vancomycin. Patient does have a leukocytosis of 14.8. He is anemic at 8.6 which may be related to his renal failure. Patient is pale which further demonstrates the anemia. Case discussed with Dr. Paz. Patient is decided that he will be DNR. DNR paperwork completed. Patient refuses hemodialysis. 03/11/21 13:14 03/11/21 16:12 Counseled pt/family regarding: lab results, diagnosis, need for follow-up, rad results - Departure Departure Disposition: Observation Clinical Impression: Encephalopathy, Lethargy, Leukocytosis, Anemia, Cellulitis, Sinusitis Condition: Stable Critical Care Time: No Referrals: BRETT LANGLEY [Primary Care Provider] - Additional Instructions: Discharge/Care Plan MURTAZA MATTHEW CHAPARRITA was seen on 03/11/21 in the Emergency Room. The patient was counseled regarding Diagnosis,Lab results, Imaging studies, need for follow up and when to return to the Emergency Room. Prescriptions given: Discharge Note I have spoken with the patient and/or caregivers. I have explained the patient's condition, diagnosis and treatment plan based on the information available to me at this time. I have answered the patient's and/or caregiver's questions and addressed any concerns. The patient and/or caregivers have as good understanding of the patient's diagnosis, condition and treatment plan as can be expected at this point. The vital signs have been stable. The patient's condition is stable and appropriate for discharge from the emergency department. The patient will pursue further outpatient evaluation with the primary care physician or other designated or consulting physician as outlined in the discharge instructions. The patient and/or caregivers are agreeable to this plan of care and follow-up instructions have been explained in detail. The patient and/or caregivers have received these instruction. The patient/and or caregivers are aware that any significant change in condition or worsening of symptoms should prompt an immediate return to this or the closest emergency department or call 911.
--- NOTE | 2021-03-11 12:04 | XRAY ---
Indication: Syncope. Lethargy. Comparison: March 05, 2021. Portable chest demonstrates stable right lung underinflation with subsegmental atelectasis/scarring. Left lung now clear. Heart not enlarged again with left pacemaker. No new/acute abnormalities
[2021-03-11 12:34] LABS: ALBUMIN 3.6 g/dL (3.5-5.0); ANION GAP 19.7 MEQ/L (5-15); BILIRUBIN,TOTAL 0.3 mg/dL (0.2-1.3); Calcium 9.9 mg/dL (8.4-10.2); Creatinine 1 6.33 mg/dL (0.66-1.25); EST GLOMERULAR FILTRATION RATE 9.1 ML/MIN; Potassium 4.3 mmol/L (3.5-5.1); Total Protein 7.5 g/dL (6.3-8.2)
--- NOTE | 2021-03-11 13:00 | XRAY ---
Indication: Infection. Comparison: December 07, 2020. 3 nonweightbearing views right foot demonstrates new lateral soft tissue swelling with overlying bandage material and new cortical lucency/irregularity base 5th metatarsal concerning for cellulitis with underlying osteomyelitis. Stable amputation all mid to distal metatarsals/toes, osteopenia, small heel spurs, medial malleolus tip heterotopic ossifications, and diffuse scattered vascular calcifications.
--- NOTE | 2021-03-11 13:02 | XRAY ---
Indication: Infection. Comparison: None 3 nonweightbearing views left foot demonstrates amputation 1st mid to distal metatarsal/toe with overlying soft tissue swelling and subcutaneous air concerning for gas-forming cellulitis. Elsewhere mild osteopenia, small heel spurs, and diffuse scattered vascular calcifications.
[2021-03-11 13:42] LABS: Appearance SLIGHTLY CLOUDY (CLEAR); Bilirubin NEGATIVE (NEGATIVE); Blood NEGATIVE Ery/ul (0-5); Glucose NEGATIVE (NEGATIVE); Ketones NEGATIVE (NEGATIVE); Leukocyte Esterase NEGATIVE (NEGATIVE); Nitrite NEGATIVE (NEGATIVE); Protein,Urine Dip 30 (Negative); Specific Gravity 1.014 (1.005-1.025); Urobilinogen NEGATIVE mg/dL (0-1)
--- NOTE | 2021-03-11 15:03 | XRAY ---
Indication: Acute mental status change. Multiple contiguous axial images obtained through the head without contrast. Comparison: April 06, 2009. Progressive age-appropriate global atrophy and mild periventricular degenerative micro-ischemia bilaterally. No acute intracranial hemorrhage, abnormal extra-axial fluid collection, or mass effect. Fourth ventricle is midline without hydrocephalus. Bony calvarium intact. Moderate mucosal thickening floor of the right maxillary sinus. Remaining paranasal sinuses and mastoid air cells are clear. Impression: Age-related changes including atrophy and degenerative micro-ischemia. Incidental right maxillary sinus disease. No acute intracranial abnormalities.
[2021-03-11 15:48] LABS: INFLUENZA A NEGATIVE (NEGATIVE); INFLUENZA B NEGATIVE (NEGATIVE); RESPIRATORY SYNCTIAL VIRUS NEGATIVE (Negative)
[2021-03-11] MEDS ORDERED: VANCOMYCIN 2 GRAM/400 ML BAG 2 GM/400 ML PIGGYBACK IV ONE ×2 (16:12→16:54)
[2021-03-11] MEDS ORDERED: CLINDAMYCIN-D5W 900 MG/50 ML*** 900 MG/50 ML BAG IV STA (16:13)
[2021-03-11] MEDS ORDERED: CLINDAMYCIN-D5W 900 MG/50 ML*** 900 MG/50 ML BAG IV ONE (16:52)
[2021-03-11] MEDS: MORPHINE SULFATE 2 MG INJ IV PRN (17:46)
--- NOTE | 2021-03-11 19:07 | PCM.HP ---
History of Present Illness - Chief Complaint Chief Complaint: Cellulitis History of Present Illness: is a 80 year old male with chronic PVD, dm type 2 and endstage renal disease, he was scheduled to be seen today in podiatry clinic but was very confused and decreased level of consciousness from his baseline, he has severe PAD and required partial amputation of heavenly feet, currently found to have gas forming cellulitis and purulent drainage with osteomyelitis. He has continued to refuse dialysis in spite of his worsening end stage renal failure. His overall health is declined. - Review of Systems All Other Systems: Unable due to condition Medications & Allergies Home Medications: Home Medication List Levothyroxine Sodium 50 Mcg [Synthroid 50 Mcg] 25 mcg PO DAILY 03/27/14 [History Confirmed 03/11/21] Clopidogrel Bisulfate [Plavix] 75 mg PO UD 06/16/14 [History Confirmed 03/11/21] Donepezil HCl [Aricept] 10 mg PO HS 06/16/14 [History Confirmed 03/11/21] Tamsulosin HCl 0.4 mg [Flomax 0.4 MG] 0.4 mg PO HS 06/16/14 [History Confirmed 03/11/21] Fluoxetine HCl [Prozac] 20 mg PO DAILY 04/15/15 [History Confirmed 03/11/21] Memantine HCl [Namenda] 10 mg PO BID 04/15/15 [History Confirmed 03/11/21] Atorvastatin Calcium 20 mg PO HS 08/17/17 [History Confirmed 03/11/21] Ferrous Sulfate [Iron] 325 mg PO DAILY 08/17/17 [History Confirmed 03/11/21] Gabapentin [Neurontin] 300 mg PO BID 08/17/17 [History Confirmed 03/11/21] Sodium Bicarbonate 650 mg PO BID 08/17/17 [History Confirmed 03/11/21] Carvedilol 12.5 mg [Coreg 12.5 mg] 12.5 mg PO BID 11/04/19 [History Confirmed 03/11/21] Insulin Lispro [Humalog] 0 unit SQ TID PRN 08/14/20 [History Confirmed 03/11/21] Vitamin B Complex 1 each PO DAILY 09/24/20 [History Confirmed 03/11/21] Furosemide 40 mg [Lasix 40 MG] 40 mg PO DAILY 11/07/20 [History Confirmed 03/11/21] Patiromer Calcium Sorbitex [Veltassa] 8.4 mg PO DAILY 11/07/20 [History Confirmed 03/11/21] Aspirin EC 81 mg [Ecotrin 81 mg] 81 mg PO DAILY 11/27/20 [History Confirmed 03/11/21] Cephalexin Monohydrate [Keflex] 1 cap PO Q6H 03/05/21 [History Confirmed 03/11/21] Enoxaparin Sodium [Lovenox] 40 mg SQ DAILY 03/05/21 [History Confirmed 03/11/21] Insulin Glargine [Lantus Insulin] 25 unit SQ HS 03/05/21 [History Confirmed 03/11/21] Acetaminophen 325 mg [Tylenol 325 mg] 650 mg PO Q4H PRN PRN 03/06/21 [History Confirmed 03/11/21] Acetaminophen 500 mg [Tylenol Extra Strength 500 mg] 500 mg PO Q4H PRN PRN 03/06/21 [History Confirmed 03/11/21] Arginine/Ascorbate Sod/Troy AC [Arginaid Powder] 1 packet PO BID 03/06/21 [History Confirmed 03/11/21] Evolocumab [Repatha Sureclick] 140 mg SQ UD 03/06/21 [History Confirmed 03/11/21] Hydrocodone Bit/Acetaminophen [Hydrocodon-Acetaminophn 10-325] 1 tablet PO Q4H PRN PRN 03/06/21 [History Confirmed 03/11/21] Hydrocodone/Acetaminophen [Hydrocodone-Acetamin 5-325 mg] 1 tab PO Q4H PRN PRN 03/06/21 [History Confirmed 03/11/21] Insulin Lispro [Humalog] 8 units SQ ACHS 03/06/21 [History Confirmed 03/11/21] Magnesium Hydroxide 30 ml [Milk of Magnesia 30 ml] 30 ml PO DAILY PRN PRN 03/06/21 [History Confirmed 03/11/21] Multivit with Iron,Minerals [Unicomplex-M] 1 tab PO DAILY 03/06/21 [History Confirmed 03/11/21] Patient Own Med [Patient Own Medication] 30 ml PO TID 03/06/21 [History Confirmed 03/11/21] PANTOPRAZOLE 40 mg Tablet [Protonix 40MG Tablet] 40 mg PO DAILY #90 tab 0 03/08/21 [Rx Confirmed 03/11/21] Omeprazole 40 mg PO DAILY 03/11/21 [History Confirmed 03/11/21] Sertraline HCl 50 mg [Zoloft 50 mg Tablet] 50 mg PO QHS 03/11/21 [History Confirmed 03/11/21] Allergies/Adverse Reactions: Allergies Allergy/AdvReac Type Severity Reaction Status Date / Time No Known Allergies Allergy Verified 03/11/21 11:23 - Past Medical History Past Medical History: Yes Neurological History: TIA ENT History: No Pertinent History Cardiac History: Coronary Artery Disease, High Cholesterol, Hypertension, Myocardial Infarction ([place]) Respiratory History: Pneumonia, Other Endocrine Medical History: Diabetes Type II Musculoskelatal History: Osteoarthritis GI Medical History: Diverticulitis, GERD, Other History: Renal Disease, Other Pyscho-Social History: Anxiety, Depression Male Reproductive Disorders: Prostate Problems Comment: Pacemaker, stents, Covid 19 - Past Surgical History Past Surgical History: Yes Neuro Surgical History: No Pertinent History Cardiac History: Cardiac Catheterization, Cardiac Stent, Pacemaker Respiratory Surgery: No Pertinent History GI Surgical History: No Pertinent History Genitourinary Surgical Hx: No Pertinent History Musculskeletal Surgical Hx: Orthopedic Surgery Male Surgical History: No Pertinent History Other Surgical History: rt knee replacement and revision to rt knee, skin lesions removed left arm, partial parathyroid gland removed, bilateral feet - toe amputations - Social History Smoking Status: Never smoker Exposure to second hand smoke: No Alcohol: None Drug Use: none Significant Family History: no pertinent family hx - Physical Exam Vital Signs: Vital Signs - 24 hr Temp Pulse Resp BP Pulse Ox 03/11/21 17:33 97.6 F 65 16 148/65 97 03/11/21 16:17 98 03/11/21 16:00 99.3 F 70 16 110/63 94 L 03/11/21 15:00 67 16 108/60 93 L 03/11/21 13:08 99.5 F 67 14 114/55 96 03/11/21 11:51 98 03/11/21 11:24 98.7 F 69 18 115/64 95 General Appearance: other (chronically ill appearing, no acute distress. decreased communication from baseline) Respiratory Exam: normal breath sounds, lungs clear, No respiratory distress Cardiovascular Exam: regular rate/rhythm, normal heart sounds, normal peripheral pulses Gastrointestinal/Abdomen Exam: soft, normal bowel sounds, No tenderness, No mass Extremity Exam: other (dressings to BLE, wounds were examined by podiatry and exam noted, purulent drainage) Results - Labs Lab/Micro Results: Lab Results-Last 24 Hours 03/11/21 03/11/21 03/11/21 Range/Units 11:40 11:40 11:40 WBC 14.8 H (4.0-10.5) K/mm3 RBC 2.73 L (4.1-5.6) M/mm3 Hgb 8.6 L (12.5-18.0) gm/dl Hct 26.8 L (42-50) % MCV 98.2 (78-100) fl MCH 31.5 (26-32) pg MCHC 32.1 (32-36) g/dl RDW 15.5 H (11.5-14.0) % Plt Count 301 (150-450) K/mm3 MPV 8.5 (7.5-11.0) fl Gran % 82.1 H (36.0-66.0) % Eos # (Auto) 0.16 (0-0.5) Absolute Lymphs (auto) 1.40 (1.0-4.6) Absolute Monos (auto) 1.08 (0.0-1.3) Lymphocytes % 9.4 L (24.0-44.0) % Monocytes % 7.3 (0.0-12.0) % Eosinophils % 1.1 (0.00-5.0) % Basophils % 0.1 (0.0-0.4) % Absolute Granulocytes 12.17 H (1.4-6.9) Basophils # 0.02 (0-0.4) ESR (0-15) mm/hr Sodium 142 (137-145) mmol/L Potassium 4.3 (3.5-5.1) mmol/L Chloride 110 H (98-107) mmol/L Carbon Dioxide 17 L (22-30) mmol/L Anion Gap 19.7 H (5-15) MEQ/L BUN 79 H (9-20) mg/dL Creatinine 6.33 H (0.66-1.25) mg/dL Estimated GFR 9.1 ML/MIN Glucose 120 H (74-106) mg/dL POC Glucometer (74 to 106) mg/dL Lactic Acid (0.4-2.0) Calcium 9.9 (8.4-10.2) mg/dL Magnesium 2.0 (1.6-2.3) mg/dL Total Bilirubin 0.30 (0.2-1.3) mg/dL AST 26 (17-59) U/L ALT 16 (0-50) U/L Alkaline Phosphatase 82 (38-126) U/L Troponin I 0.061 H* (0.000-0.034) ng/mL Serum Total Protein 7.5 (6.3-8.2) g/dL Albumin 3.6 (3.5-5.0) g/dL Urine Color (YELLOW) Urine Appearance (CLEAR) Urine pH (5-6) Ur Specific [place] (1.005-1.025) Urine Protein (Negative) Urine Ketones (NEGATIVE) Urine Blood (0-5) Donn/ul Urine Nitrite (NEGATIVE) Urine Bilirubin (NEGATIVE) Urine Urobilinogen (0-1) mg/dL Ur Leukocyte Esterase (NEGATIVE) Urine WBC (Auto) (0-5) /HPF Urine RBC (Auto) (0-2) /HPF U Epithel Cells (Auto) (FEW) /HPF Urine Bacteria (Auto) (NEGATIVE) /HPF Urine Culture Reflexed (NO) Urine Glucose (NEGATIVE) mg/dL Influenza Type A Ag (NEGATIVE) Influenza Type B Ag (NEGATIVE) RSV (PCR) (Negative) SARS-CoV-2 (PCR) (NEGATIVE) 03/11/21 03/11/21 03/11/21 Range/Units 12:17 12:43 14:35 WBC (4.0-10.5) K/mm3 RBC (4.1-5.6) M/mm3 Hgb (12.5-18.0) gm/dl Hct (42-50) % MCV (78-100) fl MCH (26-32) pg MCHC (32-36) g/dl RDW (11.5-14.0) % Plt Count (150-450) K/mm3 MPV (7.5-11.0) fl Gran % (36.0-66.0) % Eos # (Auto) (0-0.5) Absolute Lymphs (auto) (1.0-4.6) Absolute Monos (auto) (0.0-1.3) Lymphocytes % (24.0-44.0) % Monocytes % (0.0-12.0) % Eosinophils % (0.00-5.0) % Basophils % (0.0-0.4) % Absolute Granulocytes (1.4-6.9) Basophils # (0-0.4) ESR 127 H (0-15) mm/hr Sodium (137-145) mmol/L Potassium (3.5-5.1) mmol/L Chloride (98-107) mmol/L Carbon Dioxide (22-30) mmol/L Anion Gap (5-15) MEQ/L BUN (9-20) mg/dL Creatinine (0.66-1.25) mg/dL Estimated GFR ML/MIN Glucose (74-106) mg/dL POC Glucometer (74 to 106) mg/dL Lactic Acid (0.4-2.0) Calcium (8.4-10.2) mg/dL Magnesium (1.6-2.3) mg/dL Total Bilirubin (0.2-1.3) mg/dL AST (17-59) U/L ALT (0-50) U/L Alkaline Phosphatase (38-126) U/L Troponin I 0.058 H* (0.000-0.034) ng/mL Serum Total Protein (6.3-8.2) g/dL Albumin (3.5-5.0) g/dL Urine Color YELLOW (YELLOW) Urine Appearance SLIGHTLY CLOUDY (CLEAR) Urine pH 5.0 (5-6) Ur Specific [place] 1.014 (1.005-1.025) Urine Protein 30 (Negative) Urine Ketones NEGATIVE (NEGATIVE) Urine Blood NEGATIVE (0-5) Donn/ul Urine Nitrite NEGATIVE (NEGATIVE) Urine Bilirubin NEGATIVE (NEGATIVE) Urine Urobilinogen NEGATIVE (0-1) mg/dL Ur Leukocyte Esterase NEGATIVE (NEGATIVE) Urine WBC (Auto) 3-5 (0-5) /HPF Urine RBC (Auto) NONE (0-2) /HPF U Epithel Cells (Auto) NONE (FEW) /HPF Urine Bacteria (Auto) NONE (NEGATIVE) /HPF Urine Culture Reflexed NO (NO) Urine Glucose NEGATIVE (NEGATIVE) mg/dL Influenza Type A Ag (NEGATIVE) Influenza Type B Ag (NEGATIVE) RSV (PCR) (Negative) SARS-CoV-2 (PCR) (NEGATIVE) 03/11/21 03/11/21 03/11/21 Range/Units 15:03 17:30 17:45 WBC (4.0-10.5) K/mm3 RBC (4.1-5.6) M/mm3 Hgb (12.5-18.0) gm/dl Hct (42-50) % MCV (78-100) fl MCH (26-32) pg MCHC (32-36) g/dl RDW (11.5-14.0) % Plt Count (150-450) K/mm3 MPV (7.5-11.0) fl Gran % (36.0-66.0) % Eos # (Auto) (0-0.5) Absolute Lymphs (auto) (1.0-4.6) Absolute Monos (auto) (0.0-1.3) Lymphocytes % (24.0-44.0) % Monocytes % (0.0-12.0) % Eosinophils % (0.00-5.0) % Basophils % (0.0-0.4) % Absolute Granulocytes (1.4-6.9) Basophils # (0-0.4) ESR (0-15) mm/hr Sodium (137-145) mmol/L Potassium (3.5-5.1) mmol/L Chloride (98-107) mmol/L Carbon Dioxide (22-30) mmol/L Anion Gap (5-15) MEQ/L BUN (9-20) mg/dL Creatinine (0.66-1.25) mg/dL Estimated GFR ML/MIN Glucose (74-106) mg/dL POC Glucometer 151 H (74 to 106) mg/dL Lactic Acid (0.4-2.0) Calcium (8.4-10.2) mg/dL Magnesium (1.6-2.3) mg/dL Total Bilirubin (0.2-1.3) mg/dL AST (17-59) U/L ALT (0-50) U/L Alkaline Phosphatase (38-126) U/L Troponin I 0.051 H* (0.000-0.034) ng/mL Serum Total Protein (6.3-8.2) g/dL Albumin (3.5-5.0) g/dL Urine Color (YELLOW) Urine Appearance (CLEAR) Urine pH (5-6) Ur Specific [place] (1.005-1.025) Urine Protein (Negative) Urine Ketones (NEGATIVE) Urine Blood (0-5) Donn/ul Urine Nitrite (NEGATIVE) Urine Bilirubin (NEGATIVE) Urine Urobilinogen (0-1) mg/dL Ur Leukocyte Esterase (NEGATIVE) Urine WBC (Auto) (0-5) /HPF Urine RBC (Auto) (0-2) /HPF U Epithel Cells (Auto) (FEW) /HPF Urine Bacteria (Auto) (NEGATIVE) /HPF Urine Culture Reflexed (NO) Urine Glucose (NEGATIVE) mg/dL Influenza Type A Ag NEGATIVE (NEGATIVE) Influenza Type B Ag NEGATIVE (NEGATIVE) RSV (PCR) NEGATIVE (Negative) SARS-CoV-2 (PCR) NEGATIVE (NEGATIVE) 03/11/21 Range/Units 18:30 WBC (4.0-10.5) K/mm3 RBC (4.1-5.6) M/mm3 Hgb (12.5-18.0) gm/dl Hct (42-50) % MCV (78-100) fl MCH (26-32) pg MCHC (32-36) g/dl RDW (11.5-14.0) % Plt Count (150-450) K/mm3 MPV (7.5-11.0) fl Gran % (36.0-66.0) % Eos # (Auto) (0-0.5) Absolute Lymphs (auto) (1.0-4.6) Absolute Monos (auto) (0.0-1.3) Lymphocytes % (24.0-44.0) % Monocytes % (0.0-12.0) % Eosinophils % (0.00-5.0) % Basophils % (0.0-0.4) % Absolute Granulocytes (1.4-6.9) Basophils # (0-0.4) ESR (0-15) mm/hr Sodium (137-145) mmol/L Potassium (3.5-5.1) mmol/L Chloride (98-107) mmol/L Carbon Dioxide (22-30) mmol/L Anion Gap (5-15) MEQ/L BUN (9-20) mg/dL Creatinine (0.66-1.25) mg/dL Estimated GFR ML/MIN Glucose (74-106) mg/dL POC Glucometer (74 to 106) mg/dL Lactic Acid 0.8 (0.4-2.0) Calcium (8.4-10.2) mg/dL Magnesium (1.6-2.3) mg/dL Total Bilirubin (0.2-1.3) mg/dL AST (17-59) U/L ALT (0-50) U/L Alkaline Phosphatase (38-126) U/L Troponin I (0.000-0.034) ng/mL Serum Total Protein (6.3-8.2) g/dL Albumin (3.5-5.0) g/dL Urine Color (YELLOW) Urine Appearance (CLEAR) Urine pH (5-6) Ur Specific [place] (1.005-1.025) Urine Protein (Negative) Urine Ketones (NEGATIVE) Urine Blood (0-5) Donn/ul Urine Nitrite (NEGATIVE) Urine Bilirubin (NEGATIVE) Urine Urobilinogen (0-1) mg/dL Ur Leukocyte Esterase (NEGATIVE) Urine WBC (Auto) (0-5) /HPF Urine RBC (Auto) (0-2) /HPF U Epithel Cells (Auto) (FEW) /HPF Urine Bacteria (Auto) (NEGATIVE) /HPF Urine Culture Reflexed (NO) Urine Glucose (NEGATIVE) mg/dL Influenza Type A Ag (NEGATIVE) Influenza Type B Ag (NEGATIVE) RSV (PCR) (Negative) SARS-CoV-2 (PCR) (NEGATIVE) - Radiology Impressions Radiology Exams & Impressions: Radiology Procedures Category Date Time Status CHEST 1 VIEW (PORTABLE) Stat Exams 03/11/21 11:26 Completed FOOT (MINIMUM 3 VIEWS) Stat Exams 03/11/21 12:18 Completed FOOT (MINIMUM 3 VIEWS) Stat Exams 03/11/21 12:19 Completed HEAD WITHOUT CONTRAST [CT] Stat Exams 03/11/21 13:32 Completed Assessment/Plan (1) Osteomyelitis of left foot Current Visit: Yes Status: Acute Assessment & Plan: on vanc and clindamycin, podiatry consulted and planning for debridement due to gas forming bacteria, prognosis is poor with current medical conditions, patient and his daughter understand this Code(s): M86.9 - OSTEOMYELITIS, UNSPECIFIED (2) Chronic renal failure Current Visit: No Status: Chronic Qualifiers: Assessment & Plan: end stage, worsening and patient continues to refuse dialysis therefore code status changed to DNR after discussion (3) DM2 (diabetes mellitus, type 2) Current Visit: No Status: Chronic
[2021-03-11] MEDS ORDERED: NON-FORMULARY ITEM (Atorvastatin Calcium [Atorvastatin Calcium] 20 MG) PO SCH (22:00)
[2021-03-11] MEDS ORDERED: NON-FORMULARY ITEM (Memantine Hcl [Namenda] 10 MG) PO SCH (22:00)
[2021-03-11] MEDS ORDERED: Lantus Insulin SQ SCH (22:00)
[2021-03-11] MEDS ORDERED: NON-FORMULARY ITEM (Sodium Bicarbonate 650 MG) PO SCH (22:00)
[2021-03-11] MEDS: COREG 12.5 MG PO SCH (22:56)
[2021-03-11] MEDS: NEURONTIN 300 MG PO SCH (22:56)
[2021-03-11] MEDS: Aricept 10 MG PO SCH (22:57)
[2021-03-11] MEDS: ZOCOR 20MG PO SCH (22:57)
[2021-03-11] MEDS: ZOLOFT 50 MG TABLET PO SCH (22:57)
[2021-03-11] MEDS: Sodium Chloride 0.9% 1000 ML 1,000 ML IV SCH (22:57)
[2021-03-11] MEDS: Flomax 0.4 MG PO SCH (22:57)
[2021-03-11] MEDS: Namenda 5 MG PO SCH (22:57)
[2021-03-11] MEDS: SODIUM BICARBONATE PO SCH (22:57)
[2021-03-12 06:23] LABS: ALBUMIN 3.2 g/dL (3.5-5.0); ANION GAP 20.8 MEQ/L (5-15); BILIRUBIN,TOTAL 0.2 mg/dL (0.2-1.3); Calcium 9.5 mg/dL (8.4-10.2); Creatinine 1 6.4 mg/dL (0.66-1.25); Total Protein 6.8 g/dL (6.3-8.2)
[2021-03-12 06:37] LABS: Absolute Neutrophil Ct (ANC) 7.43 (1.4-6.9); BASOPHIL % 0.1 % (0.0-0.4); Basophil (Absolute #) 0.01 (0-0.4); Eosinophil % 3.1 % (0.00-5.0); Eosinophil (Absolute #) 0.32 (0-0.5); Hematocrit 25.8 % (42-50); Hemoglobin 8.1 gm/dl (12.5-18.0); Lymphocyte (Absolute #) 1.72 (1.0-4.6); Lymphocytes % 16.8 % (24.0-44.0); Mean Corpuscular Hemoglobin 31.4 pg (26-32); Mean Corpuscular Hgb Concent. 31.4 g/dl (32-36); Mean Platelet Volume 8.8 fl (7.5-11.0); Monocyte (Absolute #) 0.74 (0.0-1.3); Monocytes % 7.2 % (0.0-12.0); Neutrophil % 72.8 % (36.0-66.0); Platelet Count 294 K/mm3 (150-450); Red Blood Count 2.58 M/mm3 (4.1-5.6); Red Cell Distribution Width 15.3 % (11.5-14.0); White Blood Count 10.2 K/mm3 (4.0-10.5)
[2021-03-12] MEDS ORDERED: Xylocaine 1% Vial 30 ML PF IJ ONE (07:38)
[2021-03-12] MEDS ORDERED: Sensorcaine 0.25% 10 ML ONE (07:38)
[2021-03-12] MEDS ORDERED: BUPIVACAINE 0.5% VIAL IJ ONE (07:53)
[2021-03-12] MEDS ORDERED: Versed 2 MG/2 ML Injection ONE (08:00)
[2021-03-12] MEDS ORDERED: SUBLIMAZE 100 MCG/2 ML ONE (08:00)
[2021-03-12] MEDS ORDERED: DIPRIVAN 200 MG/20 ML IV ONE (08:00)
--- NOTE | 2021-03-12 08:17 | PCM.NOTE ---
Date and Time: 03/12/21 0815 Subjective Assessment: patient in surgery this am for debridement, has been stable overnight with no changes. no chest pain Objective Exam General Appearance: no apparent distress, alert Wound Assessment: Skin/Wound Assessment Wound/Incision Assessment Start: 03/11/21 20:00 Text: Status: Active Freq: Q6H Protocol: Document 03/12/21 02:00 LB (Rec: 03/12/21 04:30 LB [id number]) Wound/Incision Assessment Right Foot Wound Assessment Shift Assessment Wound Type Amputation Dressing Status Dry & Intact Comment dressing CDI Left Foot Wound Assessment Shift Assessment Wound Type Amputation Dressing Status Dry & Intact Comment dressing CDI Wound Photo Photo Taken No Respiratory Exam: normal breath sounds, lungs clear, No respiratory distress Cardiovascular Exam: regular rate/rhythm, normal heart sounds Extremity Exam: other (in surgery for debridement to foot) OBJECTIVE DATA Vital Signs: Vital Signs - 24 hr Temp Pulse Resp BP Pulse Ox 03/12/21 07:58 97.5 F 65 18 100/45 97 03/12/21 06:30 98.4 F 64 17 119/57 96 03/12/21 04:00 98.4 F 64 17 119/57 96 03/12/21 00:05 98.1 F 61 20 121/56 97 03/11/21 20:00 97.4 F 60 18 114/53 98 03/11/21 17:33 97.6 F 65 16 148/65 97 03/11/21 16:17 98 03/11/21 16:00 99.3 F 70 16 110/63 94 L 03/11/21 15:00 67 16 108/60 93 L 03/11/21 13:08 99.5 F 67 14 114/55 96 03/11/21 11:51 98 03/11/21 11:24 98.7 F 69 18 115/64 95 Pain Assessment - Last Documented Pain Intensity 0 Pain Scale Used 0-10 Pain Scale Intake and Output: Intake & Output 03/09/21 03/10/21 03/11/21 03/12/21 11:59 11:59 11:59 11:59 Intake Total 968 Output Total 1525 Balance -557 Weight 93.894 kg 89.6 kg Lab Results: Lab Results-Last 24 Hours 03/11/21 03/11/21 03/11/21 Range/Units 01:05 11:40 11:40 WBC 14.8 H (4.0-10.5) K/mm3 RBC 2.73 L (4.1-5.6) M/mm3 Hgb 8.6 L (12.5-18.0) gm/dl Hct 26.8 L (42-50) % MCV 98.2 (78-100) fl MCH 31.5 (26-32) pg MCHC 32.1 (32-36) g/dl RDW 15.5 H (11.5-14.0) % Plt Count 301 (150-450) K/mm3 MPV 8.5 (7.5-11.0) fl Gran % 82.1 H (36.0-66.0) % Eos # (Auto) 0.16 (0-0.5) Absolute Lymphs (auto) 1.40 (1.0-4.6) Absolute Monos (auto) 1.08 (0.0-1.3) Lymphocytes % 9.4 L (24.0-44.0) % Monocytes % 7.3 (0.0-12.0) % Eosinophils % 1.1 (0.00-5.0) % Basophils % 0.1 (0.0-0.4) % Absolute Granulocytes 12.17 H (1.4-6.9) Basophils # 0.02 (0-0.4) ESR (0-15) mm/hr Sodium 142 (137-145) mmol/L Potassium 4.3 (3.5-5.1) mmol/L Chloride 110 H (98-107) mmol/L Carbon Dioxide 17 L (22-30) mmol/L Anion Gap 19.7 H (5-15) MEQ/L BUN 79 H (9-20) mg/dL Creatinine 6.33 H (0.66-1.25) mg/dL Estimated GFR 9.1 ML/MIN Glucose 120 H (74-106) mg/dL POC Glucometer (74 to 106) mg/dL Lactic Acid (0.4-2.0) Calcium 9.9 (8.4-10.2) mg/dL Magnesium 2.0 (1.6-2.3) mg/dL Total Bilirubin 0.30 (0.2-1.3) mg/dL AST 26 (17-59) U/L ALT 16 (0-50) U/L Alkaline Phosphatase 82 (38-126) U/L Troponin I 0.053 H* (0.000-0.034) ng/mL Serum Total Protein 7.5 (6.3-8.2) g/dL Albumin 3.6 (3.5-5.0) g/dL Prealbumin (17.6-36.0) mg/dL Urine Color (YELLOW) Urine Appearance (CLEAR) Urine pH (5-6) Ur Specific [place] (1.005-1.025) Urine Protein (Negative) Urine Ketones (NEGATIVE) Urine Blood (0-5) Donn/ul Urine Nitrite (NEGATIVE) Urine Bilirubin (NEGATIVE) Urine Urobilinogen (0-1) mg/dL Ur Leukocyte Esterase (NEGATIVE) Urine WBC (Auto) (0-5) /HPF Urine RBC (Auto) (0-2) /HPF U Epithel Cells (Auto) (FEW) /HPF Urine Bacteria (Auto) (NEGATIVE) /HPF Urine Culture Reflexed (NO) Urine Glucose (NEGATIVE) mg/dL Influenza Type A Ag (NEGATIVE) Influenza Type B Ag (NEGATIVE) RSV (PCR) (Negative) SARS-CoV-2 (PCR) (NEGATIVE) 03/11/21 03/11/21 03/11/21 Range/Units 11:40 12:17 12:43 WBC (4.0-10.5) K/mm3 RBC (4.1-5.6) M/mm3 Hgb (12.5-18.0) gm/dl Hct (42-50) % MCV (78-100) fl MCH (26-32) pg MCHC (32-36) g/dl RDW (11.5-14.0) % Plt Count (150-450) K/mm3 MPV (7.5-11.0) fl Gran % (36.0-66.0) % Eos # (Auto) (0-0.5) Absolute Lymphs (auto) (1.0-4.6) Absolute Monos (auto) (0.0-1.3) Lymphocytes % (24.0-44.0) % Monocytes % (0.0-12.0) % Eosinophils % (0.00-5.0) % Basophils % (0.0-0.4) % Absolute Granulocytes (1.4-6.9) Basophils # (0-0.4) ESR 127 H (0-15) mm/hr Sodium (137-145) mmol/L Potassium (3.5-5.1) mmol/L Chloride (98-107) mmol/L Carbon Dioxide (22-30) mmol/L Anion Gap (5-15) MEQ/L BUN (9-20) mg/dL Creatinine (0.66-1.25) mg/dL Estimated GFR ML/MIN Glucose (74-106) mg/dL POC Glucometer (74 to 106) mg/dL Lactic Acid (0.4-2.0) Calcium (8.4-10.2) mg/dL Magnesium (1.6-2.3) mg/dL Total Bilirubin (0.2-1.3) mg/dL AST (17-59) U/L ALT (0-50) U/L Alkaline Phosphatase (38-126) U/L Troponin I 0.061 H* (0.000-0.034) ng/mL Serum Total Protein (6.3-8.2) g/dL Albumin (3.5-5.0) g/dL Prealbumin (17.6-36.0) mg/dL Urine Color YELLOW (YELLOW) Urine Appearance SLIGHTLY CLOUDY (CLEAR) Urine pH 5.0 (5-6) Ur Specific [place] 1.014 (1.005-1.025) Urine Protein 30 (Negative) Urine Ketones NEGATIVE (NEGATIVE) Urine Blood NEGATIVE (0-5) Donn/ul Urine Nitrite NEGATIVE (NEGATIVE) Urine Bilirubin NEGATIVE (NEGATIVE) Urine Urobilinogen NEGATIVE (0-1) mg/dL Ur Leukocyte Esterase NEGATIVE (NEGATIVE) Urine WBC (Auto) 3-5 (0-5) /HPF Urine RBC (Auto) NONE (0-2) /HPF U Epithel Cells (Auto) NONE (FEW) /HPF Urine Bacteria (Auto) NONE (NEGATIVE) /HPF Urine Culture Reflexed NO (NO) Urine Glucose NEGATIVE (NEGATIVE) mg/dL Influenza Type A Ag (NEGATIVE) Influenza Type B Ag (NEGATIVE) RSV (PCR) (Negative) SARS-CoV-2 (PCR) (NEGATIVE) 03/11/21 03/11/21 03/11/21 Range/Units 14:35 15:03 17:30 WBC (4.0-10.5) K/mm3 RBC (4.1-5.6) M/mm3 Hgb (12.5-18.0) gm/dl Hct (42-50) % MCV (78-100) fl MCH (26-32) pg MCHC (32-36) g/dl RDW (11.5-14.0) % Plt Count (150-450) K/mm3 MPV (7.5-11.0) fl Gran % (36.0-66.0) % Eos # (Auto) (0-0.5) Absolute Lymphs (auto) (1.0-4.6) Absolute Monos (auto) (0.0-1.3) Lymphocytes % (24.0-44.0) % Monocytes % (0.0-12.0) % Eosinophils % (0.00-5.0) % Basophils % (0.0-0.4) % Absolute Granulocytes (1.4-6.9) Basophils # (0-0.4) ESR (0-15) mm/hr Sodium (137-145) mmol/L Potassium (3.5-5.1) mmol/L Chloride (98-107) mmol/L Carbon Dioxide (22-30) mmol/L Anion Gap (5-15) MEQ/L BUN (9-20) mg/dL Creatinine (0.66-1.25) mg/dL Estimated GFR ML/MIN Glucose (74-106) mg/dL POC Glucometer 151 H (74 to 106) mg/dL Lactic Acid (0.4-2.0) Calcium (8.4-10.2) mg/dL Magnesium (1.6-2.3) mg/dL Total Bilirubin (0.2-1.3) mg/dL AST (17-59) U/L ALT (0-50) U/L Alkaline Phosphatase (38-126) U/L Troponin I 0.058 H* (0.000-0.034) ng/mL Serum Total Protein (6.3-8.2) g/dL Albumin (3.5-5.0) g/dL Prealbumin (17.6-36.0) mg/dL Urine Color (YELLOW) Urine Appearance (CLEAR) Urine pH (5-6) Ur Specific [place] (1.005-1.025) Urine Protein (Negative) Urine Ketones (NEGATIVE) Urine Blood (0-5) Donn/ul Urine Nitrite (NEGATIVE) Urine Bilirubin (NEGATIVE) Urine Urobilinogen (0-1) mg/dL Ur Leukocyte Esterase (NEGATIVE) Urine WBC (Auto) (0-5) /HPF Urine RBC (Auto) (0-2) /HPF U Epithel Cells (Auto) (FEW) /HPF Urine Bacteria (Auto) (NEGATIVE) /HPF Urine Culture Reflexed (NO) Urine Glucose (NEGATIVE) mg/dL Influenza Type A Ag NEGATIVE (NEGATIVE) Influenza Type B Ag NEGATIVE (NEGATIVE) RSV (PCR) NEGATIVE (Negative) SARS-CoV-2 (PCR) NEGATIVE (NEGATIVE) 03/11/21 03/11/21 03/11/21 Range/Units 17:45 18:06 18:30 WBC (4.0-10.5) K/mm3 RBC (4.1-5.6) M/mm3 Hgb (12.5-18.0) gm/dl Hct (42-50) % MCV (78-100) fl MCH (26-32) pg MCHC (32-36) g/dl RDW (11.5-14.0) % Plt Count (150-450) K/mm3 MPV (7.5-11.0) fl Gran % (36.0-66.0) % Eos # (Auto) (0-0.5) Absolute Lymphs (auto) (1.0-4.6) Absolute Monos (auto) (0.0-1.3) Lymphocytes % (24.0-44.0) % Monocytes % (0.0-12.0) % Eosinophils % (0.00-5.0) % Basophils % (0.0-0.4) % Absolute Granulocytes (1.4-6.9) Basophils # (0-0.4) ESR (0-15) mm/hr Sodium (137-145) mmol/L Potassium (3.5-5.1) mmol/L Chloride (98-107) mmol/L Carbon Dioxide (22-30) mmol/L Anion Gap (5-15) MEQ/L BUN (9-20) mg/dL Creatinine (0.66-1.25) mg/dL Estimated GFR ML/MIN Glucose (74-106) mg/dL POC Glucometer (74 to 106) mg/dL Lactic Acid 0.8 (0.4-2.0) Calcium (8.4-10.2) mg/dL Magnesium (1.6-2.3) mg/dL Total Bilirubin (0.2-1.3) mg/dL AST (17-59) U/L ALT (0-50) U/L Alkaline Phosphatase (38-126) U/L Troponin I 0.051 H* (0.000-0.034) ng/mL Serum Total Protein (6.3-8.2) g/dL Albumin (3.5-5.0) g/dL Prealbumin 9.66 L (17.6-36.0) mg/dL Urine Color (YELLOW) Urine Appearance (CLEAR) Urine pH (5-6) Ur Specific [place] (1.005-1.025) Urine Protein (Negative) Urine Ketones (NEGATIVE) Urine Blood (0-5) Donn/ul Urine Nitrite (NEGATIVE) Urine Bilirubin (NEGATIVE) Urine Urobilinogen (0-1) mg/dL Ur Leukocyte Esterase (NEGATIVE) Urine WBC (Auto) (0-5) /HPF Urine RBC (Auto) (0-2) /HPF U Epithel Cells (Auto) (FEW) /HPF Urine Bacteria (Auto) (NEGATIVE) /HPF Urine Culture Reflexed (NO) Urine Glucose (NEGATIVE) mg/dL Influenza Type A Ag (NEGATIVE) Influenza Type B Ag (NEGATIVE) RSV (PCR) (Negative) SARS-CoV-2 (PCR) (NEGATIVE) 03/11/21 03/11/21 03/12/21 Range/Units 20:55 21:30 05:07 WBC 10.2 (4.0-10.5) K/mm3 RBC 2.58 L (4.1-5.6) M/mm3 Hgb 8.1 L (12.5-18.0) gm/dl Hct 25.8 L (42-50) % MCV 100.0 (78-100) fl MCH 31.4 (26-32) pg MCHC 31.4 L (32-36) g/dl RDW 15.3 H (11.5-14.0) % Plt Count 294 (150-450) K/mm3 MPV 8.8 (7.5-11.0) fl Gran % 72.8 H (36.0-66.0) % Eos # (Auto) 0.32 (0-0.5) Absolute Lymphs (auto) 1.72 (1.0-4.6) Absolute Monos (auto) 0.74 (0.0-1.3) Lymphocytes % 16.8 L (24.0-44.0) % Monocytes % 7.2 (0.0-12.0) % Eosinophils % 3.1 (0.00-5.0) % Basophils % 0.1 (0.0-0.4) % Absolute Granulocytes 7.43 H (1.4-6.9) Basophils # 0.01 (0-0.4) ESR (0-15) mm/hr Sodium (137-145) mmol/L Potassium (3.5-5.1) mmol/L Chloride (98-107) mmol/L Carbon Dioxide (22-30) mmol/L Anion Gap (5-15) MEQ/L BUN (9-20) mg/dL Creatinine (0.66-1.25) mg/dL Estimated GFR ML/MIN Glucose (74-106) mg/dL POC Glucometer 141 H (74 to 106) mg/dL Lactic Acid (0.4-2.0) Calcium (8.4-10.2) mg/dL Magnesium (1.6-2.3) mg/dL Total Bilirubin (0.2-1.3) mg/dL AST (17-59) U/L ALT (0-50) U/L Alkaline Phosphatase (38-126) U/L Troponin I 0.053 H* (0.000-0.034) ng/mL Serum Total Protein (6.3-8.2) g/dL Albumin (3.5-5.0) g/dL Prealbumin (17.6-36.0) mg/dL Urine Color (YELLOW) Urine Appearance (CLEAR) Urine pH (5-6) Ur Specific [place] (1.005-1.025) Urine Protein (Negative) Urine Ketones (NEGATIVE) Urine Blood (0-5) Donn/ul Urine Nitrite (NEGATIVE) Urine Bilirubin (NEGATIVE) Urine Urobilinogen (0-1) mg/dL Ur Leukocyte Esterase (NEGATIVE) Urine WBC (Auto) (0-5) /HPF Urine RBC (Auto) (0-2) /HPF U Epithel Cells (Auto) (FEW) /HPF Urine Bacteria (Auto) (NEGATIVE) /HPF Urine Culture Reflexed (NO) Urine Glucose (NEGATIVE) mg/dL Influenza Type A Ag (NEGATIVE) Influenza Type B Ag (NEGATIVE) RSV (PCR) (Negative) SARS-CoV-2 (PCR) (NEGATIVE) 03/12/21 03/12/21 Range/Units 05:07 07:11 WBC (4.0-10.5) K/mm3 RBC (4.1-5.6) M/mm3 Hgb (12.5-18.0) gm/dl Hct (42-50) % MCV (78-100) fl MCH (26-32) pg MCHC (32-36) g/dl RDW (11.5-14.0) % Plt Count (150-450) K/mm3 MPV (7.5-11.0) fl Gran % (36.0-66.0) % Eos # (Auto) (0-0.5) Absolute Lymphs (auto) (1.0-4.6) Absolute Monos (auto) (0.0-1.3) Lymphocytes % (24.0-44.0) % Monocytes % (0.0-12.0) % Eosinophils % (0.00-5.0) % Basophils % (0.0-0.4) % Absolute Granulocytes (1.4-6.9) Basophils # (0-0.4) ESR (0-15) mm/hr Sodium 141 (137-145) mmol/L Potassium 4.0 (3.5-5.1) mmol/L Chloride 111 H (98-107) mmol/L Carbon Dioxide 15 L* (22-30) mmol/L Anion Gap 20.8 H (5-15) MEQ/L BUN 87 H (9-20) mg/dL Creatinine 6.40 H (0.66-1.25) mg/dL Estimated GFR 9.0 ML/MIN Glucose 131 H (74-106) mg/dL POC Glucometer 132 H (74 to 106) mg/dL Lactic Acid (0.4-2.0) Calcium 9.5 (8.4-10.2) mg/dL Magnesium (1.6-2.3) mg/dL Total Bilirubin 0.20 (0.2-1.3) mg/dL AST 25 (17-59) U/L ALT 14 (0-50) U/L Alkaline Phosphatase 75 (38-126) U/L Troponin I (0.000-0.034) ng/mL Serum Total Protein 6.8 (6.3-8.2) g/dL Albumin 3.2 L (3.5-5.0) g/dL Prealbumin (17.6-36.0) mg/dL Urine Color (YELLOW) Urine Appearance (CLEAR) Urine pH (5-6) Ur Specific [place] (1.005-1.025) Urine Protein (Negative) Urine Ketones (NEGATIVE) Urine Blood (0-5) Donn/ul Urine Nitrite (NEGATIVE) Urine Bilirubin (NEGATIVE) Urine Urobilinogen (0-1) mg/dL Ur Leukocyte Esterase (NEGATIVE) Urine WBC (Auto) (0-5) /HPF Urine RBC (Auto) (0-2) /HPF U Epithel Cells (Auto) (FEW) /HPF Urine Bacteria (Auto) (NEGATIVE) /HPF Urine Culture Reflexed (NO) Urine Glucose (NEGATIVE) mg/dL Influenza Type A Ag (NEGATIVE) Influenza Type B Ag (NEGATIVE) RSV (PCR) (Negative) SARS-CoV-2 (PCR) (NEGATIVE) Radiology Exams: Radiology Procedures Category Date Time Status CHEST 1 VIEW (PORTABLE) Stat Exams 03/11/21 11:26 Completed FOOT (MINIMUM 3 VIEWS) Stat Exams 03/11/21 12:18 Completed FOOT (MINIMUM 3 VIEWS) Stat Exams 03/11/21 12:19 Completed HEAD WITHOUT CONTRAST [CT] Stat Exams 03/11/21 13:32 Completed Assessment/Plan (1) Osteomyelitis of left foot Current Visit: Yes Status: Acute Assessment & Plan: on vanc/cleocin, will await culture from operative procedure today Code(s): M86.9 - OSTEOMYELITIS, UNSPECIFIED (2) Chronic renal failure Current Visit: No Status: Chronic Qualifiers: Assessment & Plan: prognosis is poor (3) DM2 (diabetes mellitus, type 2) Current Visit: No Status: Chronic
[2021-03-12] MEDS ORDERED: TYLENOL 325 MG PO PRN (08:56)
[2021-03-12] MEDS ORDERED: MULTIVIT WITH IRON MINERALS PO SCH (10:00)
[2021-03-12] MEDS ORDERED: ENOXAPARIN SODIUM SQ SCH (10:00)
[2021-03-12] MEDS ORDERED: FLUOXETINE HCL 20 MG PO SCH (10:00)
[2021-03-12] MEDS ORDERED: ARGININE PO SCH (10:00)
[2021-03-12] MEDS ORDERED: VITE AC PO SCH (10:00)
[2021-03-12] MEDS ORDERED: PATIROMER PO SCH (10:00)
[2021-03-12] MEDS ORDERED: VELTASSA PO SCH (10:00)
[2021-03-12] MEDS ORDERED: ASCORBATE SOD PO SCH (10:00)
--- NOTE | 2021-03-12 10:22 | PCM.NOTE ---
Podiatry Post-Op Plan Podiatry Post-Op Plan: Podiatry Post-Op Plan Post-operative plan is as follows: MEDICAL: Medical management per Dr. Paz. appreicate recommendations. ANTIBIOTICS: ESRD. Will be managed by Dr. Paz appreciate recommendations. [place]. Awaiting cultures obtained intraoperatively. PAIN CONTROL: [place] 10/325mg q4h moderate pain. Morphine 2 mg q4h severe pain. VTE PROPHYLAXIS: Lovenox 40 mg SubQ daily for anticoag. DRESSINGS: Dressing to remain clean and dry. Reinforce with Kerlix/KANDY as necessary.Will change packing and dressing daily. ACTIVITY: Bedrest. THERAPIES: Incentive spirometery.PT/OT full non weight bearing at this time. PLACEMENT: Once cleared from medical perspective will need to return [facility] ( [facility])
--- NOTE | 2021-03-12 10:23 | OP ---
Podiatry Procedure Note Procedure Date:: 03/12/21 Procedure Time: 10:23 Podiatry Procedure Note: Dictated]
[2021-03-12] MEDS: FEOSOL 325 MG PO SCH (10:41)
[2021-03-12] MEDS: ECOTRIN 81 MG PO SCH (10:41)
[2021-03-12] MEDS: Namenda 5 MG PO SCH ×2 (10:41→22:56)
[2021-03-12] MEDS: SYNTHROID 25 MCG PO SCH (10:41)
[2021-03-12] MEDS: Prozac 20 MG PO SCH (10:42)
[2021-03-12] MEDS: Lasix 40 MG PO SCH (10:42)
[2021-03-12] MEDS: NEURONTIN 300 MG PO SCH ×2 (10:42→22:56)
[2021-03-12] MEDS: COREG 12.5 MG PO SCH ×2 (10:42→22:56)
[2021-03-12] MEDS: THERAGRAN MULTIVITAMIN PO SCH (10:42)
[2021-03-12] MEDS: SODIUM BICARBONATE PO SCH ×2 (10:43→22:58)
[2021-03-12] MEDS: PLAVIX 75 MG Tablet PO SCH (10:45)
--- NOTE | 2021-03-12 11:29 | OP ---
SURGERY DATE/TIME: 03/12/2021 0736 PREOPERATIVE DIAGNOSES: 1) Chronic kidney disease. 2) Uncontrolled diabetes mellitus. 3) End stage renal disease. 4) Peripheral vascular disease. 5) Osteomyelitis, left foot. 6) Diabetic foot infection, right foot. 7) Diabetic foot infection, left foot. POSTOPERATIVE DIAGNOSES: 1) Chronic kidney disease. 2) Uncontrolled diabetes mellitus. 3) End stage renal disease. 4) Peripheral vascular disease. 5) Osteomyelitis, left foot. 6) Diabetic foot infection, right foot. 7) Diabetic foot infection, left foot. PROCEDURES: 1) Left foot incision and drainage with bone debridement and open packing. 2) Right foot incision and drainage, Choparts amputation with open packing. SURGEON: Sohail Infante DPM. MINE ENGINEERING SUPERINTENDENT: None. ANESTHESIA: Light sedation with local. See injectables. HEMOSTASIS: Pressure dressing. ESTIMATED BLOOD LOSS: Less than 150 cc. MATERIALS: [address] needle, 1 inch and 0.25 inch Iodoform packing. INJECTABLES: 60 cc of 1:1 mixture of 1% lidocaine plain and 0.5% Marcaine plain injected in ankle block-type fashion to the bilateral lower extremities. INDICATION FOR PROCEDURE: Frandy is a very pleasant 80 year-old male who presents today with complications secondary to peripheral vascular disease and osteomyelitis to the bilateral lower extremity. The patient recently had a procedure for bilateral incision and drainage and continued attempts of limb salvage last week. However subsequently developed an infection to the bilateral lower extremity and failed this operation. Recommendation was made for the patient to begin dialysis as well as for a limb amputation. However the patient refuses both of these options as well as does his daughter who is his Power Of Branch Administrator. At this time efforts are being made in order to prevent sepsis in this patient. X-rays were taken when the patient presented to the emergency department showing developing gas in the left foot as well as residual cellulitis and continued infection to the right foot. The patient understands that efforts that are being made today are not in order to proceed with limb salvage. However they are to provide him with an uninfected wound. Discussion was held in regards to outcomes following this procedure would almost certainly be poor given patients refusal to proceed with dialysis and refusal of amputation.. Patient and daughter understand this and still wishes to proceed with surgical intervention at this time. DESCRIPTION OF PROCEDURE AND FINDINGS: Following adequate assessment by the anesthesia team, the patient was brought into the OR and placed on the OR table in the supine position. Following this a time out was called identifying the patient factors and procedures to be performed. Following this an injection consisting of 30 cc to the right lower extremity and 30 cc to the left lower extremity was injected in ankle block-type fashion to bilateral lower extremity. Following this the bilateral lower extremity was prepped and draped in typical sterile fashion. Attention was first directed to the left lower extremity where there was some soft tissue necrosis as well as demarcation secondary to the infection as well as peripheral vascular disease. The stitches were removed from this site and the incision was deepened along the same plane that was taken last week where some liquefactive necrosis was encountered at the site of the abductor hallucis muscle belly flap. This was excised in toto along with the nonviable tissue down to the level of the bone was removed and resected to a healthy surface. It should be noted that the majority of the surfaces in this area were hardened and the blood vessels were thickened secondary to the significant amount of calcifications that were encountered. At this time the devitalized infected and necrotic tissue was removed using a combination of sharp dissection as well as curettage and rongeur. Following this the site was cleansed with a bulb syringe. Inspection of the site was made once again for any necrotic tissue which was then excised. After bulb syringe was performed, a [place] was utilized to close the subcutaneous tissue at multiple levels in order to determine if there was undermining entrapment. The infection was then followed in this direction and cleared of any residual necrotic or devitalized tissue in this area as well. Following this 3 liters of sterile saline on pulse lavage was utilized to cleanse the surgical site where it was then cleansed and all surgical instrumentation was changed out for not previously used instrumentation. Following this a [address] needle was utilized to coapt the medial aspect of the incision of the left foot with a large area left open for packing with 0.5 inch Iodoform. At this time dressing consisting of Adaptic, 4x4, Betadine, Kerlix and KANDY was applied to the left lower extremity and this extremity was then covered utilizing a sterile drape. Attention was directed to the right lower extremity. At this time there was a significant amount of necrosis to the distal aspect of the wound site. The necrotic tissue was debrided utilizing a clean 10 blade removing the intrinsic muscle flap that was performed in the previous procedure. At this time the metatarsals were identified and tracking of the infection was seen at the dorsal and plantar aspects. At this time a Montero was utilized to lift the subcutaneous soft tissue off of the plane of the bone and a Choparts joint was identified. The bones were resected in toto from this area leaving the calcaneus as well as the talus. All soft tissue leading up to this area was cleansed of any necrotic devitalized or infected appearing tissue this was removed utilizing a 10 blade, rongeur and Kerlix. Resection took place was then level of the Choparts joint. The skin was remodeled in order to gain some closure of the flap. However the lateral aspect of the flap was left open at this time. This was then cleansed with copious amount of sterile saline, 3 liters to be exact. The skin was then inspected again for any indications of necrosis or nonviable tissue. At this time gloves and instrumentation was changed out once more. Dry sterile saline was utilized to cleanse, to dry the operative area and [address] needle was utilized to coapt the medial skin edges under minimal tension. The lateral aspect of the wound was then left open for packing. Betadine soaked 1 inch Iodoform packing was placed inside the wound at this time with minimal tension. Following this a dressing consisting of Adaptic, 4x4, Kerlix and KANDY was applied to the right lower extremity. The patient was reversed from anesthesia and was returned to the postoperative anesthesia care unit with vital signs stable and vascular status intact. Postoperative orders as stated in the patient's chart, medically to be managed by Dr. Paz.
[2021-03-12] MEDS: MORPHINE SULFATE 2 MG INJ IV PRN (11:49)
[2021-03-12] MEDS: VELTASSA PO SCH (13:57)
[2021-03-12] MEDS ORDERED: MORPHINE SULFATE 2 MG INJ IV ONE (14:09)
[2021-03-12] MEDS ORDERED: VANCOCIN 1 GM VIAL*** 1 GM in Sodium Chloride 0.9% 250 ML 250 ML IV SCH (16:00)
[2021-03-12] MEDS ORDERED: VANCOMYCIN 1 GRAM/200 ML BAG 1 GM/200 ML PIGGYBACK IV SCH (16:00)
[2021-03-12] MEDS: Sodium Chloride 0.9% 1000 ML 1,000 ML IV SCH (16:06)
[2021-03-12] MEDS: HUMALOG SQ PRN (17:31)
[2021-03-12] MEDS: CLINDAMYCIN-D5W 600 MG/50 ML*** 600 MG/50 ML BAG IV SCH (17:53)
[2021-03-12] MEDS: MORPHINE SULFATE 4 MG INJ IV PRN (17:57)
[2021-03-12 19:04] LABS: Absolute Neutrophil Ct (ANC) 9.54 (1.4-6.9); BASOPHIL % 0.2 % (0.0-0.4); Basophil (Absolute #) 0.02 (0-0.4); Eosinophil % 1.9 % (0.00-5.0); Eosinophil (Absolute #) 0.22 (0-0.5); Hematocrit 23.5 % (42-50); Hemoglobin 7.5 gm/dl (12.5-18.0); Lymphocyte (Absolute #) 1.13 (1.0-4.6); Lymphocytes % 9.7 % (24.0-44.0); Mean Cell Volume 98.7 fl (78-100); Mean Corpuscular Hemoglobin 31.5 pg (26-32); Mean Corpuscular Hgb Concent. 31.9 g/dl (32-36); Mean Platelet Volume 8.1 fl (7.5-11.0); Monocyte (Absolute #) 0.74 (0.0-1.3); Monocytes % 6.4 % (0.0-12.0); Neutrophil % 81.8 % (36.0-66.0); Platelet Count 311 K/mm3 (150-450); Red Blood Count 2.38 M/mm3 (4.1-5.6); Red Cell Distribution Width 15.2 % (11.5-14.0); White Blood Count 11.7 K/mm3 (4.0-10.5)
[2021-03-12] MEDS: ZOLOFT 50 MG TABLET PO SCH (22:56)
[2021-03-12] MEDS: ZOCOR 20MG PO SCH (22:56)
[2021-03-12] MEDS: Aricept 10 MG PO SCH (22:56)
[2021-03-12] MEDS: Flomax 0.4 MG PO SCH (22:56)
[2021-03-12] MEDS: Lantus Insulin SQ SCH (22:57)
[2021-03-13] MEDS: CLINDAMYCIN-D5W 600 MG/50 ML*** 600 MG/50 ML BAG IV SCH ×3 (02:46→18:20)
[2021-03-13 07:17] LABS: Creatinine 1 6.26 mg/dL (0.66-1.25); EST GLOMERULAR FILTRATION RATE 9.3 ML/MIN
--- NOTE | 2021-03-13 09:18 | PCM.NOTE ---
Podiatry Narrative Note Podiatry Narrative Note: Subjective: Jac is a very pleasant 80-year-old male status post incision and drainage to the bilateral lower extremity. He is postop day 1. 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 Both the wounds were left open for packing. He has had an relatively uneventful postoperative course. Last night I was called by nursing staff in regards to some strikethrough on primary and reinforce dressing on presentation the strikethrough was moderate and the dressing was removed and reinforced. Today on presentation there is no strikethrough patient indicates no pain from last night. He does have a good appetite as he is eating breakfast on presentation. Objective: Labs pending for today WBC 11.7 RBC 2.38 Hgb 7.5 HCT 23.5 PLT 311 Lymphocytes 9.7 Absolute granulocytes 9.54 ESR 127 Sodium 141 potassium 4.0 chloride 111 carbon dioxide 15 anion gap 20.8 BUN 87 creatinine 6.26 estimated GFR 9.3 glucose reading 144 C-reactive protein 171 albumin 3.2 prealbumin 9.66 Objective physical exam Left Vascular: DP and PT pulses are nonpalpable to the bilateral lower extremity. Minimal strikethrough on dressing on presentation. Some residual cellulitis to the dorsal aspect of the left foot that is blanchable in nature. Capillary refill time is sluggish to digits 234 and 5. Negative for lymphangitis lymphadenopathy on palpation of the popliteal or inguinal lymph nodes. No proximal streaking. Neurological protective sensation is largely absent. Protopathic pathways are intact Dermatological left foot incision at proximal aspect of incision and drainage site is intact with skin edges coapted the wound removed with of packing showing no residual signs of infection however there is some necrosis of the plantar aspect of the skin flaps at this time. This necrosis is isolated to the plantar aspect dorsal aspect of the surgical wound is free of any remaining debris wound does not tunnel or track to the dorsal aspect of the foot capsule of the second metatarsophalangeal joint is visible and intact at this time Musculoskeletal deferred. Observation only first ray amputation exposed first ray Physical exam to right Vascular DP and PT pulses are nonpalpable. No remaining cellulitis noted. Skin edges are coapted without any signs of dehiscence to the medial aspect. Packing pulled from the lateral aspect of the surgical wound at this time no remaining signs of clinical infection or necrosis are apparent. Surgical retention stitches at anterior aspect and lateral aspect of wound are intact without any evidence of dehiscence. Neurological: Protopathic pathway intact. Epicritic sensation is severely diminished. Dermatological. Packing pulled from lateral aspect of surgical wound at this time indicating no remaining signs of clinical infection or necrosis are apparent. Surgical retention stitches are at the anterior and lateral aspect of the wound are intact without any evidence of dehiscence. Skin edges are blanchable under minimal tension. Musculoskeletal: Deferred show parts amputation right foot partially open at lateral aspect of wound. 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 Radiographs will be obtained to ensure that there is no residual gas to the b ilateral lower extremity Dressings changed to the bilateral lower extremity physical exam demonstrating some residual necrosis to the left lower extremity however no indications of infection to the left lower extremity this is packed open at this time and will be allowed to drain for several more days. To the right lower extremity wound appears significantly better and is under minimal tension to decrease chances of possible surgical dehiscence and is clear of any infection on inspection at this time. Wound was repacked and likely packing will be discontinued to the bilateral lower extremity starting tomorrow if no residual signs of infection are observed. Antibiotics being managed by Dr. Paz appreciate recommendations. Pain control as prescribed. DVT prophylaxis as prescribed Nonweightbearing to the bilateral lower extremity. PT/OT consult If further surgical intervention is warranted other than infection control I would defer this treatment at this time. With outpatient proceeding with dialysis limb salvage efforts are doomed to be unsuccessful. Patient understands this as does his daughter who is power of securities attorney. Only interventions at this time will be preventative measures of recurrent infection. That being said if infection is clear to the right foot a delayed primary closure may be performed at bedside sometime this week to prevent recurrence of infection to the side. We will monitor throughout the weekend for any changes and plan accordingly. Following with you
[2021-03-13] MEDS: COREG 12.5 MG PO SCH ×2 (09:36→21:11)
[2021-03-13] MEDS: Prozac 20 MG PO SCH (09:36)
[2021-03-13] MEDS: Lasix 40 MG PO SCH (09:36)
[2021-03-13] MEDS: SYNTHROID 25 MCG PO SCH (09:36)
[2021-03-13] MEDS: FEOSOL 325 MG PO SCH (09:36)
[2021-03-13] MEDS: ECOTRIN 81 MG PO SCH (09:36)
[2021-03-13] MEDS: THERAGRAN MULTIVITAMIN PO SCH (09:36)
[2021-03-13] MEDS: NEURONTIN 300 MG PO SCH ×2 (09:37→21:12)
[2021-03-13] MEDS: SODIUM BICARBONATE PO SCH ×2 (09:37→21:13)
[2021-03-13] MEDS: MORPHINE SULFATE 4 MG INJ IV PRN (09:37)
[2021-03-13] MEDS: Namenda 5 MG PO SCH ×2 (09:37→21:12)
[2021-03-13 11:07] LABS: Hematocrit 22.3 % (42-50); Mean Corpuscular Hemoglobin 31.4 pg (26-32); Mean Corpuscular Hgb Concent. 31.4 g/dl (32-36); Platelet Count 319 K/mm3 (150-450); Red Blood Count 2.23 M/mm3 (4.1-5.6); Red Cell Distribution Width 15.1 % (11.5-14.0); White Blood Count 10.2 K/mm3 (4.0-10.5)
[2021-03-13 11:09] LABS: ANION GAP 19.8 MEQ/L (5-15); Calcium 9.6 mg/dL (8.4-10.2); Creatinine 1 6.22 mg/dL (0.66-1.25); EST GLOMERULAR FILTRATION RATE 9.3 ML/MIN; Potassium 4.3 mmol/L (3.5-5.1)
--- NOTE | 2021-03-13 13:47 | PCM.NOTE ---
Date and Time: 03/13/21 1342 Subjective Assessment: Pt's pain is better with pain meds. He does complain of pain to his bottom when we sit him up to listen to lung sounds. RN notes pt is reluctant to be turned in the bed. Last night he was not eating. His CO2 was 13 from the 4 am blood draw; however he has eaten 100% of his meals since then, so the BMP is being redrawn. - Review of Systems Constitutional: No Fever Musculoskeletal: Joint Pain Objective Exam General Appearance: no apparent distress, obese Neurologic Exam: oriented x 3, cooperative Skin Exam: warm, dry, No rash Wound Assessment: Skin/Wound Assessment Wound/Incision Assessment Start: 03/11/21 20:00 Text: Status: Active Freq: Q6H Protocol: Document 03/13/21 08:00 BARNEY (Rec: 03/13/21 09:24 BARNEY [id number]) Wound/Incision Assessment Right Foot Wound Assessment Shift Assessment Wound Type Amputation Wound Stage Non Pressure Wound Dressing Status Dry & Intact Comment dr. aguirre redressed Left Foot Wound Assessment Shift Assessment Wound Type Amputation Dressing Status Dry & Intact Comment dr. acevedo addressed Wound Photo Photo Taken No Eye Exam: eyes nml inspection Ears, Nose, Throat Exam: moist mucous membranes Neck Exam: normal inspection Respiratory Exam: normal breath sounds, crackles/rales (in RLL), No respiratory distress, No rhonchi, No wheezing Cardiovascular Exam: regular rate/rhythm, normal heart sounds, No murmur Extremity Exam: other (bilat LE wrapped; R is clearly s/p amputation) OBJECTIVE DATA Vital Signs: Vital Signs - 24 hr Temp Pulse Resp BP Pulse Ox 03/13/21 12:31 75 20 96 03/13/21 11:41 98.0 F 70 20 103/48 97 03/13/21 07:40 97.9 F 69 22 104/43 96 03/13/21 04:00 98.6 F 68 16 100/56 96 03/13/21 00:00 99.3 F 75 19 118/57 95 03/12/21 20:00 97.7 F 67 17 107/83 96 03/12/21 15:04 97.4 F 67 16 137/65 100 Pain Assessment - Last Documented Pain Intensity 7 Pain Scale Used 0-10 Pain Scale Intake and Output: Intake & Output 03/11/21 03/12/21 03/13/21 03/14/21 11:59 11:59 11:59 11:59 Intake Total 7242 2223 Output Total 4387 1150 Balance -197 1073 Weight 93.894 kg 89.6 kg Lab Results: Lab Results-Last 24 Hours 03/11/21 03/12/21 03/12/21 Range/Units 11:40 16:16 19:01 WBC 11.7 H (4.0-10.5) K/mm3 RBC 2.38 L (4.1-5.6) M/mm3 Hgb 7.5 L (12.5-18.0) gm/dl Hct 23.5 L (42-50) % MCV 98.7 (78-100) fl MCH 31.5 (26-32) pg MCHC 31.9 L (32-36) g/dl RDW 15.2 H (11.5-14.0) % Plt Count 311 (150-450) K/mm3 MPV 8.1 (7.5-11.0) fl Gran % 81.8 H (36.0-66.0) % Eos # (Auto) 0.22 (0-0.5) Absolute Lymphs (auto) 1.13 (1.0-4.6) Absolute Monos (auto) 0.74 (0.0-1.3) Lymphocytes % 9.7 L (24.0-44.0) % Monocytes % 6.4 (0.0-12.0) % Eosinophils % 1.9 (0.00-5.0) % Basophils % 0.2 (0.0-0.4) % Absolute Granulocytes 9.54 H (1.4-6.9) Basophils # 0.02 (0-0.4) Sodium (137-145) mmol/L Potassium (3.5-5.1) mmol/L Chloride (98-107) mmol/L Carbon Dioxide (22-30) mmol/L Anion Gap (5-15) MEQ/L BUN (9-20) mg/dL Creatinine (0.66-1.25) mg/dL Estimated GFR ML/MIN Glucose (74-106) mg/dL POC Glucometer 208 H (74 to 106) mg/dL Calcium (8.4-10.2) mg/dL C-Reactive Prot, Quant 171 H (0-10) mg/L 03/12/21 03/13/21 03/13/21 Range/Units 21:01 05:00 05:00 WBC 10.2 (4.0-10.5) K/mm3 RBC 2.23 L (4.1-5.6) M/mm3 Hgb 7.0 L (12.5-18.0) gm/dl Hct 22.3 L (42-50) % MCV 100.0 (78-100) fl MCH 31.4 (26-32) pg MCHC 31.4 L (32-36) g/dl RDW 15.1 H (11.5-14.0) % Plt Count 319 (150-450) K/mm3 MPV 9.0 (7.5-11.0) fl Gran % (36.0-66.0) % Eos # (Auto) (0-0.5) Absolute Lymphs (auto) (1.0-4.6) Absolute Monos (auto) (0.0-1.3) Lymphocytes % (24.0-44.0) % Monocytes % (0.0-12.0) % Eosinophils % (0.00-5.0) % Basophils % (0.0-0.4) % Absolute Granulocytes (1.4-6.9) Basophils # (0-0.4) Sodium (137-145) mmol/L Potassium (3.5-5.1) mmol/L Chloride (98-107) mmol/L Carbon Dioxide (22-30) mmol/L Anion Gap (5-15) MEQ/L BUN (9-20) mg/dL Creatinine 6.26 H (0.66-1.25) mg/dL Estimated GFR 9.3 ML/MIN Glucose (74-106) mg/dL POC Glucometer 161 H (74 to 106) mg/dL Calcium (8.4-10.2) mg/dL C-Reactive Prot, Quant (0-10) mg/L 03/13/21 03/13/21 03/13/21 Range/Units 05:00 07:06 11:11 WBC (4.0-10.5) K/mm3 RBC (4.1-5.6) M/mm3 Hgb (12.5-18.0) gm/dl Hct (42-50) % MCV (78-100) fl MCH (26-32) pg MCHC (32-36) g/dl RDW (11.5-14.0) % Plt Count (150-450) K/mm3 MPV (7.5-11.0) fl Gran % (36.0-66.0) % Eos # (Auto) (0-0.5) Absolute Lymphs (auto) (1.0-4.6) Absolute Monos (auto) (0.0-1.3) Lymphocytes % (24.0-44.0) % Monocytes % (0.0-12.0) % Eosinophils % (0.00-5.0) % Basophils % (0.0-0.4) % Absolute Granulocytes (1.4-6.9) Basophils # (0-0.4) Sodium 141 (137-145) mmol/L Potassium 4.3 (3.5-5.1) mmol/L Chloride 112 H (98-107) mmol/L Carbon Dioxide 13 L* (22-30) mmol/L Anion Gap 19.8 H (5-15) MEQ/L BUN 93 H (9-20) mg/dL Creatinine 6.22 H (0.66-1.25) mg/dL Estimated GFR 9.3 ML/MIN Glucose 156 H (74-106) mg/dL POC Glucometer 144 H 194 H (74 to 106) mg/dL Calcium 9.6 (8.4-10.2) mg/dL C-Reactive Prot, Quant (0-10) mg/L Radiology Exams: Radiology Procedures Category Date Time Status FOOT (MINIMUM 3 VIEWS) Routine Exams 03/13/21 10:45 Taken FOOT (MINIMUM 3 VIEWS) Routine Exams 03/13/21 10:45 Taken HEAD WITHOUT CONTRAST [CT] Stat Exams 03/11/21 13:32 Completed Multi-Disciplinary Progress Notes: Multi-Disciplinary Progress Notes 03/12/21 15:47 Pharmacy Note by Maicol Navarro Adjusted Vancomycin dose to 1gm iv q60h for creatinine of 6.4. Will monitor and adjust dose as needed. Initialized on 03/12/21 15:47 - END OF NOTE Assessment/Plan (1) Osteomyelitis of left foot Current Visit: Yes Status: Acute Qualifiers: Osteomyelitis type: unspecified type Qualified Code(s): M86.9 - Osteomyelitis, unspecified Assessment & Plan: Dr. Sauceda treating both lower extremities with debridement, dressing changes, thank you. Pt is on vancomycin and cleocin. Code(s): M86.9 - OSTEOMYELITIS, UNSPECIFIED (2) CKD (chronic kidney disease) Current Visit: No Status: Chronic Qualifiers: Chronic kidney disease stage: stage 5, not on chronic dialysis Qualified Code(s): N18.5 - Chronic kidney disease, stage 5 Assessment & Plan: Dr. Paz had a discussion with pt and his family about the fact that prognosis is poor. Pt is now DNR. 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
[2021-03-13 13:58] LABS: ANION GAP 18.7 MEQ/L (5-15); Calcium 9.3 mg/dL (8.4-10.2); Creatinine 1 6.06 mg/dL (0.66-1.25); EST GLOMERULAR FILTRATION RATE 9.6 ML/MIN; Potassium 4.4 mmol/L (3.5-5.1)
[2021-03-13] MEDS: VELTASSA PO SCH (14:14)
[2021-03-13 14:48] LABS: ABO TYPING O; RH TYPING POSITIVE
[2021-03-13 14:49] LABS: Antibody Screen NEGATIVE (NEGATIVE)
[2021-03-13] MEDS: Sodium Chloride 0.9% 1000 ML 1,000 ML IV SCH (14:52)
[2021-03-13 14:54] LABS: CROSS MATCH (PRBC) COMPATIBLE (COMPATIBLE)
[2021-03-13 19:26] LABS: Hematocrit 24.4 % (42-50); Hemoglobin 7.8 gm/dl (12.5-18.0)
--- NOTE | 2021-03-13 20:18 | XRAY ---
Indication: Gas gangrene. Comparison: March 11, 2021. 3 nonweightbearing views left foot again demonstrates amputation 1st metatarsal distal metatarsal/toe with increasing overlying radiolucency either gauze/bandage material versus worsening subcutaneous air. Stable osteopenia, heel spurs, and scattered vascular calcifications. Comment: Preliminary interpretation was made by [facility]. No critical discrepancy.
--- NOTE | 2021-03-13 20:26 | XRAY ---
Indication: Postop pain. Comparison: March 11, 2021. 3 view right foot again demonstrates indication all mid to distal metatarsal/toes with new anterior lateral subcutaneous emphysema worsening for gas-forming infection. Stable osteopenia, heel spurs, and scattered vascular calcifications. Comment: Preliminary interpretation was made by [facility]. No critical discrepancy.
[2021-03-13] MEDS: Lantus Insulin SQ SCH (21:11)
[2021-03-13] MEDS: Flomax 0.4 MG PO SCH (21:11)
[2021-03-13] MEDS: Aricept 10 MG PO SCH (21:11)
[2021-03-13] MEDS: ZOCOR 20MG PO SCH (21:13)
[2021-03-13] MEDS: ZOLOFT 50 MG TABLET PO SCH (21:13)
[2021-03-14] MEDS: CLINDAMYCIN-D5W 600 MG/50 ML*** 600 MG/50 ML BAG IV SCH ×3 (02:16→17:58)
[2021-03-14 06:14] LABS: Hematocrit 22.8 % (42-50); Hemoglobin 7.2 gm/dl (12.5-18.0); Mean Cell Volume 96.2 fl (78-100); Mean Corpuscular Hemoglobin 30.4 pg (26-32); Mean Corpuscular Hgb Concent. 31.6 g/dl (32-36); Mean Platelet Volume 8.7 fl (7.5-11.0); Platelet Count 293 K/mm3 (150-450); Red Blood Count 2.37 M/mm3 (4.1-5.6); Red Cell Distribution Width 16.5 % (11.5-14.0)
[2021-03-14 06:23] LABS: ANION GAP 17.6 MEQ/L (5-15); Calcium 9.3 mg/dL (8.4-10.2); Creatinine 1 5.76 mg/dL (0.66-1.25); EST GLOMERULAR FILTRATION RATE 10.2 ML/MIN; Potassium 4.3 mmol/L (3.5-5.1)
[2021-03-14] MEDS: MORPHINE SULFATE 4 MG INJ IV PRN ×2 (07:50→20:00)
--- NOTE | 2021-03-14 08:05 | PCM.NOTE ---
Podiatry Narrative Note Podiatry Narrative Note: Subjective: Jac is a very pleasant 80-year-old male status post incision and drainage to the bilateral lower extremity. He is postop day 2. 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 Today on presentation there is minimal strikethrough to the right lateral aspect. Negative strikethrough to the left lower extremity.On presentation he is resting in bed. When asked how he is doing today he indicates that he is doing well. No complaints of pain.He denies any constitutional symptoms of infection. He denies any other pedal complaints at this time Objective: Objective physical exam Left Vascular: DP and PT pulses are nonpalpable to the bilateral lower extremity. Negative strikethrough on dressing on initial presentation. To the dorsal aspect of the foot there is still some residual cellulitis. This is blanchable in nature. Capillary refill time is sluggish to distal aspect of digits 234 and 5. Negative for lymphangitis lymphadenopathy on palpation of the posterior popliteal or inguinal lymph nodes. No proximal streaking noted. Neurological protective sensation is largely absent. Protopathic pathways are intact Dermatological left foot incision at proximal aspect of incision and drainage site is intact with skin edges coapted the wound removed with of packing showing no residual signs of infection however there is some Continued necrosis of the plantar aspect of the skin flaps at this time. This necrosis is isolated to the plantar aspect dorsal aspect of the surgical wound is free of any remaining debris wound does not tunnel or track to the dorsal aspect of the foot capsule of the second metatarsophalangeal joint is visible and intact at this time. Musculoskeletal deferred. Observation only first ray amputation exposed Partial first ray amputation Physical exam to right Vascular DP and PT pulses are nonpalpable. No cellulitis noted. Skin edges are coapted without any signs of dehiscence to the medial aspect. Packing pulled from the lateral aspect of the surgical wound at this time no remaining signs of clinical infection or necrosis are apparent. Surgical retention stitches at anterior aspect and lateral aspect of wound are intact without any e vidence of dehiscence. Neurological: Protopathic pathway intact. Epicritic sensation is severely diminished. Dermatological. Packing pulled from lateral aspect of surgical wound at this time indicating no remaining signs of clinical infection or necrosis are apparent. Surgical retention stitches are at the anterior and lateral aspect of the wound are intact without any evidence of dehiscence. Skin edges are blanchable under minimal tension. 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 Radiographs reviewed and discussed with nursing staff. To the right lower extremity the radiologist read of soft tissue emphysema more likely consistent with packing of wound as well as correlation with open amputation more so than a gas infection. To the left agree with radiologist read soft tissue packing is present within the wound mimicking the appearance of soft tissue emphysema in this area. Packing was pulled at this time and no residual i local indications of infection are present at this time. Dressings changed to the bilateral lower extremity physical exam demonstrating some residual necrosis to the left lower extremity however no indications of infection to the left lower extremity. Packing has been discontinued at this time. To the right lower extremity wound appears significantly better and is under minimal tension to decrease chances of possible surgical dehiscence and is clear of any infection on inspection at this time. Packing was discontinued at this time. Antibiotics being managed by Dr. Paz/ Dr. Gomez appreciate recommendations. Pain control as prescribed. DVT prophylaxis On hold as patient's hemoglobin and hematocrit continually keeps dropping. Patient will undergo transfusion prior to resuming treatment Nonweightbearing to the bilateral lower extremity. PT/OT consult If further surgical intervention is warranted other than infection control I would defer this treatment at this time. With outpatient proceeding with dialysis limb salvage efforts are doomed to be unsuccessful. Patient understands this as does his daughter who is power of commonwealth attorney. Only interventions at this time will be preventative measures of recurrent infection. That being said if infection is clear to the right foot a delayed primary closure may be performed at bedside sometime this week to prevent recurrence of infection to the side. We will monitor throughout the weekend for any changes and plan accordingly. Following with you
[2021-03-14] MEDS: ECOTRIN 81 MG PO SCH (09:31)
[2021-03-14] MEDS: NEURONTIN 300 MG PO SCH ×2 (09:31→21:36)
[2021-03-14] MEDS: Prozac 20 MG PO SCH (09:31)
[2021-03-14] MEDS: FEOSOL 325 MG PO SCH (09:32)
[2021-03-14] MEDS: THERAGRAN MULTIVITAMIN PO SCH (09:32)
[2021-03-14] MEDS: Lasix 40 MG PO SCH (09:32)
[2021-03-14] MEDS: Namenda 5 MG PO SCH ×2 (09:32→21:36)
[2021-03-14] MEDS: SYNTHROID 25 MCG PO SCH (09:32)
[2021-03-14] MEDS: SODIUM BICARBONATE PO SCH ×2 (09:32→21:36)
[2021-03-14] MEDS: COREG 12.5 MG PO SCH ×2 (09:35→21:36)
[2021-03-14] MEDS: Sodium Chloride 0.9% 1000 ML 1,000 ML IV SCH (11:41)
[2021-03-14] MEDS: HUMALOG SQ PRN ×2 (12:07→17:31)
--- NOTE | 2021-03-14 13:08 | PCM.NOTE ---
Date and Time: 03/14/21 1302 Subjective Assessment: Pt denies pain. Is tolerating po. Breathing is good. Alert & oriented x 3 (when I ask which hospital he is in, he says, "Do we have more than one? You're trying to trick me!") - Review of Systems Constitutional: No Fever Respiratory: No Cough Objective Exam General Appearance: no apparent distress, alert Neurologic Exam: oriented x 3, cooperative Skin Exam: warm, dry, No rash Wound Assessment: Skin/Wound Assessment Wound/Incision Assessment Start: 03/11/21 20:00 Text: Status: Active Freq: Q6H Protocol: Document 03/14/21 08:00 DS (Rec: 03/14/21 08:38 DS [id number]) Wound/Incision Assessment Right Foot Wound Assessment Shift Assessment Wound Type Amputation Dressing Status Dry & Intact Drainage Amount None Drainage Odor None/Absent Comment Dressing changed per MD Left Foot Wound Assessment Shift Assessment Wound Type Amputation Dressing Status Dry & Intact Drainage Amount None Comment Dressing changed per MD Wound Photo Photo Taken No Eye Exam: eyes nml inspection Ears, Nose, Throat Exam: moist mucous membranes Neck Exam: normal inspection Respiratory Exam: normal breath sounds, lungs clear, No crackles/rales, No rhonchi, No wheezing Cardiovascular Exam: regular rate/rhythm, normal heart sounds, No murmur Gastrointestinal/Abdomen Exam: soft, normal bowel sounds, No tenderness, No distention, No mass, No guarding, No rebound Extremity Exam: other (feet wrapped bilat; see Dr. Sauceda's note) Back Exam: normal inspection, No rash OBJECTIVE DATA Vital Signs: Vital Signs - 24 hr Temp Pulse Resp BP Pulse Ox 03/14/21 12:00 98.0 F 60 18 90/37 97 03/14/21 08:24 64 16 96 03/14/21 07:53 97.8 F 63 16 124/56 96 03/14/21 03:39 98.3 F 67 19 102/50 97 03/13/21 20:21 65 17 97 03/13/21 19:57 98.5 F 63 18 120/58 98 03/13/21 16:00 98.3 F 90/49 Pain Assessment - Last Documented Pain Intensity 0 Pain Scale Used FLACC Intake and Output: Intake & Output 03/12/21 03/13/21 03/14/21 03/15/21 11:59 11:59 11:59 11:59 Intake Total 1328 9453 2053 Output Total 1527 1150 1500 Balance -197 1073 553 Weight 89.6 kg Lab Results: Lab Results-Last 24 Hours 03/13/21 03/13/21 03/13/21 Range/Units 12:25 12:25 16:18 WBC (4.0-10.5) K/mm3 RBC (4.1-5.6) M/mm3 Hgb (12.5-18.0) gm/dl Hct (42-50) % MCV (78-100) fl MCH (26-32) pg MCHC (32-36) g/dl RDW (11.5-14.0) % Plt Count (150-450) K/mm3 MPV (7.5-11.0) fl Sodium 139 (137-145) mmol/L Potassium 4.4 (3.5-5.1) mmol/L Chloride 111 H (98-107) mmol/L Carbon Dioxide 14 L* (22-30) mmol/L Anion Gap 18.7 H (5-15) MEQ/L BUN 93 H (9-20) mg/dL Creatinine 6.06 H (0.66-1.25) mg/dL Estimated GFR 9.6 ML/MIN Glucose 230 H (74-106) mg/dL POC Glucometer (74 to 106) mg/dL Lactic Acid 0.7 (0.4-2.0) Calcium 9.3 (8.4-10.2) mg/dL ABO Group O Rh Factor POSITIVE Antibody Screen NEGATIVE (NEGATIVE) Crossmatch COMPATIBLE (COMPATIBLE) 03/13/21 03/13/21 03/14/21 Range/Units 19:23 20:32 06:12 WBC 10.0 (4.0-10.5) K/mm3 RBC 2.37 L (4.1-5.6) M/mm3 Hgb 7.8 L 7.2 L (12.5-18.0) gm/dl Hct 24.4 L 22.8 L (42-50) % MCV 96.2 (78-100) fl MCH 30.4 (26-32) pg MCHC 31.6 L (32-36) g/dl RDW 16.5 H (11.5-14.0) % Plt Count 293 (150-450) K/mm3 MPV 8.7 (7.5-11.0) fl Sodium (137-145) mmol/L Potassium (3.5-5.1) mmol/L Chloride (98-107) mmol/L Carbon Dioxide (22-30) mmol/L Anion Gap (5-15) MEQ/L BUN (9-20) mg/dL Creatinine (0.66-1.25) mg/dL Estimated GFR ML/MIN Glucose (74-106) mg/dL POC Glucometer 187 H (74 to 106) mg/dL Lactic Acid (0.4-2.0) Calcium (8.4-10.2) mg/dL ABO Group Rh Factor Antibody Screen (NEGATIVE) Crossmatch (COMPATIBLE) 03/14/21 03/14/21 03/14/21 Range/Units 06:12 07:23 11:40 WBC (4.0-10.5) K/mm3 RBC (4.1-5.6) M/mm3 Hgb (12.5-18.0) gm/dl Hct (42-50) % MCV (78-100) fl MCH (26-32) pg MCHC (32-36) g/dl RDW (11.5-14.0) % Plt Count (150-450) K/mm3 MPV (7.5-11.0) fl Sodium 140 (137-145) mmol/L Potassium 4.3 (3.5-5.1) mmol/L Chloride 113 H (98-107) mmol/L Carbon Dioxide 14 L* (22-30) mmol/L Anion Gap 17.6 H (5-15) MEQ/L BUN 88 H (9-20) mg/dL Creatinine 5.76 H (0.66-1.25) mg/dL Estimated GFR 10.2 ML/MIN Glucose 152 H (74-106) mg/dL POC Glucometer 140 H 256 H (74 to 106) mg/dL Lactic Acid (0.4-2.0) Calcium 9.3 (8.4-10.2) mg/dL ABO Group Rh Factor Antibody Screen (NEGATIVE) Crossmatch (COMPATIBLE) Radiology Exams: Radiology Procedures Category Date Time Status FOOT (MINIMUM 3 VIEWS) Routine Exams 03/13/21 10:45 Completed FOOT (MINIMUM 3 VIEWS) Routine Exams 03/13/21 10:45 Completed Assessment/Plan (1) Osteomyelitis of left foot Current Visit: Yes Status: Acute Qualifiers: Osteomyelitis type: unspecified type Qualified Code(s): M86.9 - Osteomyelitis, unspecified Assessment & Plan: On XR yesterday, gas was present in the tissues; however per Dr. Sauceda's note, thank you, this is thought to be related to the packing and not infection. He says the wounds looks healthy with no sign of infection. I did talk with pharmacy about antibiotic coverage; there is currently no G(-) coverage so we have discontinued the vancomycin and pt is now on cleocin and zosyn. Code(s): M86.9 - OSTEOMYELITIS, UNSPECIFIED (2) Osteomyelitis of right foot Current Visit: Yes Status: Acute Qualifiers: Osteomyelitis type: unspecified type Qualified Code(s): M86.9 - Osteomyelitis, unspecified Code(s): M86.9 - OSTEOMYELITIS, UNSPECIFIED (3) CKD (chronic kidney disease) Current Visit: No Status: Chronic Qualifiers: Chronic kidney disease stage: stage 5, not on chronic dialysis Qualified Code(s): N18.5 - Chronic kidney disease, stage 5 Code(s): N18.9 - CHRONIC KIDNEY DISEASE, UNSPECIFIED (4) Diabetes mellitus with peripheral autonomic neuropathy Current Visit: No Status: Chronic Qualifiers: Diabetes mellitus type: type 2 Diabetes mellitus senior living insulin use: with long term care pharmacist use Qualified Code(s): E11.43 - Type 2 diabetes mellitus with diabetic autonomic (poly)neuropathy; Z79.4 - long-term (current) use of insulin Code(s): E11.43 - TYPE 2 DIABETES W DIABETIC AUTONOMIC (POLY)NEUROPATHY (5) HTN (hypertension) Current Visit: No Status: Chronic Qualifiers: Hypertension type: essential hypertension Qualified Code(s): I10 - Essential (primary) hypertension Code(s): I10 - ESSENTIAL (PRIMARY) HYPERTENSION (6) Metabolic acidosis Current Visit: Yes Status: Acute Assessment & Plan: likely, with low CO2 on BMP. His lactate was nl yesterday. He is asx. Was low on admission at 17; is 14 today, with a low of 13 yesterday. Will recheck in a.m. Code(s): E87.2 - ACIDOSIS
[2021-03-14] MEDS: VELTASSA PO SCH (13:40)
[2021-03-14 13:51] LABS: CROSS MATCH (PRBC) COMPATIBLE (COMPATIBLE)
[2021-03-14] MEDS: Zosyn 2.25 GM 2.25 GM in Sodium Chloride 100ML MINI-BAG PLUS 100 ML IV SCH ×2 (14:05→21:37)
[2021-03-14 18:46] LABS: Hematocrit 27.4 % (42-50); Hemoglobin 8.9 gm/dl (12.5-18.0)
[2021-03-14] MEDS: Aricept 10 MG PO SCH (21:36)
[2021-03-14] MEDS: Flomax 0.4 MG PO SCH (21:36)
[2021-03-14] MEDS: ZOCOR 20MG PO SCH (21:36)
[2021-03-14] MEDS: ZOLOFT 50 MG TABLET PO SCH (21:36)
[2021-03-14] MEDS: Lantus Insulin SQ SCH (21:38)
[2021-03-15] MEDS: CLINDAMYCIN-D5W 600 MG/50 ML*** 600 MG/50 ML BAG IV SCH ×3 (01:45→18:19)
[2021-03-15] MEDS: Zosyn 2.25 GM 2.25 GM in Sodium Chloride 100ML MINI-BAG PLUS 100 ML IV SCH ×3 (05:54→22:00)
--- NOTE | 2021-03-15 08:07 | PCM.NOTE ---
Date and Time: 03/15/21804 Subjective Assessment: doing well today, states his pain is controlled. has no complaints Objective Exam General Appearance: no apparent distress Neurologic Exam: alert, oriented x 3 Wound Assessment: Skin/Wound Assessment Wound/Incision Assessment Start: 03/11/21 20:00 Text: Status: Active Freq: Q6H Protocol: Document 03/15/21 02:00 LM (Rec: 03/15/21 02:25 LM [id number]) Wound/Incision Assessment Right Foot Wound Assessment Shift Assessment Wound Type Amputation Dressing Status Dry & Intact Drainage Amount None Drainage Odor None/Absent Comment Drsg c/d/i; was changed by Dr. Sauceda on 03/14/21 Left Foot Wound Assessment Shift Assessment Wound Type Amputation Dressing Status Dry & Intact Drainage Amount None Comment Dressing c/d/i; was changed by Dr. Sauceda on 03/14/21 Wound Photo Photo Taken No Respiratory Exam: normal breath sounds, lungs clear, No respiratory distress Cardiovascular Exam: regular rate/rhythm, normal heart sounds Gastrointestinal/Abdomen Exam: soft, No tenderness, No mass Extremity Exam: other (dressing intact to ble, no proximal erythema or streaking etc.) OBJECTIVE DATA Vital Signs: Vital Signs - 24 hr Temp Pulse Resp BP Pulse Ox 03/15/21 07:21 63 16 96 03/15/21 05:00 98.4 F 65 18 120/58 96 03/14/21 23:32 98.0 F 66 16 140/50 96 03/14/21 21:30 65 20 134/63 03/14/21 20:51 68 16 96 03/14/21 20:00 97.8 F 61 18 108/47 100 03/14/21 16:00 98.0 F 62 16 132/60 100 03/14/21 12:00 98.0 F 60 18 90/37 97 03/14/21 08:24 64 16 96 Pain Assessment - Last Documented Pain Intensity 0 Pain Scale Used 0-10 Pain Scale Intake and Output: Intake & Output 03/12/21 03/13/21 03/14/21 03/15/21 11:59 11:59 11:59 11:59 Intake Total 1328 2223 2053 2512 Output Total 1525 1150 1500 3100 Balance -197 1073 553 -588 Weight 89.6 kg Lab Results: Lab Results-Last 24 Hours 03/14/21 03/14/21 03/14/21 Range/Units 11:40 12:25 13:00 Hgb (12.5-18.0) gm/dl Hct (42-50) % POC Glucometer 256 H (74 to 106) mg/dL Hemoglobin A1c 6.38 H (4.5-6.0) % Crossmatch COMPATIBLE (COMPATIBLE) 03/14/21 03/14/21 03/14/21 Range/Units 16:30 18:43 20:28 Hgb 8.9 L D (12.5-18.0) gm/dl Hct 27.4 L (42-50) % POC Glucometer 217 H 180 H (74 to 106) mg/dL Hemoglobin A1c (4.5-6.0) % Crossmatch (COMPATIBLE) 03/15/21 Range/Units 07:21 Hgb (12.5-18.0) gm/dl Hct (42-50) % POC Glucometer 132 H (74 to 106) mg/dL Hemoglobin A1c (4.5-6.0) % Crossmatch (COMPATIBLE) Radiology Exams: Radiology Procedures Category Date Time Status FOOT (MINIMUM 3 VIEWS) Routine Exams 03/13/21 10:45 Completed FOOT (MINIMUM 3 VIEWS) Routine Exams 03/13/21 10:45 Completed Assessment/Plan (1) Osteomyelitis of left foot Current Visit: Yes Status: Acute Qualifiers: Osteomyelitis type: unspecified type Qualified Code(s): M86.9 - Osteomyelitis, unspecified Assessment & Plan: on cleocin and zosyn, wound cultures are still pending from intervention. will tailor therapy based on these results. Code(s): M86.9 - OSTEOMYELITIS, UNSPECIFIED (2) Chronic renal failure Current Visit: No Status: Chronic Qualifiers: (3) DM2 (diabetes mellitus, type 2) Current Visit: No Status: Chronic
[2021-03-15 08:32] LABS: Hematocrit 26.4 % (42-50); Hemoglobin 8.5 gm/dl (12.5-18.0); Mean Corpuscular Hemoglobin 30.9 pg (26-32); Mean Corpuscular Hgb Concent. 32.2 g/dl (32-36); Mean Platelet Volume 8.5 fl (7.5-11.0); Platelet Count 282 K/mm3 (150-450); Red Blood Count 2.75 M/mm3 (4.1-5.6); Red Cell Distribution Width 16.2 % (11.5-14.0); White Blood Count 10.2 K/mm3 (4.0-10.5)
[2021-03-15 09:13] LABS: ANION GAP 17.7 MEQ/L (5-15); Creatinine 1 5.19 mg/dL (0.66-1.25); EST GLOMERULAR FILTRATION RATE 11.5 ML/MIN; Potassium 4.4 mmol/L (3.5-5.1)
[2021-03-15] MEDS: THERAGRAN MULTIVITAMIN PO SCH (10:57)
[2021-03-15] MEDS: COREG 12.5 MG PO SCH ×2 (10:57→22:01)
[2021-03-15] MEDS: Lasix 40 MG PO SCH (10:57)
[2021-03-15] MEDS: Prozac 20 MG PO SCH (10:57)
[2021-03-15] MEDS: Namenda 5 MG PO SCH ×2 (10:57→22:02)
[2021-03-15] MEDS: NEURONTIN 300 MG PO SCH ×2 (10:57→22:01)
[2021-03-15] MEDS: ECOTRIN 81 MG PO SCH (10:57)
[2021-03-15] MEDS: FEOSOL 325 MG PO SCH (10:57)
[2021-03-15] MEDS: SYNTHROID 25 MCG PO SCH (10:57)
[2021-03-15] MEDS: SODIUM BICARBONATE PO SCH ×2 (10:57→22:02)
[2021-03-15] MEDS: Sodium Chloride 0.9% 1000 ML 1,000 ML IV SCH ×2 (11:06→22:03)
[2021-03-15] MEDS: PLAVIX 75 MG Tablet PO SCH (11:07)
[2021-03-15] MEDS: VELTASSA PO SCH (14:16)
[2021-03-15] MEDS: MORPHINE SULFATE 4 MG INJ IV PRN (15:29)
--- NOTE | 2021-03-15 16:34 | PCM.NOTE ---
Podiatry Narrative Note Podiatry Narrative Note: Subjective: POD #3 Patient at bedside with daughter. No complaints at this time. Objective: Objective physical exam Left Vascular: DP and PT pulses are nonpalpable to the bilateral lower extremity. Negative strikethrough on dressing on initial presentation. To the dorsal aspect of the foot there is still some residual cellulitis. This is blanchable in nature. Capillary refill time is sluggish to distal aspect of digits 234 and 5. Negative for lymphangitis lymphadenopathy on palpation of the posterior popliteal or inguinal lymph nodes. No proximal streaking noted. Neurological protective sensation is largely absent. Protopathic pathways are intact Dermatological left foot incision at proximal aspect of incision and drainage site is intact with skin edges coapted the wound removed with of packing showing no residual signs of infection however there is some Continued necrosis of the plantar aspect of the skin flaps at this time. This necrosis is isolated to the plantar aspect dorsal aspect of the surgical wound is free of any remaining debris wound does not tunnel or track to the dorsal aspect of the foot capsule of the second metatarsophalangeal joint is visible and intact at this time. Musculoskeletal deferred. Observation only first ray amputation exposed Partial first ray amputation Physical exam to right Vascular DP and PT pulses are nonpalpable. No cellulitis noted. Skin edges are coapted without any signs of dehiscence to the medial aspect. Packing p ulled from the lateral aspect of the surgical wound at this time no remaining signs of clinical infection or necrosis are apparent. Surgical retention stitches at anterior aspect and lateral aspect of wound are intact without any evidence of dehiscence. Neurological: Protopathic pathway intact. Epicritic sensation is severely diminished. Dermatological. Packing pulled from lateral aspect of surgical wound at this time indicating no remaining signs of clinical infection or necrosis are apparent. Surgical retention stitches are at the anterior and lateral aspect of the wound are intact without any evidence of dehiscence. Skin edges are blanchable under minimal tension. 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 Radiographs reviewed and discussed with nursing staff. To the right lower extremity the radiologist read of soft tissue emphysema more likely consistent with packing of wound as well as correlation with open amputation more so than a gas infection. To the left agree with radiologist read soft tissue packing is present within the wound mimicking the appearance of soft tissue emphysema in this area. Packing was pulled at this time and no residual i local indications of infection are present at this time. Dressings changed to the bilateral lower extremity physical exam demonstrating some residual necrosis to the left lower extremity however no indications of infection to the left lower extremity. Packing has been discontinued at this time. To the right lower extremity wound appears significantly better and is under minimal tension to decrease chances of possible surgical dehiscence and is clear of any infection on inspection at this time. Packing was discontinued at this time. Antibiotics being managed by Dr. Paz/ Dr. Gomez appreciate recommendations. Pain control as prescribed. PT/OT consult If further surgical intervention is warranted other than infection control I would defer this treatment at this time as does the patient and his daughter. Prior to discharge will plan for bedside debridement to left and application of wound vac as well as a delayed primary closure to the open wound on the right. Without patient proceeding with dialysis limb salvage efforts are doomed to be unsuccessful. Patient understands this as does his daughter who is power of deputy commonwealth's attorney. Only interventions at this time will be preventative measures of recurrent infection. Following with you
[2021-03-15] MEDS: ZOCOR 20MG PO SCH (22:01)
[2021-03-15] MEDS: Flomax 0.4 MG PO SCH (22:01)
[2021-03-15] MEDS: Lantus Insulin SQ SCH (22:01)
[2021-03-15] MEDS: ZOLOFT 50 MG TABLET PO SCH (22:01)
[2021-03-15] MEDS: Aricept 10 MG PO SCH (22:01)
[2021-03-16] MEDS: CLINDAMYCIN-D5W 600 MG/50 ML*** 600 MG/50 ML BAG IV SCH ×3 (02:20→17:22)
[2021-03-16] MEDS: MORPHINE SULFATE 4 MG INJ IV PRN ×2 (02:30→09:43)
[2021-03-16] MEDS: Zosyn 2.25 GM 2.25 GM in Sodium Chloride 100ML MINI-BAG PLUS 100 ML IV SCH (05:56)
[2021-03-16 06:02] LABS: Hematocrit 25.7 % (42-50); Hemoglobin 8.3 gm/dl (12.5-18.0); Mean Cell Volume 95.9 fl (78-100); Mean Corpuscular Hgb Concent. 32.3 g/dl (32-36); Mean Platelet Volume 8.7 fl (7.5-11.0); Platelet Count 312 K/mm3 (150-450); Red Blood Count 2.68 M/mm3 (4.1-5.6); Red Cell Distribution Width 15.9 % (11.5-14.0); White Blood Count 11.1 K/mm3 (4.0-10.5)
[2021-03-16 06:31] LABS: ANION GAP 18.6 MEQ/L (5-15); Calcium 9.6 mg/dL (8.4-10.2); Creatinine 1 4.92 mg/dL (0.66-1.25); EST GLOMERULAR FILTRATION RATE 12.2 ML/MIN; Potassium 4.5 mmol/L (3.5-5.1)
[2021-03-16] MEDS: ECOTRIN 81 MG PO SCH (08:05)
[2021-03-16] MEDS: THERAGRAN MULTIVITAMIN PO SCH (08:05)
[2021-03-16] MEDS: NEURONTIN 300 MG PO SCH ×2 (08:06→21:27)
[2021-03-16] MEDS: Lasix 40 MG PO SCH (08:06)
[2021-03-16] MEDS: Namenda 5 MG PO SCH ×2 (08:06→21:27)
[2021-03-16] MEDS: COREG 12.5 MG PO SCH ×2 (08:06→21:27)
[2021-03-16] MEDS: SODIUM BICARBONATE PO SCH ×2 (08:06→17:01)
[2021-03-16] MEDS: Prozac 20 MG PO SCH (08:06)
[2021-03-16] MEDS: FEOSOL 325 MG PO SCH (08:06)
[2021-03-16] MEDS: SYNTHROID 25 MCG PO SCH (08:06)
--- NOTE | 2021-03-16 10:53 | PCM.NOTE ---
Date and Time: 03/16/21 1051 Subjective Assessment: patient having pain, morphine helps but not holding long. wound vac to be placed by podiatry today according to nursing. Objective Exam General Appearance: no apparent distress Neurologic Exam: alert, cooperative Wound Assessment: Skin/Wound Assessment Wound/Incision Assessment Start: 03/11/21 20:00 Text: Status: Active Freq: Q6H Protocol: Document 03/16/21 08:00 RN (Rec: 03/16/21 08:11 RN [id number]) Wound/Incision Assessment Right Foot Wound Assessment Shift Assessment Wound Type Amputation Dressing Status Dry & Intact Drainage Amount None Drainage Odor None/Absent Secondary Dressing Gauze Roll/Wrap Comment dressing CDI was applied by Dr Nikolai Sauceda-not removed by this nurse Left Foot Wound Assessment Shift Assessment Wound Type Amputation Dressing Status Dry & Intact Drainage Amount None Secondary Dressing Gauze Roll/Wrap Comment dressing CDI was applied by Dr Nikolai Sauceda-not removed by this nurse Respiratory Exam: normal breath sounds, lungs clear, No respiratory distress Cardiovascular Exam: regular rate/rhythm, normal heart sounds Gastrointestinal/Abdomen Exam: soft, No tenderness, No mass Extremity Exam: other (dressing to heavenly feet, no streaking) OBJECTIVE DATA Vital Signs: Vital Signs - 24 hr Temp Pulse Resp BP Pulse Ox 03/16/21 09:00 97.7 F 79 22 117/58 96 03/16/21 04:15 98.4 F 65 16 125/57 95 03/16/21 00:26 97.0 F 63 16 141/59 98 03/15/21 20:18 96.8 F 61 16 135/60 97 03/15/21 19:45 96 03/15/21 17:00 99.1 F 72 16 137/65 100 03/15/21 13:00 99.1 F 65 12 137/62 96 Pain Assessment - Last Documented Pain Intensity 5 Pain Scale Used 0-10 Pain Scale Intake and Output: Intake & Output 03/13/21 03/14/21 03/15/21 03/16/21 11:59 11:59 11:59 11:59 Intake Total 2223 2053 2512 2497 Output Total 1150 1500 3100 3895 Balance 1073 553 -588 -8468 Weight 89.6 kg Lab Results: Lab Results-Last 24 Hours 03/15/21 03/15/21 03/15/21 Range/Units 11:15 16:20 20:05 WBC (4.0-10.5) K/mm3 RBC (4.1-5.6) M/mm3 Hgb (12.5-18.0) gm/dl Hct (42-50) % MCV (78-100) fl MCH (26-32) pg MCHC (32-36) g/dl RDW (11.5-14.0) % Plt Count (150-450) K/mm3 MPV (7.5-11.0) fl Sodium (137-145) mmol/L Potassium (3.5-5.1) mmol/L Chloride (98-107) mmol/L Carbon Dioxide (22-30) mmol/L Anion Gap (5-15) MEQ/L BUN (9-20) mg/dL Creatinine (0.66-1.25) mg/dL Estimated GFR ML/MIN Glucose (74-106) mg/dL POC Glucometer 167 H 205 H 154 H (74 to 106) mg/dL Calcium (8.4-10.2) mg/dL 03/16/21 03/16/21 03/16/21 Range/Units 05:15 05:15 06:54 WBC 11.1 H (4.0-10.5) K/mm3 RBC 2.68 L (4.1-5.6) M/mm3 Hgb 8.3 L (12.5-18.0) gm/dl Hct 25.7 L (42-50) % MCV 95.9 (78-100) fl MCH 31.0 (26-32) pg MCHC 32.3 (32-36) g/dl RDW 15.9 H (11.5-14.0) % Plt Count 312 (150-450) K/mm3 MPV 8.7 (7.5-11.0) fl Sodium 143 (137-145) mmol/L Potassium 4.5 (3.5-5.1) mmol/L Chloride 114 H (98-107) mmol/L Carbon Dioxide 14 L* (22-30) mmol/L Anion Gap 18.6 H (5-15) MEQ/L BUN 75 H (9-20) mg/dL Creatinine 4.92 H (0.66-1.25) mg/dL Estimated GFR 12.2 ML/MIN Glucose 107 H (74-106) mg/dL POC Glucometer 97 (74 to 106) mg/dL Calcium 9.6 (8.4-10.2) mg/dL Multi-Disciplinary Progress Notes: Multi-Disciplinary Progress Notes 03/15/21 11:00 (created 03/15/21 15:38) Case Management Note by Estrella Yarbrough PT/FAMILY PLAN FOR PT TO RETURN TO [facility] ON DISCHARGE. DENY ADDNL NEEDS AT THIS TIME. WILL CONTINUE TO FOLLOW. Initialized on 03/15/21 15:38 - END OF NOTE Assessment/Plan (1) Osteomyelitis of left foot Current Visit: Yes Status: Acute Qualifiers: Osteomyelitis type: unspecified type Qualified Code(s): M86.9 - Osteomyelitis, unspecified Assessment & Plan: culture shows staph aureus resistant to oxacillin, spoke with pharmacy. need to restart vanc, also heavy growth of skin bob so will keep clindamycin as well based on diabetes and likelihood of other orgranisms present Code(s): M86.9 - OSTEOMYELITIS, UNSPECIFIED (2) Chronic renal failure Current Visit: No Status: Chronic Qualifiers: Assessment & Plan: improved since admission, need to keep moreno (3) DM2 (diabetes mellitus, type 2) Current Visit: No Status: Chronic
[2021-03-16] MEDS ORDERED: VANCOCIN 1 GM VIAL*** 1 GM in Sodium Chloride 0.9% 250 ML 250 ML IV SCH (11:00)
[2021-03-16] MEDS: VANCOMYCIN 1 GRAM/200 ML BAG 1 GM/200 ML PIGGYBACK IV SCH (11:44)
[2021-03-16] MEDS ORDERED: SODIUM BICARBONATE PO SCH (15:00)
[2021-03-16] MEDS: VELTASSA PO SCH (15:19)
[2021-03-16] MEDS: HYDROCODONE-ACETAMIN 10-325 MG PO PRN (21:27)
[2021-03-16] MEDS: ZOCOR 20MG PO SCH (21:27)
[2021-03-16] MEDS: Aricept 10 MG PO SCH (21:27)
[2021-03-16] MEDS: Flomax 0.4 MG PO SCH (21:27)
[2021-03-16] MEDS: ZOLOFT 50 MG TABLET PO SCH (21:27)
[2021-03-16] MEDS: Sodium Chloride 0.9% 1000 ML 1,000 ML IV SCH (21:28)
[2021-03-16] MEDS: Lantus Insulin SQ SCH (21:28)
[2021-03-17] MEDS: CLINDAMYCIN-D5W 600 MG/50 ML*** 600 MG/50 ML BAG IV SCH ×3 (02:02→17:28)
[2021-03-17] MEDS: MORPHINE SULFATE 4 MG INJ IV PRN ×3 (05:03→10:48)
[2021-03-17 05:40] LABS: Hematocrit 28.1 % (42-50); Hemoglobin 9.1 gm/dl (12.5-18.0); Mean Cell Volume 96.9 fl (78-100); Mean Corpuscular Hemoglobin 31.4 pg (26-32); Mean Corpuscular Hgb Concent. 32.4 g/dl (32-36); Mean Platelet Volume 8.8 fl (7.5-11.0); Platelet Count 341 K/mm3 (150-450); Red Cell Distribution Width 15.9 % (11.5-14.0); White Blood Count 10.8 K/mm3 (4.0-10.5)
[2021-03-17 06:11] LABS: ANION GAP 16.6 MEQ/L (5-15); Calcium 9.6 mg/dL (8.4-10.2); Creatinine 1 4.74 mg/dL (0.66-1.25); EST GLOMERULAR FILTRATION RATE 12.8 ML/MIN; Potassium 4.3 mmol/L (3.5-5.1)
[2021-03-17] MEDS: Sodium Chloride 0.9% 1000 ML 1,000 ML IV SCH (06:20)
[2021-03-17] MEDS: SODIUM BICARBONATE PO SCH ×3 (08:28→17:28)
[2021-03-17] MEDS: HYDROCODONE-ACETAMIN 10-325 MG PO PRN (08:30)
--- NOTE | 2021-03-17 09:12 | PCM.NOTE ---
Date and Time: 03/17/21909 Subjective Assessment: patient reports he has burning and stinging in his feet, pain is better controlled on po meds. he is eating and drinking some Objective Exam General Appearance: no apparent distress, alert Neurologic Exam: alert, oriented x 3 Wound Assessment: Skin/Wound Assessment Wound/Incision Assessment Start: 03/11/21 20:00 Text: Status: Active Freq: Q6H Protocol: Document 03/17/21 07:53 JOSEPHERUM (Rec: 03/17/21 08:00 RIN [id number]) Wound/Incision Assessment Right Foot Wound Assessment Shift Assessment Wound Type Amputation Dressing Status Dry & Intact Drainage Amount None Drainage Odor None/Absent Secondary Dressing Gauze Roll/Wrap Left Foot Wound Assessment Shift Assessment Wound Type Amputation Dressing Status Dry & Intact Drainage Amount None Secondary Dressing Gauze Roll/Wrap Respiratory Exam: normal breath sounds, lungs clear, No respiratory distress Cardiovascular Exam: regular rate/rhythm, normal heart sounds Gastrointestinal/Abdomen Exam: soft, No tenderness, No mass Extremity Exam: other (dressing inact to heavenly feet, no streaking, no drainage) OBJECTIVE DATA Vital Signs: Vital Signs - 24 hr Temp Pulse Resp BP Pulse Ox 03/17/21 06:54 98.1 F 60 18 128/56 95 03/17/21 03:52 97.9 F 99 H 16 135/63 97 03/16/21 23:56 97.9 F 63 16 116/54 95 03/16/21 19:44 98.2 F 61 16 129/56 95 03/16/21 19:33 88 14 95 03/16/21 16:07 98.1 F 76 22 130/67 96 03/16/21 13:00 98.3 F 66 20 137/60 97 Pain Assessment - Last Documented Pain Intensity 9 Pain Scale Used 0-10 Pain Scale Intake and Output: Intake & Output 03/14/21 03/15/21 03/16/21 03/17/21 11:59 11:59 11:59 11:59 Intake Total 3043 7402 2497 2395 Output Total 3079 3440 7845 255 Balance 553 -588 -1398 -155 Weight 89.6 kg Lab Results: Lab Results-Last 24 Hours 03/16/21 03/16/21 03/16/21 Range/Units 11:49 15:52 20:37 WBC (4.0-10.5) K/mm3 RBC (4.1-5.6) M/mm3 Hgb (12.5-18.0) gm/dl Hct (42-50) % MCV (78-100) fl MCH (26-32) pg MCHC (32-36) g/dl RDW (11.5-14.0) % Plt Count (150-450) K/mm3 MPV (7.5-11.0) fl Sodium (137-145) mmol/L Potassium (3.5-5.1) mmol/L Chloride (98-107) mmol/L Carbon Dioxide (22-30) mmol/L Anion Gap (5-15) MEQ/L BUN (9-20) mg/dL Creatinine (0.66-1.25) mg/dL Estimated GFR ML/MIN Glucose (74-106) mg/dL POC Glucometer 127 H 103 132 H (74 to 106) mg/dL Calcium (8.4-10.2) mg/dL 03/17/21 03/17/21 03/17/21 Range/Units 04:46 04:46 06:59 WBC 10.8 H (4.0-10.5) K/mm3 RBC 2.90 L (4.1-5.6) M/mm3 Hgb 9.1 L (12.5-18.0) gm/dl Hct 28.1 L (42-50) % MCV 96.9 (78-100) fl MCH 31.4 (26-32) pg MCHC 32.4 (32-36) g/dl RDW 15.9 H (11.5-14.0) % Plt Count 341 (150-450) K/mm3 MPV 8.8 (7.5-11.0) fl Sodium 142 (137-145) mmol/L Potassium 4.3 (3.5-5.1) mmol/L Chloride 113 H (98-107) mmol/L Carbon Dioxide 17 L (22-30) mmol/L Anion Gap 16.6 H (5-15) MEQ/L BUN 73 H (9-20) mg/dL Creatinine 4.74 H (0.66-1.25) mg/dL Estimated GFR 12.8 ML/MIN Glucose 137 H (74-106) mg/dL POC Glucometer 146 H (74 to 106) mg/dL Calcium 9.6 (8.4-10.2) mg/dL Assessment/Plan (1) Osteomyelitis of left foot Current Visit: Yes Status: Acute Qualifiers: Osteomyelitis type: unspecified type Qualified Code(s): M86.9 - Osteomyelitis, unspecified Assessment & Plan: on vanc and clindamycin, doing well clinically. wounds from surgery managed by podiatry Code(s): M86.9 - OSTEOMYELITIS, UNSPECIFIED (2) Chronic renal failure Current Visit: No Status: Chronic Qualifiers: Assessment & Plan: continues to improve, bicarb dose was increased yesterday with improvement in co2. continue current fluids and moreno (3) DM2 (diabetes mellitus, type 2) Current Visit: No Status: Chronic
[2021-03-17] MEDS: Namenda 5 MG PO SCH ×2 (09:41→22:31)
[2021-03-17] MEDS: Lasix 40 MG PO SCH (09:42)
[2021-03-17] MEDS: FEOSOL 325 MG PO SCH (09:42)
[2021-03-17] MEDS: SYNTHROID 25 MCG PO SCH (09:42)
[2021-03-17] MEDS: COREG 12.5 MG PO SCH ×2 (09:42→22:30)
[2021-03-17] MEDS: THERAGRAN MULTIVITAMIN PO SCH (09:42)
[2021-03-17] MEDS: ECOTRIN 81 MG PO SCH (09:42)
[2021-03-17] MEDS: NEURONTIN 300 MG PO SCH ×3 (09:42→22:30)
[2021-03-17] MEDS: PLAVIX 75 MG Tablet PO SCH (09:44)
[2021-03-17] MEDS: VELTASSA PO SCH (15:54)
--- NOTE | 2021-03-17 16:22 | PCM.NOTE ---
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 3 diabetic foot infection right foot with recurrence 4 uncontrolled diabetes type 2 5 chronic renal failure 6 peripheral vascular disease Post-operative diagnosis: 1 osteomyelitis left foot 2 gas gangrene left foot 3 diabetic foot infection right foot with recurrence 4 uncontrolled diabetes type 2 5 chronic renal failure 6 peripheral vascular disease Procedure: Left foot first ray disarticulation incision drainage and bone debridement, irrigation and application of wound VAC Right foot incision drainage and delayed primary closure Anesthesia: [Local] Hemostasis: [Pressure dressing] Findings:[Skin coapt to the right foot without any indications of residual infection. Wound VAC applied to the left lower extremity with no obvious clinical signs of infection status post procedure.] Estimated Blood Loss: [30 cc] Materials: [Medela wound VAC] Injectibles: [10]ccs 1% lidocaine plain + [10] ccs 0.5 % marcaine plain. Total [20]ccs Complications:[None] Condition:[Stable] Procedure Details:[] 10 cc of a one-to-one mixture of 1% lidocaine plain and 0.5% Marcaine plain was injected into the right ankle and an ankle block type fashion. Following this a 10 cc injection consisting of a one-to-one mixture of 1% lidocaine plain and 0.5% Marcaine plain was injected in a Trejo block type fashion to the left lower extremity.The foot was then prepped and draped in the usual sterile manner Using iodine scrub and paint and lowered onto the surgical field. The left foot where the articulation of the first ray to the medial cuneiform was identified the bone was necrotic and nonvital at this time a 10 blade was utilized to disarticulate the first ray from the site following this a 10 blade was utilized to incise the edge of the wound where the necrotic tissue was removed in toto revealing a relatively healthy bleeding base. Any residual signs of infection at this time were completely cleared and copious amounts of sterile saline was utilized to flush the site at this time Betadine was applied to the surgical site Adaptic was placed within the surgical wound and a wound VAC was applied until 175 mmHg was achieved with minimal leaks. Following this a dry compression dressing was applied to the extremity. Following this attention was directed to the right foot where the lateral open aspect of the wound was debrided of any remaining necrotic or devitalized tissue and cleansed with copious amounts of sterile saline following this the retention sutures were removed and replaced with simple interrupted sutures ensuring that the subcutaneous and skin edges were coapt under minimal tension. The right surgical extremity was then cleansed with sterile saline and Betadine paint was applied to the surgical wound of the right foot Adaptic Betadine 4 x 4 Curlex and Herman were applied with minimal compression to the surgical site. Patient handled the procedure without any complication and without any significant pain. Postoperative orders: Repeat CBC Pain control All other orders as previously indicated
[2021-03-17] MEDS: Lantus Insulin SQ SCH (22:29)
[2021-03-17] MEDS: Flomax 0.4 MG PO SCH (22:30)
[2021-03-17] MEDS: ZOLOFT 50 MG TABLET PO SCH (22:30)
[2021-03-17] MEDS: ZOCOR 20MG PO SCH (22:30)
[2021-03-17] MEDS: Aricept 10 MG PO SCH (22:31)
[2021-03-18] MEDS: CLINDAMYCIN-D5W 600 MG/50 ML*** 600 MG/50 ML BAG IV SCH ×3 (02:20→17:27)
[2021-03-18] MEDS: Sodium Chloride 0.9% 1000 ML 1,000 ML IV SCH ×2 (03:35→21:23)
[2021-03-18 05:44] LABS: Absolute Neutrophil Ct (ANC) 8.08 (1.4-6.9); BASOPHIL % 0.2 % (0.0-0.4); Basophil (Absolute #) 0.02 (0-0.4); Eosinophil % 3.4 % (0.00-5.0); Eosinophil (Absolute #) 0.37 (0-0.5); Hematocrit 28.2 % (42-50); Hemoglobin 8.8 gm/dl (12.5-18.0); Lymphocyte (Absolute #) 1.76 (1.0-4.6); Lymphocytes % 16.1 % (24.0-44.0); Mean Cell Volume 97.6 fl (78-100); Mean Corpuscular Hemoglobin 30.4 pg (26-32); Mean Corpuscular Hgb Concent. 31.2 g/dl (32-36); Mean Platelet Volume 8.7 fl (7.5-11.0); Monocyte (Absolute #) 0.68 (0.0-1.3); Monocytes % 6.2 % (0.0-12.0); Neutrophil % 74.1 % (36.0-66.0); Platelet Count 341 K/mm3 (150-450); Red Blood Count 2.89 M/mm3 (4.1-5.6); Red Cell Distribution Width 15.9 % (11.5-14.0); White Blood Count 10.9 K/mm3 (4.0-10.5)
[2021-03-18] MEDS: HYDROCODONE-ACETAMIN 10-325 MG PO PRN ×4 (05:51→21:29)
[2021-03-18] MEDS: SODIUM BICARBONATE PO SCH ×3 (08:13→17:26)
--- NOTE | 2021-03-18 08:17 | PCM.NOTE ---
Date and Time: 03/18/21814 Subjective Assessment: patient states he feels well today, has no specific complaints. pain is controlled, afebrile Objective Exam General Appearance: no apparent distress, alert Wound Assessment: Skin/Wound Assessment Wound/Incision Assessment Start: 03/11/21 20:00 Text: Status: Active Freq: Q6H Protocol: Document 03/18/21 02:00 LB (Rec: 03/18/21 02:38 LB [id number]) Wound/Incision Assessment Right Foot Wound Assessment Shift Assessment Wound Type Amputation Dressing Status Dry & Intact Drainage Amount None Secondary Dressing Elastic Bandage Comment dressing CDI Left Foot Wound Assessment Shift Assessment Wound Type Amputation Dressing Status Dry & Intact Drainage Amount None Primary Dressing wound vac Secondary Dressing Elastic Bandage Comment dressing CDI Wound Photo Photo Taken No Respiratory Exam: normal breath sounds, lungs clear, No respiratory distress Cardiovascular Exam: regular rate/rhythm, normal heart sounds Gastrointestinal/Abdomen Exam: soft, No tenderness, No mass Extremity Exam: other (dressings intact to heavenly feet) OBJECTIVE DATA Vital Signs: Vital Signs - 24 hr Temp Pulse Resp BP Pulse Ox 03/18/21 07:26 98.5 F 63 18 140/63 96 03/18/21 04:00 98.2 F 63 18 117/54 96 03/17/21 23:42 97.9 F 63 16 138/58 95 03/17/21 19:37 97.9 F 63 18 116/55 95 03/17/21 16:00 97.2 F 62 16 150/66 96 03/17/21 12:00 97.5 F 60 10 L 122/56 96 Pain Assessment - Last Documented Pain Intensity 0 Pain Scale Used [facility] Intake and Output: Intake & Output 03/15/21 03/16/21 03/17/21 03/18/21 11:59 11:59 11:59 11:59 Intake Total 2512 2497 2395 840 Output Total 3100 3895 2550 2350 Balance -588 -1398 -155 -1510 Weight 89.6 kg Lab Results: Lab Results-Last 24 Hours 03/12/21 03/17/21 03/17/21 Range/Units 10:26 11:56 16:45 WBC (4.0-10.5) K/mm3 RBC (4.1-5.6) M/mm3 Hgb (12.5-18.0) gm/dl Hct (42-50) % MCV (78-100) fl MCH (26-32) pg MCHC (32-36) g/dl RDW (11.5-14.0) % Plt Count (150-450) K/mm3 MPV (7.5-11.0) fl Gran % (36.0-66.0) % Eos # (Auto) (0-0.5) Absolute Lymphs (auto) (1.0-4.6) Absolute Monos (auto) (0.0-1.3) Lymphocytes % (24.0-44.0) % Monocytes % (0.0-12.0) % Eosinophils % (0.00-5.0) % Basophils % (0.0-0.4) % Absolute Granulocytes (1.4-6.9) Basophils # (0-0.4) POC Glucometer 164 H 113 H (74 to 106) mg/dL Surg PTH Diagnosis See Note H 03/17/21 03/18/21 03/18/21 Range/Units 20:44 05:07 07:09 WBC 10.9 H (4.0-10.5) K/mm3 RBC 2.89 L (4.1-5.6) M/mm3 Hgb 8.8 L (12.5-18.0) gm/dl Hct 28.2 L (42-50) % MCV 97.6 (78-100) fl MCH 30.4 (26-32) pg MCHC 31.2 L (32-36) g/dl RDW 15.9 H (11.5-14.0) % Plt Count 341 (150-450) K/mm3 MPV 8.7 (7.5-11.0) fl Gran % 74.1 H (36.0-66.0) % Eos # (Auto) 0.37 (0-0.5) Absolute Lymphs (auto) 1.76 (1.0-4.6) Absolute Monos (auto) 0.68 (0.0-1.3) Lymphocytes % 16.1 L (24.0-44.0) % Monocytes % 6.2 (0.0-12.0) % Eosinophils % 3.4 (0.00-5.0) % Basophils % 0.2 (0.0-0.4) % Absolute Granulocytes 8.08 H (1.4-6.9) Basophils # 0.02 (0-0.4) POC Glucometer 131 H 134 H (74 to 106) mg/dL Surg PTH Diagnosis Radiology Exams: Radiology Procedures Category Date Time Status FOOT (MINIMUM 3 VIEWS) Routine Exams 03/18/21 Ordered FOOT (MINIMUM 3 VIEWS) Routine Exams 03/18/21 Ordered Multi-Disciplinary Progress Notes: Multi-Disciplinary Progress Notes 03/17/21 20:06 Respiratory Note by Faith Cantu Patient refused Incentive Spirometer exercise Initialized on 03/17/21 20:06 - END OF NOTE Assessment/Plan (1) Osteomyelitis of left foot Current Visit: Yes Status: Acute Qualifiers: Osteomyelitis type: unspecified type Qualified Code(s): M86.9 - Osteomyelitis, unspecified Assessment & Plan: doing well on vanc/cleocin Code(s): M86.9 - OSTEOMYELITIS, UNSPECIFIED (2) Diabetic ulcer of right foot Current Visit: Yes Status: Acute Code(s): E11.621 - TYPE 2 DIABETES MELLITUS WITH FOOT ULCER; L97.519 - NON-PRS CHRONIC ULCER OTH PRT RIGHT FOOT W UNSP SEVERITY (3) Chronic renal failure Current Visit: No Status: Chronic Qualifiers: Assessment & Plan: improving, today's chemistry appears delayed (4) DM2 (diabetes mellitus, type 2) Current Visit: No Status: Chronic
[2021-03-18 08:21] LABS: ANION GAP 16.7 MEQ/L (5-15); BILIRUBIN,TOTAL 0.2 mg/dL (0.2-1.3); Creatinine 1 4.48 mg/dL (0.66-1.25); EST GLOMERULAR FILTRATION RATE 13.6 ML/MIN; MAGNESIUM 1.9 mg/dL (1.6-2.3); Potassium 4.7 mmol/L (3.5-5.1); Total Protein 6.5 g/dL (6.3-8.2)
--- NOTE | 2021-03-18 08:57 | XRAY ---
Indication: Pain. Postop. Comparison: March 13, 2021. 3 nonweightbearing view right foot again demonstrates amputation all mid to distal metatarsals/toes with markedly diminished subcutaneous air. Tiny residual air anterolaterally. Stable osteopenia, heel spurs, and a few scattered vascular calcifications.
--- NOTE | 2021-03-18 09:01 | XRAY ---
Indication: Pain. Postop. Comparison: March 13, 2021. 3 nonweightbearing views left foot demonstrates interval complete 1st metatarsal amputation with overlying bandage material and new overlying tubing. No abnormal subcutaneous air. Stable osteopenia, heel spurs, and diffuse scattered vascular calcifications.
[2021-03-18] MEDS: Lasix 40 MG PO SCH (09:24)
[2021-03-18] MEDS: THERAGRAN MULTIVITAMIN PO SCH (09:24)
[2021-03-18] MEDS: Namenda 5 MG PO SCH ×2 (09:24→21:19)
[2021-03-18] MEDS: NEURONTIN 300 MG PO SCH ×3 (09:24→21:17)
[2021-03-18] MEDS: FEOSOL 325 MG PO SCH (09:24)
[2021-03-18] MEDS: COREG 12.5 MG PO SCH ×2 (09:24→21:19)
[2021-03-18] MEDS: ECOTRIN 81 MG PO SCH (09:24)
[2021-03-18] MEDS: SYNTHROID 25 MCG PO SCH (09:24)
[2021-03-18] MEDS: MORPHINE SULFATE 4 MG INJ IV PRN ×3 (09:32→19:52)
[2021-03-18] MEDS ORDERED: DULCOLAX 5 MG PO PRN (10:54)
[2021-03-18] MEDS ORDERED: TROUGH DRUG LEVELS IJ ONE (11:30)
[2021-03-18] MEDS: VANCOMYCIN 1 GRAM/200 ML BAG 1 GM/200 ML PIGGYBACK IV SCH (12:53)
[2021-03-18] MEDS: VELTASSA PO SCH (14:14)
[2021-03-18] MEDS: Lantus Insulin SQ SCH (21:17)
[2021-03-18] MEDS: ZOLOFT 50 MG TABLET PO SCH (21:17)
[2021-03-18] MEDS: ZOCOR 20MG PO SCH (21:18)
[2021-03-18] MEDS: Aricept 10 MG PO SCH (21:18)
[2021-03-18] MEDS: Flomax 0.4 MG PO SCH (21:19)
[2021-03-18] MEDS: NYSTOP POWDER 15 GM TP SCH (21:49)
[2021-03-19] MEDS: CLINDAMYCIN-D5W 600 MG/50 ML*** 600 MG/50 ML BAG IV SCH ×2 (01:18→10:23)
[2021-03-19] MEDS: MORPHINE SULFATE 4 MG INJ IV PRN ×2 (01:19→10:16)
[2021-03-19] MEDS: HYDROCODONE-ACETAMIN 10-325 MG PO PRN ×2 (07:40→11:41)
[2021-03-19] MEDS: SODIUM BICARBONATE PO SCH ×2 (07:41→12:41)
[2021-03-19 07:54] LABS: INR 1.47 (0.8-3.0); PROTIME 16.7 SECONDS (8.83-12.87)
[2021-03-19 07:57] LABS: PTT 30.3 SECONDS (24.1-36.1)
[2021-03-19 08:52] VITALS: O2SAT 94
--- NOTE | 2021-03-19 09:01 | PCM.DS ---
Discharge Summary Date of Admission: 03/11/21 19:01 Admitting Physician: WILMAR PONCE Primary Care Provider: YOHAN Allergies Allergies No Known Allergies Allergy (Verified 03/11/21 11:23) Hospital Summary - Hospital Course Hospital Course: patient was admitted with recurrent heavenly feet diabet foot ulcers, has had multiple interventions, Dr Sauceda debrided wounds, will continue IV vanc based on left foot bone involvement prior to dysarticulation. he is improving with renal function improved with moreno in place. plan to discharge on IV vanc x 4 weeks with moreno to stay in place - Vitals & Intake/Output Vital Signs: Vital Signs Temperature 98.2 F 03/19/21 08:00 Pulse Rate 66 03/19/21 08:00 Respiratory Rate 12 03/19/21 08:00 Blood Pressure 133/58 03/19/21 08:00 O2 Sat by Pulse Oximetry 94 L 03/19/21 08:00 Intake & Output: Intake & Output 03/16/21 03/17/21 03/18/21 03/19/21 11:59 11:59 11:59 11:59 Intake Total 2497 2395 840 2827 Output Total 3895 2550 2350 1850 Balance -1398 -155 -1510 977 Weight 89.6 kg - Lab Result Diagrams: 03/18/21 05:07 03/18/21 05:07 Lab Results-Last 24 Hrs: Lab Results-Last 24 Hours 03/18/21 03/18/21 03/18/21 Range/Units 11:30 11:40 16:42 PT (8.83-12.87) SECONDS INR (0.8-3.0) APTT (24.1-36.1) SECONDS POC Glucometer 195 H 156 H (74 to 106) mg/dL Vancomycin Trough 16.06 (10-20) ug/mL 03/18/21 03/19/21 03/19/21 Range/Units 20:52 07:07 07:40 PT 16.7 H (8.83-12.87) SECONDS INR 1.47 (0.8-3.0) APTT 30.3 (24.1-36.1) SECONDS POC Glucometer 152 H 111 H (74 to 106) mg/dL Vancomycin Trough (10-20) ug/mL Micro Results-Entire Visit: Microbiology 03/12/21 10:37 Aerobic Culture - Final Foot - Right Aerobic Culture Result 1 - Final Aerobic Culture Result 2 - Final Aerobic Bacterial Sensitivity - Final Anaerobic Culture - Final Anaerobic Culture - Final 03/12/21 10:50 Aerobic Culture - Final Bone - Right Aerobic Culture Result 1 - Final Anaerobic Culture - Final Anaerobic Culture - Final Accuchecks Date 03/19/21 Date 03/18/21 Date 03/18/21 Date 03/18/21 Time 07:10 Time 20:53 - Radiology Exams Ordered Rad Exams-Entire Visit: Radiology Procedures Category Date Time Status FOOT (MINIMUM 3 VIEWS) Routine Exams 03/18/21 08:15 Completed FOOT (MINIMUM 3 VIEWS) Routine Exams 03/18/21 08:15 Completed GUIDE FOR VASCULAR ACCESS [US] Routine Exams 03/19/21 Ordered PICC LINE PLACEMENT Routine Exams 03/19/21 Ordered - Procedures and Test Procedures and Tests throughout Hospitalization: Therapy Orders & Screens 03/11/21 18:06 OT Screen per Nursing Assess ONCE Comment: Protocol Order Physician Instructions: Greater than 3 points order OT Admission Screening Reason For Exam: Triggered on Admission Diagnosis: Cellulitis Open Wound/Cellutlitis/Pressure Ulcers: Yes Acute Fx/ORIF/Change in wt bearing status: No Severe MUSCULOSKELETAL pain: Yes ADL Dysfunction: Yes Acute CVA w/Hemiparesis/Hemiplegia: No Decreased Functional Mobility/Strength: Yes Sprain/Strain: No Acute Post-op Mobility Dysfunction: Yes Total Points: 17 PT Screen per Nursing Assess ONCE Comment: Protocol Order Physician Instructions: Greater than 3 points order PT Admission Screenin Reason For Exam: Triggered on Admission Diagnosis: Cellulitis Open Wound/Cellutlitis/Pressure Ulcers: Yes Acute Fx/ORIF/Change in wt bearing status: No Severe MUSCULOSKELETAL pain: Yes ADL Dysfunction: Yes Acute CVA w/Hemiparesis/Hemiplegia: No Decreased Functional Mobility/Strength: Yes Sprain/Strain: No Acute Post-op Mobility Dysfunction: Yes Total Points: 17 03/13/21 11:07 Incentive Spirometry TID Comment: Diagnosis: OSTEOMYELITIS OF LEFT FOOT 03/13/21 12:40 Respiratory Therapy Assessment DAILY Comment: Diagnosis: OSTEOMYELITIS OF LEFT FOOT Discharge Exam General Appearance: no apparent distress, alert Respiratory Exam: normal breath sounds, lungs clear, No respiratory distress Cardiovascular Exam: regular rate/rhythm, normal heart sounds Gastrointestinal/Abdomen Exam: soft, No tenderness, No mass Extremity Exam: other (dressing to heavenly feet intact) Wound Assessment: Skin/Wound Assessment Wound/Incision Assessment Start: 03/11/21 20:00 Text: Status: Active Freq: Q6H Protocol: Document 03/19/21 07:46 DS (Rec: 03/19/21 08:03 DS [id number]) Wound/Incision Assessment Sacrum Wound Assessment Shift Assessment Wound Type Pressure Ulcer Wound Stage Stage II Drainage Amount None General Appearance Open to air,Clean/Dry Comment , barrier cream applied and patient turned q2h Right Foot Wound Assessment Shift Assessment Wound Type Amputation Dressing Status Dry & Intact Drainage Amount None Secondary Dressing Elastic Bandage Comment SLIGHT SEROSANGUINEOUS dressing ONTO BED SHEET, ACCORD TO DAYSHIFT. REINFORCED Left Foot Wound Assessment Shift Assessment Wound Type Amputation Dressing Status Dry & Intact Drainage Amount None Primary Dressing wound vac Secondary Dressing Elastic Bandage Comment dressing CDI, WOUND VAC. Wound Photo Photo Taken No Final Diagnosis/Problem List - Final Discharge Diagnosis/Problem (1) Osteomyelitis of left foot Current Visit: Yes Status: Acute Assessment & Plan: continue vanc x 4 weeks with PICC line Code(s): M86.9 - OSTEOMYELITIS, UNSPECIFIED (2) Diabetic ulcer of right foot Current Visit: Yes Status: Acute Code(s): E11.621 - TYPE 2 DIABETES MELLITUS WITH FOOT ULCER; L97.519 - NON-PRS CHRONIC ULCER OTH PRT RIGHT FOOT W UNSP SEVERITY (3) Chronic renal failure Current Visit: No Status: Chronic Assessment & Plan: improving, keep moreno, likely a component of obstruction that was worsening his renal function (4) DM2 (diabetes mellitus, type 2) Current Visit: No Status: Chronic - Discharge Disposition: Skilled Care @ [facility] Condition: Stable Prescriptions: New Nystatin Powder 15 gm [Nystop Powder 15 gm] 1 gm TP BID #1 powder Vancomycin/Water For Inj (Peg) [Vancomycin 1 Gram/200 ml Bag] 1 gm IV Q48H #14 piggyback Continue Levothyroxine Sodium 50 Mcg [Synthroid 50 Mcg] 25 mcg PO DAILY Tamsulosin HCl 0.4 mg [Flomax 0.4 MG] 0.4 mg PO HS Clopidogrel Bisulfate [Plavix] 75 mg PO UD Donepezil HCl [Aricept] 10 mg PO HS Memantine HCl [Namenda] 10 mg PO BID Fluoxetine HCl [Prozac] 20 mg PO DAILY Gabapentin [Neurontin] 300 mg PO BID Ferrous Sulfate [Iron] 325 mg PO DAILY Atorvastatin Calcium 20 mg PO HS Sodium Bicarbonate 650 mg PO BID Carvedilol 12.5 mg [Coreg 12.5 mg] 12.5 mg PO BID Insulin Lispro [Humalog] 0 unit SQ TID PRN PRN Reason: elevated blood sugar Vitamin B Complex 1 each PO DAILY Furosemide 40 mg [Lasix 40 MG] 40 mg PO DAILY Patiromer Calcium Sorbitex [Veltassa] 8.4 mg PO DAILY Aspirin EC 81 mg [Ecotrin 81 mg] 81 mg PO DAILY Enoxaparin Sodium [Lovenox] 40 mg SQ DAILY Insulin Glargine [Lantus Insulin] 25 unit SQ HS Patient Own Med [Patient Own Medication] 30 ml PO TID Arginine/Ascorbate Sod/Troy AC [Arginaid Powder] 1 packet PO BID Multivit with Iron,Minerals [Unicomplex-M] 1 tab PO DAILY Acetaminophen 500 mg [Tylenol Extra Strength 500 mg] 500 mg PO Q4H PRN PRN PRN Reason: Pain Acetaminophen 325 mg [Tylenol 325 mg] 650 mg PO Q4H PRN PRN PRN Reason: pain or temp >100 Hydrocodone Bit/Acetaminophen [Hydrocodon-Acetaminophn 10-325] 1 tablet PO Q4H PRN PRN PRN Reason: Pain Magnesium Hydroxide 30 ml [Milk of Magnesia 30 ml] 30 ml PO DAILY PRN PRN PRN Reason: Constipation Evolocumab [Repatha Sureclick] 140 mg SQ UD Insulin Lispro [Humalog] 8 units SQ ACHS Hydrocodone/Acetaminophen [Hydrocodone-Acetamin 5-325 mg] 1 tab PO Q4H PRN PRN PRN Reason: Pain PANTOPRAZOLE 40 mg Tablet [Protonix 40MG Tablet] 40 mg PO DAILY #90 tab Sertraline HCl 50 mg [Zoloft 50 mg Tablet] 50 mg PO QHS Omeprazole 40 mg PO DAILY Discontinued Cephalexin Monohydrate [Keflex] 1 cap PO Q6H Additional Instructions: wound care orders and f/u per Dr Sauceda podiatry continue IV vanc, pharmacy to dose at [facility] x 4 weeks with PICC line, continue lovenox 40mg daily draw cbc, bmp every Monday and for the next 4 weeks Follow up with: SAMANTHA VARGHESE, JACE [ACTIVE STAFF] - WILMAR PONCE MD [ACTIVE STAFF] -
[2021-03-19] MEDS: SYNTHROID 25 MCG PO SCH (10:23)
[2021-03-19] MEDS: COREG 12.5 MG PO SCH (10:23)
[2021-03-19] MEDS: Namenda 5 MG PO SCH (10:23)
[2021-03-19] MEDS: Lasix 40 MG PO SCH (10:23)
[2021-03-19] MEDS: NEURONTIN 300 MG PO SCH (10:23)
[2021-03-19] MEDS: THERAGRAN MULTIVITAMIN PO SCH (10:24)
[2021-03-19] MEDS: NYSTOP POWDER 15 GM TP SCH (10:24)
[2021-03-19] MEDS: FEOSOL 325 MG PO SCH (10:24)
--- NOTE | 2021-03-19 10:31 | XRAY ---
Indication: Long-term IV access and therapy for right lower extremity infection. Informed consent obtained. Patient was placed on the fluoroscopic table in a supine position. Initial sonographic imaging of the right upper extremity was performed for localization of patent veins. The right upper extremity was then prepped and draped in sterile fashion. Tourniquet applied. 1% lidocaine plain used for local anesthesia. Using ultrasound guidance and a micropuncture needle, a basilic vein above the elbow was successfully percutaneously cannulized. A floppy tip 0.018 guidewire inserted. Tourniquet released. Needle was exchanged for a 5 Lebanese dilator peel-away sheath catheter. Ultimately a 5 Lebanese double-lumen PICC line was inserted over a longer 0.018 guidewire with the tip positioned in the distal SVC using fluoroscopic guidance. Guidewire removed. Both ports flushed with heparinized saline. Catheter was secured. Postoperative instructions and orders given. Patient discharged in good condition. Impression: Technically successful right upper extremity PICC line placement using ultrasound and fluoroscopic guidance. No immediate complications. Approximately 3 cc blood loss. Approximately 0.5 minute of fluoroscopy used. Catheter length is 38 cm.
[2021-03-19 13:27] VITALS: BP 109/58; PULSE 60
[2021-03-20] MEDS ORDERED: TROUGH DRUG LEVELS IJ ONE (11:30)
== END 2021-03-19 13:23 | DRG 463 ==
LOC: ED 11:05 → MED SURG 17:09 → OBSVTOIN 19:01
PROVIDERS: ADMIT Family Medicine; ATTEND Family Medicine
PROC: 02HV33Z Insertion of Infusion Device into Superior Vena Cava, Percutaneous Approach (ICD-10-PCS; principal; 2021-03-12)
PROC: 0JBQ0ZZ Excision of Right Foot Subcutaneous Tissue and Fascia, Open Approach (ICD-10-PCS; 2021-03-12)
PROC: 0Y6N0Z9 Detachment at Left Foot, Partial 1st Ray, Open Approach (ICD-10-PCS; 2021-03-17)
PROC: 0YQM0ZZ Repair Right Foot, Open Approach (ICD-10-PCS; 2021-03-17)
PROC: 0Q9R0ZZ Drainage of Left Toe Phalanx, Open Approach (ICD-10-PCS; 2021-03-17)
DX: M86.8X7 Other osteomyelitis, ankle and foot (principal); A48.0 Gas gangrene; I12.0 Hypertensive chronic kidney disease with stage 5 chronic kidney disease or end stage renal disease; N18.5 Chronic kidney disease, stage 5; E11.52 Type 2 diabetes mellitus with diabetic peripheral angiopathy with gangrene; G93.40 Encephalopathy, unspecified; E87.2 Acidosis; E11.621 Type 2 diabetes mellitus with foot ulcer; L97.519 Non-pressure chronic ulcer of other part of right foot with unspecified severity; E11.22 Type 2 diabetes mellitus with diabetic chronic kidney disease; R53.83 Other fatigue; E11.43 Type 2 diabetes mellitus with diabetic autonomic (poly)neuropathy; E11.65 Type 2 diabetes mellitus with hyperglycemia; D64.9 Anemia, unspecified; Z20.828 Contact with and (suspected) exposure to other viral communicable diseases; Z79.899 Other long term (current) drug therapy; Z79.01 Long term (current) use of anticoagulants; E78.00 Pure hypercholesterolemia, unspecified; Z86.73 Personal history of transient ischemic attack (TIA), and cerebral infarction without residual deficits; I73.9 Peripheral vascular disease, unspecified; D72.829 Elevated white blood cell count, unspecified
CPT/HCPCS: 0241U; 13160; 28003; 28005; 28800; 28810; 36000; 36415; 36430; 36573; 51702; 70450; 71045; 73630; 76937; 77001; 80048; 80053; 80202; 81001; 82565; 82947; 83036; 83605; 83735; 84134; 84145; 84484; 85014; 85018; 85025; 85027; 85610; 85652; 85730; 86140; 86850; 86900; 86901; 86922; 87070; 87075; 93005; 93041; 93268; 94760; 96365; 96368; 96372; 99285; P9016; C1769; J1642; J1817; J2001; J2250; J2270; J2543; J2704; J3010; A9270-GY; J3370